=== PATIENT | female | born 1960 | race Caucasian/White ===

== ENCOUNTER 2016-03-01 23:16 | Emergency (ER) | payer OTHER ==
[2014-10-16 14:32] VITALS: BMI 30.8
[~2016-03-01 23:16] MED LIST: CELEXA40 MG PO; COUMADIN10 MG PO; COUMADIN4 MG PO; GLUCOPHAGE1000 MG PO; LASIX80 MG PO; LEVEMIR100 U/M1; LEVEMIR100 U/M1 SC; LOVENOX INJ100 MG/ML SC; LOVENOX30 MG/0.3 SC; METOPROLOL TAR100 M1 PO; NOVOLIN R100 U/ML; NOVOLIN R100 U/ML SQ; PLAVIX75 MG PO; TYLENOL PM1 TAB PO; ZESTRIL20 MG PO
== END 2016-03-02 01:10 | disposition home or self-care (01) ==
LOC: D.ER 23:16
DX: T36.1X5A Adverse effect of cephalosporins and other beta-lactam antibiotics, initial encounter (principal); Y92.019 Unspecified place in single-family (private) house as the place of occurrence of the external cause; Z95.1 Presence of aortocoronary bypass graft; I50.9 Heart failure, unspecified; I82.401 Acute embolism and thrombosis of unspecified deep veins of right lower extremity; I10 Essential (primary) hypertension; E11.9 Type 2 diabetes mellitus without complications; Z79.4 Long term (current) use of insulin

== ENCOUNTER 2016-03-04 17:01 | Inpatient (IN) | payer OTHER ==
[~2016-03-04] VITALS: Ht 170.2 cm; Wt 93.3 kg
[2016-03-04 18:13] LABS: BASOPHILS 0.1 % (0.0-2.0); EOSINOPHILS 5.4 % (0-7); HEMATOCRIT 37.9 % (36.0-48.0); HEMOGLOBIN 12.7 g/dL (12-16); LYMPHOCYTES 22.2 % (15-50); MCH 29.9 pg (26.0-34.0); MCHC 33.5 g/dL (31.0-37.0); MCV 89.2 fL (80.0-100.0); MEAN PLATELET VOLUME 10.9 fL (7.4-10.4); MONOCYTES 8.4 % (2-11); NEUTROPHILS 62.9 % (40-80); PLATELET COUNT 301 10x3/uL (130-400); RBC 4.25 10x6/uL (4.00-5.40); RDW 13.4 % (11.5-14.5); WBC 9.7 10x3/uL (4.8-10.8)
[2016-03-04 18:22] LABS: KETONE - SERUM NEGATIVE (NEGATIVE)
[2016-03-04 18:24] LABS: INR 0.99 (0.85-1.17); PROTIME 12.9 SECONDS (11.6-15.0)
[2016-03-04 18:34] LABS: ALBUMIN 3.5 g/dL (3.4-5.0); ALKALINE PHOSPHATASE 117 U/L (46-116); ALT (SGPT) 15 U/L (10-68); BILIRUBIN - TOTAL 0.23 mg/dL (0.2-1.3); CALCIUM 9.9 mg/dL (8.5-10.1); CARBON DIOXIDE 25.7 mmol/L (21.0-32.0); CHLORIDE - SERUM 89 mmol/L (98-107); CREATININE - SERUM 2.4 mg/dL (0.6-1.3); POTASSIUM - SERUM 4.6 mmol/L (3.5-5.1); PROTEIN - SERUM 7.7 g/dL (6.4-8.2); SODIUM 129 mmol/L (136-145); TROPONIN-I 0.044 ng/mL (0.000-0.060); UREA NITROGEN 100 mg/dL (7-18); URIC ACID 6.5 mg/dL (2.6-7.2); eGFR NON AFRICAN AMERICAN 22 mL/min (90-120)
[2016-03-04 18:37] LABS: CALC OSMOLALITY 316 mosm/kg (275-300); GLUCOSE 576 mg/dL (74-106)
[2016-03-04 21:20] VITALS: BP 172/88
[2016-03-04 22:54] VITALS: BP 176/64; BMI 28.9
[2016-03-04] MEDS ORDERED: ZYLOPRIM300 MG PO (23:11)
[2016-03-04] MEDS ORDERED: LOPID600 MG PO (23:12)
[2016-03-04] MEDS ORDERED: LOSARTAN POTASS25 MG PO (23:13)
--- NOTE | 2016-03-04 23:21 | NUR ---
PT ARRIVED FROM ER VIA W/C AT 2020 HRS. PT DENIED AYN DISCOMFORT. IV TO LAC WITH NS AT 150CC/HR STARTED. FSBS 547. LAB CALLED FOR STAT GLUCOSE WITH 554 RESULTED. HUMALOG 20 UNITS GIVEN SUB-Q TO UPPER L ARM PER S/S. LEVEMIR 40 UNITS GIVEN SUB-Q TO UPPER R ARM. SR WITH PVC'S PER CM HR 62. ADMISSION ASSESSMENT, HISTORY AND HOME MED LIST COMPLETED BY 2330 HRS. WILL CONTINUE TO MONITOR. SR UP X2, CALL LIGHT WITHIN REACH.
[2016-03-05 00:30] VITALS: BP 174/50
--- NOTE | 2016-03-05 01:20 | NUR ---
PT AWAKE; DENIES ANY DISCOMFORT. STATES HAS HX OF PVC'S. WILL CONTINUE TO MONITOR.
--- NOTE | 2016-03-05 02:37 | NUR ---
PT AWAKE; HAS C/ SORE BACK. PILLOWS PROVIDED. WILL CONTINUE TO MONITOR.
[2016-03-05 04:30] VITALS: BP 164/58
--- NOTE | 2016-03-05 04:43 | NUR ---
PT HAS C/O LOWER BACK PAIN. Gifty LOWE RN HS INFORMED TO TALK TO ER MD. WILL CONTINUE TO MONITOR.
[2016-03-05 05:36] LABS: BASOPHILS 0.1 % (0.0-2.0); EOSINOPHILS 7.1 % (0-7); HEMOGLOBIN 11.9 g/dL (12-16); IMMATURE GRANULOCYTES 0.9 % (0-5); LYMPHOCYTES 37.9 % (15-50); MCH 29.2 pg (26.0-34.0); MCHC 33.1 g/dL (31.0-37.0); MCV 88.2 fL (80.0-100.0); MEAN PLATELET VOLUME 10.9 fL (7.4-10.4); MONOCYTES 10.3 % (2-11); NEUTROPHILS 43.7 % (40-80); PLATELET COUNT 283 10x3/uL (130-400); RBC 4.08 10x6/uL (4.00-5.40); RDW 13.5 % (11.5-14.5); WBC 9.1 10x3/uL (4.8-10.8)
[2016-03-05 06:23] LABS: CALCIUM 9.4 mg/dL (8.5-10.1); CARBON DIOXIDE 27.6 mmol/L (21.0-32.0); CHLORIDE - SERUM 99 mmol/L (98-107); CKMB 1.6 U/L (0.0-3.6); SODIUM 138 mmol/L (136-145); UREA NITROGEN 92 mg/dL (7-18); eGFR NON AFRICAN AMERICAN 27 mL/min (90-120)
[2016-03-05 06:24] LABS: CALC OSMOLALITY 310 mosm/kg (275-300); GLUCOSE 220 mg/dL (74-106); TROPONIN-I 0.075 ng/mL (0.000-0.060)
--- NOTE | 2016-03-05 06:43 | NUR ---
AM FSBS 226. 8 UNITS HUMALOG GIVEN PER S/S. PT STATED TYLENOL IS HELPING BACK PAIN. NEED MET; WILL CONTINUE TO MONITOR.
--- NOTE | 2016-03-05 07:47 | NUR ---
AM ROUNDING- PT SITTING UP IN BED WITH EYES OPEN RESTING. ON MONITOR SHOWING SR, HR 64 WITH PVC'S. FSBS ACHS, 226 THIS AM THAT WAS COVERED BY FAMILY CENTERED SPECIALIST NURSE, REGI. IV SEEN TO LEFT AC WITH NS RUNNING AT 150CC. ON ROOM AIR. PT IS ALERT AND ORIENTED, UP AD EMILY. PT IS C/O OF BACK PAIN, FAMILY CENTERED SPECIALIST NURSE REGI, REPORTED SHE GAVE PT TYLENOL. WILL CONTINUE TO MONITOR.
[2016-03-05 09:10] VITALS: BP 208/94
--- NOTE | 2016-03-05 10:15 | NUR ---
PAGEUrvashi GARNICA TO NOTIFY HER OF PTS B/P. AWAITING CALLBACK.
[2016-03-05 12:00] VITALS: BP 178/62
--- NOTE | 2016-03-05 12:30 | NUR ---
Patient Name: DILIP FAYE Admission Status: ER Accout number: [id number] Admission Date: 03-04-2016 : 1960 Admission Diagnosis: hyperglycemia Attending: GILBERTO Current LOS: 1 Anticipated DC Date: 03/07/16 Planned Disposition: Home with friends. Primary Insurance: [employer] PPO Discharge Planning Comments: Cm met with patient to complete initial discharge assessment. Patient gave consent to complete assessment. Patient lives at home with friends. She reports she is independent in her care at home. She has a glucometer and checks her sugar several times a day. She has been to [facility] walk in clinic a week ago and prescribed antibiotics and steroids. She broke out to the antibiotics and come to the ER. She was taken off the antibiotics and prescribed more steroids on Sunday. She presented to the ER 03/04/16 due to not being able to eat and feeling so bad. She is being admitted for hyperglycemia and dehydration. Patient plans to return home at discharge and does not feel she will have any discharge needs at discharge. Cm will continue to follow and assist with dc plans/needs. Log Getter: Bharti Coroan RN, CCM Is the patient Alert and Oriented? Yes * How many steps to enter\exit or inside your home? 4 * PCP Dr. Carvalho * Pharmacy [facility] on [address] * Preadmission Environment Home with Family * ADLs Independent * Equipment Glucometer * List name and contact numbers for known caregivers / representatives who currently or will assist patient after discharge: Nolvia Morales - eder - [phone] * Community resources currently utilized None * Additional services required to return to the preadmission environment? No * Can the patient safely return to the preadmission environment? Yes * Has this patient been hospitalized within the prior 30 days at any hospital? No
--- NOTE | 2016-03-05 15:04 | NUR ---
1450- PT TO RADIOLOGY VIA WHEELCHAIR.
--- NOTE | 2016-03-05 15:16 | NUR ---
SCDS PLACED ON PT ORDERED.
--- NOTE | 2016-03-05 15:26 | NUR ---
PAGED DR. WELCH TO INFORM HIM THAT PTS TROPONIN HAD "BUMPED" PER ORDERS FROM DANIKA MEHTA. AWAITING CALLBACK.
[2016-03-05 15:54] LABS: CKMB 1.3 U/L (0.0-3.6); CREATINE KINASE 50 UL (21-215)
[2016-03-05 15:57] LABS: TROPONIN-I 0.091 ng/mL (0.000-0.060)
--- NOTE | 2016-03-05 16:42 | NUR ---
PT BACK FROM RADIOLOGY VIA WHEELCHAIR.
--- NOTE | 2016-03-05 16:42 | NUR ---
1554- TO RADIOLOGY VIA WHEELCHAIR.
--- NOTE | 2016-03-05 17:06 | NUR ---
PAGED DR. WELCH TO INFORM HIM OF PTS TROPONIN LEVEL. AWAITING CALLBACK.
--- NOTE | 2016-03-05 17:49 | NUR ---
DID EKG ORDERED. PAGED DR. WELCH TO LET HIM KNOW ABOUT TROPONIN, STILL AWAITING CALLBACK.
--- NOTE | 2016-03-05 18:28 | NUR ---
PT SITTING UP IN BED WITH EYES OPEN RESTING. GUEST AT BEDSIDE. NO NEED AT CURRENT TIME. WILL CONTINUE TO MONITOR.
[2016-03-05 20:19] VITALS: BP 129/71
[2016-03-05 20:39] LABS: CKMB 1.4 U/L (0.0-3.6); CREATINE KINASE 46 UL (21-215)
[2016-03-05 20:43] LABS: TROPONIN-I 0.089 ng/mL (0.000-0.060)
--- NOTE | 2016-03-05 23:03 | NUR ---
INITIAL ROUNDS COMPETED AT 1915 HRS. PT STATES WANTS NORCO WHEN DUE HAS C/O VBACK PAIN. ASSESSMENT COMPLETED AT 1999 HRS. VSS. SR WITH FREQ PVC PER CM HR 61. IV TO LAC WITH 1/2NS AT 30CC/HR. IV PATENT. LUNGS DIMIINISHED IN BASES BILAT. PT REFUSES SCD'S. PM FSBS 288. HUMALOG INSULIN GIVEN SUB-Q PER S/S. SCHEDULED LEVEMIR ADMINISTERED. PM MEDS INCLUDING NORCO GIVEN. PM SNACK SERVED. PT CURERNTLY RESTING WITH EYES CLOSED. RESP EVEN AND REGULAR. SR UP X2, CALL LIGHT WITHIN REACH.
--- NOTE | 2016-03-05 23:47 | NUR ---
DR WELCH NOTIFIED OF INCREASED TROPIN TO 0.091 AT 2020 HRS. NO NEW ORDERS.
[2016-03-06 00:06] VITALS: BP 173/71
--- NOTE | 2016-03-06 00:48 | NUR ---
PT RESTING WITH EYES CLOSED. RESP EVEN AND REGULAR. SR UP X2, CALL LIGHT WITHIN REACH.
--- NOTE | 2016-03-06 01:51 | NUR ---
PT RESTING WITH EYES CLOSED. RESP EVEN AND REGULAR. SR UP X2, CALL LIGHT WITHIN REACH.
[2016-03-06 02:33] LABS: BASOPHILS 0.3 % (0.0-2.0); EOSINOPHILS 7.4 % (0-7); HEMATOCRIT 34.2 % (36.0-48.0); HEMOGLOBIN 11.2 g/dL (12-16); IMMATURE GRANULOCYTES 0.9 % (0-5); LYMPHOCYTES 40.3 % (15-50); MCH 29.2 pg (26.0-34.0); MCHC 32.7 g/dL (31.0-37.0); MCV 89.3 fL (80.0-100.0); MEAN PLATELET VOLUME 10.4 fL (7.4-10.4); MONOCYTES 10.6 % (2-11); NEUTROPHILS 40.5 % (40-80); PLATELET COUNT 259 10x3/uL (130-400); RBC 3.83 10x6/uL (4.00-5.40); RDW 13.7 % (11.5-14.5); WBC 6.9 10x3/uL (4.8-10.8)
[2016-03-06 03:03] LABS: CALCIUM 9.3 mg/dL (8.5-10.1); CARBON DIOXIDE 29.7 mmol/L (21.0-32.0); CHLORIDE - SERUM 102 mmol/L (98-107); CKMB 1.3 U/L (0.0-3.6); CREATINE KINASE 41 UL (21-215); CREATININE - SERUM 1.8 mg/dL (0.6-1.3); POTASSIUM - SERUM 3.7 mmol/L (3.5-5.1); SODIUM 139 mmol/L (136-145); eGFR NON AFRICAN AMERICAN 31 mL/min (90-120)
[2016-03-06 03:18] LABS: CALC OSMOLALITY 298 mosm/kg (275-300); GLUCOSE 128 mg/dL (74-106); TROPONIN-I 0.096 ng/mL (0.000-0.060); UREA NITROGEN 67 mg/dL (7-18)
--- NOTE | 2016-03-06 04:21 | NUR ---
PT STATES [facility] HELPING BACK PAIN. WILL CONTINUE TO MONITOR.
[2016-03-06 05:55] VITALS: BP 149/56
--- NOTE | 2016-03-06 06:29 | NUR ---
VSS THROUGHOUT NGIHT. SR/SB WITH PVC'S PER CM PT STATED NORCO HELPED BACK PAIN. AM FSBS 97. NO COVERAGE NEEEDED. NEEDS MET; WILL CONTINUE TO MONITOR.
--- NOTE | 2016-03-06 06:58 | NUR ---
RECEIVED PT REPORT. WILL CONTINUE PLAN OF CARE. PT IS ALERT. NO OTHER NEEDS AT THIS TIME. WILL CONTINUE TO MONITOR.
--- NOTE | 2016-03-06 07:37 | NUR ---
PT IS ALERT NO CO PAIN AT THIS TIME. WILL CONTINUE TO MONITOR. NO OTHER NEEDS
[2016-03-06 08:25] VITALS: BP 146/62
[2016-03-06 12:53] VITALS: BP 181/60
[2016-03-06 13:43] VITALS: Ht 170.2 cm; Wt 93.3 kg
--- NOTE | 2016-03-06 14:16 | CN ---
PATIENT NAME:DILIP FAYE MEDICAL RECORD: [id number] : 58 LOCATION:D. D.2139 ADMIT DATE: 03/04/16 ACCOUNT: [id number] CONSULTING PHYSICIAN: MIGUELANGEL WELCH MD REFERRING PHYSICIAN: CORINA VILLEDA MD DATE OF CONSULTATION: 03/05/2016 Cardiology Consultation ADMITTING DIAGNOSES: 1. Hyperglycemia. 2. Diabetes. 3. Coronary artery disease. 4. Previous coronary bypass graft surgery. 5. Previous percutaneous transluminal coronary angioplasty, stent. 6. Hypertension. 7. Dysrhythmia -- premature ventricular contractions. 8. Hyperlipidemia. HISTORY OF PRESENT ILLNESS: Mrs. Faye is well known to us with a past history of coronary artery disease, cardiac bypass graft surgery and PTCA stent to the LAD. The last intervention was September of 2014. She presents with lethargy. She was found to have a blood sugar of 600, her EKG was abnormal. She has PVCs and ST-T abnormalities; however, this is really unchanged from previous EKGs that we have in the clinic. The PVCs are unchanged as well. She is on metoprolol for this. She does have hypertension, for which she is on metoprolol and losartan. Hyperlipidemia, for which she is on gemfibrozil. Her troponin is normal. PHYSICAL EXAMINATION: GENERAL APPEARANCE: Well-nourished, well-developed, appears stated age. Level of distress, comfortable. PSYCHIATRIC: Mental status, alert, normal affect. Orientation, oriented to time, place and person. EYES: Lids and conjunctiva, noninjected. No discharge, no pallor. ENT: Lips, teeth, gums, normal dentition. Oropharynx, no cyanosis, no pallor. NECK: Carotid arteries, bilateral normal upstroke, no bruits, no thrills. JUGULAR VEINS: No jugular venous pressure or distention. CERVICAL LYMPH NODES: Nontender, nonenlarged. THYROID: Not enlarged. Nontender. No nodules. LUNGS: Respiratory effort, unlabored. CHEST: Normal curvature. No thoracic deformity. No chest wall tenderness. Percussion, resonant. Auscultation, clear. No wheezes, no rales, no rhonchi. CARDIOVASCULAR: Precordial exam, nondisplaced. No heaves or pericardial thrills. Rate and rhythm, regular. Heart sounds, normal S1, normal S2. No S3, no gallop, no rub. Systolic murmur, not heard. Diastolic murmur, not heard. EXTREMITIES: No cyanosis, no edema. Peripheral pulses, full and equal in all extremities, except as noted. No bruits appreciated. ABDOMEN: Soft, nondistended. Normal aorta. No bruit. Nontender. No masses. Liver, nontender, no hepatomegaly. Spleen, nontender, no splenomegaly. MUSCULOSKELETAL: No joint tenderness. No joint swelling. No erythema. NEUROLOGICAL: Normal gait, normal strength, normal tone. SKIN: Warm and dry. REVIEW OF SYSTEMS: The patient reports easy bruising but reports no swollen CONSULT REPORT [id number] DILIP FAYE glands. The patient reports no fever, no night sweats, no significant weight gain, no significant weight loss. No significant exercise tolerance. The patient reports no dry eyes, no irritation, no vision change. Patient reports no difficulty hearing and no ear pain. Patient reports no frequent nose bleeds or nose and sinus problems. Patient reports on arm pain on exertion. No shortness of breath while lying down. No history of heart murmur. Patient reports no cough, no wheezing or coughing up blood. Patient reports no abdominal pain, no vomiting. Normal appetite. No diarrhea and not vomiting blood. No nausea and no constipation. Patient reports no incontinence. No difficulty urinating. No hematuria. No increased frequency. Patient reports no muscle aches. No weakness, no arthralgias, no back pain. No swelling of the extremities. Patient reports no abnormal mole, no jaundice, no rashes. Reports no loss of consciousness. No weakness and no numbness. No seizures, dizziness, or headaches. The patient reports no depression, no sleep disturbance, feeling safe in a relationship and no alcohol abuse. Patient reports on fatigue. Reports no runny nose or sinus pressure. No itching, no hives, and no frequent sneezing. OVERALL IMPRESSION: Abnormal ECG, but no real changes, premature ventricular contractions, this is not a new problem as well. I would only restart her medications. Center medical management on treatment of the hyperglycemia, no cardiac workup or treatment is necessary at this time. TRANSINT:[id number] Voice Confirmation ID: [id number] DOCUMENT ID: [id number] MIGUELANGEL WELCH MD at 1416 CC: [id number] DICTATION DATE: 03/05/16 1044 WHEEL AND PINION INSPECTOR: 03/05/16 1107 ADM IN [facility] [address] [id number]
--- NOTE | 2016-03-06 15:05 | NUR ---
NO SS OF DISTRESS AT THIS TIME. WILL CONTINUE TO MONITOR.
[2016-03-06 16:49] VITALS: BP 148/82
--- NOTE | 2016-03-06 19:43 | NUR ---
RESUMED CARE OF PT, TALKING ON PHONE, IV-LAC-1/2 NS-30, KEZELETF-20-DJP DEGREE BLOCK WITH PVC, DENIES ANY NEEDS, CALL LIGHT IN REACH, BED IS LOW, SRX2, WILL CONTINUE TO MONITOR
[2016-03-06 21:47] VITALS: BP 186/61
[2016-03-07 01:44] VITALS: BP 154/63
--- NOTE | 2016-03-07 01:48 | NUR ---
PT LAYING IN BED NO DISTRESS OBSERVED CALL LIGHT IN REACH SRX2 WILL MONITOR
[2016-03-07 06:08] LABS: BASOPHILS 0.2 % (0.0-2.0); EOSINOPHILS 6.1 % (0-7); HEMATOCRIT 32.7 % (36.0-48.0); HEMOGLOBIN 10.6 g/dL (12-16); IMMATURE GRANULOCYTES 0.9 % (0-5); LYMPHOCYTES 23.1 % (15-50); MCH 29.1 pg (26.0-34.0); MCHC 32.4 g/dL (31.0-37.0); MCV 89.8 fL (80.0-100.0); MEAN PLATELET VOLUME 11.1 fL (7.4-10.4); NEUTROPHILS 61.7 % (40-80); PLATELET COUNT 252 10x3/uL (130-400); RBC 3.64 10x6/uL (4.00-5.40)
[2016-03-07 06:10] VITALS: BP 190/66
[2016-03-07 06:13] LABS: WBC 8.7 10x3/uL (4.8-10.8)
[2016-03-07 06:23] LABS: ANION GAP 15.5 mmol/L (8-16); CALCIUM 8.6 mg/dL (8.5-10.1); CARBON DIOXIDE 26.1 mmol/L (21.0-32.0)
[2016-03-07 06:27] LABS: POTASSIUM - SERUM 4.6 mmol/L (3.5-5.1)
[2016-03-07 08:08] VITALS: BP 181/69
[2016-03-07 11:39] VITALS: BP 191/57
--- NOTE | 2016-03-07 11:53 | NUR ---
TREATED PT WITH IV APRESOLINE FOR SBP 190 ORDERED TO GIVE IF SBP IN GREATER THAN 170. PT RESTING IN BED EATING LUNCH TRAY. CL IN REACH. NO FURTHER NEEDS AT THIS TIME. WILL CTM.
--- NOTE | 2016-03-07 13:14 | NUR ---
PASSED PT OFF AND GAVE BEDSIDE REPORT TO ONCOMING NURSE MARTIR LEMONS. NO FURTHER NEEDS.
[2016-03-07 15:42] VITALS: BP 186/71
--- NOTE | 2016-03-07 18:14 | NUR ---
Pt. was received this afternoon in bed awake and oriented x 3. Denies any needs and/or concerns at this time. LAC patent with 1/2 NS infusing at 30ml's/hr. Telementry attached. Continued to monitor her through the shift. New order received for a one time order of Apresoline 10mg po at 3:30pm for b/p 186/71. Pt has continued to rest in bed. No signs of any discomfort or distress.
[2016-03-07 20:11] VITALS: BP 162/59
--- NOTE | 2016-03-07 20:21 | NUR ---
HS MEDS GIVEN, BS 281, COVERED PER S/S. NORCO 1 TAB GIVEN FOR C/O PAIN TO BACK. WILL CONT TO MONITOR.
[2016-03-07 22:16] LABS: CREATININE - URINE 47.4 mg/dL (30-125); PROTEIN - URINE 43.2 mg/dL (0.0-11.9)
--- NOTE | 2016-03-07 22:18 | NUR ---
PT ROUNDED ON AND O DISTRESS OBSERVED OR NOTED AT THIS TIME PT LAYING IN BED CALL LIGHT IN REACH SRX2 BED LOW AND LOCKED WILL MONITOR
[2016-03-07 22:20] LABS: APPEARANCE CLEAR (CLEAR); BILIRUBIN NEGATIVE (NEGATIVE); COLOR YELLOW (YELLOW); GLUCOSE 100 mg/dL (NEGATIVE); KETONE NEGATIVE (NEGATIVE); LEUKOCYTE ESTERASE NEGATIVE (NEGATIVE); NITRITE NEGATIVE (NEGATIVE); PROTEIN TRACE mg/dL (NEGATIVE); UROBILINOGEN NORMAL (NORMAL)
[2016-03-08 02:18] VITALS: BP 155/60
--- NOTE | 2016-03-08 02:24 | NUR ---
RESTING WITH EYES CLOSED, RESPERATIONS EVEN, NO S/S DISTRESS NOTED.
--- NOTE | 2016-03-08 04:38 | NUR ---
MANAGER SAFE AT BED SIDE TO OBTAIN VITALS.
[2016-03-08 06:32] LABS: BASOPHILS 0.4 % (0.0-2.0); EOSINOPHILS 5.9 % (0-7); HEMATOCRIT 31.6 % (36.0-48.0); HEMOGLOBIN 10.3 g/dL (12-16); IMMATURE GRANULOCYTES 0.6 % (0-5); LYMPHOCYTES 31.7 % (15-50); MCH 29.4 pg (26.0-34.0); MCHC 32.6 g/dL (31.0-37.0); MCV 90.3 fL (80.0-100.0); MEAN PLATELET VOLUME 11.2 fL (7.4-10.4); MONOCYTES 9.2 % (2-11); NEUTROPHILS 52.2 % (40-80); PLATELET COUNT 250 10x3/uL (130-400); WBC 7.2 10x3/uL (4.8-10.8)
[2016-03-08 06:42] VITALS: BP 162/51
[2016-03-08 06:52] LABS: ANION GAP 14.6 mmol/L (8-16); CALCIUM 8.9 mg/dL (8.5-10.1); CARBON DIOXIDE 24.4 mmol/L (21.0-32.0); CREATININE - SERUM 2.1 mg/dL (0.6-1.3); MAGNESIUM - SERUM 1.9 mg/dL (1.8-2.4)
--- NOTE | 2016-03-08 08:16 | NUR ---
ASSESSMENT DONE. PT SITTING UP IN BED A/O. DENIES NEEDS AT THIS TIME. KIDNEY US DONE. CALL LIGHT WITH IN REACH. WILL CONT. TO MONITOR.
[2016-03-08 08:56] VITALS: BP 168/63
--- NOTE | 2016-03-08 09:37 | NUR ---
IV PATENT. FAMILY AT BS. CALL LIGHT IN REACH. WILL MONITOR NEEDS.
[2016-03-08 11:45] LABS: APPEARANCE CLEAR (CLEAR); BILIRUBIN NEGATIVE (NEGATIVE); COLOR YELLOW (YELLOW); GLUCOSE 1000 mg/dL (NEGATIVE); KETONE NEGATIVE (NEGATIVE); LEUKOCYTE ESTERASE NEGATIVE (NEGATIVE); NITRITE NEGATIVE (NEGATIVE); PROTEIN TRACE mg/dL (NEGATIVE); UROBILINOGEN NORMAL (NORMAL)
[2016-03-08 11:52] LABS: CREATININE - URINE 28.6 mg/dL (30-125); PRO/CRE RATIO URINE 1.1 mg/g
[2016-03-08 12:28] VITALS: BP 167/65
--- NOTE | 2016-03-08 14:35 | NUR ---
PT LAYING IN BED. HOB ELEVATED. WATCHING TV. DENIES NEEDS. CALL LIGHT WITH IN REACH. WILL CONT. TO MONITOR.
[2016-03-08 15:44] VITALS: BP 148/56
--- NOTE | 2016-03-08 16:39 | NUR ---
PT VISITNG WITH FAMILY IN ROOM. DENIES NEEDS OR DISCOMFORT AT THIS TIME. CALL LIGHT WITH IN REACH. WILL CONT. TO MONITOR.
--- NOTE | 2016-03-08 20:56 | NUR ---
HS MEDS GIVEN, NORCO 1 TAB GIVEN FOR C/O PAIN TO BACK. RATES PAIN AT A 7 ON PAIN SCALE. WILL CONT TO MONITOR.
[2016-03-08 22:30] VITALS: BP 124/79
[2016-03-09 01:21] VITALS: BP 145/56
--- NOTE | 2016-03-09 03:26 | NUR ---
BS CHECK, 79. SNACK OF YENNY CRACKERS AND MILK GIVEN AT PT REQUEST.
--- NOTE | 2016-03-09 04:20 | NUR ---
LYING IN BED WITH EYES CLOSED, CALL LIGHT IN REACH. WILL CONTINUE WITH PLAN OF CARE.
[2016-03-09 05:59] VITALS: BP 135/46
[2016-03-09 06:07] LABS: BASOPHILS 0.2 % (0.0-2.0); EOSINOPHILS 3.3 % (0-7); HEMATOCRIT 29.2 % (36.0-48.0); HEMOGLOBIN 9.5 g/dL (12-16); IMMATURE GRANULOCYTES 0.3 % (0-5); LYMPHOCYTES 18.7 % (15-50); MCH 29.5 pg (26.0-34.0); MCHC 32.5 g/dL (31.0-37.0); MCV 90.7 fL (80.0-100.0); MEAN PLATELET VOLUME 10.4 fL (7.4-10.4); MONOCYTES 9.2 % (2-11); NEUTROPHILS 68.3 % (40-80); PLATELET COUNT 248 10x3/uL (130-400); RBC 3.22 10x6/uL (4.00-5.40); RDW 14.3 % (11.5-14.5); WBC 8.7 10x3/uL (4.8-10.8)
[2016-03-09 06:30] LABS: ANION GAP 13.2 mmol/L (8-16); CALCIUM 8.8 mg/dL (8.5-10.1); CARBON DIOXIDE 24.2 mmol/L (21.0-32.0); CREATININE - SERUM 1.7 mg/dL (0.6-1.3); POTASSIUM - SERUM 4.4 mmol/L (3.5-5.1)
[2016-03-09 07:49] VITALS: BP 138/41
--- NOTE | 2016-03-09 08:13 | NUR ---
AM ROUNDING- PT LAYING IN BED ON BACK WITH EYES CLOSED RESTING. ON MONITOR SHOWING SR, HR 61 WITH PVC'S. FSBS ACHS. ALERT AND ORIENTED. IV SEEN TO LEFT AC WITH 1/2 NS RUNNING AT 30CC. ON ROOM AIR. UP AD EMILY. NO NEED AT CURRENT TIME. WILL CONTINUE TO MONITOR.
[2016-03-09 11:47] VITALS: BP 160/64
[2016-03-09 11:48] LABS: % SATURATION 12 % (15-55); IRON 37 ug/dl (35-150); TOTAL IRON BIND CAPACITY 299 ug/dl (260-445); UNSAT IRON BIND CAPACITY 262 ug/dl (150-375)
--- NOTE | 2016-03-09 11:48 | NUR ---
PTS BS IS 407. DANIKA MEHTA NP IS IN PTS ROOM. INFORMED HER OF PTS BS. NO NEW ORDERS RECEIVED.
--- NOTE | 2016-03-09 13:42 | NUR ---
Nutrition Follow Up: Chart reviewed. Pt is eating 86% meal avg on a Diabetic diet. Noted wt gain 13# since admit. +BM 03/08/16. I>O. Labs noted - Glucose continues elevated. Meds noted including Vit B, Levemir, Humalog. Pt with good po intake at this time. Rec continue current diet. RD following.
[2016-03-09 16:25] VITALS: BP 198/69
--- NOTE | 2016-03-09 18:33 | NUR ---
PT SITTING UP IN BED PLAYING ON COMPUTER. DENIES ANY NEED AT CURRENT TIME. WILL CONTINUE TO MONITOR.
--- NOTE | 2016-03-09 21:02 | NUR ---
HS MEDS GIVEN, HS SNACK PROVIDED.
--- NOTE | 2016-03-10 02:10 | NUR ---
LYING IN BED WITH EYES CLOSED, CALL LIGHT IN REACH. WILL CONTINUE WITH PLAN OF CARE.
[2016-03-10 05:04] VITALS: BP 142/95
[2016-03-10 05:58] LABS: BASOPHILS 0.3 % (0.0-2.0); EOSINOPHILS 0.9 % (0-7); HEMATOCRIT 29.6 % (36.0-48.0); HEMOGLOBIN 9.6 g/dL (12-16); IMMATURE GRANULOCYTES 0.4 % (0-5); MCH 29.1 pg (26.0-34.0); MCHC 32.4 g/dL (31.0-37.0); MCV 89.7 fL (80.0-100.0); MEAN PLATELET VOLUME 10.6 fL (7.4-10.4); NEUTROPHILS 76.4 % (40-80); PLATELET COUNT 325 10x3/uL (130-400); RDW 14.4 % (11.5-14.5); WBC 15.2 10x3/uL (4.8-10.8)
[2016-03-10 06:34] LABS: ANION GAP 16.5 mmol/L (8-16); CARBON DIOXIDE 19.5 mmol/L (21.0-32.0); CREATININE - SERUM 1.7 mg/dL (0.6-1.3)
--- NOTE | 2016-03-10 08:15 | NUR ---
RESTING QUIETLY NAD NOTED
[2016-03-10 08:23] VITALS: BP 209/79
--- NOTE | 2016-03-10 08:32 | NUR ---
ASSESSMENT DONE. PT A/O. C/O NAUSEA. PAGED DANIKA SALMERON FOR ZOFRAN ORDER. PT STATES SHE BELIEVES SHE CAN TAKE PO MEDS WITH MILK. PT WAS NOT ABLE TO KEEP MEDS DOWN. B/P /. DANIKA SALMERON NOTIFIED OF THIS. APRESOLINE 10MG IV GIVEN FOR B/P. FSBS 247. WILL CONT. TO MONITOR.
--- NOTE | 2016-03-10 09:15 | NUR ---
SPOKE WITH DANIKA SALMERON. REC'D ORDER FOR ZOFRAN 4MG Q6H PRN. DR. HARRIS PAGED TO NOTIFY OF B/P PER DANIKA. NURSE HAD PAGE DR. KIMBERLY JENNINGS TO ASK ZOFRAN ORDER AND WAS TOLD TO PAGE PT'S PRIMARY DR. TELLEZ CONT. TO MONITOR.
--- NOTE | 2016-03-10 10:23 | NUR ---
B/P 169/68. PT STATES NAUSEA IS BETTER. WILL CONT. TO MONITOR.
[2016-03-10 12:03] VITALS: BP 180/76
[2016-03-10 14:22] LABS: FOLATE (FOLIC ACID) - SERUM 10.2 ng/mL (>3.0)
[2016-03-10 15:58] VITALS: BP 201/82
--- NOTE | 2016-03-10 16:07 | NUR ---
PT'S B/P ELEVATED PER MANAGER ICU. /. NURSE ADM PO APRESOLINE 50MG. WILL MONITOR.
--- NOTE | 2016-03-10 17:21 | NUR ---
PT REQUEST CHICKEN BROTH TO EAT INSTEAD OF REGULAR TRAY. C/O SLIGHT NAUSEA. DECLINED ZOFRAN AT THIS TIME. WILL CONT. TO MONITOR. CALL LIGHT WITH IN REACH.
[2016-03-10 19:48] VITALS: BP 175/75
--- NOTE | 2016-03-10 19:54 | NUR ---
RADIOLOGY AT BED SIDE FOR XRAY OF ABD.
--- NOTE | 2016-03-10 21:24 | NUR ---
HS MEDS GIVEN, BS 234, NO COVERAGE GIVEN PER PT REQUEST, SHE STATED THAT SHE HASNT EATEN ALL DAY DUE TO FEELING SICK AT HER STOMACH. NORCO 1 TAB GIVEN FOR C/O PAIN. NO OTHER NEEDS AT THIS TIME, BED LOW, CL IN REACH.
--- NOTE | 2016-03-11 00:14 | NUR ---
RESTING WITH EYES CLOSED, RESPERATIONS EVEN, NO S/S DISTRESS NOTED.
[2016-03-11 00:47] VITALS: BP 124/48
[2016-03-11 03:41] VITALS: BP 109/51
[2016-03-11 08:16] VITALS: BP 154/60
[2016-03-11] MEDS ORDERED: HEMOCYTE PLUS C1 CAP PO (11:04)
[2016-03-11] MEDS ORDERED: NORVASC5 MG PO (11:05)
[2016-03-11] MEDS ORDERED: HYDRALAZINE HCL50 MG PO (11:05)
[2016-03-11] MEDS ORDERED: COZAAR25 MG PO (11:06)
[2016-03-11] MEDS ORDERED: ASPIRIN81 MG PO (11:06)
[2016-03-11] MEDS ORDERED: COLACE100 MG PO (11:07)
[2016-03-11] MEDS ORDERED: NEPHRO-VITE RX1 TAB PO (11:07)
[2016-03-11] MEDS ORDERED: PROTONIX40 MG PO (11:07)
[2016-03-11 12:21] VITALS: BP 180/72
--- NOTE | 2016-03-11 12:28 | NUR ---
DISCHARGE TEACHING COMPLETED AND PAPERS SIGNED. D/C PTS L.AC PIV WITH CATHETER TIP FULLY INTACT. PT SITTING UP IN BED READY TO BE DISCHARGED AWAITING TRANSPORTATION. CL IN REACH. WILL CTM.
--- NOTE | 2016-03-11 14:10 | NUR ---
PT LEAVING WITH TRANSPORTATION NOW. DENIES ANY QUESTIONS OR FURTHER NEEDS.
--- NOTE | 2016-03-13 10:24 | DS ---
PATIENT:DILIP FAYE :58 MEDICAL RECORD: [id number] DISCHARGE SUMMARY ADMISSION DATE: 03/04/16 DISCHARGE DATE: 03/11/16 DATE OF ADMISSION: 03/04/2016 DATE OF DISCHARGE: 03/11/2016 ADMITTING DIAGNOSES: 1. Acute kidney injury. 2. Steroid-induced hyperglycemia. 3. Epigastric pain. 4. Back pain. 5. Abnormal EKG. 6. Coronary artery disease, status post coronary artery bypass graft. 7. History of deep venous thrombosis. 8. Hypertension. 9. Coronary artery disease. 10. Diabetes mellitus. HOSPITAL COURSE: This is a lady of Dr. Carvalho, admitted with diagnoses as outlined above. Details are well-outlined in the history of the present illness, H&P. All events, lab procedures, diagnostic testing are well documented in the records. She was admitted. Appropriate home medicines continued. Metformin put on hold as well as losartan, ARB. CONSULTANTS: Dr. Martínez, cardiology. Dr. Patrick, renal. In regards to her elevated troponin and abnormal EKG, Dr. Martínez felt she was at baseline and recommended medical management only. Because of the initial back pain she was having, we checked a V/Q scan that showed low probability of PE. Venous Dopplers negative for DVT. We will continue hold metformin. We had to increase her Levemir a little bit. Continue with some gentle hydration. Dr. Patrick managed the IV fluids. She did bump her creatinine, initial creatinine 2.4, it did trend down bumped back up to 2.1 and then it plateaued at 1.7. We did look at [facility] in the office at Dr. Carvalho office and creatinine at that time was 1.79. It is felt that her baseline might be 1.7-1.8. She had 1 episode of nausea yesterday that did resolve. We had some trouble with labile blood pressures. Dr. Patrick put her on Apresoline, added Norvasc and then he did put her on a lower dose ARB. She is stable for dismissal home. In regards to her nausea before she was discharged yesterday, we did check a KUB, it was negative. She is afebrile, vital signs stable today, ambulating. No nausea or vomiting. She feels good. No shortness of breath, no chest pain. She wants to go home. She is dismissed home. We will have her follow up with Dr. Carvalho in 1 week. Follow up with Dr. Patrick or one of his nurse practitioners in the chronic kidney disease clinic. Please refer to med rec. She is dismissed home off of the metformin. She is on low dose losartan, Apresoline and Norvasc. Her Levemir, we bumped at 45 units h.s. and she is on a sliding scale at home. She can refer to medication reconciliation. DIAGNOSES: 1. Lwznh-dg-nphpbha kidney disease. Baseline creatinine likely 1.7-1.8 2. Diabetes mellitus. 3. Hypertension. 4. Coronary artery disease. DISCHARGE SUMMARY REPORT [id number] DILIP FAYE 5. History of deep venous thrombosis. Greater than 30 minutes was spent on this discharge. Please refer to med rec. TRANSINT:[id number] Voice Confirmation ID: [id number] DOCUMENT ID: [id number] Dictated By: DANIKA MEHTA RN I have interviewed/examined the above patient and agree with these documented findings. CONSTANZA PERALES MD at 1024 at 1458 CC: [id number] DICTATION DATE: 03/11/16 120 SHEET METAL SUPERVISOR: 03/11/161943 DIS IN 03/11/16 [facility] [address] [place] [address]
== END 2016-03-11 14:11 | disposition home or self-care (01) | DRG 638 ==
LOC: D.ER 17:01 → D.M2 19:24
PROVIDERS: Emergency Medicine; Family Medicine; Internal Medicine Nephrology; ADMIT Family Medicine
DX: E09.65 Drug or chemical induced diabetes mellitus with hyperglycemia (principal); I13.0 Hypertensive heart and chronic kidney disease with heart failure and stage 1 through stage 4 chronic kidney disease, or unspecified chronic kidney disease; T38.0X5A Adverse effect of glucocorticoids and synthetic analogues, initial encounter; Z79.4 Long term (current) use of insulin; I25.10 Atherosclerotic heart disease of native coronary artery without angina pectoris; N17.9 Acute kidney failure, unspecified; I49.3 Ventricular premature depolarization; E78.5 Hyperlipidemia, unspecified; R10.13 Epigastric pain; R94.31 Abnormal electrocardiogram [ECG] [EKG]; K62.82 Dysplasia of anus; N18.9 Chronic kidney disease, unspecified; Z86.718 Personal history of other venous thrombosis and embolism; Z95.5 Presence of coronary angioplasty implant and graft; Z95.1 Presence of aortocoronary bypass graft

== ENCOUNTER 2016-03-26 08:26 | Emergency (ER) | payer OTHER ==
[2016-03-06 13:43] VITALS: BMI 29.6
[~2016-03-26 08:26] MED LIST changes: +ASPIRIN81 MG PO; +COLACE100 MG PO; +COZAAR25 MG PO; +HEMOCYTE PLUS C1 CAP PO; +HYDRALAZINE HCL50 MG PO; +LOPID600 MG PO; +LOSARTAN POTASS25 MG PO; +NEPHRO-VITE RX1 TAB PO; +NORVASC5 MG PO; +PROTONIX40 MG PO; +ZYLOPRIM300 MG PO
[2016-03-26 09:06] LABS: BASOPHILS 0.2 % (0.0-2.0); EOSINOPHILS 0.9 % (0-7); HEMATOCRIT 28.8 % (36.0-48.0); HEMOGLOBIN 9.4 g/dL (12-16); IMMATURE GRANULOCYTES 0.5 % (0-5); LYMPHOCYTES 18.8 % (15-50); MCH 29.2 pg (26.0-34.0); MCHC 32.6 g/dL (31.0-37.0); MCV 89.4 fL (80.0-100.0); MEAN PLATELET VOLUME 9.4 fL (7.4-10.4); MONOCYTES 9.3 % (2-11); NEUTROPHILS 70.3 % (40-80); RBC 3.22 10x6/uL (4.00-5.40); RDW 15.1 % (11.5-14.5); WBC 10.6 10x3/uL (4.8-10.8)
[2016-03-26 09:10] LABS: PLATELET COUNT 489 10x3/uL (130-400)
[2016-03-26 09:16] LABS: APPEARANCE CLEAR (CLEAR); BILIRUBIN NEGATIVE (NEGATIVE); COLOR YELLOW (YELLOW); GLUCOSE 50 mg/dL (NEGATIVE); KETONE NEGATIVE (NEGATIVE); LEUKOCYTE ESTERASE 1+ (NEGATIVE); NITRITE NEGATIVE (NEGATIVE); PROTEIN 2+ mg/dL (NEGATIVE); SPECIFIC GRAVITY 1.015 (1.005-1.020); UROBILINOGEN NORMAL (NORMAL)
[2016-03-26 09:17] LABS: BACTERIA MODERATE /hpf (NONE SEEN); EPITHELIAL CELLS 0-5 /hpf (0-5); RED CELLS - URINE NONE SEEN /hpf (0-5); WHITE CELLS - URINE 0-5 /hpf (0-5)
[2016-03-26 09:21] LABS: INR 1.09 (0.85-1.17)
[2016-03-26 09:45] LABS: ALBUMIN 2.8 g/dL (3.4-5.0); ANION GAP 18.4 mmol/L (8-16); BILIRUBIN - TOTAL 0.22 mg/dL (0.2-1.3); CALCIUM 9.4 mg/dL (8.5-10.1); CARBON DIOXIDE 23.9 mmol/L (21.0-32.0); CREATININE - SERUM 2.6 mg/dL (0.6-1.3); POTASSIUM - SERUM 3.3 mmol/L (3.5-5.1); PROTEIN - SERUM 6.6 g/dL (6.4-8.2)
[2016-03-26 09:50] LABS: URIC ACID 5.4 mg/dL (2.6-7.2)
== END 2016-03-26 11:07 | disposition home or self-care (01) ==
LOC: D.ER 08:26
PROVIDERS: Emergency Medicine
DX: M10.9 Gout, unspecified (principal); M25.50 Pain in unspecified joint; E11.69 Type 2 diabetes mellitus with other specified complication; Z79.4 Long term (current) use of insulin; D64.9 Anemia, unspecified; N28.9 Disorder of kidney and ureter, unspecified; I10 Essential (primary) hypertension; I44.60 Unspecified fascicular block

== ENCOUNTER 2016-12-21 12:51 | Inpatient (IN) | payer MEDICARE ==
[~2016-12-21] VITALS: Ht 170.2 cm; Wt 88.1 kg
--- NOTE | ~2016-12-21 | HEMODYNAMI ---
PATIENT:DILIP FAYE MEDICAL RECORD: [id number] : 58 [id number] ADMISSION DATE: 12/22/16 Generatedon:12/22/201615:22 Patient name: DILIP FAYE Patient #: [id number] SSN: : 1960 Date of study: 12/22/2016 Page: Of Hemodynamic Procedure Report Patient Data Patient Demographics Procedure consent was obtained First Name: DILIP Gender: Female Last Name: YUNIER : 1960 [facility] Initial: EDD Age: 56 year(s) Patient #: [id number] Race: Unknown Additional ID: [id number] Contact details [address]: [address] [place] [address] circle State: [place] City: [place] Zip code: [address] Past Medical History Allergies Allergen Reaction Date Comments Reported Other allergy 09/09/2014 Iodine Other allergy 12/22/2016 Cephalexin, Prednisone, Carvedilol, Iodinated contrast media (oral and IV) Admission Admission Data Admission Date: 12/22/2016 Admission Time: 11:19 Room #: D.2111 Lab Results Lab Result Date: 12/22/2016 Lab Result Time: 0:00 Biochemistry Name Units Result Min Max BUN mg/dl 38 --(----)-* 7 18 Creatinine mg/dl 2.3 --(----)-* 0.6 1.3 CBC Name Units Result Min Max Hemoglobin g/dl 11.3 *-(----)-- 13.5 17.5 Procedure Procedure Types Cath Procedure Diagnostic Procedure LHC LHC w/Coronaries w/Grafts PCI Procedure AMI/SVG/CONSOLIDATOR PTCA or Stent SVG-BMS/HARLEY Initial Miscellaneous Procedures Moderate Sedation up to 30 minutes Procedure Description Procedure Date Procedure Date: 12/22/2016 Procedure Start Time: 14:33 Procedure End Time: 14:48 Procedure Staff Name Function Lluvia Cole RT Monitor Kulwant Guy RN Nurse Aimee Box RN Nurse Damon Martínez MD Performing Physician Ashley Sol RT Scrub Procedure Data Cath Procedure Fluoroscopy Diagnostic fluoroscopy Total fluoroscopy Time: 4.8 time: 4.8 min min Diagnostic fluoroscopy Total fluoroscopy dose: 546 dose: 546 mGy mGy Contrast Material Contrast Material Type Amount (ml) Isovue 300 47 Entry Location Entry Primary Successful Side Size Upsize Upsize Entry Closure Succes sful Closure Location (Fr) 1 (Fr) 2 (Fr) Remarks Device Remarks Femoral Right 5 Fr 6 Fr Exoseal artery Short Estimated blood loss: 5 ml Diagnostic catheters Device Type Used For End Catheter Placement Cordis 5Fr JL 4.0 Left Coronary Catheter (MP) Angiography Cordis 5Fr 3DRC Catheter Multi-vessel (MP) Angiography Procedure Complications No complications Procedure Medications Medication Administration Route Dosage Plavix P.O. 600 mg Oxygen NC 2 l/min Heparin Flush Bag added to field 2 bags (1000units/500ml NS) 0.9% NaCl I.V. 100 ml/hr Versed I.V. 1 mg Fentanyl I.V. 50 mcg Versed I.V. 1 mg Fentanyl I.V. 50 mcg Heparin Bolus I.V. 4000 units Integrilin (Bolus I.V. 7.3 ml 2mg/ml) Versed I.V. 0.5 mg Fentanyl I.V. 25 mcg Fentanyl I.V. 100 mcg Hemodynamics Rest HGB: 11.3 (g/dl) Heart Rate: 59 (bpm) Snapshots Pre Cath Intra NCS Post Cath Vital Signs Time Heart Resp SPO2 etCO2 NIBP (mmHg) Rhythm Pain Sedation Rate (ipm) (%) (mmHg) Status Level (bpm) 13:56:31 58 25 96 185/83(141) NSR 0 (11) 10(A) , No pain 14:01:04 59 26 97 183/82(152) NSR 0 (11) 10(A) , No pain 14:05:38 58 21 97 25.3 186/81(155) NSR 0 (11) 10(A) , No pain 14:10:13 58 21 97 26.8 190/84(145) NSR 0 (11) 10(A) , No pain 14:14:49 59 20 94 27.6 200/84(150) NSR 0 (11) 10(A) , No pain 14:19:22 57 18 94 32 177/77(136) NSR 0 (11) 10(A) , No pain 14:24:55 56 17 94 29.8 175/73(138) NSR 0 (11) 10(A) , No pain 14:29:17 56 15 94 33.5 159/83(124) NSR 0 (11) 9(A) , No pain 14:33:44 57 16 93 34.2 162/80(132) NSR 0 (11) 9(A) , No pain 14:38:06 58 15 94 31.2 168/80(140) NSR 0 (11) 9(A) , No pain 14:43:34 57 16 95 32 163/81(133) NSR 0 (11) 10(A) , No pain 14:47:56 57 15 97 34.2 167/84(132) NSR 0 (11) 10(A) , No pain Medications Time Medication Route Dose Verified Delivered Reason Notes Effectiveness by by 14:00:14 Plavix P.O. 600 Damon Buffie for mg Mauricio Box RN antiplatelet therapy 14:02:48 Oxygen NC 2 Damon Buffie Per physician l/min Mauricio Box RN 14:02:56 Heparin Flush added 2 Damon Buffie used for Bag to bags Mauricio Box RN procedure (1000units/500ml field NS) 14:03:05 0.9% NaCl I.V. 100 Damon Buffie Per physician ml/hr Mauricio Box RN 14:26:38 Versed I.V. 1 mg Damon Overtonie for sedation Mauricio Box RN 14:26:44 Fentanyl I.V. 50 Damon Buffie for sedation mcg Mauricio Box RN 14:31:06 Versed I.V. 1 mg Damon Buffie for sedation Mauricio Box RN 14:31:10 Fentanyl I.V. 50 Damon Buffie for sedation mcg Mauricio Box RN 14:40:04 Heparin Bolus I.V. 4000 Damon Buffie for verifi ed units Mauricio Box RN anticoagulation with dr martínez 14:41:07 Integrilin I.V. 7.3 Damon Overtonie for wasted 2.7 (Bolus 2mg/ml) ml Mauricio Box RN antiplatelet ml of vial therapy 14:46:21 Versed I.V. 0.5 Damon Buffie for sedation mg Mauricio Box RN 14:46:26 Fentanyl I.V. 25 Damon Yu for sedation mcg Mauricio Box RN 15:21:51 Fentanyl I.V. 100 Damon Yu for back pain for pa in mcg Mauricio Box RN in the leg due to adjustment of femstop for hematoma. Procedure Log Time Note 13:38:51 Diagnostic Cath Status : Elective 13:39:07 Lluvia Douglas RT(R) sent for patient. Start room use. 13:39:08 Time tracking: Regular hours 13:39:12 Plan of Care:Hemodynamics will remain stable., Cardiac rhythm will remain stable., Comfort level will be maintained., Respiratory function will remain adequate., Patient/ family verbilizes understanding of procedure., Procedure tolerated without complication., Recovers from procedure without complications.. 13:51:12 Patient received from Med II to CCL 2 Alert and oriented. Tansferred to table in Supine position. 13:51:13 Warm blankets applied, and angelique hugger turned on for patient comfort. 13:51:14 Correct patient and procedure confirmed by team. 13:51:15 Signed procedure consent form obtained from patient. 13:51:16 ECG and BP/O2 sat monitors applied to patient. 13:55:10 Vital chart was started 13:55:10 Baseline sample Acquired. 13:55:18 Rhythm: sinus rhythm 13:55:19 Full Disclosure recording started 13:55:23 H&P Date Dictated: 12/22/2016 New H&P dictated by physician.. 13:55:25 Pre-op teaching completed and patient verbalized understanding. 13:55:25 Pre-procedure instructions explained to patient. 13:55:26 Family in waiting room. 13:55:28 Patient NPO since Midnight. 13:56:41 Patient allergic to Other allergyCephalexin, Prednisone, Carvedilol, Iodinated contrast media (oral and IV) 13:56:46 Is the patient allergic to Iodine/contrast media? Yes. 13:56:49 Was the patient premedicated? Yes 13:56:54 Is patient on blood thinner?No 13:56:59 Patient diabetic? Yes. 13:57:00 If diabetic: On Metformin? No 13:57:03 Previous problem with sedation/anesthesia? Yes combative upon awakening 13:57:32 Snore? Yes 13:57:33 Deviated septum? No 13:57:33 Sleep apnea? No 13:57:34 Opens mouth fully? Yes 13:57:35 Sticks out tongue? Yes 13:57:38 Airway obstruction? No ? 13:57:40 Dentures? No ? 13:57:46 Pre procedure: right dorsailis pedis pulse 2+ Normal; easily identifiable; not easily obliterated 13:57:49 Pre procedure: left dorsailis pedis pulse 2+ Normal; easily identifiable; not easily obliterated 13:57:51 Patient pain scale 0/10 ?. 13:58:02 IV patent on arrival in left forearm with 0.9% NaCl at [facility]. 13:58:21 Lab Result : Hemoglobin 11.3 g/dl 13:58:21 Lab Result : Creatinine 2.3 mg/dl 13:58:21 Lab Result : BUN 38 mg/dl 13:58:24 Lab results completed and on chart. 13:58:28 Right groin area was prepped with chlora-prep and draped in sterile fashion 13:58:30 Sharps counted by scrub and verified by R.N. 13:58:30 Alarms reviewed by R. N. 14:00:14 Plavix 600 mg P.O. was administered by Aimee Box RN; for antiplatelet therapy; 14:02:48 Oxygen 2 l/min NC was administered by Aimee Box RN; Per physician; 14:02:56 Heparin Flush Bag (1000units/500ml NS) 2 bags added to field was administered by Aimee Box RN; used for procedure; 14:03:05 0.9% NaCl 100 ml/hr I.V. was administered by Aimee Box RN; Per physician; 14:05:48 Zero performed for pressure channel P1 14:24:07 Physician arrived 14:24:08 --------ALL STOP TIME OUT------ 14:24:09 Final Timeout: patient, procedure, and site verified with staff and physician. All members of the team are in agreement. 14:24:12 Right groin site verified by team. 14:24:17 Physical assessment completed. ASA score P 2 - A patient with mild systemic disease as per Damon Martínez MD. 14:24:20 Sedation plan: IV Moderate Sedation Medication:Versed, Fentanyl 14:24:27 Use device set Femoral Dx 14:24:28 Medline Cath Pack opened to sterile field. 14:24:28 Bag Decanter opened to sterile field. 14:24:28 Acist Syringe opened to sterile field. 14:24:29 St Donny 260cm J .035 wire opened to sterile field. 14:24:29 Terumo 5Fr Junction Sheath opened to sterile field. 14:24:30 Acist Hand Control opened to sterile field. 14:24:31 Diagnostic Infinity 5Fr Multipack catheter opened to sterile field. 14:24:31 Acist Manifold opened to sterile field. 14:24:32 Tegaderm 4 x 4 opened to sterile field. 14:26:38 Versed 1 mg I.V. was administered by Aimee Box RN; for sedation; 14:26:44 Fentanyl 50 mcg I.V. was administered by Aimee Box RN; for sedation; 14:31:06 Versed 1 mg I.V. was administered by Aimee Box RN; for sedation; 14:31:10 Fentanyl 50 mcg I.V. was administered by Aimee Box RN; for sedation; 14:32:53 Procedure started. 14:33:01 Local anesthetic to right femoral artery with Lidocaine 2% by Damon Martínez MD.INITIAL ACCESS ONLY 14:33:30 A 5 Fr sheath was inserted into the Right Femoral artery 14:34:35 A Cordis 5Fr JL 4.0 Catheter (MP) was advanced over the wire and used for Left Coronary Angiography. 14:36:05 LCA angiography performed. 14:36:08 Injector settings: Ml/sec: 3, Volume: 6, 14:36:37 Catheter removed. 14:36:42 A Cordis 5Fr 3DRC Catheter (MP) was advanced over the wire and used for Multi-vessel Angiography. 14:37:03 FLOWERS angiography performed. 14:37:19 RCA angiography performed. 14:37:25 Injector settings: Ml/sec: 3, Volume: 6, 14:37:45 SVG to Circ angiography performed. 14:38:04 Catheter removed. 14:38:05 Proceeding to intervention. 14:38:18 Terumo 6Fr Junction Sheath opened to sterile field. 14:38:19 Merit BasixCompak Inflation Kit opened to sterile field. 14:39:09 MilePoint Launcher 6Fr GAUDENCIO 90 guide catheter opened to sterile field. 14:39:29 Manvel Poikos PT Graphix J 182cm 0.014 guide wire opened to sterile field. 14:39:38 Sheath upsized to a 6 Fr Short. 14:40:04 Heparin Bolus 4000 units I.V. was administered by Aimee Box RN; for anticoagulation; verified with dr martínez 14:40:13 6 Fr gaudencio 90cm guide catheter was inserted over the wire 14:40:47 pt graphix wire advanced. 14:41:07 Integrilin (Bolus 2mg/ml) 7.3 ml I.V. was administered by Aimee Box RN; for antiplatelet therapy; wasted 2.7 ml of vial 14:41:15 Wire advanced across lesion. 14:42:58 Inflation Number: 1 A Ravenswood RX 2.25 x 18 stent was prepped and advanced across the FLOWERS -> Mid LAD. The stent was deployed at 19 WHIT for 0:10 (min:sec). 14:43:20 Inflation number: 2 The stent balloon was then re-inflated across the FLOWERS -> Mid LAD to 19 WHIT for 0:10 (min:sec). 14:44:22 Inflation number: 3 The stent balloon was then re-inflated across the FLOWERS -> Mid LAD to 21 WHIT for 0:10 (min:sec). 14:44:28 Inflation number: 4 The stent balloon was then re-inflated across the FLOWERS -> Mid LAD to 21 WHIT for 0:10 (min:sec). 14:44:32 Wire removed. 14:44:32 Stent catheter was removed intact over wire. 14:44:33 Guide catheter removed. 14:44:39 Cordis 6Fr Exoseal opened to sterile field. 14:45:39 Sheath removed intact; hemostasis achieved with Exoseal to the Right Femoral artery. 14:45:41 Procedure ended.(Physican Out) 14:46:20 Fluoroscopy time 04.80 minutes. 14:46:21 Versed 0.5 mg I.V. was administered by Aimee Box RN; for sedation; 14:46:26 Fentanyl 25 mcg I.V. was administered by Aimee Box RN; for sedation; 14:46:27 Fluoroscopy dose: 546 mGy 14:46:27 Flurop Dose total: 546 14:46:37 Contrast amount:Isovue 300 47ml. 14:46:41 Sharps counted by scrub and verified by R.N. 14:46:42 Insertion/operative site no bleeding no hematoma. 14:46:45 Post-op/insertion site Right Femoral artery dressed using a 4 x 4 and Tegaderm. 14:46:47 Post right femoral artery:stable 14:46:48 Post Procedure Pulses reassessed and unchanged 14:46:51 Post procedure rhythm: unchanged. 14:46:53 Estimated blood loss: 5 ml 14:46:55 Patient needs reinforcement of post procedure teaching. 14:46:55 Post procedure instruction explained to patient.Patient verbalizes understanding. 14:47:30 Procedure type changed to Cath procedure, Diagnostic procedure, LHC, LHC w/Coronaries w/Grafts, PCI procedure, AMI/SVG/CONSOLIDATOR PTCA or Stent, SVG-BMS/HARLEY Initial, Miscellaneous Procedures, Moderate Sedation up to 30 minutes 14:47:31 Procedure and supply charges have been captured, reviewed, submitted and are correct. 14:47:35 Procedure Complication : No complications 14:47:37 Vital chart was stopped 14:47:38 See physician's report for complete and final results. 14:47:57 Report given to Med II. 14:48:00 Patient transfered to Med II with Stretcher. 14:48:01 Full Disclosure recording stopped 14:48:01 Procedure ended. 14:48:14 ACC-PCI Only Patient was given prescriptions, or instructed by Damon Martínez MD to start/continue the following medications upon discharge: Plavix 14:48:15 End room use (Document Last) 15:08:15 St Donny Femstop Arch Gold opened to sterile field. 15:08:50 Femstop placed over the right femoral artery at 150 mmHg. Hemostasis achieved. 15:09:22 Patient developing minor skin tears at sight of femstop 15:21:51 Fentanyl 100 mcg I.V. was administered by Aimee Box RN; for back pain; for pain in the leg due to adjustment of femstop for hematoma. Intervention Summary Intervention Notes Time ActionType Lesion and Equipment Action# Pressure Duration Attributes Used 14:42:58 Place stent FLOWERS -> Mid Ravenswood RX 1 19 00:10 LAD 2.25 x 18 stent 14:43:20 Reinflate FLOWERS -> Mid Donnell RX 2 19 00:10 stent LAD 2.25 x 18 balloon stent 14:44:22 Reinflate FLOWERS -> Mid Donnell RX 3 21 00:10 stent LAD 2.25 x 18 balloon stent 14:44:28 Reinflate FLOWERS -> Mid Ravenswood RX 4 21 00:10 stent LAD 2.25 x 18 balloon stent Device Usage Item Name Manufacture Quantity Catalog Number Hospital Part Current Mini mal Lot# / Charge Number Stock Stock Serial# Code Acist Acist 1 09318 [id number] 058642 728281 20 Syringe Medical Systems Inc Bag Microtek 1 2002S 072462 49676 529180 5 [employer] Inc. Medline Cardinal 1 [id number] 593811 32179 647389 5 Cath Pack Health Terumo 5Fr Terumo 1 [id number] 428467 067556 494708 [address] Donny St Donny 1 [id number] 162460 032067 246735 30 260cm J .035 wire Acist Hand Acist 1 90020 747052 145708 729655 5 Up My Game Medical Systems Inc Acist Acist 1 09157 123219 482785 869861 5 LEAF Commercial Capital Medical Systems Inc Diagnostic Cardinal 1 DO7273 197217 39545 220463 30 Trunityity Health 5Fr Multipack catheter Tegaderm 4 3M 1 1626W 389781 885142 460990 5 x 4 Cordis 5Fr Cardinal 1 876521 5 JL 4.0 Health Catheter (MP) Cordis 5Fr Cardinal 1 601494 5 3DRC Health Catheter (MP) Terumo 6Fr Terumo 1 [id number] 247787 861517 625492 40 Junction Sheath Merit Merit 1 RT5484 902618 053557 138628 15 BasixBycler Medical Inflation Kit Medtronic Medtronic 1 [id number] 115274 87776 253059 1 Launcher 6Fr GAUDENCIO 90 guide catheter Manvel Sci Manvel 1 [id number] 619810 496836 5 PT Estimote J 182cm 0.014 guide wire Ravenswood RX Medtronic 1 [id number] 757098 6752100 188565 5 [id number] 2.25 x 18 stent Cordis 6Fr Cardinal 1 EX600 033404 857885 739803 [address] Donny St Donny 1 R18231 331109 663427 310472 5 Femstop Arch Gold Signature Audit Reynolds Stage Time Signature Unsigned Intra-Procedure 12/22/2016 Lluvia Douglasmelanie Teixeira Douglas RT(R) 2:53:35 PM RT(R) 12/22/2016 3:08:04 PM Intra-Procedure 12/22/2016 Lluvia Teixeira Douglas RT(R) 3:09:35 PM RT(R) 12/22/2016 3:21:36 PM Intra-Procedure 12/22/2016 Lluvia Cole 3:22:54 PM RT(R) Signatures Monitor : Lluvia Cole RT Signature : Date : Time : [facility] [address] [place] [address]
[2016-12-21 13:51] LABS: BASOPHILS 0 % (0-2); HEMATOCRIT 34.9 % (36.0-48.0); HEMOGLOBIN 11.8 g/dL (12-16); IMMATURE GRANULOCYTES 0.1 % (0-5); LYMPHOCYTES 28.9 % (15-50); MCHC 33.8 g/dL (31.0-37.0); MCV 88.8 fL (80.0-100.0); MEAN PLATELET VOLUME 9.7 fL (7.4-10.4); MONOCYTES 7.1 % (2-11); NEUTROPHILS 62.9 % (40-80); RBC 3.93 10x6/uL (4.00-5.40); RDW 14.6 % (11.5-14.5); WBC 6.8 10x3/uL (4.8-10.8)
[2016-12-21 14:01] LABS: ALBUMIN 2.9 g/dL (3.4-5.0); ALKALINE PHOSPHATASE 143 U/L (46-116); ALT (SGPT) 12 U/L (10-68); BILIRUBIN - TOTAL 0.27 mg/dL (0.2-1.3); CALC OSMOLALITY 296 mosm/kg (275-300); CALCIUM 9.2 mg/dL (8.5-10.1); CARBON DIOXIDE 23.5 mmol/L (21.0-32.0); CHLORIDE - SERUM 103 mmol/L (98-107); GLUCOSE 290 mg/dL (74-106); POTASSIUM - SERUM 3.6 mmol/L (3.5-5.1); PROTEIN - SERUM 6.8 g/dL (6.4-8.2); SODIUM 140 mmol/L (136-145); UREA NITROGEN 32 mg/dL (7-18); eGFR NON AFRICAN AMERICAN 27 mL/min (90-120)
[2016-12-21 14:07] LABS: PLATELET COUNT 329 10x3/uL (130-400)
[2016-12-21 14:14] LABS: CKMB 1.2 U/L (0.0-3.6); CREATINE KINASE 46 UL (21-215); PRO BNP 13965 pg/mL (0-125); TROPONIN-I 0.038 ng/mL (0.000-0.060)
[2016-12-21 17:26] LABS: CKMB 0.9 U/L (0.0-3.6); CREATINE KINASE 43 UL (21-215); TROPONIN-I 0.043 ng/mL (0.000-0.060)
[2016-12-21] MEDS ORDERED: TYLENOL PM1 TAB PO (17:57)
[2016-12-21 18:13] VITALS: BP 170/73; BMI 28.2
--- NOTE | 2016-12-21 18:32 | NUR ---
PT ARRIVED TO UNIT FROM ER. PT A&O AND SITTING UP IN BED. EXPLAINED FLOOR ORIENTATION AND SHOWED CL AND NEEDS IF NEEDED. PT IS A STRICT I&O AND PROVIDED HER WITH A TOP HAT TO [employer]. PT DENIES ANY CURRENT PAIN OR SOB. VSS. WILL APPLY TELEMETRY WHEN READY FROM [employer] [facility] PT WILL NEED EKG BUT WANTS TO FINISH EATING WILL PASS ON IN REPORT. NO FURTHER NEEDS, FAMILY AT BEDSIDE.
--- NOTE | 2016-12-21 19:30 | NUR ---
PT C/O BEING HUNGRY. STATING SHE HAS NOT EATEN ALL DAY EXCEPT ONCE. WILL CHECK FOR FOOD FOR PT. PT DENIES ANY OTHER NEEDS. PT IS AAO. JOSELUIS AND CALL LIGHT IN REACH. WILL CPOC
--- NOTE | 2016-12-21 20:53 | NUR ---
PT FSBS IS 291 6 UNITS OF HUMALOG GIVEN IN LEFT ARM. PT GIVEN A SANDWINCH. TELEMETRY APPLIED. PT DENIES ANY OTHER NEEDS. PT LAYING IN BED WATCHIN TV.WILL CPOC
[2016-12-21 22:16] VITALS: BP 193/68
[2016-12-21 23:07] LABS: CREATINE KINASE 40 UL (21-215); TROPONIN-I 0.047 ng/mL (0.000-0.060)
[2016-12-22] VITALS (8 sets, daily range): BP systolic 138–157; BP diastolic 38–107; BMI 28.4
--- NOTE | 2016-12-22 02:58 | NUR ---
PT ASLEEP AT THIS TIME. RESPIRATIONS EVEN AND UNLABORED. PT RUNNING SINUS VINCE AT THIS 50 (RANGING 46-51) WITH PVC 11. BIGEMINAL PVC. PT IS NOT SHOWING ANY S/S OF DISTRESS. PT AROUSES TO VERBAL STIMULI. WILL CPOC
[2016-12-22 06:27] LABS: BASOPHILS 0.1 % (0-2); EOSINOPHILS 1.7 % (0-7); HEMATOCRIT 33.8 % (36.0-48.0); HEMOGLOBIN 11.3 g/dL (12-16); IMMATURE GRANULOCYTES 0.3 % (0-5); LYMPHOCYTES 38.6 % (15-50); MCH 29.9 pg (26.0-34.0); MCHC 33.4 g/dL (31.0-37.0); MCV 89.4 fL (80.0-100.0); MEAN PLATELET VOLUME 10.1 fL (7.4-10.4); MONOCYTES 6.6 % (2-11); NEUTROPHILS 52.7 % (40-80); PLATELET COUNT 344 10x3/uL (130-400); RBC 3.78 10x6/uL (4.00-5.40); RDW 14.8 % (11.5-14.5); WBC 7.5 10x3/uL (4.8-10.8)
[2016-12-22 06:58] LABS: CALC OSMOLALITY 295 mosm/kg (275-300); CALCIUM 8.9 mg/dL (8.5-10.1); CARBON DIOXIDE 24.1 mmol/L (21.0-32.0); CHLORIDE - SERUM 104 mmol/L (98-107); CKMB 0.9 U/L (0.0-3.6); CREATINE KINASE 37 UL (21-215); CREATININE - SERUM 2.3 mg/dL (0.6-1.3); GLUCOSE 247 mg/dL (74-106); POTASSIUM - SERUM 3.7 mmol/L (3.5-5.1); PRO BNP 13586 pg/mL (0-125); SODIUM 140 mmol/L (136-145); TROPONIN-I 0.054 ng/mL (0.000-0.060); UREA NITROGEN 38 mg/dL (7-18); eGFR NON AFRICAN AMERICAN 23 mL/min (90-120)
--- NOTE | 2016-12-22 07:30 | NUR ---
AM ROUNDS COMPLETED. INTRODUCED MYSELF TO PT PRIMARY RN FOR TODAYS SHIFT. PT STATES SHE SLEPT "OKAY" DENIES ANY FURTHER CP. RR NONLABORED ON RA. SHIFT ASSESSMENT COMPLETED. PT HAS A L.AC PIV WITH DRSG CDI AND SWAB CAPS IN USE. PT RUNNING SB @49 PER CommitChange SurfEasy SIN. PT REFUSED SCDS AND IS AMBULATORY. PT DENIES ANY CURRENT NEEDS AT THIS TIME, CL IN REACH, BED IN LOWEST, SIDE RAILS X2. WILL CPOC.
--- NOTE | 2016-12-22 09:00 | NUR ---
MORNING MEDICATIONS GIVEN. PTS SUGAR HIGH AT 247 AND SHE RECIEVED HER SS INSULIN. PT DID INQUIRE ABOUT HER HOME MEDICATION LONG ACTING INSULIN, WILL DISCUSS WITH PRIMARY ABOUT GETTING IT ORDERED. PT SITTING UP IN BED EATING BREAKFAST, DENIES ANY CURRENT PAIN OR FURTHER NEEDS AT THIS TIME. CL IN REACH, BED IN LOWEST, SIDE RAILS X2. WILL CPOC.
--- NOTE | 2016-12-22 11:18 | NUR ---
FSBS 425 AFTER RECHECKED. PROVIDED PT WITH 12 UNITS PER SS INSULIN. DID NOT NOTIFY DOCTOR DANIKA MEHTA NP IS HERE AND STATES SHE WILL ADDRESS IT. NO FURTHER NEEDS AT THIS TIME. CL IN REACH, BED IN LOWEST, SIDE RAILS X2. WILL CPOC.
--- NOTE | 2016-12-22 12:02 | NUR ---
CALLED ABOUT PTS IODINE ALLERGY AND ELEVATED CREATNINE. ORDERS OBTAINED AND PRE-MEDS WILL BE GIVEN.
--- NOTE | 2016-12-22 12:27 | NUR ---
PREMEDS GIVEN FOR IODINE ALLERGY. CONSENTS SIGNED FOR BOOKKEEPER RECEPTIONIST. PT NPO AND VERBALIZED UNDERSTANDING. WILL CPOC.
--- NOTE | 2016-12-22 12:49 | NUR ---
PRE-OP MEDS GIVEN OPTICAL BRIGHTENER MAKER HELPER CALLED FOR PRE-OP. PT PREPPING WITH HIBICLENS FOR CATH. NO FURTHER NEEDS AT THIS TIME. WILL CPOC.
--- NOTE | 2016-12-22 13:54 | NUR ---
PT LEAVING FOR PRODUCTION LEAD NOW.
--- NOTE | 2016-12-22 14:14 | CN ---
PATIENT NAME:DILIP FAYE MEDICAL RECORD: [id number] : 58 LOCATION:D. D.2111 ADMIT DATE: 12/22/16 ACCOUNT: [id number] CONSULTING PHYSICIAN: MIGUELANGEL WELCH MD REFERRING PHYSICIAN: NICHOLE BIRCH MD DATE OF CONSULTATION: 12/22/2016 CARDIOLOGY CONSULT DIAGNOSES: 1. Angina. 2. Shortness of breath/dyspnea on exertion. 3. Congestive heart failure, chronic systolic dysfunction. 4. Cardiomyopathy. 5. Coronary artery disease. 6. Previous multivessel PTCA and stent. 7. Hypertension. 8. Diabetes. 9. Hyperlipidemia. 10. PVCs. 11. Nonsustained ventricular tachycardia. HISTORY: Mrs. Faye has had one month of increasing shortness of breath and some chest pressure. She does have a previous cardiac history. Last cardiac stent was multivessel PTCA and stent in 2014. She had similar symptoms prior to the stenting and this resolved. Her EKG is with multiple PVCs. On telemetry, she has had nonsustained ventricular tachycardia and she has nonspecific ST-T abnormalities anteriorly as well as inferiorly. REVIEW OF SYSTEMS: The patient reports easy bruising but reports no swollen glands. The patient reports no fever, no night sweats, no significant weight gain, no significant weight loss. No significant exercise tolerance. The patient reports no dry eyes, no irritation, no vision change. Patient reports no difficulty hearing and no ear pain. Patient reports no frequent nose bleeds or nose and sinus problems. Patient reports on arm pain on exertion. No shortness of breath while lying down. No history of heart murmur. Patient reports no cough, no wheezing or coughing up blood. Patient reports no abdominal pain, no vomiting. Normal appetite. No diarrhea and not vomiting blood. No nausea and no constipation. Patient reports no incontinence. No difficulty urinating. No hematuria. No increased frequency. Patient reports no muscle aches. No weakness, no arthralgias, no back pain. No swelling of the extremities. Patient reports no abnormal mole, no jaundice, no rashes. Reports no loss of consciousness. No weakness and no numbness. No seizures, dizziness, or headaches. The patient reports no depression, no sleep disturbance, feeling safe in a relationship and no alcohol abuse. Patient reports on fatigue. Reports no runny nose or sinus pressure. No itching, no hives, and no frequent sneezing. PHYSICAL EXAMINATION: GENERAL APPEARANCE: Well-nourished, well-developed, appears stated age. Level of distress, comfortable. PSYCHIATRIC: Mental status, alert, normal affect. Orientation, oriented to time, place and person. EYES: Lids and conjunctiva, noninjected. No discharge, no pallor. ENT: Lips, teeth, gums, normal dentition. Oropharynx, no cyanosis, no pallor. CONSULT REPORT [id number] DILIP FAYE NECK: Carotid arteries, bilateral normal upstroke, no bruits, no thrills. JUGULAR VEINS: No jugular venous pressure or distention. CERVICAL LYMPH NODES: Nontender, nonenlarged. THYROID: Not enlarged. Nontender. No nodules. LUNGS: Respiratory effort, unlabored. CHEST: Normal curvature. No thoracic deformity. No chest wall tenderness. Percussion, resonant. Auscultation, clear. No wheezes, no rales, no rhonchi. CARDIOVASCULAR: Precordial exam, nondisplaced. No heaves or pericardial thrills. Rate and rhythm, regular. Heart sounds, normal S1, normal S2. No S3, no gallop, no rub. Systolic murmur, not heard. Diastolic murmur, not heard. EXTREMITIES: No cyanosis, no edema. Peripheral pulses, full and equal in all extremities, except as noted. No bruits appreciated. ABDOMEN: Soft, nondistended. Normal aorta. No bruit. Nontender. No masses. Liver, nontender, no hepatomegaly. Spleen, nontender, no splenomegaly. MUSCULOSKELETAL: No joint tenderness. No joint swelling. No erythema. NEUROLOGICAL: Normal gait, normal strength, normal tone. SKIN: Warm and dry. OVERALL IMPRESSION: Anginal symptomatology with shortness of breath similar to the symptomatology she had prior to the stenting in the past. Most likely, she has recurrent hemodynamically significant coronary artery disease. We will proceed with coronary angiography. Further care depends upon findings of the angiography. TRANSINT:[id number] Voice Confirmation ID: [id number] DOCUMENT ID: [id number] MIGUELANGEL WELCH MD at 1414 CC: [id number] DICTATION DATE: 12/22/16 1123 CYBER THREAT ANALYST: 12/22/16 1159 ADM IN [place] [address] [place] [address]
--- NOTE | 2016-12-22 15:39 | NUR ---
PT BACK FROM [employer] AND HAS A R.GROIN DRSG THAT I CANT COMPLETELY SEE R/T FEM STOP IN PLACE AND SAND BAG OVER FEMSTOP APPARENTLY A HEMATOMA WAS FORMING PER [employer] NURSE. PERIPHERAL PULSES ARE INTACT. VSS AND BEING MONITERED [id number] PER POST OP PROCEDURE. PT IS TO REMAIN FLAT X4 HOURS AND VERBALIZED UNDERSTANDING. PT IS IN TEARS AND C/O PAIN IN THAT R.LEG. WILL CHECK FOR PAIN ORDERS. FAMILY AT BEDSIDE, CL IN REACH, BED IN LOWEST, SIDE RAILS X2, WILL CTM.
--- NOTE | 2016-12-22 16:02 | NUR ---
FSBS 161 PROVIDED PT WITH 2 UNITS OF INSULIN PER SS. PT STILL LYING FLAT AND VSTamia HATHAWAY FROM CLIENT SERVICES REPRESENTATIVE AT BEDSIDE ASSESSING SITE, NO FURTHER SPREAD OF HEMATOMA NOTED. R.LEG HAS DISCOLORATION REDDENED ALL OVER BUT PERIPHERAL PULSES STILL INTACT, WILL ATTEMPT TO REMOVE FEM STOP IN HOUR PER CATH TEAM. PROVIDED PT WITH PRN MORPHINE FOR HER DISCOMFORT IN THAT LEG. NO FURTHER NEEDS AT THIS TIME. CL IN REACH, BED IN LOWEST, SIDE RAILS X2. WILL CPOC.
--- NOTE | 2016-12-22 17:28 | NUR ---
REMOVED FEM STOP FROM R.GROIN AND APPLIED TEGADERM. COLOR TO R.LEG IMMEDIATETLY RETURNED TO NORMAL. PERIPHERAL PULSES INTACT AND VSS. R.GROIN HAS HEMATOMA MARKED FROM UNDERWEAR TRIMMER AND NO GROWTH NOTED. NO BLEEDING AT SITE. PT WILL REMAIN FLAT AND VERBALIZED UNDERSTANDING. VISITOR AT BEDSIDE. WILL CPOC.
--- NOTE | 2016-12-22 19:30 | NUR ---
PT IN ROOM RESTING WITH FAMILY. PT UP TO RESTROOM SLOWLY. NO S/S OF BLEEDING OR INCREASE OF HEMATOMA. PT DENIES ANY COMPLICATIONS OR DISTRESS. PT AMBULATE TO RESTROOM BY SELF. CHANGED LINEN ON BED AND STRAIGHTENED BED UP. PT LAYED BACK DOWN. NS BAG FROM POST OP IS EMPTY. S/L PT AFTER FLUSHING. IV CDI ON LEFT AC. PT DENIES ANY NEEDS. WILL CPOC
--- NOTE | 2016-12-22 22:29 | NUR ---
PT FSBS WAS 483. CHECKED A SECOND TIME 520. FOLLOWED PROTOCOL AND GAVE THE 12 UNITS. CHARGE NURSE AND RN RENAL NOTIFIED. TOLD THEM I WAS CALLING THE DOCTOR MARKETING ASSOCIATE AND THEY SAID ITS THE WEEKEND AND YOU CALL THE ER DOCTOR. THEN SAID LETS GIVE THE 12 UNITS AND SEE WHAT IT IS IN A COUPLE HOURS. PT NOTIFIED OF THIS PLAN. PT DENIES ANY NEEDS. NO S/S OF DISTRESS. WILL CPOC
[2016-12-23] VITALS: BP 144/67
--- NOTE | 2016-12-23 02:23 | NUR ---
PT FSBS IS NOW 432. 12 UNITS OF INSULIN GIVEN. HALI MULTIPLE SPINDLE ROUTER OPERATOR SAID WE STILL DO NOT NEED TO CALL THE DOCTOR BECAUSE IT HAS DECREASED FROM THE PREVIOUS FSBS OF 483, 520. (CHECKED IT TWICE). PT VERBALIZED AGREEMENT IN PLAN. WILL CONTINUE TO MONITOR. PT DENIES ANY NEEDS. NO S/S OF DISTRESS. WILL CPOC
[2016-12-23 04:00] VITALS: BP 122/45
[2016-12-23 05:06] LABS: BASOPHILS 0 % (0-2); EOSINOPHILS 0 % (0-7); HEMATOCRIT 28.6 % (36.0-48.0); HEMOGLOBIN 9.6 g/dL (12-16); IMMATURE GRANULOCYTES 0.2 % (0-5); LYMPHOCYTES 12.2 % (15-50); MCH 30.1 pg (26.0-34.0); MCHC 33.6 g/dL (31.0-37.0); MCV 89.7 fL (80.0-100.0); MEAN PLATELET VOLUME 9.4 fL (7.4-10.4); MONOCYTES 4.5 % (2-11); NEUTROPHILS 83.1 % (40-80); PLATELET COUNT 290 10x3/uL (130-400); RBC 3.19 10x6/uL (4.00-5.40); RDW 14.8 % (11.5-14.5)
[2016-12-23 05:17] LABS: WBC 9.5 10x3/uL (4.8-10.8)
[2016-12-23 05:34] LABS: ALBUMIN 2.2 g/dL (3.4-5.0); BILIRUBIN - TOTAL 0.1 mg/dL (0.2-1.3); CALCIUM 8.5 mg/dL (8.5-10.1); CARBON DIOXIDE 22.8 mmol/L (21.0-32.0); CREATININE - SERUM 2.8 mg/dL (0.6-1.3); PROTEIN - SERUM 5.5 g/dL (6.4-8.2)
[2016-12-23 05:38] LABS: ANION GAP 12.8 mmol/L (8-16); POTASSIUM - SERUM 4.6 mmol/L (3.5-5.1)
[2016-12-23 07:48] VITALS: BP 130/47
--- NOTE | 2016-12-23 08:26 | NUR ---
AM ROUNDS - PT IS IN BED AND AWAKE AT THIS TIME. MONITOR SHOWING SR WITH PVC, HR 80. IV TO LEFT AC, SL. BED AT LOWEST POSITION. CALL ZAYAS IN USE/REACH. SIDE RAILS UP X2. NO NEEDS AT THIS TIME. WILL CONTINUE TO MONITOR
[2016-12-23 12:03] VITALS: BP 196/83
--- NOTE | 2016-12-23 12:07 | NUR ---
PT BS IS 422. SPOKE WITH DR. BIRCH. NEW ORDERS. HOLD SS AND GIVE LEVEMIR, RECHECK IN 1HR. RESTART SS BEFORE DINNER. WILL CONTINUE TO MONITOR
[2016-12-23 14:19] VITALS: Ht 170.2 cm; Wt 88.1 kg
[2016-12-23 16:24] VITALS: BP 123/69
--- NOTE | 2016-12-23 19:30 | NUR ---
PT RESTING IN BED. TALKS ABOUT A SCARE SHE HAD TODAY AROUND 0830 WHEN SHE COULDNT STOP SHAKING. PT EXPRESSES CONCERN, STATES THAT SHE HAS NEVER FELT THAT WAY BEFORE. STATES THAT IT HURT HER FEELINGS THAT THE NURSES ON DAY SHIFT ASSUMED IT WAS A DT FROM ETOH. PT STATES SHE DOES NOT DRINK AND DOESNT WANT TO HAVE A PROBLEM THAT IS MISSED BECAUSE THE DOCTORS ASSUME IT IS DT'S. PT DENIES ANY NEEDS AT THIS TIME. WILL CPOC
[2016-12-23 20:00] VITALS: BP 142/63
--- NOTE | 2016-12-23 20:46 | NUR ---
PT SITTING ON SIDE OF BED GETTING READY TO SHOWER. TURNED OFF IV FLUIDS, FLUSHED IV AND COVERED TO PREVENT GETTING IT WET. PT TELEMETRY TAKEN OFF. PT UP TO SHOWER NO ASSISTANCE REQUIRED. PT WILL CALL WHEN DONE WITH SHOWER. PT DENIES ANY OTHER NEEDS. NO S/S OF DISTRES. WILL CPOC
--- NOTE | 2016-12-23 21:34 | NUR ---
PT OUT OF SHOWER,. TELEMETRY BACK ON. PT BED CHANGED. LINEN CLEAN AND DRY. GOWN CLEAN AND DRY. PT BACK IN BED. C/O PAIN. WILL GIVEN PRN MORPHINE. LEFT ARM IV IS LEAKING A SMALL AMOUNT. 1/2 NS INFUSING ORDERED. WILL MONITOR IV. PT BLOOD SUGAR IS 79. WILL MONITOR BLOOD SUGAR PT OFFERED A SNACK. PT DENIES ANY NEEDS. WILL CPOC
[2016-12-24 01:15] VITALS: BP 132/56
--- NOTE | 2016-12-24 04:24 | NUR ---
PT ASLEEP. RESP. RRR. PT AWAKE WITH VERBAL STIMULI. DENIES ANY NEEDS. NO S/S OF DISTRESS. WILL CPOC
[2016-12-24 05:15] LABS: BASOPHILS 0.1 % (0-2); EOSINOPHILS 2.9 % (0-7); HEMATOCRIT 28.1 % (36.0-48.0); HEMOGLOBIN 9.3 g/dL (12-16); IMMATURE GRANULOCYTES 0.2 % (0-5); LYMPHOCYTES 32.4 % (15-50); MCH 30.3 pg (26.0-34.0); MCHC 33.1 g/dL (31.0-37.0); MCV 91.5 fL (80.0-100.0); MEAN PLATELET VOLUME 9.9 fL (7.4-10.4); MONOCYTES 6.9 % (2-11); NEUTROPHILS 57.5 % (40-80); PLATELET COUNT 301 10x3/uL (130-400); RBC 3.07 10x6/uL (4.00-5.40); RDW 15.5 % (11.5-14.5); WBC 9.5 10x3/uL (4.8-10.8)
[2016-12-24 05:19] VITALS: BP 120/61
[2016-12-24 05:45] LABS: ALBUMIN 2.5 g/dL (3.4-5.0); BILIRUBIN - TOTAL 0.2 mg/dL (0.2-1.3); CALCIUM 8.7 mg/dL (8.5-10.1); CARBON DIOXIDE 25.4 mmol/L (21.0-32.0); CREATININE - SERUM 2.6 mg/dL (0.6-1.3); POTASSIUM - SERUM 4.4 mmol/L (3.5-5.1); PROTEIN - SERUM 5.2 g/dL (6.4-8.2)
[2016-12-24 07:42] VITALS: BP 128/59
--- NOTE | 2016-12-24 09:00 | NUR ---
AM ROUNDS - PT IN BED AND APPEARS TO BE SLEEPING WITH EQUAL AND NON LABORED BREATHING. PT IS UP AD EMILY. BED AT LOWEST POSITION. CALL ZAYAS IN USE/REACH. SIDE RAILS UP X2. WILL CONTINUE TO MONITOR
[2016-12-24 11:37] VITALS: BP 123/51
[2016-12-24] MEDS ORDERED: ASPIRIN EC81 M1 PO (14:28)
--- NOTE | 2016-12-24 18:03 | NUR ---
D/C - VERBAL AND WRITTEN D/C INTRUCTIONS GIVEN TO PT. IV TO LEFT AC D/C, CATH TIP INTACT, 2X2 APPLIED AND SECURED WITH TAPE, PT TOLERATED WELL. HEART MONITOR REMOVED AND RETURNED TO IMMUNOLOGY TEACHER. PT IS WAITING ON TRANSPORTATION. WILL CONTINUE TO MONITOR
--- NOTE | 2016-12-24 18:53 | NUR ---
PT LEFT FLOOR VIA WHEELCHAIR WITH DUST OPERATOR. WILL D/C
--- NOTE | 2017-01-01 09:02 | OP ---
PATIENT NAME: DILIP FAYE MEDICAL RECORD: [id number] :58 LOCATION:D.M2 D.2111 ADMISSION DATE:12/22/16 SURGEON: MIGUELANGEL WELCH MD DATE OF OPERATION: 12/22/2016 DATE OF SERVICE: 12/22/2016 PROCEDURES: 1. PTCA stent LAD through FLOWERS graft. 2. Left heart catheterization. 3. Selective coronary angiography. 4. Left ventriculogram. 5. FLOWERS angiography. 6. Vein graft angiography. INDICATION: Angina and coronary artery disease. PROCEDURE IN DETAIL: After informed consent was obtained and after detailed explanation of risks, benefits as well as alternative therapies, the patient elected to proceed with angiogram and angioplasty. The right femoral artery was prepped and draped in normal sterile fashion. The right femoral artery was cannulated via modified Seldinger technique with placement of 6-Chinese sheath. All catheters exchanged through this sheath. FINDINGS: Left ventriculogram was performed in standard 30-degree CHAUDHARI view, reveals preserved cardiac wall motion, ejection fraction 55%. SELECTIVE CORONARY ANGIOGRAPHY: 1. Left main showed no significant angiographic disease. 2. Left anterior descending is totally occluded. 3. FLOWERS to the LAD is widely patent; however, after this there is a 95% stenosis. 4. The left circumflex is totally occluded. 5. Vein graft to the circumflex is widely patent in a skipped fashion to OM1 and OM2. 6. Right coronary is totally occluded. PTCA stent of the LAD through the FLOWERS graft: The stent used was a 2.25 x 18 mm Central. Result was 0% residual stenosis. OVERALL IMPRESSION: Successful percutaneous transluminal coronary angioplasty stent of the LAD through the FLOWERS going from 95% initial stenosis to 0% residual stenosis. TRANSINT:[id number] Voice Confirmation ID: [id number] DOCUMENT ID: [id number] MIGUELANGEL WELCH MD at 0902 CC: [id number] DICTATION DATE: 12/22/16 1512 INSPECTOR WATCH ASSEMBLY: 12/22/16 1623 DIS IN 12/24/16 [address] [place] [address]
--- NOTE | 2017-01-01 09:02 | EC ---
PATIENT:DILIP FAYE DATE OF SERVICE: 12/22/16 SEX: F MEDICAL RECORD: [id number] DATE OF : 58 LOCATION:D.M2 D.211 AGE OF PATIENT: 56 ADMISSION DATE: 12/22/16 REFERRING PHYSICIAN: INTERPRETING PHYSICIAN: MIGUELANGEL WELCH MD ECHOCARDIOGRAM REPORT ECHO CHARGES 4 ECHO COMPLETE CLINICAL DIAGNOSIS: CHF/SOB/ELEVATED BNP,, HX OF CAD/CABG/HTN ECHOCARDIOGRAPHIC MEASUREMENTS (adult normal given) AC root (d.<3.7cm) 3.2 cm LV Septum d (<1.2 cm> 1.3 cm Valve Excursion 1.7 cm LV Septum (systole) 1.7 cm Left Atria (s.<4.0cm> 3.5 cm LVPW d(<1.2cm) 1.6 cm RV (d.<2.3cm) 6.5 cm LVPW (sytole) 1.7 cm LV diastole(<5.6CM) 5.2 cm MV E-F(>70mm/sec) cm LV systole 3.7 cm LVOT Diameter 1.9 cm MV exc.(>10mm) 1.8 cm Est.ejection fraction (50-75%) % Pericardial Effusion N DOPPLER: LVIT cm/sec A 54.0 cm/sec E 125 cm/sec LA cm/sec RVSP 32 mmHg LVOT 102 cm/sec AOP1/2T m/s Asc. Ao 147 cm/sec RVOT 101 cm/sec RA cm/sec PA 168 cm/sec AV Gradient Peak 8.59 mmHg AV Mean 4.46 mmHg AV Area 2.4 cm MV Gradient Peak 8.22 mmHg MV Mean 1.89 mmHg MV Area cm COMMENTS: Compliance Counsel: Linda LEUNG Drafting Engineer: Sloan Christensen TAPE# PACS DATE OF SERVICE: 12/22/2016 ECHOCARDIOGRAM DATE OF SERVICE: 12/22/2016 FINDINGS: 1. Left ventricular chamber size is within normal limits. Left ventricular systolic function is normal. Overall ejection fraction estimated at 60%. 2. Left atrium is within normal limits at 3.5 cm. Right atrium and right ECHOCARDIOGRAM REPORT [id number] DILIP FAYE ventricle chamber sizes are mildly dilated. 3. Valvular structures have normal structure and motion. 4. Doppler interrogation reveals mild aortic insufficiency, mild mitral regurgitation, mild tricuspid regurgitation, no other valvular insufficiency or stenosis. 5. No evidence of pericardial effusion or left ventricular thrombus. Pulmonary systolic pressure is normal estimated 30 mmHg. TRANSINT:[id number] Voice Confirmation ID: [id number] DOCUMENT ID: [id number] MIGUELANGEL WELCH MD at 0902 CC: [id number] DICTATION DATE: 12/22/16 170 SHIFT STACKER: 12/22/16 1845 DIS IN 12/24/16 [id number] [place] [address]
== END 2016-12-24 18:57 | disposition home or self-care (01) | DRG 246 ==
LOC: D.ER 12:51 → D.M2 16:59 → OBSVTIME 16:59 → D.M2 16:59
PROVIDERS: Family Medicine; Internal Medicine Interventional Cardiology; ADMIT Emergency Medicine
PROC: B2121ZZ Fluoroscopy of Single Coronary Artery Bypass Graft using Low Osmolar Contrast (ICD-10-PCS; 2016-12-22)
PROC: B2111ZZ Fluoroscopy of Multiple Coronary Arteries using Low Osmolar Contrast (ICD-10-PCS; 2016-12-22)
PROC: B2181ZZ Fluoroscopy of Left Internal Mammary Bypass Graft using Low Osmolar Contrast (ICD-10-PCS; 2016-12-22)
PROC: B2151ZZ Fluoroscopy of Left Heart using Low Osmolar Contrast (ICD-10-PCS; 2016-12-22)
PROC: 027034Z Dilation of Coronary Artery, One Artery with Drug-eluting Intraluminal Device, Percutaneous Approach (ICD-10-PCS; principal; 2016-12-22 13:00)
PROC: 4A023N7 Measurement of Cardiac Sampling and Pressure, Left Heart, Percutaneous Approach (ICD-10-PCS; 2016-12-22 13:00)
DX: I25.119 Atherosclerotic heart disease of native coronary artery with unspecified angina pectoris (principal); I50.23 Acute on chronic systolic (congestive) heart failure; N17.9 Acute kidney failure, unspecified; Z95.1 Presence of aortocoronary bypass graft; I11.0 Hypertensive heart disease with heart failure; I42.9 Cardiomyopathy, unspecified; D64.9 Anemia, unspecified; E78.5 Hyperlipidemia, unspecified; E11.65 Type 2 diabetes mellitus with hyperglycemia

== ENCOUNTER 2016-12-29 14:49 | Emergency (ER) | payer MEDICARE ==
[2016-12-23 14:19] VITALS: BMI 29.5
[~2016-12-29 14:49] MED LIST changes: +ASPIRIN EC81 M1 PO
[2016-12-29 15:50] LABS: BASOPHILS 0 % (0-2); EOSINOPHILS 1.5 % (0-7); HEMATOCRIT 30.2 % (36.0-48.0); IMMATURE GRANULOCYTES 0.3 % (0-5); LYMPHOCYTES 33.2 % (15-50); MCH 29.8 pg (26.0-34.0); MCHC 33.1 g/dL (31.0-37.0); MCV 89.9 fL (80.0-100.0); MEAN PLATELET VOLUME 9.2 fL (7.4-10.4); MONOCYTES 8.5 % (2-11); NEUTROPHILS 56.5 % (40-80); PLATELET COUNT 344 10x3/uL (130-400); RBC 3.36 10x6/uL (4.00-5.40); WBC 7.4 10x3/uL (4.8-10.8)
[2016-12-29 15:59] LABS: APTT 29.7 SECONDS (22.8-39.4); INR 1.09 (0.85-1.17)
[2016-12-29 16:12] LABS: APPEARANCE HAZY (CLEAR); BILIRUBIN NEGATIVE (NEGATIVE); COLOR YELLOW (YELLOW); GLUCOSE 250 mg/dL (NEGATIVE); KETONE NEGATIVE (NEGATIVE); NITRITE NEGATIVE (NEGATIVE); PROTEIN 3+ mg/dL (NEGATIVE); SPECIFIC GRAVITY 1.015 (1.005-1.020); UROBILINOGEN NORMAL (NORMAL)
[2016-12-29 16:13] LABS: BACTERIA MODERATE /hpf (NONE SEEN); HYALINE CAST OCC /lpf (NONE SEEN); MUCUS <1+ /lpf (NONE SEEN); RED CELLS - URINE 0-5 /hpf (0-5); YEAST OCC /hpf (NONE SEEN)
== END 2016-12-29 20:05 | disposition home or self-care (01) ==
LOC: D.ER 14:49
PROVIDERS: Family Medicine
DX: N39.0 Urinary tract infection, site not specified (principal); B37.9 Candidiasis, unspecified; S70.11XA Contusion of right thigh, initial encounter; X58.XXXA Exposure to other specified factors, initial encounter; Y93.89 Activity, other specified; Y92.029 Unspecified place in mobile home as the place of occurrence of the external cause

== ENCOUNTER 2017-02-03 10:01 | Emergency (ER) | payer MEDICARE ==
[2016-12-23 14:19] VITALS: BMI 29.5
[2017-02-03 11:34] LABS: BASOPHILS 0 % (0-2); EOSINOPHILS 0.7 % (0-7); HEMATOCRIT 33.9 % (36.0-48.0); HEMOGLOBIN 11.5 g/dL (12-16); IMMATURE GRANULOCYTES 0.3 % (0-5); LYMPHOCYTES 18.9 % (15-50); MCH 29.8 pg (26.0-34.0); MCHC 33.9 g/dL (31.0-37.0); MCV 87.8 fL (80.0-100.0); MEAN PLATELET VOLUME 10.1 fL (7.4-10.4); MONOCYTES 5.1 % (2-11); PLATELET COUNT 276 10x3/uL (130-400); RBC 3.86 10x6/uL (4.00-5.40); RDW 15.1 % (11.5-14.5); WBC 9.7 10x3/uL (4.8-10.8)
[2017-02-03 11:51] LABS: ALBUMIN 2.5 g/dL (3.4-5.0); ANION GAP 10.5 mmol/L (8-16); BILIRUBIN - TOTAL 0.37 mg/dL (0.2-1.3); CALCIUM 9.2 mg/dL (8.5-10.1); CARBON DIOXIDE 28.5 mmol/L (21.0-32.0); CREATININE - SERUM 1.8 mg/dL (0.6-1.3); PROTEIN - SERUM 6.3 g/dL (6.4-8.2)
[2017-02-03 12:05] LABS: MAGNESIUM - SERUM 1.9 mg/dL (1.8-2.4)
[2017-02-03 12:07] LABS: TROPONIN-I 0.088 ng/mL (0.000-0.060)
== END 2017-02-03 13:27 | disposition home or self-care (01) ==
LOC: D.ER 10:01
PROVIDERS: Emergency Medicine
DX: I50.9 Heart failure, unspecified (principal); R06.00 Dyspnea, unspecified; I10 Essential (primary) hypertension; E11.9 Type 2 diabetes mellitus without complications

== ENCOUNTER 2017-02-22 21:13 | Inpatient (IN) | payer MEDICARE ==
[~2017-02-22] VITALS: Ht 170.2 cm; Wt 99.8 kg
[2017-02-22 22:14] LABS: BASOPHILS 0 % (0-2); EOSINOPHILS 1.5 % (0-7); HEMATOCRIT 32.2 % (36.0-48.0); HEMOGLOBIN 10.6 g/dL (12-16); IMMATURE GRANULOCYTES 0.3 % (0-5); LYMPHOCYTES 29.8 % (15-50); MCH 29.6 pg (26.0-34.0); MCHC 32.9 g/dL (31.0-37.0); MCV 89.9 fL (80.0-100.0); MEAN PLATELET VOLUME 10.4 fL (7.4-10.4); MONOCYTES 7.9 % (2-11); NEUTROPHILS 60.5 % (40-80); PLATELET COUNT 327 10x3/uL (130-400); RBC 3.58 10x6/uL (4.00-5.40); RDW 15.7 % (11.5-14.5); WBC 7.3 10x3/uL (4.8-10.8)
[2017-02-22 22:32] LABS: ALBUMIN 2.1 g/dL (3.4-5.0); ALKALINE PHOSPHATASE 115 U/L (46-116); ALT (SGPT) 12 U/L (10-68); CALCIUM 8.2 mg/dL (8.5-10.1); CARBON DIOXIDE 21.9 mmol/L (21.0-32.0); CHLORIDE - SERUM 104 mmol/L (98-107); CREATININE - SERUM 2.3 mg/dL (0.6-1.3); PROTEIN - SERUM 5.9 g/dL (6.4-8.2); SODIUM 140 mmol/L (136-145); UREA NITROGEN 49 mg/dL (7-18); eGFR NON AFRICAN AMERICAN 23 mL/min (90-120)
[2017-02-22 22:47] LABS: CKMB 2.3 U/L (0.0-3.6); CREATINE KINASE 68 UL (21-215); PRO BNP 15879 pg/mL (0-125)
[2017-02-22 22:48] LABS: CALC OSMOLALITY 298 mosm/kg (275-300); GLUCOSE 229 mg/dL (74-106)
[2017-02-22 22:49] LABS: TROPONIN-I 0.063 ng/mL (0.000-0.060)
[2017-02-22 23:56] LABS: TROPONIN-I 0.056 ng/mL (0.000-0.060)
[2017-02-23] MEDS ORDERED: ZYLOPRIM100 MG PO (00:11)
[2017-02-23] MEDS ORDERED: LASIX40 MG PO (00:11)
[2017-02-23] MEDS ORDERED: NORVASC5 MG PO (00:13)
[2017-02-23 01:01] VITALS: BP 192/79; BMI 32.7
[2017-02-23 04:00] VITALS: BP 181/76
[2017-02-23 06:13] LABS: BASOPHILS 0.1 % (0-2); EOSINOPHILS 2.3 % (0-7); HEMOGLOBIN 11.1 g/dL (12-16); IMMATURE GRANULOCYTES 0.3 % (0-5); LYMPHOCYTES 38.7 % (15-50); MCH 28.9 pg (26.0-34.0); MCHC 31.7 g/dL (31.0-37.0); MCV 91.1 fL (80.0-100.0); MEAN PLATELET VOLUME 10.3 fL (7.4-10.4); MONOCYTES 10.5 % (2-11); NEUTROPHILS 48.1 % (40-80); PLATELET COUNT 346 10x3/uL (130-400); RBC 3.84 10x6/uL (4.00-5.40); RDW 15.7 % (11.5-14.5)
[2017-02-23 06:29] LABS: ANION GAP 15.3 mmol/L (8-16); CARBON DIOXIDE 24.5 mmol/L (21.0-32.0); CREATININE - SERUM 2.3 mg/dL (0.6-1.3); MAGNESIUM - SERUM 1.8 mg/dL (1.8-2.4); POTASSIUM - SERUM 3.8 mmol/L (3.5-5.1)
[2017-02-23 06:50] LABS: CKMB 2.4 U/L (0.0-3.6); CREATINE KINASE 64 UL (21-215)
[2017-02-23 06:51] LABS: TROPONIN-I 0.062 ng/mL (0.000-0.060)
[2017-02-23 07:42] VITALS: BP 120/59
[2017-02-23 10:55] VITALS: BMI 32.6
[2017-02-23 12:23] VITALS: Ht 170.2 cm; Wt 99.8 kg
[2017-02-23 12:25] LABS: CKMB 1.9 U/L (0.0-3.6); CREATINE KINASE 53 UL (21-215); TROPONIN-I 0.052 ng/mL (0.000-0.060)
[2017-02-23 12:41] VITALS: BP 150/76
[2017-02-23 15:33] LABS: % SATURATION 12 % (15-55); IRON 47 ug/dl (35-150); TOTAL IRON BIND CAPACITY 367 ug/dl (260-445); UNSAT IRON BIND CAPACITY 320 ug/dl (150-375)
[2017-02-23 16:17] LABS: PROTEIN - URINE 216.1 mg/dL (0.0-11.9)
[2017-02-23 17:09] VITALS: BP 178/78
[2017-02-23 19:00] VITALS: BP 178/63
[2017-02-24 04:00] VITALS: BP 167/65
[2017-02-24 06:26] LABS: BASOPHILS 0.1 % (0-2); EOSINOPHILS 1.8 % (0-7); HEMATOCRIT 31.7 % (36.0-48.0); HEMOGLOBIN 10.2 g/dL (12-16); IMMATURE GRANULOCYTES 0.4 % (0-5); LYMPHOCYTES 22.5 % (15-50); MCH 29.1 pg (26.0-34.0); MCHC 32.2 g/dL (31.0-37.0); MCV 90.3 fL (80.0-100.0); MEAN PLATELET VOLUME 10.6 fL (7.4-10.4); NEUTROPHILS 64.2 % (40-80); PLATELET COUNT 295 10x3/uL (130-400); RBC 3.51 10x6/uL (4.00-5.40); RDW 15.5 % (11.5-14.5); WBC 8.1 10x3/uL (4.8-10.8)
[2017-02-24 06:34] LABS: ANION GAP 13.1 mmol/L (8-16); CALCIUM 8.8 mg/dL (8.5-10.1); CREATININE - SERUM 2.6 mg/dL (0.6-1.3); POTASSIUM - SERUM 4.1 mmol/L (3.5-5.1)
[2017-02-24 08:26] VITALS: BP 190/69
[2017-02-24 11:40] VITALS: BP 181/70
[2017-02-24 16:11] VITALS: BP 106/85
[2017-02-24 20:25] VITALS: BP 128/68
[2017-02-25 01:13] VITALS: BP 119/71
[2017-02-25 04:32] VITALS: BP 139/64
[2017-02-25 05:48] LABS: HEMATOCRIT 30.5 % (36.0-48.0); HEMOGLOBIN 10.2 g/dL (12-16); LYMPHOCYTES 28.7 % (15-50); MCH 29.6 pg (26.0-34.0); MCHC 33.4 g/dL (31.0-37.0); MCV 88.4 fL (80.0-100.0); MEAN PLATELET VOLUME 10.4 fL (7.4-10.4); NEUTROPHILS 56.6 % (40-80); PLATELET COUNT 260 10x3/uL (130-400); RBC 3.45 10x6/uL (4.00-5.40); RDW 15.3 % (11.5-14.5); WBC 7.7 10x3/uL (4.8-10.8)
[2017-02-25 05:59] LABS: ANION GAP 16.5 mmol/L (8-16); CARBON DIOXIDE 22.6 mmol/L (21.0-32.0); POTASSIUM - SERUM 4.1 mmol/L (3.5-5.1)
[2017-02-25 08:32] VITALS: BP 150/75
[2017-02-25 11:24] VITALS: BP 150/75
[2017-02-25 15:46] VITALS: BP 149/65
[2017-02-25 20:00] VITALS: BP 137/59
[2017-02-26] VITALS: BP 146/62
[2017-02-26 04:00] VITALS: BP 151/63
[2017-02-26 06:40] LABS: ANION GAP 16.5 mmol/L (8-16); CALCIUM 8.8 mg/dL (8.5-10.1); CARBON DIOXIDE 21.1 mmol/L (21.0-32.0); CREATININE - SERUM 3.6 mg/dL (0.6-1.3); POTASSIUM - SERUM 4.6 mmol/L (3.5-5.1)
[2017-02-26 06:44] LABS: BASOPHILS 0 % (0-2); EOSINOPHILS 2.2 % (0-7); HEMATOCRIT 28.8 % (36.0-48.0); HEMOGLOBIN 9.3 g/dL (12-16); IMMATURE GRANULOCYTES 0.2 % (0-5); LYMPHOCYTES 35.3 % (15-50); MCHC 32.3 g/dL (31.0-37.0); MCV 89.7 fL (80.0-100.0); MEAN PLATELET VOLUME 10.8 fL (7.4-10.4); MONOCYTES 15.6 % (2-11); NEUTROPHILS 46.7 % (40-80); PLATELET COUNT 247 10x3/uL (130-400); RBC 3.21 10x6/uL (4.00-5.40); RDW 15.6 % (11.5-14.5)
[2017-02-26 07:45] VITALS: BP 133/49
[2017-02-26 11:37] VITALS: BP 131/44
[2017-02-26 16:17] VITALS: BP 136/58
[2017-02-26 19:00] VITALS: BP 155/70
[2017-02-27 04:00] VITALS: BP 141/66
[2017-02-27 05:56] LABS: BASOPHILS 0 % (0-2); EOSINOPHILS 3.3 % (0-7); HEMATOCRIT 27.9 % (36.0-48.0); HEMOGLOBIN 8.8 g/dL (12-16); IMMATURE GRANULOCYTES 0.2 % (0-5); LYMPHOCYTES 37.8 % (15-50); MCH 28.7 pg (26.0-34.0); MCHC 31.5 g/dL (31.0-37.0); MCV 90.9 fL (80.0-100.0); MEAN PLATELET VOLUME 10.8 fL (7.4-10.4); MONOCYTES 12.1 % (2-11); NEUTROPHILS 46.6 % (40-80); PLATELET COUNT 267 10x3/uL (130-400); RBC 3.07 10x6/uL (4.00-5.40); RDW 15.4 % (11.5-14.5); WBC 5.8 10x3/uL (4.8-10.8)
[2017-02-27 06:25] LABS: ANION GAP 18.1 mmol/L (8-16); CALCIUM 8.9 mg/dL (8.5-10.1); CARBON DIOXIDE 20.2 mmol/L (21.0-32.0); CREATININE - SERUM 4.2 mg/dL (0.6-1.3); POTASSIUM - SERUM 4.3 mmol/L (3.5-5.1)
[2017-02-27 08:46] VITALS: BP 108/66
[2017-02-27 11:23] VITALS: BP 101/58
[2017-02-27 15:39] VITALS: BP 110/68
[2017-02-27 20:00] VITALS: BP 149/67
[2017-02-28] VITALS: BP 162/58
[2017-02-28 04:00] VITALS: BP 105/66
[2017-02-28 05:23] LABS: BASOPHILS 0 % (0-2); EOSINOPHILS 3.1 % (0-7); HEMATOCRIT 29.2 % (36.0-48.0); HEMOGLOBIN 9.3 g/dL (12-16); IMMATURE GRANULOCYTES 0.2 % (0-5); LYMPHOCYTES 41.8 % (15-50); MCH 28.8 pg (26.0-34.0); MCHC 31.8 g/dL (31.0-37.0); MCV 90.4 fL (80.0-100.0); MEAN PLATELET VOLUME 10.5 fL (7.4-10.4); MONOCYTES 13.8 % (2-11); NEUTROPHILS 41.1 % (40-80); PLATELET COUNT 285 10x3/uL (130-400); RBC 3.23 10x6/uL (4.00-5.40); RDW 15.4 % (11.5-14.5); WBC 5.8 10x3/uL (4.8-10.8)
[2017-02-28 05:35] LABS: ANION GAP 17.9 mmol/L (8-16); CALCIUM 8.8 mg/dL (8.5-10.1); CARBON DIOXIDE 21.1 mmol/L (21.0-32.0); CREATININE - SERUM 4.3 mg/dL (0.6-1.3)
[2017-02-28 05:43] LABS: HEMOGLOBIN A1C 10.5 % (4.8-6.0)
[2017-02-28 06:15] LABS: COMPLEMENT C4 30.5 mg/dL (17.4-52.2)
[2017-02-28 06:41] LABS: ERYTHROCYTE SEDIMENTATION RATE 135 mm/hr (0-30)
[2017-02-28 08:17] LABS: FOLATE (FOLIC ACID) - SERUM 11.2 ng/mL (>3.0)
[2017-02-28 08:31] VITALS: BP 146/90
[2017-02-28 08:41] LABS: APPEARANCE CLOUDY (CLEAR); BILIRUBIN NEGATIVE (NEGATIVE); COLOR YELLOW (YELLOW); GLUCOSE 100 mg/dL (NEGATIVE); KETONE NEGATIVE (NEGATIVE); NITRITE NEGATIVE (NEGATIVE); PROTEIN 2+ mg/dL (NEGATIVE); RED CELLS - URINE 0-5 /hpf (0-5); SPECIFIC GRAVITY 1.015 (1.005-1.020); UROBILINOGEN NORMAL (NORMAL)
[2017-02-28 08:42] LABS: AMORPHOUS SEDIMENT <1+ /lpf (NONE SEEN); BACTERIA MODERATE /hpf (NONE SEEN); GRANULAR CAST 0-5 /lpf (NONE SEEN); MUCUS <1+ /lpf (NONE SEEN)
[2017-02-28 08:49] LABS: CREATININE - URINE 41.7 mg/dL (30-125); PROTEIN - URINE 197.6 mg/dL (0.0-11.9)
[2017-02-28 11:04] VITALS: BP 132/69
[2017-02-28 15:33] VITALS: BP 145/57
[2017-02-28 19:00] VITALS: BP 111/72
[2017-03-01 04:00] VITALS: BP 175/69
[2017-03-01 04:23] LABS: BASOPHILS 0.1 % (0-2); EOSINOPHILS 1.3 % (0-7); HEMOGLOBIN 10.2 g/dL (12-16); IMMATURE GRANULOCYTES 0.6 % (0-5); LYMPHOCYTES 33.8 % (15-50); MCH 28.8 pg (26.0-34.0); MCHC 31.9 g/dL (31.0-37.0); MCV 90.4 fL (80.0-100.0); MEAN PLATELET VOLUME 10.6 fL (7.4-10.4); MONOCYTES 12.5 % (2-11); NEUTROPHILS 51.7 % (40-80); PLATELET COUNT 330 10x3/uL (130-400); RBC 3.54 10x6/uL (4.00-5.40); RDW 15.4 % (11.5-14.5); WBC 6.9 10x3/uL (4.8-10.8)
[2017-03-01 04:45] LABS: ANION GAP 21.3 mmol/L (8-16); CALCIUM 8.7 mg/dL (8.5-10.1); CARBON DIOXIDE 19.9 mmol/L (21.0-32.0); CREATININE - SERUM 4.7 mg/dL (0.6-1.3)
[2017-03-01 04:50] LABS: POTASSIUM - SERUM 6.2 mmol/L (3.5-5.1)
[2017-03-01 06:03] LABS: ANION GAP 21.8 mmol/L (8-16); CALCIUM 8.4 mg/dL (8.5-10.1); CARBON DIOXIDE 19.9 mmol/L (21.0-32.0); CREATININE - SERUM 4.8 mg/dL (0.6-1.3)
[2017-03-01 06:06] LABS: POTASSIUM - SERUM 6.7 mmol/L (3.5-5.1)
[2017-03-01 08:18] VITALS: BP 118/50
[2017-03-01 15:27] LABS: SPE - A/G RATIO 0.7 (0.7-1.7); SPE - ALBUMIN 2.1 g/dL (2.9-4.4); SPE - ALPHA-1 GLOBULIN 0.4 g/dL (0.0-0.4); SPE - ALPHA-2 GLOBULIN 1.3 g/dL (0.4-1.0); SPE - GAMMA GLOBULIN 0.3 g/dL (0.4-1.8); SPE - M-SPIKE Not Observed g/dL (Not Observed); SPE - TOTAL PROTEIN 5.1 g/dL (6.0-8.5)
[2017-03-01 21:54] VITALS: BP 192/82
[2017-03-02 01:14] VITALS: BP 171/74
[2017-03-02 05:23] LABS: ANION GAP 16.2 mmol/L (8-16); CALCIUM 8.7 mg/dL (8.5-10.1); CARBON DIOXIDE 22.2 mmol/L (21.0-32.0); CREATININE - SERUM 4.7 mg/dL (0.6-1.3)
[2017-03-02 05:25] LABS: POTASSIUM - SERUM 4.4 mmol/L (3.5-5.1)
[2017-03-02 06:08] VITALS: BP 175/70
[2017-03-02 09:18] VITALS: BP 183/68
[2017-03-02 12:00] VITALS: BP 162/67
[2017-03-02 14:23] LABS: UPE RAND - ALBUMIN 62.6 % (()); UPE RAND - ALPHA 1 GLOBULIN 3.2 % (()); UPE RAND - ALPHA 2 GLOBULIN 14.6 % (()); UPE RAND - BETA GLOBULIN 13.9 % (()); UPE RAND - GAMMA GLOBULIN 5.7 % (())
[2017-03-02 18:10] VITALS: BP 153/69
[2017-03-02 19:00] VITALS: BP 173/74
[2017-03-03 03:48] LABS: BASOPHILS 0.2 % (0-2); EOSINOPHILS 2.9 % (0-7); HEMATOCRIT 26.8 % (36.0-48.0); HEMOGLOBIN 8.8 g/dL (12-16); IMMATURE GRANULOCYTES 0.2 % (0-5); LYMPHOCYTES 26.9 % (15-50); MCH 29.1 pg (26.0-34.0); MCHC 32.8 g/dL (31.0-37.0); MCV 88.7 fL (80.0-100.0); MEAN PLATELET VOLUME 9.8 fL (7.4-10.4); MONOCYTES 7.8 % (2-11); PLATELET COUNT 272 10x3/uL (130-400); RBC 3.02 10x6/uL (4.00-5.40); RDW 15.3 % (11.5-14.5)
[2017-03-03 03:53] LABS: WBC 5.1 10x3/uL (4.8-10.8)
[2017-03-03 03:56] LABS: CALCIUM 8.4 mg/dL (8.5-10.1); CARBON DIOXIDE 20.5 mmol/L (21.0-32.0); CREATININE - SERUM 4.1 mg/dL (0.6-1.3); POTASSIUM - SERUM 4.5 mmol/L (3.5-5.1)
[2017-03-03 04:40] VITALS: BP 101/65
[2017-03-03 09:02] VITALS: BP 147/65
[2017-03-03 11:13] VITALS: BP 142/72
[2017-03-03 13:23] LABS: APPEARANCE CLEAR (CLEAR); BILIRUBIN NEGATIVE (NEGATIVE); COLOR YELLOW (YELLOW); GLUCOSE 50 mg/dL (NEGATIVE); KETONE NEGATIVE (NEGATIVE); NITRITE NEGATIVE (NEGATIVE); PROTEIN 3+ mg/dL (NEGATIVE); UROBILINOGEN NORMAL (NORMAL)
[2017-03-03 13:26] LABS: BACTERIA FEW /hpf (NONE SEEN); EPITHELIAL CELLS 0-5 /hpf (0-5); RED CELLS - URINE 0-5 /hpf (0-5); WHITE CELLS - URINE 0-5 /hpf (0-5)
[2017-03-03 17:07] VITALS: BP 148/68
[2017-03-03 19:00] VITALS: BP 155/65
[2017-03-04] VITALS: BP 168/75
[2017-03-04 04:00] VITALS: BP 151/56
[2017-03-04 04:29] LABS: BASOPHILS 0.2 % (0-2); EOSINOPHILS 4.9 % (0-7); HEMATOCRIT 28.3 % (36.0-48.0); HEMOGLOBIN 8.9 g/dL (12-16); IMMATURE GRANULOCYTES 0.2 % (0-5); LYMPHOCYTES 35.4 % (15-50); MCH 28.3 pg (26.0-34.0); MCHC 31.4 g/dL (31.0-37.0); MCV 90.1 fL (80.0-100.0); MEAN PLATELET VOLUME 9.9 fL (7.4-10.4); MONOCYTES 12.5 % (2-11); NEUTROPHILS 46.8 % (40-80); PLATELET COUNT 311 10x3/uL (130-400); RBC 3.14 10x6/uL (4.00-5.40); RDW 15.4 % (11.5-14.5); WBC 5.1 10x3/uL (4.8-10.8)
[2017-03-04 04:53] LABS: ANION GAP 15.5 mmol/L (8-16); CALCIUM 8.6 mg/dL (8.5-10.1); CARBON DIOXIDE 22.1 mmol/L (21.0-32.0); CREATININE - SERUM 3.9 mg/dL (0.6-1.3); POTASSIUM - SERUM 4.6 mmol/L (3.5-5.1)
[2017-03-04 08:21] VITALS: BP 181/92
[2017-03-04 12:06] VITALS: BP 151/54
[2017-03-04 16:12] VITALS: BP 119/62
[2017-03-04 21:26] VITALS: BP 144/64
[2017-03-05 01:03] VITALS: BP 160/60
[2017-03-05 04:54] VITALS: BP 160/76
[2017-03-05 05:59] LABS: BASOPHILS 0 % (0-2); HEMATOCRIT 28.3 % (36.0-48.0); HEMOGLOBIN 9.1 g/dL (12-16); IMMATURE GRANULOCYTES 0.2 % (0-5); LYMPHOCYTES 32.6 % (15-50); MCH 28.8 pg (26.0-34.0); MCHC 32.2 g/dL (31.0-37.0); MCV 89.6 fL (80.0-100.0); MONOCYTES 11.5 % (2-11); NEUTROPHILS 49.7 % (40-80); PLATELET COUNT 339 10x3/uL (130-400); RBC 3.16 10x6/uL (4.00-5.40); RDW 15.5 % (11.5-14.5); WBC 5.5 10x3/uL (4.8-10.8)
[2017-03-05 06:37] LABS: ANION GAP 16.9 mmol/L (8-16); CALCIUM 8.8 mg/dL (8.5-10.1); CARBON DIOXIDE 22.1 mmol/L (21.0-32.0); CREATININE - SERUM 3.5 mg/dL (0.6-1.3)
[2017-03-05 08:01] VITALS: BP 174/70
[2017-03-05 11:26] VITALS: BP 170/76
[2017-03-05 15:41] VITALS: BP 158/59
== END 2017-03-05 17:58 | disposition home or self-care (01) | DRG 291 ==
LOC: D.ER 21:13 → OBSVTIME 23:22 → D.M2 23:22
PROVIDERS: Family Medicine; Internal Medicine; Internal Medicine Nephrology
DX: I13.0 Hypertensive heart and chronic kidney disease with heart failure and stage 1 through stage 4 chronic kidney disease, or unspecified chronic kidney disease (principal); I50.23 Acute on chronic systolic (congestive) heart failure; N17.9 Acute kidney failure, unspecified; N39.0 Urinary tract infection, site not specified; E11.22 Type 2 diabetes mellitus with diabetic chronic kidney disease; E11.40 Type 2 diabetes mellitus with diabetic neuropathy, unspecified; E11.21 Type 2 diabetes mellitus with diabetic nephropathy; I48.91 Unspecified atrial fibrillation; I25.10 Atherosclerotic heart disease of native coronary artery without angina pectoris; D50.9 Iron deficiency anemia, unspecified; M10.9 Gout, unspecified; Z76.5 Malingerer [conscious simulation]; N18.3 Chronic kidney disease, stage 3 (moderate); E87.5 Hyperkalemia; R00.1 Bradycardia, unspecified; Z95.5 Presence of coronary angioplasty implant and graft; Z95.1 Presence of aortocoronary bypass graft

== ENCOUNTER 2017-03-11 10:38 | Emergency (ER) | payer MEDICARE ==
[2017-02-23 12:23] VITALS: BMI 32.6
[~2017-03-11 10:38] MED LIST changes: +LASIX40 MG PO; +ZYLOPRIM100 MG PO
[2017-03-11 11:44] LABS: BASOPHILS 0.1 % (0-2); EOSINOPHILS 4.3 % (0-7); HEMATOCRIT 32.6 % (36.0-48.0); HEMOGLOBIN 10.6 g/dL (12-16); IMMATURE GRANULOCYTES 0.2 % (0-5); LYMPHOCYTES 16.9 % (15-50); MCH 29.1 pg (26.0-34.0); MCHC 32.5 g/dL (31.0-37.0); MCV 89.6 fL (80.0-100.0); MEAN PLATELET VOLUME 10.2 fL (7.4-10.4); MONOCYTES 9.1 % (2-11); NEUTROPHILS 69.4 % (40-80); PLATELET COUNT 443 10x3/uL (130-400); RBC 3.64 10x6/uL (4.00-5.40); RDW 15.5 % (11.5-14.5)
[2017-03-11 11:58] LABS: ALBUMIN 2.5 g/dL (3.4-5.0); ANION GAP 13.1 mmol/L (8-16); BILIRUBIN - TOTAL 0.48 mg/dL (0.2-1.3); CALCIUM 9.5 mg/dL (8.5-10.1); CARBON DIOXIDE 25.7 mmol/L (21.0-32.0); POTASSIUM - SERUM 4.8 mmol/L (3.5-5.1); PROTEIN - SERUM 6.9 g/dL (6.4-8.2)
[2017-03-11 12:02] LABS: TROPONIN-I 0.058 ng/mL (0.000-0.060)
[2017-03-11 12:21] LABS: APPEARANCE HAZY (CLEAR); BILIRUBIN NEGATIVE (NEGATIVE); COLOR YELLOW (YELLOW); GLUCOSE NEGATIVE (NEGATIVE); KETONE NEGATIVE (NEGATIVE); NITRITE NEGATIVE (NEGATIVE); PH 5.5 (5.0-6.0); PROTEIN 3+ mg/dL (NEGATIVE); SPECIFIC GRAVITY 1.015 (1.005-1.020); UROBILINOGEN NORMAL (NORMAL)
[2017-03-11 12:29] LABS: AMORPHOUS SEDIMENT <1+ /lpf (NONE SEEN); BACTERIA FEW /hpf (NONE SEEN); EPITHELIAL CELLS 0-5 /hpf (0-5); HYALINE CAST RARE /lpf (NONE SEEN); RED CELLS - URINE 0-5 /hpf (0-5); WHITE CELLS - URINE 0-5 /hpf (0-5)
== END 2017-03-11 12:47 | disposition home or self-care (01) ==
LOC: D.ER 10:38
PROVIDERS: Emergency Medicine
DX: I50.9 Heart failure, unspecified (principal); I10 Essential (primary) hypertension; R00.1 Bradycardia, unspecified; I44.0 Atrioventricular block, first degree; I44.5 Left posterior fascicular block

== ENCOUNTER 2017-05-11 13:33 | Emergency (ER) | payer MEDICARE ==
[2017-02-23 12:23] VITALS: BMI 32.6
[2017-05-11 14:10] LABS: BASOPHILS 0 % (0-2); EOSINOPHILS 4.8 % (0-7); HEMATOCRIT 33.3 % (36.0-48.0); HEMOGLOBIN 11.1 g/dL (12-16); IMMATURE GRANULOCYTES 0.3 % (0-5); LYMPHOCYTES 26.1 % (15-50); MCH 29.6 pg (26.0-34.0); MCHC 33.3 g/dL (31.0-37.0); MCV 88.8 fL (80.0-100.0); MEAN PLATELET VOLUME 10.4 fL (7.4-10.4); MONOCYTES 7.3 % (2-11); NEUTROPHILS 61.5 % (40-80); PLATELET COUNT 302 10x3/uL (130-400); RBC 3.75 10x6/uL (4.00-5.40); RDW 17.4 % (11.5-14.5); WBC 7.2 10x3/uL (4.8-10.8)
[2017-05-11 14:27] LABS: APTT 28.6 SECONDS (22.8-39.4); INR 1.11 (0.85-1.17); PROTIME 13.9 SECONDS (11.6-15.0)
[2017-05-11 14:28] LABS: D-DIMER-QUANTITATIVE 0.29 ug/mLFEU (0.20-0.54)
[2017-05-11 14:30] LABS: ALBUMIN 2.5 g/dL (3.4-5.0); ALKALINE PHOSPHATASE 114 U/L (46-116); ALT (SGPT) 11 U/L (10-68); CALC OSMOLALITY 293 mosm/kg (275-300); CALCIUM 9.4 mg/dL (8.5-10.1); CARBON DIOXIDE 23.2 mmol/L (21.0-32.0); CHLORIDE - SERUM 109 mmol/L (98-107); CREATININE - SERUM 2.1 mg/dL (0.6-1.3); POTASSIUM - SERUM 3.6 mmol/L (3.5-5.1); PROTEIN - SERUM 6.6 g/dL (6.4-8.2); SODIUM 143 mmol/L (136-145); UREA NITROGEN 31 mg/dL (7-18); eGFR NON AFRICAN AMERICAN 26 mL/min (90-120)
[2017-05-11 14:33] LABS: GLUCOSE 130 mg/dL (74-106)
[2017-05-11 14:42] LABS: CHOL - HDL RATIO 4.6 ratio (2.3-4.1); CHOLESTEROL, TOTAL 275 mg/dL (0-200); CKMB 1.6 U/L (0.0-3.6); CREATINE KINASE 62 UL (21-215); HDL CHOLESTEROL 60 mg/dL (32-96); LDL CHOLESTEROL 186 mg/dL (0-100); LDL-HDL RATIO 3.1 ratio (1.5-3.5); PRO BNP 14272 pg/mL (0-125); TRIGLYCERIDE 147 mg/dL (30-200); TROPONIN-I 0.049 ng/mL (0.000-0.060)
[2017-05-11 16:33] LABS: APPEARANCE CLEAR (CLEAR); BILIRUBIN NEGATIVE (NEGATIVE); COLOR YELLOW (YELLOW); GLUCOSE NEGATIVE (NEGATIVE); KETONE NEGATIVE (NEGATIVE); NITRITE NEGATIVE (NEGATIVE); PROTEIN 1+ mg/dL (NEGATIVE); UROBILINOGEN NORMAL (NORMAL)
== END 2017-05-11 21:30 | disposition home or self-care (01) ==
LOC: D.ER 13:33
PROVIDERS: Family Medicine; Nurse Practitioner Family
DX: I50.9 Heart failure, unspecified (principal); R51 Headache; I10 Essential (primary) hypertension; R00.1 Bradycardia, unspecified; I44.0 Atrioventricular block, first degree; I49.3 Ventricular premature depolarization

== ENCOUNTER 2017-05-19 15:37 | Outpatient (CLI) | payer MEDICARE ==
[~2017-05-19] VITALS: Ht 170.2 cm; Wt 86.2 kg
--- NOTE | ~2017-05-19 | HP ---
PATIENT: DILIP FAYE MEDICAL RECORD: [id number] ACCOUNT: [id number] LOCATION:[facility] : 58 ADMISSION DATE: 05/19/17 HISTORY AND PHYSICAL EXAMINATION DIAGNOSES: 1. Unstable angina. 2. Coronary artery disease. 3. Previous percutaneous transluminal coronary angioplasty stent. 4. Hypertension. 5. Hyperlipidemia. 6. Diabetes. HISTORY OF PRESENT ILLNESS: Mrs. Faye presents with anginal symptomatology, found to have mildly elevated troponin. She continues to have the episodes of chest pain and chest discomfort. This is just like that of her last episode of angina before her last stenting which was in January of last year. PHYSICAL EXAMINATION: GENERAL APPEARANCE: Well-nourished, well-developed, appears stated age. Level of distress, comfortable. PSYCHIATRIC: Mental status, alert, normal affect. Orientation, oriented to time, place and person. EYES: Lids and conjunctiva, noninjected. No discharge, no pallor. ENT: Lips, teeth, gums, normal dentition. Oropharynx, no cyanosis, no pallor. NECK: Carotid arteries, bilateral normal upstroke, no bruits, no thrills. JUGULAR VEINS: No jugular venous pressure or distention. CERVICAL LYMPH NODES: Nontender, nonenlarged. THYROID: Not enlarged. Nontender. No nodules. LUNGS: Respiratory effort, unlabored. CHEST: Normal curvature. No thoracic deformity. No chest wall tenderness. Percussion, resonant. Auscultation, clear. No wheezes, no rales, no rhonchi. CARDIOVASCULAR: Precordial exam, nondisplaced. No heaves or pericardial thrills. Rate and rhythm, regular. Heart sounds, normal S1, normal S2. No S3, no gallop, no rub. Systolic murmur, not heard. Diastolic murmur, not heard. EXTREMITIES: No cyanosis, no edema. Peripheral pulses, full and equal in all extremities, except as noted. No bruits appreciated. ABDOMEN: Soft, nondistended. Normal aorta. No bruit. Nontender. No masses. Liver, nontender, no hepatomegaly. Spleen, nontender, no splenomegaly. MUSCULOSKELETAL: No joint tenderness. No joint swelling. No erythema. NEUROLOGICAL: Normal gait, normal strength, normal tone. SKIN: Warm and dry. OVERALL IMPRESSION: Chest pain compatible with angina unstable rapidly progressive fashion. We will proceed with coronary angiography as most likely she has recurrent hemodynamically significant coronary artery disease. Further care depends upon findings of the angiography. TRANSINT:[id number] Voice Confirmation ID: [id number] DOCUMENT ID: [id number] HISTORY AND PHYSICAL [id number] DILIP FAYE, MIGUELANGEL ALEXANDER at 0956 CC: [id number] DICTATION DATE: 05/20/17 1414 PROGRAMMER OPERATOR NUMERICAL CONTROL: 05/20/17 1630 DEP CLI 05/21/17 [id number] [place] [address]
--- NOTE | ~2017-05-19 | DS ---
PATIENT:DILIP FAYE :58 MEDICAL RECORD: [id number] DISCHARGE SUMMARY ADMISSION DATE: 05/19/17 DISCHARGE DATE: 05/21/17 DISCHARGE DIAGNOSES: 1. Unstable angina. 2. Coronary artery disease. 3. PTCA stent left circumflex this admission. HOSPITAL COURSE: Mrs. Faye presents with unstable anginal symptomatology, found to have single vessel disease of the left circumflex, underwent successful PTCA stent of the left circumflex, discharged home with the addition of aspirin and Plavix to her medical regimen. Follow up with [facility] in 1 month. TRANSINT:[id number] Voice Confirmation ID: [id number] DOCUMENT ID: [id number] MIGUELANGEL WELCH MD at 0956 CC: [id number] DICTATION DATE: 05/21/17 1254 VOLTAGE REGULATOR ASSEMBLER: 05/21/17 1336 DEP CLI 05/21/17 [id number] [place] [address]
--- NOTE | ~2017-05-19 | OP ---
PATIENT NAME: DILIP FAYE MEDICAL RECORD: [id number] :58 LOCATION:D.CAT ADMISSION DATE: SURGEON: MIGUELANGEL WELCH MD DATE OF OPERATION: 05/21/2017 PROCEDURES: 1. PTCA stent, left circumflex. 2. Left heart catheterization. 3. Selective coronary angiography. 4. Left ventriculogram. 5. Vein graft angiography. 6. FLOWERS angiography. INDICATION: Angina and coronary artery disease. PROCEDURE IN DETAIL: After informed consent was obtained and after a detailed description of the risks, benefits as well as alternative therapies, the patient elected to proceed with angiogram and angioplasty. The right femoral area was prepped and draped in normal sterile fashion. Right femoral artery was cannulated via modified Seldinger technique with placement of 6-Uzbek sheath. All catheters exchanged through the sheath. FINDINGS: The left ventriculogram was performed in a standard 30-degree CHAUDHARI view reveals good cardiac wall motion throughout all segments. Overall ejection fraction estimated 60%. SELECTIVE CORONARY ANGIOGRAPHY: 1. Left main shows no significant angiographic disease. 2. Left anterior descending is totally occluded in mid vessel. 3. The left circumflex has 70% stenosis proximally and 95% stenosis in the mid vessel. The first obtuse marginal has 95% stenosis in the proximal portion of this vessel. 4. FLOWERS to the LAD is widely patent. Distal LAD is widely patent. 5. Vein graft to the first obtuse marginal is widely patent, it only fills the first obtuse marginal, it not backfill the rest of the circumflex system. 6. The right coronary artery is widely patent. PTCA STENT OF THE LEFT CIRCUMFLEX: The stent used covering both lesions with a 3.0 x 26 mm Donnell. Result was 0% residual stenosis. OVERALL IMPRESSION: Successful percutaneous transluminal angioplasty stent of the left circumflex going from 95% initial stenosis to 0% residual. TRANSINT:[id number] Voice Confirmation ID: [id number] DOCUMENT ID: [id number] MIGUELANGEL WELCH MD at 0956 CC: [id number] DICTATION DATE: 05/21/17 1256 ASSEMBLER GOLD FRAME: 05/21/17 1310 DEP CLI 05/21/17 [place] [address]
--- NOTE | ~2017-05-19 | HEMODYNAMI ---
PATIENT:DILIP FAYE MEDICAL RECORD: [id number] : 58 LOCATION:[facility] D.[address] [facility]# [id number] ADMISSION DATE: 05/19/17 Generatedon:05/21/201712:58 Patient name: DILIP FAYE Patient #: [id number] SSN: : 1960 Date of study: 05/21/2017 Page: Of Hemodynamic Procedure Report Patient Data Patient Demographics Procedure consent was obtained First Name: DILIP Gender: Female Last Name: YUNIER : 1960 [facility] Initial: EDD Age: 56 year(s) Patient #: [id number] Race: Unknown Additional ID: [id number] Contact details [address]: [address] [place] [address] State: [place] City: [place] Zip code: [address] Past Medical History Allergies Allergen Reaction Date Comments Reported Other allergy 09/09/2014 Iodine Other allergy 12/22/2016 Cephalexin, Prednisone, Carvedilol, Iodinated contrast media (oral and IV) IV contrast dye 05/21/2017 Admission Admission Data Admission Date: 05/19/2017 Admission Time: 18:44 Room #: D.2123 Procedure Procedure Types Cath Procedure Diagnostic Procedure C LHC w/Coronaries w/Grafts PCI Procedure Coronary Stent Coronary Stent Initial Procedure Description Procedure Date Procedure Date: 05/21/2017 Procedure Start Time: 12:40 Procedure End Time: 12:56 Procedure Staff Name Function Damon Martínez MD Performing Physician Chelsie Ellsworth RT Monitor Kulwant Guy RN Nurse Delonte Cartagena RT Scrub Procedure Data Cath Procedure Fluoroscopy Diagnostic fluoroscopy Total fluoroscopy Time: 2.2 time: 2.2 min min Diagnostic fluoroscopy Total fluoroscopy dose: 502 dose: 502 mGy mGy Contrast Material Contrast Material Type Amount (ml) Isovue 300 88 Entry Location Entry Primary Successful Side Size Upsize Upsize Entry Closure Gibson ccessful Closure Location (Fr) 1 (Fr) 2 (Fr) Remarks Device Remarks Femoral Right 5 Fr Manual vein Compression Femoral Right 5 Fr 6 Fr Exoseal artery Short Estimated blood loss: 10 ml Diagnostic catheters Device Type Used For End Catheter Placement MULTIPACK Pigtail 5 Fr LV Angiography catheter MULTIPACK JL 4.0 5Fr Right Coronary catheter Angiography MULTIPACK 3DRC 5Fr Internal mammary catheter arteriography MULTIPACK 3DRC 5Fr Right Coronary catheter Angiography Procedure Complications No complications Procedure Medications Medication Administration Route Dosage Oxygen etCO2 Nasal cannula 2 l/min Heparin Flush Bag added to field 2 bags (1000units/500ml NS) 0.9% NaCl I.V. 100 ml/hr Fentanyl I.V. 50 mcg Versed I.V. 1 mg Fentanyl I.V. 50 mcg Versed I.V. 1 mg Fentanyl I.V. 50 mcg Versed I.V. 1 mg Fentanyl I.V. 50 mcg Versed I.V. 1 mg Heparin Bolus I.V. 4000 units Hemodynamics Rest Heart Rate: 57 (bpm) Snapshots Pre Cath Intra NCS Post Cath Vital Signs Time Heart Resp SPO2 etCO2 NIBP (mmHg) Rhythm Pain Sedation Rate (ipm) (%) (mmHg) Status Level (bpm) 12:17:29 57 17 96 25.6 179/77(148) NSR 0 (11) 10(A) , No pain 12:23:18 66 16 93 30.1 169/77(138) NSR 0 (11) 10(A) , No pain 12:28:58 54 16 97 27.1 157/72(110) NSR 0 (11) 10(A) , No pain 12:33:46 47 17 97 27.9 152/78(103) NSR 0 (11) 10(A) , No pain 12:39:24 50 16 98 27.1 127/76(105) NSR 0 (11) 10(A) , No pain 12:44:11 52 17 91 12 138/74(100) NSR 0 (11) 9(A) , No pain 12:48:56 58 16 96 15 130/74(102) NSR 0 (11) 9(A) , No pain 12:54:17 53 16 98 24.1 165/89(127) NSR 0 (11) 9(A) , No pain Medications Time Medication Route Dose Verified Delivered Reason Notes Effectiveness by by 12:18:32 Oxygen etCO2 2 Damon Blum Per physician Nasal l/min Mauricio Guy RN cannula 12:18:40 Heparin Flush added 2 Damon Kulwant used for Bag to bags Mauricio Guy RN procedure (1000units/500ml field NS) 12:18:48 0.9% NaCl I.V. 100 Damon Kulwant Per physician ml/hr Mauricio Guy RN 12:38:58 Fentanyl I.V. 50 Damon Kulwant for sedation mcg Mauricio Guy RN 12:39:07 Versed I.V. 1 mg Damon Kulwant for sedation Mauricio Guy RN 12:41:01 Fentanyl I.V. 50 Damon Kulwant for sedation mcg Mauricio Guy RN 12:41:06 Versed I.V. 1 mg Damon Kulwant for sedation Mauricio Guy RN 12:44:05 Fentanyl I.V. 50 Damon Kulwant for sedation mcg Mauricio Guy RN 12:44:09 Versed I.V. 1 mg Damon Kulwant for sedation Mauricio Guy RN 12:48:40 Fentanyl I.V. 50 Damon Kulwant for sedation mcg Mauricio Guy RN 12:48:47 Versed I.V. 1 mg Damon Kulwant for sedation Mauricio Guy RN 12:49:01 Heparin Bolus I.V. 4000 Damon Kulwant for units Mauricio Guy RN anticoagulation Procedure Log Time Note 11:50:49 Time tracking: Regular hours (M-F 7:00 - 5:00) 11:50:53 Plan of Care:Hemodynamics will remain stable., Cardiac rhythm will remain stable., Comfort level will be maintained., Respiratory function will remain adequate., Patient/ family verbilizes understanding of procedure., Procedure tolerated without complication., Recovers from procedure without complications.. 11:50:58 Kulwant Guy RN sent for patient. Start room use. 12:05:53 Patient received from PCU to CCL 1 Alert and oriented. Tansferred to table in Supine position. 12:05:54 Warm blankets applied, and angelique hugger turned on for patient comfort. 12:05:55 Correct patient and procedure confirmed by team. 12:05:56 Signed procedure consent form obtained from patient. 12:05:57 ECG and BP/O2 sat monitors applied to patient. 12:05:58 Full Disclosure recording started 12:16:18 Vital chart was started 12:18:32 Oxygen 2 l/min etCO2 Nasal cannula was administered by Kulwant Guy RN; Per physician; 12:18:40 Heparin Flush Bag (1000units/500ml NS) 2 bags added to field was administered by Kulwant Guy RN; used for procedure; 12:18:48 0.9% NaCl 100 ml/hr I.V. was administered by Kulwant Guy RN; Per physician; 12:19:26 IV started by Kulwant Guy RN inleft forearm with a 20 gauge IV catheter with 0.9% NaCl at KVO. 12:19:35 Rhythm: sinus bradycardia 12:20:51 H&P Date Dictated: 05/20/2017 Within 30 days and on chart.. 12:20:52 Pre-procedure instructions explained to patient. 12:20:53 Pre-op teaching completed and patient verbalized understanding. 12:20:54 Family in patients room. 12:20:56 Patient NPO since Midnight. 12:21:06 Patient allergic to IV contrast dye 12:21:08 Is the patient allergic to Iodine/contrast media? Yes. 12:21:09 Was the patient premedicated? Yes 12:21:10 Is patient on blood thinner?Yes 12:21:13 ACC The patient was administered the following blood thiners within the last 24 hours: ACCAspirin, ACCPlavix 12:21:14 Patient diabetic? Yes. 12:21:15 If diabetic: On Metformin? No 12:21:25 Previous problem with sedation/anesthesia? No ? 12:21:27 Snore? Yes 12:21:28 Sleep apnea? No 12:21:32 Deviated septum? No 12:21:32 Opens mouth fully? Yes 12:21:34 Sticks out tongue? Yes 12:21:35 Airway obstruction? No ? 12:21:37 Dentures? No ? 12:21:40 Pre procedure: right dorsailis pedis pulse 2+ Normal; easily identifiable; not easily obliterated 12:21:41 Patient pain scale 0/10 ?. 12:21:54 IV right forearm D/C'd due to infiltration. 12:21:57 Lab results completed and on chart. 12:22:00 Right groin area was prepped with chlora-prep and draped in sterile fashion 12:22:00 Alarms reviewed by R. N. 12:22:01 Sharps counted by scrub and verified by R.N. 12:23:48 Baseline sample Acquired. 12:26:57 Physician paged 12:30:08 Zero performed for pressure channel P1 12:38:12 Final Timeout: patient, procedure, and site verified with staff and physician. All members of the team are in agreement. 12:38:18 Right groin site verified by team. 12:38:20 Physical assessment completed. ASA score P 2 - A patient with mild systemic disease as per Damon Martínez MD. 12:38:24 Sedation plan: IV Moderate Sedation Medication:Versed, Fentanyl 12:38:28 Use device set Femoral Dx 12:38:29 ACIST Syringe (69713) opened to sterile field. 12:38:29 Bag Decanter (2002S) opened to sterile field. 12:38:29 Medline Cath Pack ([id number]) opened to sterile field. 12:38:31 DIAGNOSTIC WIRE .035 260cm J wire (471239) opened to sterile field. 12:38:33 ACIST Hand Control (62478) opened to sterile field. 12:38:34 ACIST Manifold (12975) opened to sterile field. 12:38:35 DIAGNOSTIC Multipack 5Fr catheter set (OG5500) opened to sterile field. 12:38:35 Tegaderm 4 x 4 (1626W) opened to sterile field. 12:38:36 PERCUTANEOUS ENTRY 19GA needle opened to sterile field. 12:38:48 SHEATH Prelude 5Fr 0.035 (TIW-1F-38-035) opened to sterile field. 12:38:58 Fentanyl 50 mcg I.V. was administered by Kulwant Guy RN; for sedation; 12:39:07 Versed 1 mg I.V. was administered by Kulwant Guy RN; for sedation; 12:40:51 Procedure started. 12:40:54 Local anesthetic to right femoral artery with Lidocaine 2% by Damon Martínez MD.INITIAL ACCESS ONLY 12:41:01 Fentanyl 50 mcg I.V. was administered by Kulwant Guy RN; for sedation; 12:41:06 Versed 1 mg I.V. was administered by Kulwant Guy RN; for sedation; 12:41:14 A 5 Fr sheath was inserted into the Right Femoral vein 12:42:58 A 5 Fr sheath was inserted into the Right Femoral artery 12:43:25 A MULTIPACK Pigtail 5 Fr catheter was advanced over the wire and used for LV Angiography. 12:44:05 Fentanyl 50 mcg I.V. was administered by Kulwant Guy RN; for sedation; 12:44:06 LV gram done using CHAUDHARI 12:44:09 Versed 1 mg I.V. was administered by Kulwant Guy RN; for sedation; 12:44:10 Injector settings: Ml/sec: 10, Volume: 20, 12:44:15 EF : 40 % 12:44:16 Catheter removed. 12:44:33 A MULTIPACK JL 4.0 5Fr catheter was advanced over the wire and used for Right Coronary Angiography. 12:45:49 Catheter removed. 12:45:59 A MULTIPACK 3DRC 5Fr catheter was advanced over the wire and used for Internal mammary arteriography.to LAD 12:47:18 A MULTIPACK 3DRC 5Fr catheter was advanced over the wire and used for Right Coronary Angiography. 12:47:22 Catheter removed. 12:47:26 Use device set TAU PCI 12:47:31 INFLATOR Merit BasixCompak (HR5748) opened to sterile field. 12:47:45 SHEATH 6Fr Prelude ([id number]) opened to sterile field. 12:47:54 Sheath upsized to a 6 Fr Short. 12:48:40 Fentanyl 50 mcg I.V. was administered by Kulwant Guy RN; for sedation; 12:48:42 GUIDE 6FR XB 3.5 catheter ([id number]) opened to sterile field. 12:48:47 Versed 1 mg I.V. was administered by Kulwant Guy RN; for sedation; 12:48:54 6 Fr XB 3.5 guide catheter was inserted over the wire 12:49:01 Heparin Bolus 4000 units I.V. was administered by Kulwant Guy RN; for anticoagulation; 12:49:05 CHOICE PT Extra Support 182cm wire ([id number]) opened to sterile field. 12:49:28 CHOICE PT ES wire advanced. 12:50:43 Place stent Inflation Number: 1 A SHAMEKA RX 3.0 x 26 stent ([id number]) was prepped and advanced across the Prox CX. The stent was deployed at 17 WHIT for 0:07 (min:sec). 12:51:06 Stent catheter was removed intact over wire. 12:51:06 Wire removed. 12:51:07 Guide catheter removed. 12:51:16 Sheath removed intact; hemostasis achieved with Exoseal to the Right Femoral artery. 12:51:22 Procedure ended.(Physican Out) 12:51:38 Sheath removed intact; hemostasis achieved with Manual Compression to the Right Femoral vein. 12:52:20 Fluoroscopy time 02.20 minutes. 12:52:24 Flurop Dose total: 502 12:52:24 Fluoroscopy dose: 502 mGy 12:52:28 Contrast amount:Isovue 300 88ml. 12:52:29 Sharps counted by scrub and verified by R.N. 12:52:32 Insertion/operative site no bleeding no hematoma. 12:52:36 Post-op/insertion site Right Femoral artery dressed using a 4 x 4 and Tegaderm. 12:52:39 Post right femoral artery:stable, clean and dry 12:52:41 Post Procedure Pulses reassessed and unchanged 12:52:47 Post-procedure physical assessment completed. ASA score P 2 - A patient with mild systemic disease as per Damon Martínez MD. 12:52:48 Post procedure rhythm: unchanged. 12:52:51 Estimated blood loss: 10 ml 12:52:53 Post procedure instruction explained to patient.Patient verbalizes understanding. 12:52:53 Patient needs reinforcement of post procedure teaching. 12:53:02 Procedure type changed to Cath procedure, Diagnostic procedure, LHC, LHC w/Coronaries w/Grafts, PCI procedure, Coronary Stent, Coronary Stent Initial 12:53:08 Procedure Complication : No complications 12:53:10 See physician's report for complete and final results. 12:53:22 EXOSEAL 6Fr (EX600) opened to sterile field. 12:54:10 SHEATH Prelude 5Fr 0.035 (AHA-4E-66-035) opened to sterile field. 12:54:42 IV CATHETER 20g opened to sterile field. 12:56:15 Procedure and supply charges have been captured, reviewed, submitted and are correct. 12:56:26 Vital chart was stopped 12:56:38 Report given to PCU. 12:56:41 Patient transfered to PCU with Bed. 12:56:48 Procedure ended. 12:56:48 Full Disclosure recording stopped 12::52 End room use (Document Last) Intervention Summary Intervention Notes Time ActionType Lesion and Equipment Used Action# Pressure Duration Attributes 12:50:43 Place stent Prox CX SHAMEKA RX 3.0 x 1 17 00:07 26 stent ([id number]) Device Usage Item Name Manufacture Quantity Catalog Number Hospital Part Current Minimal Lot# / Charge Number Stock Stock Serial# Code ACIST Syringe Acist 1 92076 136926 560782 156023 20 (07706) Medical Systems NetCom Bag Decanter Microtek 1 2001S 492293 68333 542627 5 (2001S) Medical Inc. Medline Cath Cardinal 1 [id number] 254686 91313 740016 5 Pack Health ([id number]) DIAGNOSTIC WIRE St Donny 1 649298 398423 590836 044599 30 .035 260cm J wire (451870) ACIST Hand Acist 1 82085 031462 942908 011377 5 Control (20878) Medical Systems NetCom ACIST Manifold Acist 1 00754 276913 981024 377824 5 (85161) Medical Systems Inc DIAGNOSTIC Cardinal 1 OP0620 646548 10886 352366 30 Multipack 5Fr Health catheter set ([id number]) Tegaderm 4 x 4 3M 1 1626W 537336 642083 632521 5 (1626W) PERCUTANEOUS Cook Medical 1 O09069 979444 472784 5 ENTRY 19GA needle SHEATH Prelude Merit 2 JDP-9O-89-035 990289 676279 690078 5 5Fr 0.035 Medical (VEM-4E-69-035) MULTIPACK Cardinal 1 976039 5 Pigtail 5 Fr Health catheter MULTIPACK JL Cardinal 1 725851 5 4.0 5Fr Health catheter MULTIPACK 3DRC Cardinal 1 394335 5 5Fr catheter Health INFLATOR Merit Merit 1 QK3131 974666 902961 694140 15 BasixCompak Medical (ZN5444) SHEATH 6Fr Merit 1 [id number] 783629 705373 746148 5 Prelude Medical ([id number]) GUIDE 6FR XB Cardinal 1 [id number] 607214 957313 099717 2 3.5 catheter Health (69417938) CHOICE PT Extra [place] 1 [id number] 872098 862477 092430 5 Support 182cm Scientific wire (2455951M0) SHAMEKA RX 3.0 x Medtronic 1 [id number] 724192 8575622 205842 5 [id number] 26 stent ([id number]) EXOSEAL 6Fr Cardinal 1 EX600 374629 844619 574571 10 (EX600) Health IV CATHETER 20g B. Vicente 1 3599117-64 546648 357365 071056 5 Signature Audit [place] Stage Time Signature Unsigned Intra-Procedure 05/21/2017 Chelsie 12:58:29 PM Counts RT(R) Signatures Monitor : Chelsie Signature : Counts RT Date : Time : [id number] [place] [address]
[2017-05-19 16:22] LABS: APPEARANCE CLEAR (CLEAR); BASOPHILS 0 % (0-2); BILIRUBIN NEGATIVE (NEGATIVE); COLOR YELLOW (YELLOW); EOSINOPHILS 2.5 % (0-7); GLUCOSE 1000 mg/dL (NEGATIVE); HEMATOCRIT 31.7 % (36.0-48.0); HEMOGLOBIN 10.6 g/dL (12-16); IMMATURE GRANULOCYTES 0.4 % (0-5); KETONE NEGATIVE (NEGATIVE); LYMPHOCYTES 26.9 % (15-50); MCH 29.6 pg (26.0-34.0); MCHC 33.4 g/dL (31.0-37.0); MCV 88.5 fL (80.0-100.0); MEAN PLATELET VOLUME 9.8 fL (7.4-10.4); MONOCYTES 8.2 % (2-11); NITRITE NEGATIVE (NEGATIVE); PLATELET COUNT 289 10x3/uL (130-400); PROTEIN 2+ mg/dL (NEGATIVE); RBC 3.58 10x6/uL (4.00-5.40); RDW 17.1 % (11.5-14.5); SPECIFIC GRAVITY 1.015 (1.005-1.020); UROBILINOGEN NORMAL (NORMAL); WBC 7.3 10x3/uL (4.8-10.8)
[2017-05-19 16:24] LABS: BACTERIA MODERATE /hpf (NONE SEEN); EPITHELIAL CELLS 0-5 /hpf (0-5); RED CELLS - URINE 0-5 /hpf (0-5); WHITE CELLS - URINE 0-5 /hpf (0-5)
[2017-05-19 16:42] LABS: ALBUMIN 2.4 g/dL (3.4-5.0); ANION GAP 15.3 mmol/L (8-16); BILIRUBIN - TOTAL 0.23 mg/dL (0.2-1.3); CALCIUM 8.6 mg/dL (8.5-10.1); CARBON DIOXIDE 25.5 mmol/L (21.0-32.0); CREATININE - SERUM 2.7 mg/dL (0.6-1.3); POTASSIUM - SERUM 3.8 mmol/L (3.5-5.1); PROTEIN - SERUM 6.6 g/dL (6.4-8.2)
[2017-05-19 18:12] LABS: TROPONIN-I 0.053 ng/mL (0.000-0.060)
[2017-05-19 18:27] LABS: INR 0.98 (0.85-1.17); PROTIME 12.6 SECONDS (11.6-15.0)
[2017-05-19 18:28] LABS: APTT 30.9 SECONDS (22.8-39.4)
[2017-05-20] VITALS (7 sets, daily range): BP systolic 129–223; BP diastolic 68–98; BMI 29.8
[2017-05-21] VITALS: BP 167/82
[2017-05-21 04:00] VITALS: BP 161/64
[2017-05-21 07:03] LABS: ANION GAP 16.5 mmol/L (8-16); CALCIUM 8.9 mg/dL (8.5-10.1); CARBON DIOXIDE 23.7 mmol/L (21.0-32.0); CREATININE - SERUM 2.4 mg/dL (0.6-1.3); POTASSIUM - SERUM 4.2 mmol/L (3.5-5.1)
[2017-05-21 08:25] VITALS: BP 150/71
[2017-05-21 11:02] VITALS: BP 152/78
[2017-05-21 13:47] VITALS: Ht 170.2 cm; Wt 86.2 kg
[2017-05-21 16:23] VITALS: BP 139/61
== END 2017-05-21 17:42 | disposition home or self-care (01) ==
LOC: OBSVTIME → D.ER 15:37 → D.CATH 15:37 → D.EDHOLD 18:44 → D.M2 18:44 → D.ER 18:44 → D.EDHOLD 20:07 → D.M2 20:07 → OBSVTIME 20:57 → EDSTATUS 05-21 12:00 → D.M2 05-21 17:42 → D.CATH 05-21 17:42
PROVIDERS: Family Medicine; Internal Medicine Interventional Cardiology
DX: I25.110 Atherosclerotic heart disease of native coronary artery with unstable angina pectoris (principal); I10 Essential (primary) hypertension; E78.5 Hyperlipidemia, unspecified; E11.9 Type 2 diabetes mellitus without complications; Z01.812 Encounter for preprocedural laboratory examination
CPT/HCPCS: 93459; C9600

== ENCOUNTER 2017-06-22 17:44 | Emergency (ER) | payer MEDICARE ==
[2017-05-21 13:47] VITALS: BMI 29.7
[2017-06-22 18:46] LABS: BASOPHILS 0 % (0-2); EOSINOPHILS 1.5 % (0-7); HEMATOCRIT 33.9 % (36.0-48.0); HEMOGLOBIN 11.3 g/dL (12-16); IMMATURE GRANULOCYTES 0.2 % (0-5); LYMPHOCYTES 21.1 % (15-50); MCHC 33.3 g/dL (31.0-37.0); MCV 89.9 fL (80.0-100.0); MEAN PLATELET VOLUME 10.3 fL (7.4-10.4); MONOCYTES 6.7 % (2-11); NEUTROPHILS 70.5 % (40-80); PLATELET COUNT 311 10x3/uL (130-400); RBC 3.77 10x6/uL (4.00-5.40); WBC 9.6 10x3/uL (4.8-10.8)
[2017-06-22 18:56] LABS: APPEARANCE CLEAR (CLEAR); BILIRUBIN NEGATIVE (NEGATIVE); COLOR YELLOW (YELLOW); GLUCOSE NEGATIVE (NEGATIVE); KETONE NEGATIVE (NEGATIVE); NITRITE NEGATIVE (NEGATIVE); PROTEIN NEGATIVE (NEGATIVE); SPECIFIC GRAVITY 1.015 (1.005-1.020); UROBILINOGEN NORMAL (NORMAL)
[2017-06-22 18:57] LABS: BACTERIA MANY /hpf (NONE SEEN); EPITHELIAL CELLS 0-5 /hpf (0-5); RED CELLS - URINE 0-5 /hpf (0-5); WHITE CELLS - URINE 25-50 /hpf (0-5)
[2017-06-22 19:03] LABS: ALBUMIN 2.8 g/dL (3.4-5.0); ANION GAP 17.9 mmol/L (8-16); BILIRUBIN - TOTAL 0.3 mg/dL (0.2-1.3); CALCIUM 9.7 mg/dL (8.5-10.1); CARBON DIOXIDE 19.6 mmol/L (21.0-32.0); CREATININE - SERUM 2.3 mg/dL (0.6-1.3); POTASSIUM - SERUM 4.5 mmol/L (3.5-5.1); PROTEIN - SERUM 6.3 g/dL (6.4-8.2)
== END 2017-06-22 20:17 | disposition home or self-care (01) ==
LOC: D.ER 17:44
PROVIDERS: Emergency Medicine
DX: N39.0 Urinary tract infection, site not specified (principal); I12.9 Hypertensive chronic kidney disease with stage 1 through stage 4 chronic kidney disease, or unspecified chronic kidney disease; N18.9 Chronic kidney disease, unspecified; I50.9 Heart failure, unspecified; E11.9 Type 2 diabetes mellitus without complications; Z79.4 Long term (current) use of insulin

== ENCOUNTER → 2017-07-31 15:12 | Outpatient (CLI) | payer MEDICARE ==
[2017-05-21 13:47] VITALS: BMI 29.7
[~2017-07-31 15:12] MED LIST changes: +ALDACTONE25 MG PO; +BUMEX2 MG PO; +COZAAR50 MG PO; +LEVAQUIN750 MG PO; +LIPITOR10 MG PO; +SODIUM BICARBO650 MG PO; +TYLENOL W/CODEI1 TAB PO; +VITAMIN D31000 UNI2 PO
== END | disposition home or self-care (01) ==
LOC: D.US 15:12
DX: I12.9 Hypertensive chronic kidney disease with stage 1 through stage 4 chronic kidney disease, or unspecified chronic kidney disease (principal); N18.4 Chronic kidney disease, stage 4 (severe); E11.22 Type 2 diabetes mellitus with diabetic chronic kidney disease; Z68.31 Body mass index [BMI] 31.0-31.9, adult; R80.9 Proteinuria, unspecified; R60.9 Edema, unspecified

== ENCOUNTER 2017-08-24 11:14 | Emergency (ER) | payer MEDICARE ==
[~2017-08-24] VITALS: Ht 170.2 cm; Wt 104.5 kg
[~2017-08-24 11:14] MED LIST changes: -ALDACTONE25 MG PO; -BUMEX2 MG PO; -COZAAR50 MG PO; -LEVAQUIN750 MG PO; -LIPITOR10 MG PO; -SODIUM BICARBO650 MG PO; -TYLENOL W/CODEI1 TAB PO; -VITAMIN D31000 UNI2 PO
[2017-08-24 11:24] VITALS: Ht 170.2 cm; Wt 104.5 kg
[2017-08-24] MEDS ORDERED: BUMEX2 MG PO (11:30)
[2017-08-24] MEDS ORDERED: SODIUM BICARBO650 MG PO (11:31)
[2017-08-24] MEDS ORDERED: LIPITOR10 MG PO (11:32)
[2017-08-24] MEDS ORDERED: VITAMIN D31000 UNI2 PO (11:32)
[2017-08-24] MEDS ORDERED: COZAAR50 MG PO (11:32)
[2017-08-24 12:51] LABS: APPEARANCE CLEAR (CLEAR); BILIRUBIN NEGATIVE (NEGATIVE); COLOR YELLOW (YELLOW); EPITHELIAL CELLS 0-5 /hpf (0-5); GLUCOSE 100 mg/dL (NEGATIVE); KETONE NEGATIVE (NEGATIVE); NITRITE NEGATIVE (NEGATIVE); PROTEIN 3+ mg/dL (NEGATIVE); RED CELLS - URINE RARE /hpf (0-5); UROBILINOGEN NORMAL (NORMAL); WHITE CELLS - URINE 0-5 /hpf (0-5)
[2017-08-24 12:52] LABS: AMORPHOUS SEDIMENT <1+ /lpf (NONE SEEN); BACTERIA MODERATE /hpf (NONE SEEN); MUCUS <1+ /lpf (NONE SEEN)
[2017-08-24 12:58] LABS: ALBUMIN 2.8 g/dL (3.4-5.0); ANION GAP 13.5 mmol/L (8-16); BASOPHILS 0.1 % (0-2); BILIRUBIN - TOTAL 0.45 mg/dL (0.2-1.3); CALCIUM 8.9 mg/dL (8.5-10.1); CARBON DIOXIDE 24.1 mmol/L (21.0-32.0); CREATININE - SERUM 2.5 mg/dL (0.6-1.3); EOSINOPHILS 1.8 % (0-7); HEMATOCRIT 35.2 % (36.0-48.0); HEMOGLOBIN 11.3 g/dL (12-16); IMMATURE GRANULOCYTES 0.3 % (0-5); LYMPHOCYTES 18.9 % (15-50); MCH 29.6 pg (26.0-34.0); MCHC 32.1 g/dL (31.0-37.0); MCV 92.1 fL (80.0-100.0); MEAN PLATELET VOLUME 9.9 fL (7.4-10.4); MONOCYTES 8.5 % (2-11); NEUTROPHILS 70.4 % (40-80); POTASSIUM - SERUM 4.6 mmol/L (3.5-5.1); PROTEIN - SERUM 6.5 g/dL (6.4-8.2); RBC 3.82 10x6/uL (4.00-5.40); RDW 16.1 % (11.5-14.5); WBC 7.8 10x3/uL (4.8-10.8)
[2017-08-24 13:08] LABS: PLATELET COUNT 229 10x3/uL (130-400)
[2017-08-24] MEDS ORDERED: LEVAQUIN750 MG PO (14:27)
[2017-08-24] MEDS ORDERED: TYLENOL W/CODEI1 TAB PO (14:27)
[2017-08-24 14:29] VITALS: BP 198/69
[2017-09-11] MEDS ORDERED: ALDACTONE25 MG PO (12:22)
== END 2017-08-24 14:54 | disposition home or self-care (01) ==
LOC: D.ER 11:14
PROVIDERS: Emergency Medicine
DX: R91.8 Other nonspecific abnormal finding of lung field (principal); I12.9 Hypertensive chronic kidney disease with stage 1 through stage 4 chronic kidney disease, or unspecified chronic kidney disease; N18.3 Chronic kidney disease, stage 3 (moderate); K21.9 Gastro-esophageal reflux disease without esophagitis; E11.9 Type 2 diabetes mellitus without complications; R06.02 Shortness of breath; R06.09 Other forms of dyspnea

== ENCOUNTER 2017-12-11 07:35 | Outpatient (CLI) | payer MEDICARE ==
[2017-12-11] VITALS (7 sets, daily range): BP systolic 115–137; BP diastolic 40–73; Ht 170.2 cm; Wt 81.8 kg
[~2017-12-11] VITALS: Ht 170.2 cm; Wt 81.8 kg
[~2017-12-11 07:35] MED LIST changes: +ALDACTONE25 MG PO; +BUMEX2 MG PO; +COZAAR50 MG PO; +LEVAQUIN750 MG PO; +LIPITOR10 MG PO; +SODIUM BICARBO650 MG PO; +TYLENOL W/CODEI1 TAB PO; +VITAMIN D31000 UNI2 PO
[2017-12-11 07:54] LABS: BASOPHILS 0.1 % (0-2); EOSINOPHILS 3.8 % (0-7); HEMOGLOBIN 11.8 g/dL (12-16); IMMATURE GRANULOCYTES 0.2 % (0-5); LYMPHOCYTES 24.3 % (15-50); MCH 29.8 pg (26.0-34.0); MCHC 33.7 g/dL (31.0-37.0); MCV 88.4 fL (80.0-100.0); MEAN PLATELET VOLUME 9.4 fL (7.4-10.4); MONOCYTES 9.1 % (2-11); NEUTROPHILS 62.5 % (40-80); PLATELET COUNT 240 10x3/uL (130-400); RBC 3.96 10x6/uL (4.00-5.40); RDW 15.7 % (11.5-14.5); WBC 9.9 10x3/uL (4.8-10.8)
[2017-12-11 08:10] LABS: ANION GAP 18.2 mmol/L (8-16); CALCIUM 9.1 mg/dL (8.5-10.1); CARBON DIOXIDE 23.2 mmol/L (21.0-32.0); CREATININE - SERUM 3.8 mg/dL (0.6-1.3); POTASSIUM - SERUM 4.4 mmol/L (3.5-5.1)
[2017-12-11 08:23] LABS: APTT 25.3 SECONDS (22.8-39.4); INR 1.04 (0.85-1.17); PROTIME 13.2 SECONDS (11.6-15.0)
[2017-12-11 14:29] LABS: BASOPHILS 0.1 % (0-2); EOSINOPHILS 3.3 % (0-7); IMMATURE GRANULOCYTES 0.1 % (0-5); LYMPHOCYTES 27.9 % (15-50); MCH 29.6 pg (26.0-34.0); MCHC 33.3 g/dL (31.0-37.0); MCV 88.9 fL (80.0-100.0); MEAN PLATELET VOLUME 9.9 fL (7.4-10.4); MONOCYTES 6.9 % (2-11); NEUTROPHILS 61.7 % (40-80); PLATELET COUNT 217 10x3/uL (130-400); RBC 3.71 10x6/uL (4.00-5.40); RDW 15.9 % (11.5-14.5); WBC 8.9 10x3/uL (4.8-10.8)
[2017-12-11 19:07] LABS: BASOPHILS 0.1 % (0-2); EOSINOPHILS 3.3 % (0-7); HEMATOCRIT 31.6 % (36.0-48.0); HEMOGLOBIN 10.6 g/dL (12-16); IMMATURE GRANULOCYTES 0.2 % (0-5); LYMPHOCYTES 26.8 % (15-50); MCH 29.8 pg (26.0-34.0); MCHC 33.5 g/dL (31.0-37.0); MCV 88.8 fL (80.0-100.0); MONOCYTES 9.6 % (2-11); PLATELET COUNT 232 10x3/uL (130-400); RBC 3.56 10x6/uL (4.00-5.40); RDW 15.9 % (11.5-14.5); WBC 9.9 10x3/uL (4.8-10.8)
[2017-12-12 00:30] VITALS: BP 111/48
[2017-12-12 05:28] LABS: BASOPHILS 0 % (0-2); EOSINOPHILS 2.6 % (0-7); HEMATOCRIT 30.2 % (36.0-48.0); HEMOGLOBIN 9.9 g/dL (12-16); IMMATURE GRANULOCYTES 0.2 % (0-5); LYMPHOCYTES 27.1 % (15-50); MCH 29.4 pg (26.0-34.0); MCHC 32.8 g/dL (31.0-37.0); MCV 89.6 fL (80.0-100.0); MEAN PLATELET VOLUME 9.8 fL (7.4-10.4); MONOCYTES 9.7 % (2-11); NEUTROPHILS 60.4 % (40-80); PLATELET COUNT 199 10x3/uL (130-400); RBC 3.37 10x6/uL (4.00-5.40); WBC 9.2 10x3/uL (4.8-10.8)
[2017-12-12 05:33] VITALS: BP 121/52
[2017-12-12 05:52] LABS: ANION GAP 16.4 mmol/L (8-16); CALCIUM 9.4 mg/dL (8.5-10.1); CREATININE - SERUM 4.3 mg/dL (0.6-1.3)
[2017-12-12 05:53] LABS: POTASSIUM - SERUM 5.4 mmol/L (3.5-5.1)
[2017-12-12 08:12] VITALS: BP 138/58
[2017-12-12 11:22] VITALS: BP 119/49
[2017-12-12 13:21] LABS: BASOPHILS 0.1 % (0-2); EOSINOPHILS 2.1 % (0-7); HEMATOCRIT 29.8 % (36.0-48.0); HEMOGLOBIN 9.9 g/dL (12-16); IMMATURE GRANULOCYTES 0.2 % (0-5); LYMPHOCYTES 24.1 % (15-50); MCH 29.7 pg (26.0-34.0); MCHC 33.2 g/dL (31.0-37.0); MCV 89.5 fL (80.0-100.0); MEAN PLATELET VOLUME 9.9 fL (7.4-10.4); MONOCYTES 7.8 % (2-11); NEUTROPHILS 65.7 % (40-80); PLATELET COUNT 194 10x3/uL (130-400); RBC 3.33 10x6/uL (4.00-5.40); RDW 16.2 % (11.5-14.5); WBC 10.2 10x3/uL (4.8-10.8)
[2017-12-12 15:41] VITALS: BP 113/59
[2017-12-12 18:56] LABS: BASOPHILS 0 % (0-2); EOSINOPHILS 2.7 % (0-7); HEMATOCRIT 29.2 % (36.0-48.0); HEMOGLOBIN 9.6 g/dL (12-16); IMMATURE GRANULOCYTES 0.2 % (0-5); LYMPHOCYTES 22.1 % (15-50); MCH 29.5 pg (26.0-34.0); MCHC 32.9 g/dL (31.0-37.0); MCV 89.8 fL (80.0-100.0); MEAN PLATELET VOLUME 9.5 fL (7.4-10.4); MONOCYTES 10.6 % (2-11); NEUTROPHILS 64.4 % (40-80); PLATELET COUNT 183 10x3/uL (130-400); RBC 3.25 10x6/uL (4.00-5.40); RDW 16.1 % (11.5-14.5); WBC 10.5 10x3/uL (4.8-10.8)
[2017-12-12 21:37] VITALS: BP 116/45
[2017-12-13 00:49] VITALS: BP 128/53
[2017-12-13 05:58] VITALS: BP 127/43
[2017-12-13 06:35] LABS: BASOPHILS 0.1 % (0-2); EOSINOPHILS 3.6 % (0-7); HEMATOCRIT 29.5 % (36.0-48.0); HEMOGLOBIN 9.7 g/dL (12-16); IMMATURE GRANULOCYTES 0.1 % (0-5); LYMPHOCYTES 22.3 % (15-50); MCH 29.2 pg (26.0-34.0); MCHC 32.9 g/dL (31.0-37.0); MCV 88.9 fL (80.0-100.0); MEAN PLATELET VOLUME 10.1 fL (7.4-10.4); MONOCYTES 11.3 % (2-11); NEUTROPHILS 62.6 % (40-80); PLATELET COUNT 199 10x3/uL (130-400); RBC 3.32 10x6/uL (4.00-5.40); RDW 16.2 % (11.5-14.5); WBC 9.7 10x3/uL (4.8-10.8)
[2017-12-13 06:49] LABS: ANION GAP 15.5 mmol/L (8-16); CALCIUM 9.1 mg/dL (8.5-10.1); CARBON DIOXIDE 24.1 mmol/L (21.0-32.0); CREATININE - SERUM 4.7 mg/dL (0.6-1.3); POTASSIUM - SERUM 4.6 mmol/L (3.5-5.1)
[2017-12-13 08:54] VITALS: BP 129/57
== END 2017-12-13 11:47 | disposition home or self-care (01) ==
LOC: D.SP 07:35 → D.M2 07:35 → D.SP 10:00 → D.RAD 10:00 → D.M2 11:44 → D.SP 12-13 11:47
PROVIDERS: General Practice; Internal Medicine Nephrology
DX: E11.22 Type 2 diabetes mellitus with diabetic chronic kidney disease (principal); I12.9 Hypertensive chronic kidney disease with stage 1 through stage 4 chronic kidney disease, or unspecified chronic kidney disease; N18.4 Chronic kidney disease, stage 4 (severe); I25.10 Atherosclerotic heart disease of native coronary artery without angina pectoris; Z95.5 Presence of coronary angioplasty implant and graft; Z95.1 Presence of aortocoronary bypass graft; M19.90 Unspecified osteoarthritis, unspecified site; R60.9 Edema, unspecified; N26.9 Renal sclerosis, unspecified; Z79.82 Long term (current) use of aspirin; Z79.02 Long term (current) use of antithrombotics/antiplatelets; Z79.4 Long term (current) use of insulin; Z79.891 Long term (current) use of opiate analgesic; Z79.899 Other long term (current) drug therapy; Z88.8 Allergy status to other drugs, medicaments and biological substances; Z88.1 Allergy status to other antibiotic agents; Z91.041 Radiographic dye allergy status; Z01.812 Encounter for preprocedural laboratory examination

== ENCOUNTER → 2018-03-13 07:42 | Outpatient (CLI) | payer MEDICARE ==
[2017-12-11 13:01] VITALS: BMI 29.8
[~2018-03-13 07:42] MED LIST changes: +EFFIENT10 MG PO
== END | disposition home or self-care (01) ==
LOC: D.HCCARDIO 07:42
DX: I25.10 Atherosclerotic heart disease of native coronary artery without angina pectoris (principal)

== ENCOUNTER 2018-03-28 06:22 | Outpatient (CLI) | payer MEDICARE ==
[~2018-03-28] VITALS: Ht 170.2 cm; Wt 86.4 kg
--- NOTE | ~2018-03-28 | HEMODYNAMI ---
PATIENT:DILIP FAYE MEDICAL RECORD: [id number] : 58 LOCATION:D.CAT ADMISSION DATE: 03/28/18 Generatedon:03/28/20189:02 Patient name: DILIP FAYE Patient #: [id number] SSN: : 1960 Date of study: 03/28/2018 Page: Of Hemodynamic Procedure Report Patient Data Patient Demographics Procedure consent was obtained First Name: DILIP Gender: Female Last Name: YUNIER : 1960 [facility] Initial: EDD Age: 57 year(s) Patient #: [id number] Race: Unknown Additional ID: [id number] Contact details [address]: [address] [place] [address] State: [place] City: [place] Zip code: [address] Past Medical History Allergies Allergen Reaction Date Comments Reported Other allergy 09/09/2014 Iodine Other allergy 12/22/2016 Cephalexin, Prednisone, Carvedilol, Iodinated contrast media (oral and IV) IV contrast dye 05/21/2017 Other allergy 03/28/2018 COREG IODINE Admission Admission Data Admission Date: 03/28/2018 Admission Time: 6:22 Height (in.): 67 BSA: 1.98 (m2) Height (cm.): 170.18 BMI: 29.76 (kg/m2) Weight (lbs.): 190 Weight (kg.): 86.18 Procedure Procedure Types Cath Procedure Diagnostic Procedure [facility] Coronaries w/Grafts PCI Procedure PTCA PTCA Initial Procedure Description Procedure Date Procedure Date: 03/28/2018 Procedure Start Time: 8:32 Procedure End Time: 8:57 Procedure Staff Name Function Don Burciaga MD Performing Physician Toi Montero RT Monitor Essence Soria RT Scrub Aimee Box RN Nurse Procedure Data Cath Procedure Fluoroscopy Diagnostic fluoroscopy Total fluoroscopy Time: 5.4 time: 5.4 min min Diagnostic fluoroscopy Total fluoroscopy dose: 457 dose: 457 mGy mGy Contrast Material Contrast Material Type Amount (ml) Isovue 300 41 Entry Location Entry Primary Successful Side Size Upsize Upsize Entry Closure Gibson ccessful Closure Location (Fr) 1 (Fr) 2 (Fr) Remarks Device Remarks Femoral Right 5 Fr Manual vein Compression Femoral Right 5 Fr 6 Fr Exoseal artery Short Diagnostic catheters Device Type Used For End Catheter Placement MULTIPACK JL 4.0 5Fr Left Coronary catheter Angiography DIAGNOSTIC AR2 MOD 5 Fr Right Coronary catheter ([id number]) Angiography DIAGNOSTIC IM 5Fr SVG Angiography catheter ([id number]) Procedure Complications No complications Procedure Medications Medication Administration Route Dosage Oxygen etCO2 Nasal cannula 2 l/min Lidocaine 2% added to field 20 Heparin Flush Bag added to field 2 bags (1000units/500ml NS) 0.9% NaCl I.V. 100 ml/hr Versed I.V. 1 mg Fentanyl I.V. 50 mcg Versed I.V. 1 mg Fentanyl I.V. 50 mcg Heparin Bolus I.V. 8500 units Versed I.V. 1 mg Fentanyl I.V. 50 mcg Versed I.V. 0.5 mg Fentanyl I.V. 25 mcg Effient P.O. 60 mg Hemodynamics Rest BSA: 1.98 (m2) O2 Consumption: Estimated: 180.07 (ml/min) O2 Consumption indexed : Estimated:90.94 (ml/min/m) Heart Rate: 58 (bpm) Snapshots Pre Cath Intra NCS Post Cath Vital Signs Time Heart Resp SPO2 etCO2 NIBP (mmHg) Rhythm Pain Sedation Rate (ipm) (%) (mmHg) Status Level (bpm) 8:20:38 53 13 96 22.5 172/89(138) SB 0 (11) 10(A) , No pain 8:26:18 56 20 97 26.2 134/84(120) SB 0 (11) 10(A) , No pain 8:30:51 55 15 95 26.3 136/73(118) SB 0 (11) 10(A) , No pain 8:35:23 53 13 97 27.8 140/77(100) SB 0 (11) 9(A) , No pain 8:39:51 46 12 96 28.5 114/78(104) SB 0 (11) 9(A) , No pain 8:44:12 53 12 96 29.3 129/82(117) SB 0 (11) 9(A) , No pain 8:48:40 54 13 96 28.6 132/77(99) SB 0 (11) 9(A) , No pain 8:53:12 51 15 97 30.1 126/72(111) SB 0 (11) 9(A) , No pain 8:57:32 54 13 97 28.6 132/77(113) SB 0 (11) 10(A) , No pain Medications Time Medication Route Dose Verified Delivered Reason Notes Effectiveness by by 8:24:38 Oxygen etCO2 2 Don Buffie used for Nasal l/min Gualberto Box RN procedure cannula 8:24:46 Lidocaine 2% added 20ml Don Don for local to vial Gualberto Burciaga MD anesthetic field 8:24:52 Heparin Flush added 2 Don Don used for Bag to bags Gualberto Burciaga MD procedure (1000units/500ml field NS) 8:25:01 0.9% NaCl I.V. 100 Don Buffie Per physician ml/hr Gualberto Box RN 8:31:30 Fentanyl I.V. 50 Don Buffie for sedation mcg Gualberto Box RN 8:31:30 Versed I.V. 1 mg Don Buffie for sedation Gualberto Box RN 8:35:27 Versed I.V. 1 mg Don Buffie for sedation Gualberto Box RN 8:35:31 Fentanyl I.V. 50 Don Buffie for sedation mcg Gualberto Box RN 8:42:20 Versed I.V. 1 mg Don Buffie for sedation Gualberto Box RN 8:42:24 Fentanyl I.V. 50 Don Buffie for sedation mcg Gualberto Box RN 8:50:14 Heparin Bolus I.V. 8500 Don Buffie for units Gualberto Box RN anticoagulation 8:55:10 Versed I.V. 0.5 Don Buffie for sedation mg Gualberto Box RN 8:55:14 Fentanyl I.V. 25 Don Buffie for sedation mcg Gualberto Box RN 9:00:42 Effient P.O. 60 mg Don Buffie for Gualbreto Box RN antiplatelet therapy Procedure Log Time Note 8:02:37 Toi Montero RT(R) sent for patient. Start room use. 8:02:38 Diagnostic Cath status Elective 8:02:39 Signed procedure consent form obtained from patient. 8:02:40 Time tracking: Regular hours (M-F 7:00 - 5:00) 8:02:44 Plan of Care:Hemodynamics will remain stable., Cardiac rhythm will remain stable., Comfort level will be maintained., Respiratory function will remain adequate., Patient/ family verbilizes understanding of procedure., Procedure tolerated without complication., Recovers from procedure without complications.. 8:02:53 H&P Date Dictated: 02/28/2018 Within 30 days and on chart., H&P Addendum completed by physician on day of procedure. (MUST COMPLETE FOR ALL OUTPATIENTS). 8:03:04 Patient allergic to Other allergyCOREG IODINE 8:03:11 Patient Height : 67 inches 8:03:14 Patient Weight : 190 lbs 8:09:35 Patient received from Pre/Post Procedure Room to CCL 3 Alert and oriented. Tansferred to table in Supine position. 8:09:36 Warm blankets applied, and angelique hugger turned on for patient comfort. 8:09:37 Correct patient and procedure confirmed by team. 8:09:37 ECG and BP/O2 sat monitors applied to patient. 8:19:01 Baseline sample Acquired. 8:19:01 Vital chart was started 8:19:06 Rhythm: sinus rhythm 8:19:11 Full Disclosure recording started 8:19:12 Pre-procedure instructions explained to patient. 8:19:13 Pre-op teaching completed and patient verbalized understanding. 8:19:14 Family in waiting room. 8:19:16 Patient NPO since Midnight. 8:19:20 Is the patient allergic to Iodine/contrast media? Yes. 8:19:22 Was the patient premedicated? Yes 8:20:00 Is patient on blood thinner?No 8:20:03 Patient diabetic? Yes. 8:20:05 If diabetic: On Metformin? No 8:20:06 ----Pre-sedation anethsthesia assessment.---- 8:20:09 Previous problem with sedation/anesthesia? No ? 8:20:11 Snore? No 8:20:13 Sleep apnea? No 8:20:17 Deviated septum? No 8:20:19 Opens mouth fully? Yes 8:20:21 Sticks out tongue? Yes 8:20:25 Dentures? No ? 8:20:36 Airway obstruction? No ? 8:20:39 Pre procedure: right dorsailis pedis pulse 2+ Normal; easily identifiable; not easily obliterated 8:20:45 Patient pain scale 0/10 ?. 8:20:57 IV patent on arrival in left antecubital with 0.9% NaCl at 10ml/hr. 8:21:03 Lab results completed and on chart. 8:21:06 Right groin area was prepped with chlora-prep and draped in sterile fashion 8:21:07 Alarms reviewed by R. N. 8::08 Sharps counted by scrub and verified by R.N. 8:21:09 Physician arrived 8:24:38 Oxygen 2 l/min etCO2 Nasal cannula was administered by Aimee Box RN; used for procedure; 8:24:46 Lidocaine 2% 20ml vial added to field was administered by Don Burciaga MD; for local anesthetic; 8:24:52 Heparin Flush Bag (1000units/500ml NS) 2 bags added to field was administered by Don Burciaga MD; used for procedure; 8:25:01 0.9% NaCl 100 ml/hr I.V. was administered by Aimee Box RN; Per physician; 8:31:10 --------ALL STOP TIME OUT------ 8:31:11 Final Timeout: patient, procedure, and site verified with staff and physician. All members of the team are in agreement. 8:31:13 Right groin site verified by team. 8:31:17 Fire Safety Assessment: A--An alcohol-based skin anteseptic being used preoperatively., C--Open oxygen or nitrous oxide is being used., D--An ESU, laser, or fiber-optic light is being used. 8:31:20 Physical assessment completed. ASA score P 2 - A patient with mild systemic disease as per Don Burciaga MD. 8:31:25 Sedation plan: IV Moderate Sedation Medication:Versed, Fentanyl 8:31:30 Fentanyl 50 mcg I.V. was administered by Aimee Box RN; for sedation; 8:31:30 Versed 1 mg I.V. was administered by Aimee Box RN; for sedation; 8:32:00 Procedure started. 8:32:07 Use device set Femoral Dx 8:32:08 ACIST Syringe (88556) opened to sterile field. 8:32:08 Bag Decanter () opened to sterile field. 8:32:08 Medline Cath Pack ([id number]) opened to sterile field. 8:32:09 DIAGNOSTIC WIRE .035 260cm J wire (883297) opened to sterile field. 8:32:10 ACIST Hand Control (54564) opened to sterile field. 8:32:11 ACIST Manifold (60284) opened to sterile field. 8:32:11 DIAGNOSTIC Multipack 5Fr catheter set (TV2692) opened to sterile field. 8:32:13 Tegaderm 4 x 4 (1626W) opened to sterile field. 8:32:14 SHEATH 5FR [place] (BMZ863) opened to sterile field. 8:32:33 Local anesthetic to right femoral artery with Lidocaine 2% by Don Burciaga MD.INITIAL ACCESS ONLY 8:32:41 A 5 Fr sheath was inserted into the Right Femoral vein 8:32:53 Zero performed for pressure channel P1 8:34:28 A 5 Fr sheath was inserted into the Right Femoral artery 8:34:50 A MULTIPACK JL 4.0 5Fr catheter was advanced over the wire and used for Left Coronary Angiography. 8:35:27 Versed 1 mg I.V. was administered by Aimee Box RN; for sedation; 8:35:31 Fentanyl 50 mcg I.V. was administered by Aimee Box RN; for sedation; 8:35:53 LCA angiography performed. 8:38:20 Catheter exchanged over wire. 8:38:41 A DIAGNOSTIC AR2 MOD 5 Fr catheter ([id number]) was advanced over the wire and used for Right Coronary Angiography. 8:38:46 RCA angiography performed. 8:38:58 SVG to Circ angiography performed. 8:42:20 Versed 1 mg I.V. was administered by Aimee Bxo RN; for sedation; 8:42:24 Fentanyl 50 mcg I.V. was administered by Aimee Box RN; for sedation; 8:43:13 Catheter exchanged over wire. 8:43:29 A DIAGNOSTIC IM 5Fr catheter ([id number]) was advanced over the wire and used for SVG Angiography. 8:44:24 SVG to LAD angiography performed. 8:46:11 Catheter exchanged over wire. 8:47:21 TUBING High Pressure Extension Tubing (Gualberto) ([id number]) opened to sterile field. 8:47:22 SHEATH 6FR [place] (BST068) opened to sterile field. 8:47:22 INFLATOR Merit BasixCompak (CH4374) opened to sterile field. 8:47:22 BMW 300cm [place] 2 J wire ([id number]) opened to sterile field. 8:47:23 GUIDE 6FR XBLAD 3.5 catheter ([id number]) opened to sterile field. 8:47:33 Sheath upsized to a 6 Fr Short. 8:47:43 6 Fr XBLAD 3.5 guide catheter was inserted over the wire 8:47:48 BMW2 wire advanced. 8:50:14 Heparin Bolus 8500 units I.V. was administered by Aimee Box RN; for anticoagulation; 8:53:33 Inflate balloon Inflation number: 1 A EMERGE OTW 3.0 x 15 balloon ([id number]) was prepped and advanced across the Prox CX, then inflated to 14 WHIT for 0:42 (min:sec). 8:54:38 Balloon removed over the wire. 8:54:39 Wire removed. 8:54:42 Guide catheter removed. 8:54:49 Contrast amount:Isovue 300 41ml. 8:54:56 Sheath removed intact; hemostasis achieved with Exoseal to the Right Femoral artery. 8:55:03 EXOSEAL 6Fr (EX600) opened to sterile field. 8:55:10 Versed 0.5 mg I.V. was administered by Aimee Box RN; for sedation; 8:55:14 Fentanyl 25 mcg I.V. was administered by Aimee Box RN; for sedation; 8:55:15 Sheath removed intact; hemostasis achieved with Manual Compression to the Right Femoral vein. 8:55:17 Procedure ended.(Physican Out) 8:56:08 Procedure type changed to Cath procedure, Diagnostic procedure, LHC, Coronaries w/Grafts, PCI procedure, PTCA, PTCA Initial 8:56:15 Fluoroscopy time 05.40 minutes. 8:56:20 Flurop Dose total: 457 8:56:20 Fluoroscopy dose: 457 mGy 8:56:22 Sharps counted by scrub and verified by R.N. 8:56:23 Insertion/operative site no bleeding no hematoma. 8:56:26 Post-op/insertion site Right Femoral artery dressed using a 4 x 4 and Tegaderm. 8:56:29 Post right femoral artery:stable 8:56:31 Post Procedure Pulses reassessed and unchanged 8:56:33 Post procedure: right dorsailis pedis pulse 1+ Palpable, but thready & weak; easily obliterated. 8:56:36 Post procedure rhythm: sinus rhythm 8:56:38 Post procedure instruction explained to patient.Patient verbalizes understanding. 8:56:39 Procedure and supply charges have been captured, reviewed, submitted and are correct. 8:56:44 Procedure Complication : No complications 8:56:49 Vital chart was stopped 8:56:49 See physician's report for complete and final results. 8:56:55 Report given to Pre/Post Procedure Room. 8:57:05 Patient transfered to Pre/Post Procedure Room with Stretcher. 8:57:07 Procedure ended. 8:57:07 Full Disclosure recording stopped 8:57:17 ACC-PCI Only Patient was given prescriptions, or instructed by Don Burciaga MD to start/continue the following medications upon discharge: Effient 8:57:19 End room use (Document Last) 9:00:42 Effient 60 mg P.O. was administered by Aimee Box RN; for antiplatelet therapy; Intervention Summary Intervention Notes Time ActionType Lesion and Equipment Action# Pressure Duration Attributes Used 8:53:33 Inflate Prox CX EMERGE OTW 1 14 00:42 balloon 3.0 x 15 balloon ([id number]) Device Usage Item Name Manufacture Quantity Catalog Number Hospital Part Current Min imal Lot# / Charge Number Stock Stock Serial# Code ACIST Acist 1 25467 202000 398940 739297 20 Syringe Medical (87113) Systems Inc Bag Decanter Microtek 1 181868 40085 953740 5 () Medical Inc. Medline Cath Medline 1 [id number] 697051 45927 862845 5 Pack ([id number]) DIAGNOSTIC St Donny 1 549423 423772 854150 071185 30 WIRE .035 260cm J wire (939740) ACIST Hand Acist 1 66422 294564 504675 930149 5 Control Medical (85052) Systems Inc ACIST Acist 1 22910 053871 000959 133133 5 Manifold Medical (54360) Systems Inc DIAGNOSTIC Cardinal 1 BJ1865 310176 89587 814703 30 Multipack Health 5Fr catheter set (CP0043) Tegaderm 4 x 3M 1 1626W 563559 178150 147357 5 4 (1626W) SHEATH 5FR Terumo 1 LYF369 156216 607473 619190 5 Saint Peters (ZWH627) MULTIPACK JL Cardinal 1 228534 5 4.0 5Fr Health catheter DIAGNOSTIC Cardinal 1 026155Y 983631 310829 938245 20 AR2 MOD 5 Fr Health catheter (724847R) DIAGNOSTIC Cardinal 1 613737A 761443 624699 231112 5 IM 5Fr Health catheter (133622C) TUBING High Merit 1 IU0731B 121498 18288 015962 10 Pressure Medical Extension Tubing (Burciaga) (VG2834G) SHEATH 6FR Terumo 1 JOA436 803909 965922 213056 40 Saint Peters (PZR788) INFLATOR Merit 1 ZL4801 173411 842470 757432 15 [facility] Medical BasixCompak (EB9465) BMW 300cm Barton 1 [id number] 324372 324353 286678 5 Freeland 2 Vascular J wire (9793054Y) GUIDE 6FR Cardinal 1 97540594 283430 067392 742084 10 XBLAD 3.5 Health catheter (03101547) EMERGE OTW [place] 1 [id number] 792563 177051 540087 5 [id number] 3.0 x 15 Scientific balloon ([id number]) EXOSEAL 6Fr Cardinal 1 EX600 111237 172535 426581 10 (EX600) Health Signature Audit Drew Stage Time Signature Unsigned Intra-Procedure 03/28/2018 Toi Montero RT(R) 9:02:08 AM Signatures Monitor : Toi Montero RT Signature : Date : Time : [facility] [address] [place] [address]
[~2018-03-28 06:22] MED LIST changes: -EFFIENT10 MG PO
[2018-03-28 07:10] VITALS: BP 191/76; Ht 170.2 cm; Wt 86.4 kg
[2018-03-28 07:26] LABS: BASOPHILS 0 % (0-2); EOSINOPHILS 0 % (0-7); HEMATOCRIT 33.5 % (36.0-48.0); HEMOGLOBIN 11.3 g/dL (12-16); IMMATURE GRANULOCYTES 0.3 % (0-5); LYMPHOCYTES 10.8 % (15-50); MCH 31.7 pg (26.0-34.0); MCHC 33.7 g/dL (31.0-37.0); MCV 93.8 fL (80.0-100.0); MEAN PLATELET VOLUME 10.1 fL (7.4-10.4); NEUTROPHILS 87.9 % (40-80); RBC 3.57 10x6/uL (4.00-5.40); RDW 13.6 % (11.5-14.5); WBC 10.7 10x3/uL (4.8-10.8)
[2018-03-28 07:33] LABS: ANION GAP 23.2 mmol/L (8-16); CALCIUM 9.1 mg/dL (8.5-10.1); CARBON DIOXIDE 17.8 mmol/L (21.0-32.0); CREATININE - SERUM 3.7 mg/dL (0.6-1.3)
[2018-03-28 07:42] LABS: PLATELET COUNT 300 10x3/uL (130-400)
--- NOTE | 2018-03-28 09:20 | NUR ---
PT RECEIVED VIA STRETCHER FROM [employer]UMENTS TUBE BENDER FOR RECOVERY. PT AWAKE BUT DROWSY. HR NSR RATE 55, BP 139/67, O2 SAT 99 ON 2L/NC. PT DENIES CHEST PAIN OR DISCOMFORT. 6 FR EXOCELE TO R GROIN, DRESSING CDI NO BLEEDING OR SWELLING NOTED. PEDAL PULSES PALPABLE, EXTREMITY WARM AND PINK. PT INSTRUCTED TO KEEP LEG STRAIGHT AND HEAD FLAT ON PILLOW, VERBALIZED UNDERSTANDING. CALL LIGHT IN REACH AND FAMILY AT BEDSIDE.
[2018-03-28] MEDS ORDERED: EFFIENT10 MG PO (09:39)
--- NOTE | 2018-03-28 09:45 | NUR ---
PT RESTING QUIETLY, R GROIN DRESSING CDI, NO BLEEDING OR SWELLING NOTED. HR 50 W PVC'S. PT DENIES CHEST PAIN OR NAUSEA. CALL LIGHT IN REACH.
--- NOTE | 2018-03-28 10:15 | NUR ---
PT RESTING W EYES CLOSED, GROIN SOFT NO BLEEDING OR SWELLING NOTED, DRESSING REMAINS CDI. VSS, DENIES PAIN OR NEEDS. CALL LIGHT IN REACH
--- NOTE | 2018-03-28 10:29 | NUR ---
GROIN DRESSING CDI NO BLEEDING OR SWELLING NOTED. PEDAL PULSES PALPABLE. DENIES PAIN OR NEEDS. CALL LIGHT IN REACH
--- NOTE | 2018-03-28 11:01 | NUR ---
PT RESTING QUIETLY, PT DENIES PAIN OR NEEDS AT THIS TIME. R GROIN CDI NO BLEEDING OR SWELLING NOTED. CALL LIGHT IN REACH.
--- NOTE | 2018-03-28 11:35 | NUR ---
R GROIN DRESSING REMAINS CDI, NO BLEEDING OR HEMATOMA NOTED. PT DENIES PAIN OR DISCOMFORT. APPLE SAUCE GIVEN PER REQUEST. CALL LIGHT IN REACH.
--- NOTE | 2018-03-28 12:00 | NUR ---
PT AWAKE, C/O SLIGHT HEARTBURN FEELING. 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 WILL CONTINUE TO WATCH. R GROIN REMAINS SOFT NO BLEEDING OR SWELLING NOTED. CALL LIGHT IN REACH
--- NOTE | 2018-03-28 12:35 | NUR ---
HOB ELEVATED SLIGHTLY, GROIN DRESSING REMAINS CDI, NO BLEEDING OR SWELLING NOTED. SANDWICH SERVED. VSS, DENIES PAIN OR NEEDS. CALL LIGHT IN REACH
--- NOTE | 2018-03-28 13:00 | NUR ---
NO CHANGE IN CONDITION, PT AWAKE WATCHING TV. GROIN DRESSING CDI NO BLEEDING OR SWELLING NOTED.
--- NOTE | 2018-03-28 13:19 | NUR ---
IV REMOVED W CATH INTACT, MONITORS REMOVED. PT UP TO DRESS FOR DISCHARGE
--- NOTE | 2018-03-28 13:25 | NUR ---
DISCHARGE INSTRUCTIONS AND HOME MEDICATIONS REVIEWED W PT AND FAMILY MEMBER, BOTH VERBALIZED UNDERSTANDING.
--- NOTE | 2018-03-28 13:35 | NUR ---
PT DISCHARGED TO PRIVATE VEHICLE PER WC
== END 2018-03-28 13:35 | disposition home or self-care (01) ==
LOC: D.CATH 06:22
PROVIDERS: Internal Medicine Cardiovascular Disease
DX: T82.855A Stenosis of coronary artery stent, initial encounter (principal); I25.119 Atherosclerotic heart disease of native coronary artery with unspecified angina pectoris; Z95.1 Presence of aortocoronary bypass graft; Z01.812 Encounter for preprocedural laboratory examination

== ENCOUNTER 2018-05-10 08:46 | Inpatient (IN) | payer MEDICARE ==
[~2018-05-10] VITALS: Ht 170.2 cm; Wt 86.4 kg
[~2018-05-10 08:46] MED LIST changes: +EFFIENT10 MG PO
[2018-05-10 09:23] LABS: ALBUMIN 3.3 g/dL (3.4-5.0); ALKALINE PHOSPHATASE 131 U/L (46-116); ALT (SGPT) 23 U/L (10-68); CALC OSMOLALITY 288 mosm/kg (275-300); CARBON DIOXIDE 20.4 mmol/L (21.0-32.0); CHLORIDE - SERUM 103 mmol/L (98-107); CREATININE - SERUM 3.8 mg/dL (0.6-1.3); POTASSIUM - SERUM 5.1 mmol/L (3.5-5.1); PROTEIN - SERUM 7.3 g/dL (6.4-8.2); SODIUM 136 mmol/L (136-145); UREA NITROGEN 48 mg/dL (7-18); eGFR NON AFRICAN AMERICAN 13 mL/min (90-120)
[2018-05-10 09:28] LABS: GLUCOSE 162 mg/dL (74-106)
[2018-05-10 09:30] LABS: BASOPHILS 0 % (0-2); EOSINOPHILS 1.4 % (0-7); HEMATOCRIT 36.2 % (36.0-48.0); IMMATURE GRANULOCYTES 0.3 % (0-5); LYMPHOCYTES 18.3 % (15-50); MCH 30.6 pg (26.0-34.0); MCHC 33.1 g/dL (31.0-37.0); MCV 92.3 fL (80.0-100.0); MEAN PLATELET VOLUME 10.3 fL (7.4-10.4); MONOCYTES 12.4 % (2-11); NEUTROPHILS 67.6 % (40-80); RBC 3.92 10x6/uL (4.00-5.40); RDW 14.4 % (11.5-14.5); WBC 5.9 10x3/uL (4.8-10.8)
[2018-05-10 09:34] LABS: PLATELET COUNT 219 10x3/uL (130-400)
[2018-05-10 09:38] LABS: CKMB 1.5 U/L (0.0-3.6); CREATINE KINASE 59 UL (21-215)
[2018-05-10 09:44] LABS: PRO BNP 42055 pg/mL (0-125); TROPONIN-I 0.097 ng/mL (0.000-0.060)
--- NOTE | 2018-05-10 09:44 | NUR ---
CRITICAL LABS CALLED BY [employer] TECH, ELEVATED TROPONIN OF 0.097 AND ELEVATED PRO BNP OF 42,055. NOTIFIED DR. HARTLEY.
[2018-05-10 10:16] LABS: APPEARANCE CLEAR (CLEAR); BACTERIA MODERATE /hpf (NONE SEEN); BILIRUBIN NEGATIVE (NEGATIVE); COLOR YELLOW (YELLOW); GLUCOSE 100 mg/dL (NEGATIVE); KETONE NEGATIVE (NEGATIVE); NITRITE NEGATIVE (NEGATIVE); PROTEIN 3+ mg/dL (NEGATIVE); SPECIFIC GRAVITY 1.015 (1.005-1.020); UROBILINOGEN NORMAL (NORMAL); WHITE CELLS - URINE 0-5 /hpf (0-5)
[2018-05-10 10:17] LABS: EPITHELIAL CELLS 0-5 /hpf (0-5); MUCUS <1+ /lpf (NONE SEEN)
[2018-05-10 12:30] VITALS: BP 170/79
--- NOTE | 2018-05-10 12:30 | NUR ---
NOTIFIED DR. HARTLEY OF PATIENT'S TEMP OF 101.5. AWAITING ORDER FOR TYLENOL AT THIS TIME
--- NOTE | 2018-05-10 12:36 | NUR ---
REPORT CALLED TO EDD MCMAHAN AT THIS TIME, WAS INFORMED ROOM WAS STILL DIRTY. NURSE WILL CALL WHEN ROOM IS AVAILABLE.
[2018-05-10] MEDS ORDERED: LEVEMIR FL100 UNIT/1 SQ (14:51)
[2018-05-10] MEDS ORDERED: NORVASC5 MG PO (14:53)
[2018-05-10] MEDS ORDERED: ZYLOPRIM100 MG PO (14:57)
[2018-05-10 15:04] VITALS: BP 164/64; Ht 170.2 cm; Wt 86.4 kg
--- NOTE | 2018-05-10 19:15 | NUR ---
RECEIVED CARE FROM DAY NURSE. LYING IN BED ON SIDE. EYES CLOSED. RESP EVEN AND UNLABORED. CALL LIGHT AT SIDE.
[2018-05-10 20:00] VITALS: BP 151/47
[2018-05-11] VITALS: BP 149/51
[2018-05-11 03:00] VITALS: BP 127/61
--- NOTE | 2018-05-11 06:05 | NUR ---
I have reviewed this patient and I concur with the Shift Assessment completed by the Licensed Practical Nurse today this shift.
[2018-05-11 06:36] LABS: BASOPHILS 0 % (0-2); EOSINOPHILS 1.7 % (0-7); HEMATOCRIT 32.9 % (36.0-48.0); HEMOGLOBIN 10.6 g/dL (12-16); IMMATURE GRANULOCYTES 0.2 % (0-5); LYMPHOCYTES 35.1 % (15-50); MCH 30.2 pg (26.0-34.0); MCHC 32.2 g/dL (31.0-37.0); MCV 93.7 fL (80.0-100.0); MEAN PLATELET VOLUME 10.1 fL (7.4-10.4); MONOCYTES 18.4 % (2-11); NEUTROPHILS 44.6 % (40-80); PLATELET COUNT 177 10x3/uL (130-400); RBC 3.51 10x6/uL (4.00-5.40); RDW 14.6 % (11.5-14.5)
[2018-05-11 07:08] LABS: WBC 4.1 10x3/uL (4.8-10.8)
[2018-05-11 07:15] LABS: ANION GAP 18.5 mmol/L (8-16); CALCIUM 8.5 mg/dL (8.5-10.1); CARBON DIOXIDE 21.4 mmol/L (21.0-32.0); POTASSIUM - SERUM 4.9 mmol/L (3.5-5.1)
--- NOTE | 2018-05-11 07:40 | NUR ---
PATIENT RECIEVED RESTING IN BED, NO DISTRESS, NO NEEDS VOICED, CL IN REACH
[2018-05-11 09:07] VITALS: BP 138/55
[2018-05-11 14:16] VITALS: BP 167/67
[2018-05-11 17:15] VITALS: BP 173/82
--- NOTE | 2018-05-11 19:15 | NUR ---
RECEIVED CARE FROM DAY NURSE. LYING IN BED WATCHING TV. REPORTS NO NEEDS AT THIS TIME. CALL LIGHT AT SIDE. IV SL TO LEFT HAND.
--- NOTE | 2018-05-11 19:15 | NUR ---
RECEIVED CARE FROM DAY NURSE. LYING IN BED. REPORTS NO NEEDS AT THIS TIME. CALL LIGHT AT SIDE. IV INFUSING TO PATENT LEFT HAND.
[2018-05-11 20:00] VITALS: BP 119/53
[2018-05-12] VITALS: BP 121/64
[2018-05-12 03:00] VITALS: BP 142/66
--- NOTE | 2018-05-12 03:49 | NUR ---
I have reviewed this patient and I concur with the Shift Assessment completed by the Licensed Practical Nurse today this shift.
[2018-05-12 06:21] LABS: BASOPHILS 0.2 % (0-2); EOSINOPHILS 5.7 % (0-7); HEMATOCRIT 31.1 % (36.0-48.0); HEMOGLOBIN 10.1 g/dL (12-16); LYMPHOCYTES 39.2 % (15-50); MCH 29.9 pg (26.0-34.0); MCHC 32.5 g/dL (31.0-37.0); MEAN PLATELET VOLUME 10.1 fL (7.4-10.4); MONOCYTES 13.3 % (2-11); NEUTROPHILS 41.6 % (40-80); PLATELET COUNT 188 10x3/uL (130-400); RBC 3.38 10x6/uL (4.00-5.40); RDW 14.4 % (11.5-14.5)
[2018-05-12 06:32] LABS: WBC 5.4 10x3/uL (4.8-10.8)
[2018-05-12 06:45] LABS: ALBUMIN 2.6 g/dL (3.4-5.0); ANION GAP 14.1 mmol/L (8-16); BILIRUBIN - TOTAL 0.27 mg/dL (0.2-1.3); CALCIUM 8.2 mg/dL (8.5-10.1); CARBON DIOXIDE 22.6 mmol/L (21.0-32.0); CREATININE - SERUM 4.4 mg/dL (0.6-1.3); POTASSIUM - SERUM 4.7 mmol/L (3.5-5.1); PROTEIN - SERUM 5.9 g/dL (6.4-8.2)
--- NOTE | 2018-05-12 07:40 | NUR ---
PATIENT RECIEVED RESTING IN BED, ADMITTED WITH FLU AND PNEUMONIA. REPORTS FEELING BETTER THIS AM. RESPIRATIONS REGULAR AND NONLABORED. DENIES NEEDS AT THIS TIME, CL IN REACH
[2018-05-12 09:54] VITALS: BP 154/63
[2018-05-12 13:43] VITALS: BP 108/59
[2018-05-12 17:49] VITALS: BP 102/55
[2018-05-12 20:00] VITALS: BP 164/56
[2018-05-13] VITALS: BP 119/50
[2018-05-13 03:00] VITALS: BP 121/63
[2018-05-13 07:49] LABS: BASOPHILS 0.1 % (0-2); EOSINOPHILS 4.6 % (0-7); HEMATOCRIT 31.7 % (36.0-48.0); HEMOGLOBIN 10.3 g/dL (12-16); IMMATURE GRANULOCYTES 0.1 % (0-5); LYMPHOCYTES 28.2 % (15-50); MCH 29.9 pg (26.0-34.0); MCHC 32.5 g/dL (31.0-37.0); MCV 91.9 fL (80.0-100.0); MEAN PLATELET VOLUME 10.3 fL (7.4-10.4); MONOCYTES 9.9 % (2-11); NEUTROPHILS 57.1 % (40-80); PLATELET COUNT 196 10x3/uL (130-400); RBC 3.45 10x6/uL (4.00-5.40); RDW 14.2 % (11.5-14.5); WBC 6.7 10x3/uL (4.8-10.8)
[2018-05-13 08:21] LABS: ALBUMIN 2.9 g/dL (3.4-5.0); ANION GAP 17.5 mmol/L (8-16); BILIRUBIN - TOTAL 0.27 mg/dL (0.2-1.3); CALCIUM 8.2 mg/dL (8.5-10.1); CARBON DIOXIDE 23.2 mmol/L (21.0-32.0); CREATININE - SERUM 4.3 mg/dL (0.6-1.3); POTASSIUM - SERUM 4.7 mmol/L (3.5-5.1); PROTEIN - SERUM 5.8 g/dL (6.4-8.2)
[2018-05-13 10:07] VITALS: BP 128/82
--- NOTE | 2018-05-13 13:55 | NUR ---
I have reviewed this patient and I concur with the Shift Assessment completed by the Licensed Practical Nurse today this shift.
--- NOTE | 2018-05-13 14:30 | NUR ---
PATIENT C/O SOB AFTER GETTING UP TO BR. STATES, "I USUALLY GET SHORT OF BREATH GETTING UP TO BATHROOM BUT IT USUALLY TAKES JUST A COUPLE SECONDS TO GET IT BACK. THIS TIME IT'S NOT." SPO2= 97%. STATES FEELING BETTER NOW.
[2018-05-13 14:37] VITALS: BP 115/70
[2018-05-13 18:12] VITALS: BP 128/64
--- NOTE | 2018-05-13 21:00 | NUR ---
PT SITTING UP IN BED, NO SIGNS OF DISTRESS. ALERT AND ORIENTED. BREATHING EVEN, UNLABORED ON ROOM AIR. STATES SHE GETS SLIGHTLY SOB W/ EXERTION BUT QUICKLY RECOVERS. IV LEFT HAND SL. DRESSING CDI, FLUSHES EASILY. PT STATES HEADACHE W/ PAIN 5/10. GAVE SCHEDULED TYLENOL PM. BS 199, GAVE LEVEMIR 44 UNITS ORDERED. DENIES NEEDS AT THIS TIME. CL IN REACH, WILL CONT TO MONITOR
[2018-05-13 21:57] VITALS: BP 138/60
[2018-05-14 01:45] VITALS: BP 128/64
[2018-05-14 05:19] VITALS: BP 121/45
--- NOTE | 2018-05-14 06:22 | NUR ---
BS 69. OFFERED PT JUICE AND SNACK. PT DRANK ALL OF CRANBERRY JUICE. WILL CONT TO MONITOR
--- NOTE | 2018-05-14 07:44 | NUR ---
AWAKE AND ALERT. ORIENTED X3. NO C/O AT THIS TIME. LUNGS ARE CLEAR BILATERALLY, OCCASSIONAL PRODUCTIVE COUGH NOTED. SKIN IS INTACT WITHOUT REDNESS. SL TO LEFT HAND IS PATENT WITHOUT REDNESS AT INSERTION SITE. DENIES NEEDS.
[2018-05-14 07:51] LABS: ANION GAP 18.5 mmol/L (8-16); BILIRUBIN - TOTAL 0.3 mg/dL (0.2-1.3); CALCIUM 7.9 mg/dL (8.5-10.1); CARBON DIOXIDE 20.1 mmol/L (21.0-32.0); CREATININE - SERUM 4.4 mg/dL (0.6-1.3); POTASSIUM - SERUM 4.6 mmol/L (3.5-5.1); PROTEIN - SERUM 6.2 g/dL (6.4-8.2)
[2018-05-14 08:55] VITALS: BP 145/64
--- NOTE | 2018-05-14 09:04 | MORECARE ---
CASE MANAGEMENT DISCHARGE SUMMARY PATIENT: DILIP FAYE UNIT: [id number] ADM DATE: 05/10/18 AGE: 57 : 58 SEX: F ROOM/BED: D.2233 AUTHOR: EVELYN DELVALLE PHYSICIAN: REFERRING PHYSICIAN: TRAMAINE AVILES DO DATE OF SERVICE: 05/14/18 Discharge Plan Patient Name: DILIP FAYE [facility] [facility] 1960 Planned Disposition: Home Anticipated Discharge Date: Discharge Date: Expected LOS: Initial Reviewer: [email or web address] Initial Review Date: 05/14/2018 Generated: 05/14/18 10:04 am Patient Name: DILIP FAYE Page 75218 at 0904 All edits/amendments must be made on the electronic document DICTATION DATE: 05/14/18903 STRATEGY SPECIALIST: DUY 05/14/18903 RPT#: [id number] DC DATE: STATUS: ADM IN [facility] [address] [place] [address] END OF REPORT
--- NOTE | 2018-05-14 09:11 | MORECARE ---
CASE MANAGEMENT DISCHARGE SUMMARY PATIENT: DILIP FAYE UNIT: [id number] ADM DATE: 05/10/18 AGE: 57 : 58 SEX: F ROOM/BED: D.2233 AUTHOR: EVELYN DELVALLE PHYSICIAN: REFERRING PHYSICIAN: TRAMAINE AVILES DO DATE OF SERVICE: 05/14/18 Discharge Plan Patient Name: DILIP FAYE [facility] [facility] 1960 Planned Disposition: Home Anticipated Discharge Date: Discharge Date: Expected LOS: Initial Reviewer: [email or web address] Initial Review Date: 05/14/2018 Generated: 05/14/18 10:11 am DCPIA - Discharge Planning Initial Assessment Updated by [email or web address]: Jennifer Gonzalez on 05/14/18 9:09 am * Is the patient Alert and Oriented? Yes * How many steps to enter\exit or inside your home? 2/3 * PCP [facility] - [facility] * Pharmacy [facility] - N * Preadmission Environment Home with Family * ADLs Independent * Equipment Glucometer Rolling Walker * List name and contact numbers for known caregivers / representatives who currently or will assist patient after discharge: Kyle Mason - [phone] Nora Harding - [phone] * Verbal permission to speak to the caregivers and representatives has been obtained from the patient. Yes * Community resources currently utilized None * Please name any agencies selected above. [facility] is DME preference * Additional services required to return to the preadmission environment? No * Can the patient safely return to the preadmission environment? Yes * Has this patient been hospitalized within the prior 30 days at any hospital? No Last DP export: 05/14/18 8:04 am Patient Name: DILIP FAYE Page 63879 at 0911 All edits/amendments must be made on the electronic document DICTATION DATE: 05/14/18910 FOUNTAIN SUPERVISOR: DUY 05/14/18910 RPT#: [id number] DC DATE: STATUS: ADM IN [facility] [address] [place] [address] END OF REPORT
--- NOTE | 2018-05-14 09:19 | MORECARE ---
CASE MANAGEMENT DISCHARGE SUMMARY PATIENT: DILIP FAYE UNIT: [id number] ADM DATE: 05/10/18 AGE: 57 : 58 SEX: F ROOM/BED: D.2233 AUTHOR: ADELIA,DOC PHYSICIAN: REFERRING PHYSICIAN: TRAMAINE AVILES DO DATE OF SERVICE: 05/14/18 Discharge Plan Patient Name: DILIP FAYE Facility: [facility]:[place] : 1960 Planned Disposition: Home Anticipated Discharge Date: Discharge Date: Expected LOS: Initial Reviewer: [email or web address] Initial Review Date: 05/14/2018 Generated: 05/14/18 10:18 am Comments DCP- Discharge Planning Updated by [email or web address]: Jennifer Gonzalez on 05/14/18 8:[address] Patient Name: DILIP FAYE Admission Status: ER Accout number: [id number] Admission Date: 05-10-2018 : 1960 Admission Diagnosis: Attending: TRAMAINE AVILES Current LOS: 4 Anticipated DC Date: Planned Disposition: Home Primary Insurance: [employer] CHO[employer] PPO MCR ADVANT Discharge Planning Comments: CM met with patient to complete initial dc planning assessment. CM educated patient on the CM role and verbal consent given by patient to complete assessment. Patient lives at home with her 5 young God children and their parents. States her live in friend (Nora) will pick her up at discharge. At discharge patient plans to return home and feels this is a safe discharge. CM discussed availability of home health, rehab services, and medical equipment. Patient denied known discharge needs at this time. States she has a rolling walker that she rarely uses and does not need any DME or home health at this time. No needs identified. CM will continue to follow and will assist as needed with dc plans/needs. Casting Associate: Jennifer Gonzalez DCPIA - Discharge Planning Initial Assessment Updated by [email or web address]: Jennifer Gonzalez on 05/14/18 9:09 am * Is the patient Alert and Oriented? Yes * How many steps to enter\exit or inside your home? 2/3 * PCP [facility] - [facility] * Pharmacy [facility] - [facility] * Preadmission Environment Home with Family * ADLs Independent * Equipment Glucometer Rolling Walker * List name and contact numbers for known caregivers / representatives who currently or will assist patient after discharge: Kyle Mason - [phone] Nora Harding - [phone] * Verbal permission to speak to the caregivers and representatives has been obtained from the patient. Yes * Community resources currently utilized None * Please name any agencies selected above. [facility] is DME preference * Additional services required to return to the preadmission environment? No * Can the patient safely return to the preadmission environment? Yes * Has this patient been hospitalized within the prior 30 days at any hospital? No Last DP export: 05/14/18 8:11 am Patient Name: DILIP FAYE Page 82751 at 0919 All edits/amendments must be made on the electronic document DICTATION DATE: 05/14/18917 EMERGENCY SERVICE RESTORER: DUY 05/14/18917 RPT#: [id number] DC DATE: STATUS: ADM IN [facility] [address] [place] [address] END OF REPORT
[2018-05-14 10:21] LABS: BASOPHILS 0.5 % (0-2); EOSINOPHILS 2.5 % (0-7); HEMOGLOBIN 11.1 g/dL (12-16); IMMATURE GRANULOCYTES 0.3 % (0-5); LYMPHOCYTES 33.8 % (15-50); MCH 30.5 pg (26.0-34.0); MCHC 32.6 g/dL (31.0-37.0); MCV 93.4 fL (80.0-100.0); MEAN PLATELET VOLUME 10.4 fL (7.4-10.4); MONOCYTES 7.2 % (2-11); NEUTROPHILS 55.7 % (40-80); PLATELET COUNT 176 10x3/uL (130-400); RBC 3.64 10x6/uL (4.00-5.40); RDW 14.2 % (11.5-14.5); WBC 7.9 10x3/uL (4.8-10.8)
--- NOTE | 2018-05-14 11:30 | NUR ---
FSBS 154. WILL COVER.
[2018-05-14] MEDS ORDERED: TAMIFLU75 MG PO (11:54)
--- NOTE | 2018-05-14 12:15 | NUR ---
GIVEN 2 UNITS REGULAR SUBQ PER SS. URINE COLLECTED AND TAKEN TO LAB. DENIES NEEDS.
--- NOTE | 2018-05-14 12:26 | MORECARE ---
CASE MANAGEMENT DISCHARGE SUMMARY PATIENT: DILIP FAYE UNIT: [id number] ADM DATE: 05/10/18 AGE: 57 : 58 SEX: F ROOM/BED: D.2233 AUTHOR: ADELIADOC PHYSICIAN: REFERRING PHYSICIAN: TRAMAINE AVILES DO DATE OF SERVICE: 05/14/18 Discharge Plan Patient Name: DILIP FAYE Facility: [facility]:[place] : 1960 Planned Disposition: Home Anticipated Discharge Date: Discharge Date: Expected LOS: Initial Reviewer: [email or web address] Initial Review Date: 05/14/2018 Generated: 05/14/18 1:26 pm Comments DCP- Discharge Planning Updated by [email or web address]: Jennifer Gonzalez on 05/14/18 11:[address] Patient Name: DILIP FAYE Encounter No: [id number] : 1960 Primary Insurance: HU[employer]NA CHOICE PPO MCR ADVANT Anticipated DC Date: Planned Disposition: Home External Planned Provider: : DCP follow-up note: Patient and family in agreement with discharge plan. No changes to plan. Case management will follow and assist as needed. Jennifer Gonzalez DCP- Discharge Planning Updated by [email or web address]: Jennifer Gonzalez on 05/14/18 8:[address] Patient Name: DILIP FAYE Admission Status: ER Accout number: [id number] Admission Date: 05-10-2018 : 1960 Admission Diagnosis: Attending: TRAMAINE AVILES Current LOS: 4 Anticipated DC Date: Planned Disposition: Home Primary Insurance: HUMANA CHOICE PPO MCR ADVANT Discharge Planning Comments: CM met with patient to complete initial dc planning assessment. CM educated patient on the CM role and verbal consent given by patient to complete assessment. Patient lives at home with her 5 young God children and their parents. States her live in friend (Nora) will pick her up at discharge. At discharge patient plans to return home and feels this is a safe discharge. CM discussed availability of home health, rehab services, and medical equipment. Patient denied known discharge needs at this time. States she has a rolling walker that she rarely uses and does not need any DME or home health at this time. No needs identified. CM will continue to follow and will assist as needed with dc plans/needs. Woodworking Craftsman: Jennifer Carlos DCPIA - Discharge Planning Initial Assessment Updated by [id number]: Jennifer Gonzalez on 05/14/18 9:09 am * Is the patient Alert and Oriented? Yes * How many steps to enter\exit or inside your home? 2/3 * PCP [facility] - [facility] * Pharmacy [facility] - [facility] * Preadmission Environment Home with Family * ADLs Independent * Equipment Glucometer Rolling Walker * List name and contact numbers for known caregivers / representatives who currently or will assist patient after discharge: Kyle Mason - [phone] Nora Harding - [phone] * Verbal permission to speak to the caregivers and representatives has been obtained from the patient. Yes * Community resources currently utilized None * Please name any agencies selected above. [facility] is DME preference * Additional services required to return to the preadmission environment? No * Can the patient safely return to the preadmission environment? Yes * Has this patient been hospitalized within the prior 30 days at any hospital? No Coverage Notice Reviewer: [id number] - Jennifer Gonzalez Notice Issued Date-Time: 05/14/2018 12:23 Notice Type: IM Discharge Notice Notice Delivered To: Patient Relationship to Patient: Pet Training Instructor Name: Delivery Method: HAND - Hand Delivered Darlene Days: Prior Verbal Notification: Recipient Understood Notice: Yes Recipient Signature: Yes Med Rec Note Co-signed by Attending: Coverage Notice Comment: IMM explained, signed, given, copy placed in MR Last DP export: 05/14/18 8:19 am Patient Name: DILIP FAYE Page [id number] at 1226 All edits/amendments must be made on the electronic document DICTATION DATE: 05/14/18 1226 HEAD SCORER: DUY 05/14/18 1226 RPT#: [id number] DC DATE: STATUS: ADM IN [facility] [address] [place] [address] END OF REPORT
--- NOTE | 2018-05-14 16:17 | NUR ---
DISCHARGED TO HOME AMBULATORY WITH FAMILY. DISCHARGE INSTRUCTIONS GIVEN BOTH VERBALLY AND WRITTEN. ALL QUESTIONS ANSWERED. PATIENT VERBALZED UNDERSTANDING OF SAME. NEEDED PRESCRIPTIONS ESCRIBED TO PHARMACY OF CHOICE. SL TO LEFT HAND D/C WITH CATHETER INTACT. ALL BELONGINGS WITH PATIENT.
== END 2018-05-14 16:19 | disposition home or self-care (01) | DRG 682 ==
LOC: D.ER 08:46 → D.EDHOLD 12:12 → D.MS 12:12
PROVIDERS: Family Medicine; ADMIT Family Medicine; ATTEND Family Medicine
DX: N18.9 Chronic kidney disease, unspecified (principal); J11.00 Influenza due to unidentified influenza virus with unspecified type of pneumonia; I50.33 Acute on chronic diastolic (congestive) heart failure; N39.0 Urinary tract infection, site not specified; I13.0 Hypertensive heart and chronic kidney disease with heart failure and stage 1 through stage 4 chronic kidney disease, or unspecified chronic kidney disease; N17.9 Acute kidney failure, unspecified; I25.10 Atherosclerotic heart disease of native coronary artery without angina pectoris

== ENCOUNTER 2018-07-23 10:28 | Inpatient (IN) | payer MEDICARE ==
--- NOTE | ~2018-07-23 | HEMODYNAMI ---
PATIENT:DILIP FAYE MEDICAL RECORD: [id number] : 58 [facility] [id number] ADMISSION DATE: 07/23/18 Generatedon:07/24/201811:21 Patient name: DILIP FAYE Patient #: [id number] SSN: : 1960 Date of study: 07/24/2018 Page: Of Hemodynamic Procedure Report Patient Data Patient Demographics Procedure consent was obtained First Name: DILIP Gender: Female Last Name: YUNIER : 1960 [facility] Initial: EDD Age: 57 year(s) Patient #: [id number] Race: Unknown Additional ID: [id number] Contact details [address]: [address] [place] [address] State: [place] City: [place] Zip code: [address] Past Medical History Allergies Allergen Reaction Date Comments Reported Other allergy 09/09/2014 Iodine Other allergy 12/22/2016 Cephalexin, Prednisone, Carvedilol, Iodinated contrast media (oral and IV) IV contrast dye 05/21/2017 Other allergy 03/28/2018 COREG IODINE Other allergy 07/24/2018 IDODINATED CONTRAST, KEFLEX, COUMADIN, COREG Admission Admission Data Admission Date: 07/23/2018 Admission Time: 13:23 Room #: 2121 Lab Results Lab Result Date: 07/24/2018 Lab Result Time: 0:00 Biochemistry Name Units Result Min Max BUN mg/dl 62 --(----)-* 7 18 Creatinine mg/dl 3.5 --(----)-* 0.6 1.3 CBC Name Units Result Min Max Hematocrit % 35.1 *-(----)-- 42 54 Hemoglobin g/dl 11.8 *-(----)-- 13.5 17.5 Procedure Procedure Types Cath Procedure Diagnostic Procedure LHC LHC w/Coronaries w/Grafts Sedation Charges Moderate Sedation up to 15 minutes PCI Procedure Coronary Stent Coronary Stent Initial Coronary Atherectomy Atherectomy w/Stent Coronary Initial Procedure Description Procedure Date Procedure Date: 07/24/2018 Procedure Start Time: 10:47 Procedure End Time: 11:19 Procedure Staff Name Function Damon Martínez MD Performing Physician Essence Soria RT Monitor Jeremy Dobson RT Scrub Kulwant Guy RN Senior Engineer Aimee Box RN Nurse Procedure Data Cath Procedure Fluoroscopy Diagnostic fluoroscopy Total fluoroscopy Time: 7.6 time: 7.6 min min Diagnostic fluoroscopy Total fluoroscopy dose: dose: 1002 mGy 1002 mGy Contrast Material Contrast Material Type Amount (ml) Isovue 300 141 Entry Location Entry Primary Successful Side Size Upsize Upsize Entry Closure Succes sful Closure Location (Fr) 1 (Fr) 2 (Fr) Remarks Device Remarks Femoral Right 5 Fr 6 Fr Exoseal artery Short Estimated blood loss: 10 ml Diagnostic catheters Device Type Used For End Catheter Placement MULTIPACK Pigtail 5 Fr Procedure catheter MULTIPACK JL 4.0 5Fr Procedure catheter MULTIPACK 3DRC 5Fr Procedure catheter Procedure Complications No complications Procedure Medications Medication Administration Route Dosage Oxygen etCO2 Nasal cannula 2 l/min Lidocaine 2% added to field 20 Heparin Flush Bag added to field 2 bags (1000units/500ml NS) 0.9% NaCl I.V. 100 ml/hr Zofran I.V. 4 mg Versed I.V. 1 mg Fentanyl I.V. 50 mcg Versed I.V. 1 mg Fentanyl I.V. 50 mcg Heparin Bolus I.V. 4000 units Integrilin (Bolus I.V. 7.9 ml 2mg/ml) Versed I.V. 1 mg Fentanyl I.V. 50 mcg Dobutamine I.V. drip 5 mcg/kg/min (500mg/250ml D5W) 0.9% NaCl 200 ml/hr Plavix P.O. 600 mg Hemodynamics Rest HGB: 11.8 (g/dl) Heart Rate: 56 (bpm) Snapshots Pre Cath Intra NCS Post Cath Vital Signs Time Heart Resp SPO2 etCO2 NIBP (mmHg) Rhythm Pain Sedation Rate (ipm) (%) (mmHg) Status Level (bpm) 10:27:20 56 23 98 24.5 186/94(156) SB 0 (11) 10(A) , No pain 10:31:52 57 17 95 32 166/87(132) SB 0 (11) 10(A) , No pain 10:36:20 54 13 98 2.9 154/82(112) SB 0 (11) 10(A) , No pain 10:40:50 55 12 99 16.3 143/90(110) SB 0 (11) 10(A) , No pain 10:45:17 54 13 99 0 149/87(131) SB 0 (11) 10(A) , No pain 10:49:51 51 10 99 9.6 161/75(117) SB 0 (11) 9(A) , No pain 10:54:26 47 11 99 8.1 142/86(114) SB 0 (11) 9(A) , No pain 10:58:50 50 12 99 14.8 147/82(128) SB 0 (11) 9(A) , No pain 11:03:22 53 12 99 10.4 151/82(102) SB 0 (11) 9(A) , No pain 11:07:51 48 12 99 9.6 153/86(131) SB 0 (11) 9(A) , No pain 11:13:31 54 20 100 17 144/81(111) SB 0 (11) 10(A) , No pain 11:17:59 61 26 100 22.3 165/86(141) SB 0 (11) 10(A) , No pain Medications Time Medication Route Dose Verified Delivered Reason Notes Effectiveness by by 10:28:53 Oxygen etCO2 2 l/min Damon Yu used for Nasal Mauricio Box RN procedure cannula 10:29:01 Lidocaine 2% added 20ml vial Damon Jose for local to Mauricio Martínez MD anesthetic field 10:29:08 Heparin Flush added 2 bags Damon Jose used for Bag to Mauricio Martínez MD procedure (1000units/500ml field NS) 10:29:17 0.9% NaCl I.V. 100 ml/hr Damon Yu Per physician Mauricio Box RN 10:31:09 Zofran I.V. 4 mg Damon Yu Per physician pt Mauricio Box RN states nausea 10:46:25 Versed I.V. 1 mg Damon Yu for sedation Mauricio Box RN 10:46:31 Fentanyl I.V. 50 mcg Damon Yu for sedation Mauricio Box RN 10:48:51 Versed I.V. 1 mg Damon Buffie for sedation Mauricio Box RN 10:48:55 Fentanyl I.V. 50 mcg Damon Yu for sedation Mauricio Box RN 10:57:18 Heparin Bolus I.V. 4000 units Damon Yu for verified Mauricio Box RN anticoagulation with dr martínez 10:58:23 Integrilin I.V. 7.9 ml Damon Yu for Wasted (Bolus 2mg/ml) Mauricio Box RN antiplatelet 2.1 ml therapy of vial 11:03:49 Versed I.V. 1 mg Damon Yu for sedation Mauricio Box RN 11:03:52 Fentanyl I.V. 50 mcg Damon Yu for sedation Mauricio Box RN 11:07:33 Dobutamine I.V. 5 Damon Yu Per physician (500mg/250ml drip mcg/kg/min Mauricio Box RN D5W) 11:12:45 0.9% NaCl I.V. x 200 ml/hr Damon Yu Per physician 4 hrs Mauricio Box RN 11:16:43 Plavix P.O. 600 mg Damon Yu for Mauricio Box RN antiplatelet therapy Procedure Log Time Note 10:03:58 Signed procedure consent form obtained from patient. 10:03:59 Diagnostic Cath status Urgent 10:04:00 Time tracking: Regular hours (M-F 7:00 - 5:00) 10:04:03 Plan of Care:Hemodynamics will remain stable., Cardiac rhythm will remain stable., Comfort level will be maintained., Respiratory function will remain adequate., Patient/ family verbilizes understanding of procedure., Procedure tolerated without complication., Recovers from procedure without complications.. 10:05:46 Lab Result : BUN 62 mg/dl 10:05:46 Lab Result : Creatinine 3.5 mg/dl 10:05:46 Lab Result : Hematocrit 35.1 % 10:05:46 Lab Result : Hemoglobin 11.8 g/dl 10:05:55 Kulwant Guy RN sent for patient. Start room use. 10:07:28 H&P Date Dictated: 07/23/2018 Within 30 days and on chart.. 10:15:13 Patient received from Med II to CCL 1 Alert and oriented. Tansferred to table in Supine position. 10:15:14 Warm blankets applied, and angelique hugger turned on for patient comfort. 10:15:14 Correct patient and procedure confirmed by team. 10:15:15 ECG and BP/O2 sat monitors applied to patient. 10:25:42 Baseline sample Acquired. 10:25:45 Rhythm: sinus bradycardia 10:25:48 Vital chart was started 10:25:51 Full Disclosure recording started 10:25:51 Pre-procedure instructions explained to patient. 10:25:52 Pre-op teaching completed and patient verbalized understanding. 10:25:54 Family in patients room. 10:26:46 Patient allergic to Other allergyIDODINATED CONTRAST, KEFLEX, COUMADIN, COREG 10:26:49 Is the patient allergic to Iodine/contrast media? Yes. 10:26:51 Is patient on blood thinner?No 10:26:53 Patient diabetic? Yes. 10:26:54 If diabetic: On Metformin? No 10:27:01 INSULIN DEPENDENT 10:27:04 Patient not . Patient is over age 55. 10:27:08 Previous problem with sedation/anesthesia? Yes NAUSEA 10:27:09 Snore? Yes 10:27:11 Sleep apnea? No 10:27:12 Deviated septum? No 10:27:12 Opens mouth fully? Yes 10:27:14 Sticks out tongue? Yes 10:27:16 Airway obstruction? No ? 10:27:18 Dentures? No ? 10:27:21 Pre procedure: right dorsailis pedis pulse 1+ Palpable, but thready & weak; easily obliterated 10:27:24 Patient pain scale 0/10 ?. 10:27:28 IV patent on arrival in left hand with 0.9% NaCl at O. 10:27:30 Lab results completed and on chart. 10:27:35 Right groin area was prepped with chlora-prep and draped in sterile fashion 10:27:36 Alarms reviewed by R. N. 10:27:37 Alarms reviewed by R. N. 10:27:46 Use device set Femoral Dx 10:27:47 ACIST Syringe (48749) opened to sterile field. 10:27:47 Bag Decanter (2001S) opened to sterile field. 10:27:48 ACIST Hand Control (74279) opened to sterile field. 10:27:49 ACIST Manifold (26609) opened to sterile field. 10:27:50 Tegaderm 4 x 4 (1626W) opened to sterile field. 10:27:51 Medline Cath Pack ([id number]) opened to sterile field. 10:27:51 DIAGNOSTIC WIRE .035 260cm J wire (686098) opened to sterile field. 10:27:53 SHEATH 5FR Shoshoni (LLQ847) opened to sterile field. 10:27:59 DIAGNOSTIC Multipack 5Fr catheter set (XH6856) opened to sterile field. 10:28:53 Oxygen 2 l/min etCO2 Nasal cannula was administered by Aimee oBx RN; used for procedure; 10:29:01 Lidocaine 2% 20ml vial added to field was administered by Damon Martínez MD; for local anesthetic; 10:29:08 Heparin Flush Bag (1000units/500ml NS) 2 bags added to field was administered by Damon Martínez MD; used for procedure; 10:29:17 0.9% NaCl 100 ml/hr I.V. was administered by Aimee Box RN; Per physician; 10:31:09 Zofran 4 mg I.V. was administered by Aimee Box RN; Per physician; pt states nausea 10:32:18 Zero performed for pressure channel P1 10:45:02 --------ALL STOP TIME OUT------ 10:45:03 Final Timeout: patient, procedure, and site verified with staff and physician. All members of the team are in agreement. 10:45:24 Right groin site verified by team. 10:45:27 Maximum allowable Isovue 300 dose 123ml. Physician notified. (300ml for normal creatinines. For patients with creatinine of 1.7 or higher multiply weight(kg) x 5 divided by creatinine.) 10:45:31 Fire Safety Assessment: A--An alcohol-based skin anteseptic being used preoperatively., C--Open oxygen or nitrous oxide is being used., D--An ESU, laser, or fiber-optic light is being used. 10:45:34 Physical assessment completed. ASA score P 3 - A patient with severe systemic disease as per Damon Martínez MD. 10:45:36 Sedation plan: IV Moderate Sedation Medication:Versed, Fentanyl 10:46:25 Versed 1 mg I.V. was administered by Aimee Box RN; for sedation; 10:46:31 Fentanyl 50 mcg I.V. was administered by Aimee Box RN; for sedation; 10:47:03 Procedure started. 10:47:29 Local anesthetic to right femoral artery with Lidocaine 2% by Damon Martínez MD.INITIAL ACCESS ONLY 10:48:30 A 5 Fr sheath was inserted into the Right Femoral artery 10:48:46 A MULTIPACK Pigtail 5 Fr catheter was advanced over the wire and used for Procedure. 10:48:51 Versed 1 mg I.V. was administered by Aimee Box RN; for sedation; 10:48:51 LV gram done using CHAUDHARI 10:48:53 Injector settings: Ml/sec: 10, Volume: 20, 10:48:55 Fentanyl 50 mcg I.V. was administered by Aimee Box RN; for sedation; 10:49:09 EF : 20 % 10:49:10 Catheter removed. 10:49:24 A MULTIPACK JL 4.0 5Fr catheter was advanced over the wire and used for Procedure. 10:50:49 LCA angiography performed. 10:50:54 Catheter removed. 10:51:16 A MULTIPACK 3DRC 5Fr catheter was advanced over the wire and used for Procedure. 10:51:45 RCA angiography performed. 10:52:19 SVG to OM angiography performed. 10:52:37 FLOWERS to LAD angiography performed. 10:52:44 Catheter removed. 10:55:52 GUIDE 6FR AR 2.0 catheter ([id number]) opened to sterile field. 10:55:56 SHEATH 6FR Shoshoni (PER306) opened to sterile field. 10:56:01 Sheath upsized to a 6 Fr Short. 10:56:09 CHOICE PT Extra Support 182cm wire ([id number]) opened to sterile field. 10:56:10 INFLATOR Merit BasixCompak (FP6145) opened to sterile field. 10:56:19 6 Fr AR2 guide catheter was inserted over the wire 10:56:43 LASER ELCA 0.9 Rx atherectomy catheter (683187) opened to sterile field. 10:57:18 Heparin Bolus 4000 units I.V. was administered by Aimee Box RN; for anticoagulation; verified with dr martínez 10:58:23 Integrilin (Bolus 2mg/ml) 7.9 ml I.V. was administered by Aimee Box RN; for antiplatelet therapy; Wasted 2.1 ml of vial 10:58:53 CHOICE ES 182 wire advanced. 10:58:56 Wire advanced across lesion. 11:00:57 Place stent Inflation Number: 1 A SHAMEKA RX 2.5 x 08 stent ([id number]) was prepped and advanced across the Aorta Left -> 1st Ob Urmila 90. The stent was deployed at 11 WHIT for 0:00 (min:sec) 0. 11:01:21 Stent catheter was removed intact over wire. 11:01:36 Wire removed. 11:01:37 Guide catheter removed. 11:02:44 CHOICE PT Extra Support 182cm wire ([id number]) opened to sterile field. 11:03:02 GUIDE 6FR XB 4.0 catheter ([id number]) opened to sterile field. 11:03:49 Versed 1 mg I.V. was administered by Aimee Box RN; for sedation; 11:03:50 6 Fr XB 4 guide catheter was inserted over the wire 11:03:52 Fentanyl 50 mcg I.V. was administered by Aimee Box RN; for sedation; 11:04:56 CHOICE ES 182 wire advanced. 11:04:58 Wire advanced across lesion. 11:05:41 Inflation number: 1 The stent balloon was then re-inflated across the Prox CX to 19 WHIT for 0:00 (min:sec) . 11:05:58 Balloon removed over the wire. 11:06:55 Laser pass to pCirc with Fluence of 80 and Rate of 40. 11:07:03 Laser total pulses delivered: 2450 11:07:07 Laser total treatment time: 0 minutes 50 seconds 11:07:33 Dobutamine (500mg/250ml D5W) 5 mcg/kg/min I.V. drip was administered by Aimee Box RN; Per physician; 11:08:35 Laser catheter removed. 11:10:26 Place stent Inflation Number: 2 A SHAMEKA RX 4.0 x 08 stent ([id number]) was prepped and advanced across the Prox CX 90. The stent was deployed at 19 WHIT for 0:10 (min:sec) 0. 11:10:59 Inflation number: 3 The stent balloon was then re-inflated across the Prox CX 0 to 13 WHIT for 0:10 (min:sec) . 11:11:07 Stent catheter was removed intact over wire. 11:11:08 Wire removed. 11:11:08 Guide catheter removed. 11:11:54 EXOSEAL 6Fr (EX600) opened to sterile field. 11:12:05 Sheath removed intact; hemostasis achieved with Exoseal to the Right Femoral artery. 11:12:11 Procedure ended.(Physican Out) 11:12:20 Fluoroscopy time 07.60 minutes. 11:12:30 Flurop Dose total: 1002 11:12:30 Fluoroscopy dose: 1002 mGy 11:12:33 Contrast amount:Isovue 300 141ml. 11:12:45 0.9% NaCl 200 ml/hr I.V. x 4 hrs was administered by Aimee Box RN; Per physician; 11:13:17 Post-op/insertion site Right Femoral artery dressed using a 4 x 4 and Tegaderm. 11:13:19 Post-procedure physical assessment completed. ASA score P 3 - A patient with severe systemic disease as per Damon Martínez MD. 11:13:22 Post procedure rhythm: sinus bradycardia 11:13:24 Estimated blood loss: 10 ml 11:13:26 Post procedure instruction explained to patient.Patient verbalizes understanding. 11:13:26 Patient needs reinforcement of post procedure teaching. 11:14:08 Procedure type changed to Cath procedure, Diagnostic procedure, LHC, LHC w/Coronaries w/Grafts, Sedation Charges, Moderate Sedation up to 15 minutes, PCI procedure, Coronary Stent, Coronary Stent Initial, Coronary Atherectomy, Atherectomy w/Stent Coronary Initial 11:15:05 Procedure and supply charges have been captured, reviewed, submitted and are correct. 11:15:09 Procedure Complication : No complications 11:16:43 Plavix 600 mg P.O. was administered by Aimee Box RN; for antiplatelet therapy; 11:18:59 Vital chart was stopped 11:19:00 See physician's report for complete and final results. 11:19:01 Report given to Med II. 11:19:04 Patient transfered to Med II with Bed. 11:19:06 Procedure ended. 11:19:06 Full Disclosure recording stopped 11:19:10 End room use (Document Last) Intervention Summary Intervention Notes Time ActionType Lesion and Equipment Used Action# Pressure Duration Attributes 11:00:57 Place stent Aorta Left SHAMEKA RX 2.5 x 1 11 00:00 -> 1st Ob 08 stent Urmila ([id number]) 11:05:41 Reinflate Prox CX SHAMEKA RX 2.5 x 1 19 00:00 stent 08 stent balloon ([id number]) 11:10:26 Place stent Prox CX SHAMEKA RX 4.0 x 2 19 00:10 08 stent ([id number]) 11:10:59 Reinflate Prox CX HSAMEKA RX 4.0 x 3 13 00:10 stent 08 stent balloon ([id number]) Device Usage Item Name Manufacture Quantity Catalog Number Hospital Part Current M inimal Lot# / Charge Number Stock Stock Serial# Code ACIST Syringe Acist 1 41081 965722 900479 145887 2 0 (03290) Medical Systems ClickN KIDS Bag Decanter Microtek 1 2001S 113998 01283 371124 5 (2001S) Medical Inc. ACIST Hand Acist 1 53961 036424 390455 376815 5 Control Medical (68298) Systems Inc ACIST Manifold Acist 1 70928 148741 567438 706556 5 (65588) Medical Systems Inc Tegaderm 4 x 4 3M 1 1626W 405546 376855 836181 5 (1626W) Medline Cath Medline 1 [id number] 054835 69646 411364 5 Pack ([id number]) DIAGNOSTIC St Donny 1 405299 615689 313081 133122 3 0 WIRE .035 260cm J wire (716011) SHEATH 5FR Terumo 1 FPV155 180069 984284 713344 5 Shoshoni (OIH629) DIAGNOSTIC Cardinal 1 LR0942 921175 64773 667559 3 0 Multipack 5Fr Health catheter set (CU9570) MULTIPACK Cardinal 1 843870 5 Pigtail 5 Fr Health catheter MULTIPACK JL Cardinal 1 364891 5 4.0 5Fr Health catheter MULTIPACK 3DRC Cardinal 1 499665 5 5Fr catheter Health GUIDE 6FR AR Medtronic 1 [id number] 762997 33621 471309 1 2.0 catheter ([id number]) SHEATH 6FR Terumo 1 QAM644 521873 522892 943646 4 0 Shoshoni (LQU589) CHOICE PT Sharon 2 [id number] 286949 293817 794234 5 Extra Support Scientific 182cm wire ([id number]) INFLATOR Merit Merit 1 OR4979 395942 077356 246206 1 5 [facility] (EW8162) LASER ELCA 0.9 Jennifer 1 110-004 615301 260537 936590 5 Rx atherectomy Healthcare catheter (219087) (588660) SHAMEKA RX 2.5 x Medtronic 1 [id number] 132909 5610167 584871 5 [id number] 08 stent ([id number]) GUIDE 6FR XB Cardinal 1 [id number] 077281 361341 232115 2 4.0 catheter [facility] ([id number]) SHAMEKA RX 4.0 x Medtronic 1 [id number] 141108 4065013 478662 5 [id number] 08 stent ([id number]) EXOSEAL 6Fr Cardinal 1 EX600 364011 354319 015962 1 0 (EX600) Health Signature Audit [place] Time Signature Unsigned Intra-Procedure 07/24/2018 Essence Soria 11:21:35 AM RT(R) Signatures Monitor : Essence Soria Signature : RT Date : Time : [address] [place] [address]
[~2018-07-23 10:28] MED LIST changes: +LEVEMIR FL100 UNIT/1 SQ; +TAMIFLU75 MG PO
[2018-07-23 10:55] LABS: BASOPHILS 0.1 % (0-2); EOSINOPHILS 0.9 % (0-7); HEMATOCRIT 35.1 % (36.0-48.0); HEMOGLOBIN 11.8 g/dL (12-16); IMMATURE GRANULOCYTES 0.4 % (0-5); LYMPHOCYTES 18.6 % (15-50); MCH 30.9 pg (26.0-34.0); MCHC 33.6 g/dL (31.0-37.0); MCV 91.9 fL (80.0-100.0); MONOCYTES 5.9 % (2-11); NEUTROPHILS 74.1 % (40-80); PLATELET COUNT 243 10x3/uL (130-400); RBC 3.82 10x6/uL (4.00-5.40); RDW 15.6 % (11.5-14.5); WBC 10.7 10x3/uL (4.8-10.8)
[2018-07-23 11:16] LABS: ALBUMIN 3.4 g/dL (3.4-5.0); ALKALINE PHOSPHATASE 145 U/L (46-116); ALT (SGPT) 25 U/L (10-68); BILIRUBIN - TOTAL 0.59 mg/dL (0.2-1.3); CALC OSMOLALITY 303 mosm/kg (275-300); CALCIUM 9.3 mg/dL (8.5-10.1); CARBON DIOXIDE 19.5 mmol/L (21.0-32.0); CHLORIDE - SERUM 100 mmol/L (98-107); CREATININE - SERUM 3.5 mg/dL (0.6-1.3); POTASSIUM - SERUM 4.4 mmol/L (3.5-5.1); PROTEIN - SERUM 7.3 g/dL (6.4-8.2); SODIUM 135 mmol/L (136-145); UREA NITROGEN 62 mg/dL (7-18); eGFR NON AFRICAN AMERICAN 14 mL/min (90-120)
[2018-07-23 11:17] LABS: GLUCOSE 380 mg/dL (74-106)
[2018-07-23 11:32] LABS: CKMB 3.1 U/L (0.0-3.6); CREATINE KINASE 79 UL (21-215)
[2018-07-23 11:36] LABS: TROPONIN-I 0.106 ng/mL (0.000-0.060)
[2018-07-23 11:55] LABS: PRO BNP 47710 pg/mL (0-125)
[2018-07-23 13:00] VITALS: BP 168/90
[2018-07-23 14:49] VITALS: BP 159/92
[2018-07-23 16:11] VITALS: BP 160/88
--- NOTE | 2018-07-23 16:42 | NUR ---
TRANSFER FROM ER BY W/C. JAMESINTED TO ROOM. CALL LIGHT IN REACH. WILL CONT. PLAN OF CARE.
[2018-07-23 17:01] VITALS: BP 160/88; BMI 29.8
--- NOTE | 2018-07-23 17:19 | NUR ---
WITHOUT CHANGES OR DISTRESS NOTED AT THIS TIME. DENIES NEEDS
--- NOTE | 2018-07-23 19:25 | NUR ---
ASSESSMENT COMPLETE, PT A&O. SITTING UP IN BED WATCHING TV AND EATING A SANDWHICH. RESPERATIONS EVEN ON RA. IV TO LEFT HAND WITH NS INFUSING AT 100 CC/HR. IV SITE CLEAN AND DRY. PT CURRENTLY DENIES PAIN OR NEEDS AT THIS TIME. 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
[2018-07-23 20:00] VITALS: BP 154/71
--- NOTE | 2018-07-24 02:24 | NUR ---
RESTING WITH EYES CLOSED, RESPERATIONS EVEN, NO S/S DISTRESS NOTED.
--- NOTE | 2018-07-24 02:28 | NUR ---
I have reviewed this patient and I concur with the Shift Assessment completed by the Licensed Practical Nurse today this shift.
[2018-07-24 04:00] VITALS: BP 168/84
[2018-07-24 04:43] LABS: BASOPHILS 0 % (0-2); EOSINOPHILS 0 % (0-7); HEMATOCRIT 31.2 % (36.0-48.0); HEMOGLOBIN 10.6 g/dL (12-16); IMMATURE GRANULOCYTES 0.3 % (0-5); MCH 30.6 pg (26.0-34.0); MCV 90.2 fL (80.0-100.0); MEAN PLATELET VOLUME 10.4 fL (7.4-10.4); MONOCYTES 4.5 % (2-11); NEUTROPHILS 79.2 % (40-80); PLATELET COUNT 237 10x3/uL (130-400); RBC 3.46 10x6/uL (4.00-5.40); RDW 15.2 % (11.5-14.5)
[2018-07-24 04:54] LABS: WBC 7.6 10x3/uL (4.8-10.8)
[2018-07-24 05:24] LABS: ALBUMIN 2.9 g/dL (3.4-5.0); ANION GAP 19.6 mmol/L (8-16); BILIRUBIN - TOTAL 0.39 mg/dL (0.2-1.3); CALCIUM 8.7 mg/dL (8.5-10.1); CREATININE - SERUM 3.4 mg/dL (0.6-1.3); POTASSIUM - SERUM 4.6 mmol/L (3.5-5.1); PROTEIN - SERUM 6.6 g/dL (6.4-8.2)
--- NOTE | 2018-07-24 07:42 | NUR ---
AM ROUNDS PT RESTING COMFORTABLY IN BED, A/OX4, RESP EVEN AND NONLABORED. PT C/O ABD PAIN, FEELS LIKE SHE NEEDS TO HAVE BM BUT LAS BM WAS LAST NIGHT. PT NPO FOR HEART CATH TODAY. RT HAND IV INFUSING NS AT 100. HEART MONITOR SHOWIGN SB WITH RATE OF 55 AND PVC. PT DENIES ANY NEEDS AT THIS TIME, CALL LIGHT IN REACH, NAD NOTED, WILL CONTINUE PLAN OF CARE.
[2018-07-24 08:39] VITALS: BP 134/67
--- NOTE | 2018-07-24 09:34 | NUR ---
AM MEDS GIVEN WITH A SIP OF WATER, PT IN BED, WATCHING TV, DENIES ANY NEEDS AT THIS TIME. CALL LIGHT IN REACH, NAD NOTED, WILL CONTINUE TO MONITOR.
--- NOTE | 2018-07-24 10:11 | NUR ---
PRE-OP MEDS GIVEN AT THIS TIME. 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
--- NOTE | 2018-07-24 11:19 | HP ---
PATIENT: DILIP FAYE MEDICAL RECORD: [id number] ACCOUNT: [id number] LOCATION:[address] : 58 ADMISSION DATE: 07/23/18 PCP: JUAN MISTRY DO HISTORY AND PHYSICAL EXAMINATION DATE OF SERVICE: 07/23/2018 DIAGNOSES: 1. Non-Q-wave myocardial infarction. 2. Coronary artery disease. 3. Previous multivessel percutaneous transluminal coronary angioplasty stent. 4. Hypertension. 5. Hyperlipidemia. 6. Anemia. 7. IODINE ALLERGY. 8. Renal insufficiency. HISTORY OF PRESENT ILLNESS: Mrs. Faye presents with +3 to 4 anginal symptomatology and has a positive troponin compatible with a non-Q-wave myocardial infarction. She has a history of coronary artery disease, multivessel PTCA stent, last being February of this year. Her symptomatology has been present for the past 2 days. Her creatinine is in the 3.5 range; however, this is close to her baseline. Troponin is elevated. Her EKG is with nonspecific ST-T abnormalities, but no acute ST elevation. She is on maximal medical therapy with ARB, beta-collin, calcium channel collin, diuretics. PHYSICAL EXAMINATION: GENERAL APPEARANCE: Well-nourished, well-developed, appears stated age. Level of distress, comfortable. PSYCHIATRIC: Mental status, alert, normal affect. Orientation, oriented to time, place and person. EYES: Lids and conjunctiva, noninjected. No discharge, no pallor. ENT: Lips, teeth, gums, normal dentition. Oropharynx, no cyanosis, no pallor. NECK: Carotid arteries, bilateral normal upstroke, no bruits, no thrills. JUGULAR VEINS: No jugular venous pressure or distention. CERVICAL LYMPH NODES: Nontender, nonenlarged. THYROID: Not enlarged. Nontender. No nodules. LUNGS: Respiratory effort, unlabored. CHEST: Normal curvature. No thoracic deformity. No chest wall tenderness. Percussion, resonant. Auscultation, clear. No wheezes, no rales, no rhonchi. CARDIOVASCULAR: Precordial exam, nondisplaced. No heaves or pericardial thrills. Rate and rhythm, regular. Heart sounds, normal S1, normal S2. No S3, no gallop, no rub. Systolic murmur, not heard. Diastolic murmur, not heard. EXTREMITIES: No cyanosis, no edema. Peripheral pulses, full and equal in all extremities, except as noted. No bruits appreciated. ABDOMEN: Soft, nondistended. Normal aorta. No bruit. Nontender. No masses. Liver, nontender, no hepatomegaly. Spleen, nontender, no splenomegaly. MUSCULOSKELETAL: No joint tenderness. No joint swelling. No erythema. NEUROLOGICAL: Normal gait, normal strength, normal tone. SKIN: Warm and dry. OVERALL IMPRESSION: Elevated troponin, non-Q-wave myocardial infarction with class IV anginal symptomatology. At this time, we will hydrate her today, premedicate her for her IODINE ALLERGY and plan for cardiac catheterization in the a.m. HISTORY AND PHYSICAL [id number] DILIP FAYE TRANSINT:[id number] Voice Confirmation ID: [id number] DOCUMENT ID: [id number] MIGUELANGEL WELCH MD at 1119 CC: [id number] DICTATION DATE: 07/23/18 1300 CARDIOLOGY COORDINATOR: 07/23/18 1314 ADM IN [place] [id number] [place] [id number]
--- NOTE | 2018-07-24 11:20 | EC ---
PATIENT:DILIP FAYE DATE OF SERVICE: 07/23/18 SEX: F MEDICAL RECORD: [id number] DATE OF : 58 LOCATION:D.M2 D.212 AGE OF PATIENT: 57 ADMISSION DATE: 07/23/18 REFERRING PHYSICIAN: INTERPRETING PHYSICIAN: MIGUELANGEL MARTÍNEZ MD ECHOCARDIOGRAM REPORT ECHO CHARGES 4 ECHO COMPLETE Date: 07/23/18 CLINICAL DIAGNOSIS: SOB ECHOCARDIOGRAPHIC MEASUREMENTS (adult normal given) AC root (d.<3.7cm) 2.6 cm LV Septum d (<1.2 cm> 1.4 cm Valve Excursion 1.6 cm LV Septum (systole) 1.8 cm Left Atria (s.<4.0cm> 4.9 cm LVPW d(<1.2cm) 1.5 cm RV (d.<2.3cm) 3.4 cm LVPW (sytole) 2.0 cm LV diastole(<5.6CM) 5.2 cm MV E-F(>70mm/sec) cm LV systole 3.3 cm LVOT Diameter 1.7 cm MV exc.(>10mm) cm Est.ejection fraction (50-75%) % DOPPLER: LVIT cm/sec A cm/sec E 151 cm/sec LA cm/sec RVSP 52.2 mmHg LVOT 66.0 cm/sec AOP1/2T m/s Asc. Ao 200 cm/sec RVOT 56.0 cm/sec RA cm/sec PA 127 cm/sec AV Gradient Peak 16.0 mmHg AV Mean 7.2 mmHg AV Area 0.8 cm MV Gradient Peak 11.0 mmHg MV Mean 2.8 mmHg MV Area cm COMMENTS: Lime Slaker: Philomena CALIXOE Operations Support Coordinator: 1 Dr. Martínez TAPE# PACS Pericardial Effusion N DATE OF SERVICE: 07/23/2018 FINDINGS: 1. Left ventricular chamber size is within normal limits. Left ventricular systolic function is mildly reduced at 35% to 40%. 2. Left atrium is enlarged at 4.9 cm. Right atrium and right ventricular chamber sizes are as well mildly dilated. 3. Valvular structures have normal structure and motion. 4. Doppler interrogation reveals mild aortic insufficiency, mild mitral regurgitation, and mild tricuspid regurgitation. No other valvular ECHOCARDIOGRAM REPORT [id number] DILIP FAYE insufficiency or stenosis. Pulmonary systolic pressure is estimated at 52 mmHg. 5. No evidence of pericardial effusion or left ventricular thrombus. TRANSINT:[id number] Voice Confirmation ID: [id number] DOCUMENT ID: [id number] MIGUELANGEL MARTÍNEZ MD at 1120 CC: [id number] DICTATION DATE: 07/23/18 1639 ATHLETIC FIELD CUSTODIAN: 07/23/18 1853 ADM IN [facility] [address] [place] [address]
--- NOTE | 2018-07-24 11:50 | NUR ---
RECEIVED PT BACK TO ROOM 2120 VIA BED, PT A/O. VITAL SIGNS STABLE, PLACED PT ON FREQUENT VITAL SIGNS. DRESSING TO RT GROIN CDI, NO SIGNS OF HEMATOMA OR BLEEDING NOTED, PULSE PALPABLE. PT CAME BACK ON DOBUTAMINE DRIP AT 12.9ML/HR WHICH EQUALS TO 5MCG/KG/HR. PROVIDED PT WITH CUP OF WATER, INSTRUCTED PT TO REMAIN FLAT FOR 4HOURS. PT DENIES ANY OTHER NEEDS AT THIS TIME. CALL LIGHT IN REACH, NAD NOTED,W ILL CONTINUE TO MONITOR.
--- NOTE | 2018-07-24 14:52 | NUR ---
NO CHANGES FROM PREVIOUS ASSESSMENT TO RT GROIN. VITAL SIGNS STABLE, PT DENIES ANY NEEDS AT THIS TIME, FEMALE FRIEND AT BEDSIDE, NAD NOTED, WILL CONTINUE TO MONITOR.
--- NOTE | 2018-07-24 18:30 | NUR ---
ASSISTED PT TO RESTROOM AND BACK TO BED. DENIES OTHER NEEDS AT THIS TIME. WILL CONTINUE TO MONITOR.
[2018-07-24 18:36] VITALS: BP 141/57
--- NOTE | 2018-07-24 19:45 | NUR ---
PT RIGHT GROIN CDI, NO S/S OF HEMATOMA. PT SITTING UP IN BED. FAMILY AT BEDSIDE. PT HAS NO S/S OF DISTRESS. NAME AND DATE PLACED ON BOARD. PT WILL CALL FOR ASSIST WHEN NEEDED. WILL CPOC
[2018-07-24 20:00] VITALS: BP 169/59
--- NOTE | 2018-07-24 22:52 | NUR ---
NIGHT MEDICATIONS GIVEN. FSBS IS 410 LEVEMIR GIVEN ORDERED 44 UNITS HUMALOG GIVEN ORDERED 12 UNITS. PT DECLINES SNACK. STATES SHE HAD GRAMCRACKERS EARLIER AND CAN FEEL WHEN IT IS DROPPING. PT HAS DOBUTAMINE INFUSING ORDERED. LASIX GIVEN. PT WILL CALL FOR ASSIST WHEN NEEDED. RIGHT GROIN CDI, SOFT. PT WILL CALL FOR ASSIST WHEN NEEDED. WILL CPOC
[2018-07-25 04:00] VITALS: BP 108/52
--- NOTE | 2018-07-25 05:40 | NUR ---
WEIGHT UPDATED IN THE DOBUTAMINE SETUP. PT DENIES ANY NEEDS. NO S/S OF DISTRESS. WILL CPOC
[2018-07-25] MEDS ORDERED: TYLENOL PM1 TAB PO (07:24)
--- NOTE | 2018-07-25 07:36 | NUR ---
FSBS IS 154 2 UNITS GIVEN ORDERED. TYLENOL GIVEN FOR HEADACHE. DR ZUNIGA CAME IN AND ASSESSED PT. PT IS GOING TO BE DISCHARGED TODAY. STATED HE IS DISCONTINUING THE FLUIDS. DID NOT REPLACE DOBUTAMINE BAG. S/L PATIENT. WILL CPOC
--- NOTE | 2018-07-25 07:58 | NUR ---
ALERT AND ORIENTED. TELEMERTY SHOWS SR WITH RARE PVCS. LEFT HAND SL. RIGHT GROIN WITH DRSG DRY AND INTACT. SOFT WITH NO HEMATOMA. UP AB EMILY. C/O HEADACHE TREATED WITH TYLENOL. WILL MONITOR
[2018-07-25 08:10] VITALS: BP 117/49
[2018-07-25 11:37] VITALS: BP 122/51
[2018-07-25] MEDS ORDERED: PLAVIX75 MG PO (13:13)
[2018-07-25] MEDS ORDERED: ASPIRIN81 MG PO (14:07)
--- NOTE | 2018-07-25 14:37 | NUR ---
DISCONTINUED LEFT HAND IV. DISCONNECTED FORENSIC PSYCHOLOGIST. PT READY FOR DISCHARGE. DENIES OTHER NEEDS AT THIS TIME.
--- NOTE | 2018-07-25 15:42 | NUR ---
pPT DISCHARGED. TO PRIVATE CAR PER WHEEL CHAIR
--- NOTE | 2018-07-25 16:56 | MORECARE ---
CASE MANAGEMENT DISCHARGE SUMMARY PATIENT: DILIP FAYE UNIT: [id number] ADM DATE: 07/24/18 AGE: 57 : 58 SEX: F ROOM/BED: D.1931 AUTHOR: EVELYN DELVALLE PHYSICIAN: REFERRING PHYSICIAN: MIGUELANGEL WELCH MD DATE OF SERVICE: 07/25/18 Discharge Plan Patient Name: DILIP FAYE [facility] [facility] 1960 Planned Disposition: Home Anticipated Discharge Date: 07/25/18 Discharge Date: 07/25/2018 Expected LOS: 1 Initial Reviewer: [email or web address] Initial Review Date: 07/18/2018 Generated: 07/25/18 5:56 pm Patient Name: DILIP FAYE Page 38522 at 1656 All edits/amendments must be made on the electronic document DICTATION DATE: 07/25/181654 SECONDARY SOCIAL STUDIES TEACHER: DUY 07/25/181654 RPT#: [id number] DC DATE:07/25/18 STATUS: DIS IN [facility] [address] [place] [address] END OF REPORT
--- NOTE | 2018-07-25 17:06 | MORECARE ---
CASE MANAGEMENT DISCHARGE SUMMARY PATIENT: DILIP FAYE UNIT: [id number] ADM DATE: 07/24/18 AGE: 57 : 58 SEX: F ROOM/BED: D.6697 AUTHOR: ADELIA,DOC PHYSICIAN: REFERRING PHYSICIAN: MIGUELANGEL WELCH MD DATE OF SERVICE: 07/25/18 Discharge Plan Patient Name: DILIP FAYE Facility: [facility]:[place] : 1960 Planned Disposition: Home Anticipated Discharge Date: 07/25/18 Discharge Date: 07/25/2018 Expected LOS: 1 Initial Reviewer: [email or web address] Initial Review Date: 07/18/2018 Generated: 07/25/18 6:06 pm Comments DCP- Discharge Planning Updated by [email or web address]: Bill Townsend on 07/25/18 3:[address] Patient Name: DILIP FAYE Admission Status: ER Accout number: [id number] Admission Date: 07-24-2018 : 1960 Admission Diagnosis: Attending: NEISHA WELCH Current LOS: 1 Anticipated DC Date: 07-25-2018 Planned Disposition: Home Primary Insurance: [employer] CHOICE PPO MCR ADVANT Discharge Planning Comments: CM MET WITH PT IN ROOM TO DISCUSS DISCHARGE PLANNING AND NEEDS. PT REPORTS LIVING AT HOME INDEPENDENTLY WITH HER GOD CHILDREN AND THEIR PARENTS. PT HAS ROLLING WALKER AND GLUCOMETER WITH NO MEDICAL EQUIPMENT PROVIDER PREFERENCE AND NO OUTSIDE SERVICES ASSISTING IN THE HOME. CM DISCUSSED AVAILABILITY OF HOME HEALTH, REHAB SERVICES AND MEDICAL EQUIPMENT. PT DENIES DISCHARGE NEEDS, REPORTS HER FRIEND WILL PICK HER UP FOR DISCHARGE HOME. Wraparound Facilitator: Bill Townsend DCPIA - Discharge Planning Initial Assessment Updated by [email or web address]: Bill Townsend on 07/25/18 4:56 pm * How many steps to enter\exit or inside your home? * PCP DR. MISTRY [facility] * Pharmacy [facility] * Preadmission Environment Home with Family * ADLs Independent * Equipment Glucometer Rolling Walker * Other Equipment NO MEDICAL EQUIPMENT PROVIDER PREFERENCE * List name and contact numbers for known caregivers / representatives who currently or will assist patient after discharge: ARNIE MARTINEZER, BROTHER, FANI BRIGGS, FRIEND, * Verbal permission to speak to the caregivers and representatives has been obtained from the patient. N/A * Community resources currently utilized None * Please name any agencies selected above. NONE * Additional services required to return to the preadmission environment? No * Can the patient safely return to the preadmission environment? Yes * Has this patient been hospitalized within the prior 30 days at any hospital? No Last DP export: 07/25/18 3:56 p Patient Name: DILIP FAYE Page [phone] at 1706 All edits/amendments must be made on the electronic document DICTATION DATE: 07/25/181704 YARN WASHER: DUY 07/25/181704 RPT#: [id number] DC DATE:07/25/18 STATUS: DIS IN [facility] [address] [place] [address] END OF REPORT
--- NOTE | 2018-07-26 13:25 | OP ---
PATIENT NAME: DILIP FAYE MEDICAL RECORD: [id number] :58 LOCATION:D.M2 D.2121 ADMISSION DATE:07/24/18 SURGEON: MIGUELANGEL WELCH MD DATE OF OPERATION: 07/24/2018 DATE OF SERVICE: 07/24/2018 PROCEDURES: 1. Laser atherectomy of left circumflex. 2. PTCA stent of left circumflex. 3. PTCA stent vein graft to first obtuse marginal. 4. Left heart catheterization. 5. Selective coronary angiography. 6. Vein graft angiography. 7. FLOWERS angiography. INDICATION: Non-Q-wave myocardial infarction, coronary artery disease, congestive heart failure and cardiomyopathy. PROCEDURE IN DETAIL: After informed consent was obtained and after a detailed description of the risks, benefits as well as alternative therapies, the patient elected to proceed with angiogram and angioplasty. The right femoral area was prepped and draped in normal sterile fashion. Right femoral artery was cannulated via modified Seldinger technique with placement of 6-Tajik sheath. All catheters exchanged through this sheath. FINDINGS: Left ventriculogram was performed in standard 30-degree CHAUDHARI view, reveals global hypokinesis, ejection fraction is 20%. SELECTIVE CORONARY ANGIOGRAPHY: 1. Left main has no significant angiographic disease. 2. Left anterior descending is totally occluded mid vessel. 3. FLOWERS to the distal LAD is widely patent. Distal LAD is severely diffusely diseased, but patent. 4. The left circumflex has a previously placed stent at the ostium. This is with 95% in-stent restenosis. The first obtuse marginal was totally occluded. 5. Vein graft to the obtuse marginal is patent; however, distally, there is 90% stenosis in the obtuse marginal. 6. The right coronary artery is close. PTCA STENT OF THE VEIN GRAFT TO CIRCUMFLEX OBTUSE MARGINAL: The stent used was a 2.5 x 8 mm Donnell. Result was 0% residual stenosis. LASER ATHERECTOMY, PTCA STENT OF THE OSTIUM OF THE CIRCUMFLEX: The stent used was a 4.0 x 8 mm Donnell. Laser atherectomy was formed at 80/40. Multiple passes were made. Result was 0% residual stenosis. OVERALL IMPRESSION: Successful laser atherectomy, percutaneous transluminal coronary angioplasty stent of the circumflex ostium and successful percutaneous transluminal coronary angioplasty stent of the vein graft to the circumflex first obtuse marginal, both going from 90% to 95% initial stenosis to 0% residual. TRANSINT:[id number] Voice Confirmation ID: [id number] DOCUMENT ID: [id number] OPERATIVE REPORT [id number] DILIP FAYE JEFFREY MD at 1325 CC: [id number] DICTATION DATE: 07/24/18 1118 ALGOLOGIST: 07/24/18 1210 DIS IN 07/25/18 [place] [id number] [facility]
--- NOTE | 2018-10-01 11:09 | DS ---
PATIENT:DILIP FAYE :58 MEDICAL RECORD: [id number] DISCHARGE SUMMARY ADMISSION DATE: 07/24/18 DISCHARGE DATE: 07/25/18 DIAGNOSES: 1. Angina. 2. Coronary artery disease. 3. Percutaneous transluminal coronary angioplasty and stent of the left circumflex and vein graft to circumflex this admission. 4. Non-Q-wave myocardial infarction. 5. Congestive heart failure with cardiomyopathy. BRIEF HISTORY AND HOSPITAL COURSE: Ms. Faye presents with congestive heart failure, chest pain, non-Q-wave myocardial infarction, found to have significant disease of the left circumflex as well as the vein graft to the first obtuse marginal. She underwent laser atherectomy, PTCA and stent of the circumflex as well as PTCA and stent of the obtuse marginal. Heart failure cleared. No further angina, was discharged home with the addition of aspirin and Plavix to her medical regimen. TRANSINT:[id number] Voice Confirmation ID: [id number] DOCUMENT ID: [id number] MIGUELANGEL WELCH MD at 1109 CC: [id number] DICTATION DATE: 09/25/18 0352 TAKE AWAY MAN: 09/25/18 0423 DIS IN 07/25/18 [place] [id number] [place] [id number]
[2018-10-09] MEDS ORDERED: MEDROL DOSE PACK4 MG PO (14:34)
== END 2018-07-25 15:42 | disposition home or self-care (01) | DRG 247 ==
LOC: D.ER 10:28 → D.EDHOLD 13:23 → D.M2 13:23 → OBSVTIME 13:24 → D.M2 14:41
PROVIDERS: Family Medicine; ADMIT Internal Medicine Interventional Cardiology; ATTEND Internal Medicine Interventional Cardiology
PROC: 4A023N7 Measurement of Cardiac Sampling and Pressure, Left Heart, Percutaneous Approach (ICD-10-PCS; 2018-07-24)
PROC: B2121ZZ Fluoroscopy of Single Coronary Artery Bypass Graft using Low Osmolar Contrast (ICD-10-PCS; 2018-07-24)
PROC: B2111ZZ Fluoroscopy of Multiple Coronary Arteries using Low Osmolar Contrast (ICD-10-PCS; 2018-07-24)
PROC: B2181ZZ Fluoroscopy of Left Internal Mammary Bypass Graft using Low Osmolar Contrast (ICD-10-PCS; 2018-07-24)
PROC: B2151ZZ Fluoroscopy of Left Heart using Low Osmolar Contrast (ICD-10-PCS; 2018-07-24)
PROC: 027135Z Dilation of Coronary Artery, Two Arteries with Two Drug-eluting Intraluminal Devices, Percutaneous Approach (ICD-10-PCS; principal; 2018-07-24 11:00)
PROC: 02C03ZZ Extirpation of Matter from Coronary Artery, One Artery, Percutaneous Approach (ICD-10-PCS; 2018-07-24 11:00)
DX: I21.4 Non-ST elevation (NSTEMI) myocardial infarction (principal); T82.855A Stenosis of coronary artery stent, initial encounter; I50.22 Chronic systolic (congestive) heart failure; E78.5 Hyperlipidemia, unspecified; D64.9 Anemia, unspecified; Z88.8 Allergy status to other drugs, medicaments and biological substances; I11.0 Hypertensive heart disease with heart failure; Y83.9 Surgical procedure, unspecified as the cause of abnormal reaction of the patient, or of later complication, without mention of misadventure at the time of the procedure; I25.119 Atherosclerotic heart disease of native coronary artery with unspecified angina pectoris

== ENCOUNTER 2018-11-29 05:34 | Inpatient (IN) | payer MEDICARE ==
[~2018-11-29] VITALS: Ht 170.2 cm; Wt 94.5 kg
[~2018-11-29 05:34] MED LIST changes: +MEDROL DOSE PACK4 MG PO
[2018-11-29] MEDS ORDERED: COZAAR100 MG PO (05:44)
[2018-11-29] MEDS ORDERED: VIBRAMYCIN 100100 MG PO (05:46)
[2018-11-29 05:55] LABS: BASOPHILS 0.1 % (0-2); EOSINOPHILS 2.3 % (0-7); HEMATOCRIT 35.3 % (36.0-48.0); HEMOGLOBIN 11.3 g/dL (12-16); IMMATURE GRANULOCYTES 0.1 % (0-5); LYMPHOCYTES 21.1 % (15-50); MCH 29.8 pg (26.0-34.0); MCV 93.1 fL (80.0-100.0); MEAN PLATELET VOLUME 9.6 fL (7.4-10.4); MONOCYTES 7.9 % (2-11); NEUTROPHILS 68.5 % (40-80); RBC 3.79 10x6/uL (4.00-5.40); WBC 8.2 10x3/uL (4.8-10.8)
[2018-11-29 06:02] VITALS: BP 151/102
[2018-11-29 06:05] VITALS: BP 159/75
[2018-11-29 06:14] LABS: CALC OSMOLALITY 297 mosm/kg (275-300); CARBON DIOXIDE 20.3 mmol/L (21.0-32.0); CHLORIDE - SERUM 105 mmol/L (98-107); CREATININE - SERUM 3.3 mg/dL (0.6-1.3); GLUCOSE 262 mg/dL (74-106); POTASSIUM - SERUM 4.2 mmol/L (3.5-5.1); SODIUM 138 mmol/L (136-145); UREA NITROGEN 49 mg/dL (7-18); eGFR NON AFRICAN AMERICAN 15 mL/min (90-120)
[2018-11-29 06:29] LABS: APTT 30.7 SECONDS (22.8-39.4); INR 1.31 (0.85-1.17); PROTIME 15.7 SECONDS (11.6-15.0)
[2018-11-29 06:34] LABS: ALBUMIN 2.7 g/dL (3.4-5.0); ALKALINE PHOSPHATASE 146 U/L (46-116); ALT (SGPT) 23 U/L (10-68); BILIRUBIN - TOTAL 0.42 mg/dL (0.2-1.3); CKMB 2.2 U/L (0.0-3.6); CREATINE KINASE 76 UL (21-215); MAGNESIUM - SERUM 1.9 mg/dL (1.8-2.4); PROTEIN - SERUM 6.5 g/dL (6.4-8.2)
[2018-11-29 06:45] LABS: PLATELET COUNT 312 10x3/uL (130-400)
[2018-11-29 06:46] LABS: TROPONIN-I 0.065 ng/mL (0.000-0.060)
--- NOTE | 2018-11-29 07:20 | NUR ---
RECIEVED FROM ER. ALERT AND ORIENTED. TELEMERTY SHOWS SR. 02 AT 2L/M PER NC. LEFT FA SL. DENIES ANY C/P AT PRESENT TIME. WILL MONITOR
[2018-11-29 07:56] VITALS: BMI 32.9
--- NOTE | 2018-11-29 08:07 | NUR ---
ADMISSION COMPLETE RESP UNLABORED SKIN W/D COLOR WNL PT DENIES CHEST PAIN AT THIS TIME TELEMETRY SR RATE 68
[2018-11-29 09:05] VITALS: BP 196/98
[2018-11-29 12:27] VITALS: Ht 170.2 cm; Wt 94.5 kg
[2018-11-29 12:59] VITALS: BP 163/97
[2018-11-29 18:01] VITALS: BP 140/68
--- NOTE | 2018-11-29 19:22 | NUR ---
RECEIVED BEDSIDE REPORT. PATIENT IS ALERT AND ORIENTED, RESTING COMFORTABLY IN BED, EATING ENGLISH FOOD. PATIENT REMAINS ON 2L NC, RESPIRATIONS ARE EVEN AND UNLABORED. NO S/S OF DISTRESS. NO C/O PAIN. NEEDS MET. CALL LIGHT WITHIN REACH. WILL CPOC.
[2018-11-29 20:00] VITALS: BP 154/72
[2018-11-30] VITALS: BP 169/91
[2018-11-30 04:00] VITALS: BP 146/76
[2018-11-30 05:01] LABS: BASOPHILS 0.1 % (0-2); EOSINOPHILS 3.6 % (0-7); HEMATOCRIT 36.8 % (36.0-48.0); HEMOGLOBIN 11.5 g/dL (12-16); IMMATURE GRANULOCYTES 0.2 % (0-5); LYMPHOCYTES 25.1 % (15-50); MCH 29.6 pg (26.0-34.0); MCHC 31.3 g/dL (31.0-37.0); MCV 94.6 fL (80.0-100.0); MEAN PLATELET VOLUME 10.1 fL (7.4-10.4); MONOCYTES 10.8 % (2-11); NEUTROPHILS 60.2 % (40-80); PLATELET COUNT 296 10x3/uL (130-400); RBC 3.89 10x6/uL (4.00-5.40); RDW 16.3 % (11.5-14.5); WBC 8.1 10x3/uL (4.8-10.8)
[2018-11-30 05:10] LABS: CALCIUM 8.8 mg/dL (8.5-10.1); CARBON DIOXIDE 22.6 mmol/L (21.0-32.0); CREATININE - SERUM 3.5 mg/dL (0.6-1.3); POTASSIUM - SERUM 4.6 mmol/L (3.5-5.1)
[2018-11-30 09:20] VITALS: BP 167/71
[2018-11-30 12:00] VITALS: BP 146/68
[2018-11-30 16:30] VITALS: BP 163/81
--- NOTE | 2018-11-30 19:00 | NUR ---
PT CARE ASSUMED. BEDSIDE SHIFT REPORT COMPLETE. PT UP IN BED. A&O X4 RR EVEN AND UNLABORED ON RA. NO S/S OF DISTRESS AT THIS TIME. NO VOICED C/O OR CONCERNS. SR X2. CALL LIGHT IN REACH. WILL CTM.
[2018-11-30 20:00] VITALS: BP 130/72
[2018-12-01] VITALS: BP 128/70
[2018-12-01 04:00] VITALS: BP 152/72
[2018-12-01 04:37] LABS: BASOPHILS 0 % (0-2); EOSINOPHILS 2.4 % (0-7); HEMATOCRIT 35.4 % (36.0-48.0); HEMOGLOBIN 11.1 g/dL (12-16); IMMATURE GRANULOCYTES 0.2 % (0-5); LYMPHOCYTES 28.3 % (15-50); MCH 29.7 pg (26.0-34.0); MCHC 31.4 g/dL (31.0-37.0); MCV 94.7 fL (80.0-100.0); MONOCYTES 9.8 % (2-11); NEUTROPHILS 59.3 % (40-80); PLATELET COUNT 310 10x3/uL (130-400); RBC 3.74 10x6/uL (4.00-5.40); RDW 16.2 % (11.5-14.5); WBC 8.2 10x3/uL (4.8-10.8)
[2018-12-01 05:00] LABS: ANION GAP 15.9 mmol/L (8-16); CALCIUM 8.8 mg/dL (8.5-10.1); CARBON DIOXIDE 21.8 mmol/L (21.0-32.0); CREATININE - SERUM 3.4 mg/dL (0.6-1.3); POTASSIUM - SERUM 4.7 mmol/L (3.5-5.1)
--- NOTE | 2018-12-01 07:00 | NUR ---
ALERT AND ORIENTED X4. RESTING IN BED. SINUS VINCE 52 WITH FIRST DEGREE BLOCK. DENIES ANY NEEDS. DENIES SOB OR PAIN. CONTINUE PLAN OF CARE AND SAFETY PRECAUTIONS.
[2018-12-01 07:58] VITALS: BP 150/63
[2018-12-01] MEDS ORDERED: ALBUTEROL2.5 MG/3 M INH (09:07)
[2018-12-01] MEDS ORDERED: ISOSORBIDE MONO30 M1 PO (09:09)
--- NOTE | 2018-12-01 17:02 | NUR ---
assessment of iv noted to be difficult to flush and sore. removed with iv intact. new iv started to right ac with 22 gauge x1 stick.
[2018-12-01 20:00] VITALS: BP 155/73
[2018-12-02] VITALS: BP 170/82
[2018-12-02 04:00] VITALS: BP 162/72
[2018-12-02 05:51] LABS: BASOPHILS 0 % (0-2); EOSINOPHILS 1.6 % (0-7); HEMOGLOBIN 10.8 g/dL (12-16); IMMATURE GRANULOCYTES 0.2 % (0-5); LYMPHOCYTES 26.4 % (15-50); MCH 29.3 pg (26.0-34.0); MCHC 30.9 g/dL (31.0-37.0); MCV 94.9 fL (80.0-100.0); MEAN PLATELET VOLUME 10.4 fL (7.4-10.4); MONOCYTES 8.5 % (2-11); NEUTROPHILS 63.3 % (40-80); PLATELET COUNT 325 10x3/uL (130-400); RBC 3.69 10x6/uL (4.00-5.40); RDW 16.1 % (11.5-14.5)
[2018-12-02 06:07] LABS: ANION GAP 15.8 mmol/L (8-16); CALCIUM 8.8 mg/dL (8.5-10.1); CREATININE - SERUM 3.8 mg/dL (0.6-1.3); POTASSIUM - SERUM 4.8 mmol/L (3.5-5.1)
--- NOTE | 2018-12-02 07:00 | NUR ---
RECIEVED REPORT. RESTING IN BED WITH EYES CLOSED. RESPIRATIONS EVEN AND REGULAR. SINUS VINCE 54 ON TELEMETRY. CONTINUE PLAN OF CARE AND SAFETY PRECAUTIONS.
[2018-12-02] MEDS ORDERED: ALBUTEROL SULF8.5 GM INH (08:43)
[2018-12-02 09:25] VITALS: BP 125/80
[2018-12-02 09:46] LABS: % SATURATION 11 % (15-55); IRON 37 ug/dl (35-150); TOTAL IRON BIND CAPACITY 312 ug/dl (260-445); UNSAT IRON BIND CAPACITY 275 ug/dl (150-375)
--- NOTE | 2018-12-02 11:48 | NUR ---
UPON ADMIT PATIENT HAS NOT HAD A FLU SHOT, WHEN QUESTIONED ON DISCHARGE SHE WANTS ONE. ORDERED.
[2018-12-02 12:00] VITALS: BP 167/92
--- NOTE | 2018-12-02 12:40 | NUR ---
ALBUTEROL SULFATE INH CALLED TO [facility], SPOKE TO JOSE M BEDOYA.
--- NOTE | 2018-12-02 13:23 | MORECARE ---
CASE MANAGEMENT DISCHARGE SUMMARY PATIENT: DILIP FAYE UNIT: [id number] ADM DATE: 11/29/18 AGE: 58 : 58 SEX: F ROOM/BED: D.9842 AUTHOR: EVELYN DELVALLE PHYSICIAN: REFERRING PHYSICIAN: GEORGINA LACEY MD DATE OF SERVICE: 12/02/18 Discharge Plan Patient Name: DILIP FAYE Facility: [facility]:[place] : 1960 Planned Disposition: Home Anticipated Discharge Date: 12/02/18 Discharge Date: Expected LOS: 3 Initial Reviewer: [email or web address] Initial Review Date: 11/29/2018 Generated: 12/02/18 2:22 pm DCPIA - Discharge Planning Initial Assessment Updated by VICKI: Bill Townsend on 12/02/18 1:21 pm * Is the patient Alert and Oriented? Yes * How many steps to enter\exit or inside your home? 2-O / 3-I * PCP DR. MISTRY, [place] * Pharmacy [facility] * Preadmission Environment Home with Family * ADLs Independent * Equipment Glucometer Rolling Walker * Other Equipment NO MEDICAL EQUIPMENT PROVIDER PREFERENCE * List name and contact numbers for known caregivers / representatives who currently or will assist patient after discharge: FANI BRIGGS, FRIEND, * Verbal permission to speak to the caregivers and representatives has been obtained from the patient. N/A * Community resources currently utilized None * Please name any agencies selected above. NONE * Additional services required to return to the preadmission environment? No * Can the patient safely return to the preadmission environment? Yes * Has this patient been hospitalized within the prior 30 days at any hospital? No Coverage Notice Reviewer: [id number] Gunnar Townsend Notice Issued Date-Time: 12/02/2018 9:55 Notice Type: IM Discharge Notice Notice Delivered To: Patient Relationship to Patient: Medical Assistant Float Name: Delivery Method: HAND - Hand Delivered Darlene Days: Prior Verbal Notification: Recipient Understood Notice: Yes Recipient Signature: Yes Med Rec Note Co-signed by Attending: Coverage Notice Comment: Reviewer: [email or web address] Gunnar Townsend Notice Issued Date-Time: 12/02/2018 9:55 Notice Type: Patient Choice Letter Notice Delivered To: Patient Relationship to Patient: Medical Assistant Float Name: Delivery Method: HAND - Hand Delivered Darlene Days: Prior Verbal Notification: Recipient Understood Notice: Yes Recipient Signature: Yes Med Rec Note Co-signed by Attending: Coverage Notice Comment: NO MEDICAL EQUIPMENT PROVIDER PREFERENCE Patient Name: DILIP FAYE Page [id number] at 1323 All edits/amendments must be made on the electronic document DICTATION DATE: 12/02/18 132 TRIMMER TAILER: DUY 12/02/18 1322 RPT#: [id number] DC DATE: STATUS: ADM IN [facility] [address] [place] [address] END OF REPORT
--- NOTE | 2018-12-02 13:34 | MORECARE ---
CASE MANAGEMENT DISCHARGE SUMMARY PATIENT: DILIP FAYE UNIT: [id number] ADM DATE: 11/29/18 AGE: 58 : 58 SEX: F ROOM/BED: D.6062 AUTHOR: EVELYN DELVALLE PHYSICIAN: REFERRING PHYSICIAN: GEORGINA LACEY MD DATE OF SERVICE: 12/02/18 Discharge Plan Patient Name: DILIP FAYE Facility: [facility]:[place] : 1960 Planned Disposition: Home Anticipated Discharge Date: 12/02/18 Discharge Date: Expected LOS: 3 Initial Reviewer: [email or web address] Initial Review Date: 11/29/2018 Generated: 12/02/18 2:34 pm Comments DCP- Discharge Planning Updated by [email or web address]: Bill Townsend on 12/02/18 12:[address] Patient Name: DILIP FAYE Admission Status: ER Accout number: [id number] Admission Date: 11-29-2018 : 1960 Admission Diagnosis: Attending: GEORGINA LACEY Current LOS: 3 Anticipated DC Date: 12-02-2018 Planned Disposition: Home Primary Insurance: [employer] CHOICE PPO MCR ADVANT Discharge Planning Comments: CM SPOKE TO LETTERER NURSE WHO ADVISED CM THAT PT HAS NEBULIZED MEDICATIONS ON DISCHARGE MEDICATION LIST. CM MET WITH PT IN ROOM TO DISCUSS DISCHARGE PLANNING AND NEEDS. PT REPORTS LIVING AT HOME INDEPENDENTLY WITH HER GOD CHILDREN AND GOD CHILDREN'S PARENTS. PT HAS GLUCOMETER AND ROLLING WALKER WITH NO MEDICAL EQUIPMENT PROVIDER PREFERENCE. PT HAS NO OUTSIDE SERVICES ASSISTING IN THE HOME. CM DISCUSSED AVAILABILITY OF HOME HEALTH, REHAB SERVICES AND MEDICAL EQUIPMENT. PT DENIES DISCHARGE NEEDS, REPORTS HER FAMILY WILL PICK HER UP FOR DISCHARGE HOME. PT DOES NOT HAVE A NEBULIZER. CM PROVIDED PT LISTING OF LOCAL PROVIDERS FOR MEDICAL EQUIPMENT. PT HAS NO PREFERENCE ON PROVIDER FOR A NEBULIZER, CHOICE SIGNED FOR NO PREFERENCE OF PROVIDER. IMPORTANT MESSAGE FROM MEDICARE PROVIDED AND EXPLAINED. CM REVIEWED CHART, PT HAS NO DIAGNOSIS FOR INSURANCE TO PAY FOR NEBULIZER. CM SPOKE TO PT IN ROOM WHO INFORMED CM THAT ANIRUDH MORENO TOLD HER SHE WAS NOT GOING TO USE A NEBULIZER BUT WAS GOING TO BE SENT HOME WITH INHALER. CM CALLED AND SPOKE TO ANIRUDH MORENO WHO VERIFIED THAT PT WILL NOT NEED A NEBULIZER AND WILL BE SENT HOME WITH INHALER. CM NOTIFIED PT WHO IS IN AGREEMENT WITH PLAN AND DENIED FURTHER DISCHARGE NEEDS. CM NOTIFIED LETTERER NURSE. Inner Tube Cutter: Bill Townsend DCPIA - Discharge Planning Initial Assessment Updated by [email or web address]: Bill Townsend on 12/02/18 1:21 pm * Is the patient Alert and Oriented? Yes * How many steps to enter\exit or inside your home? 2-O / 3-I * PCP DR. MISTRY [place] * Pharmacy [facility] * Preadmission Environment Home with Family * ADLs Independent * Equipment Glucometer Rolling Walker * Other Equipment NO MEDICAL EQUIPMENT PROVIDER PREFERENCE * List name and contact numbers for known caregivers / representatives who currently or will assist patient after discharge: FANI BRIGGS, FRIEND, * Verbal permission to speak to the caregivers and representatives has been obtained from the patient. N/A * Community resources currently utilized None * Please name any agencies selected above. NONE * Additional services required to return to the preadmission environment? No * Can the patient safely return to the preadmission environment? Yes * Has this patient been hospitalized within the prior 30 days at any hospital? No Coverage Notice Reviewer: [email or web address] Gunnar Townsend Notice Issued Date-Time: 12/02/2018 9:55 Notice Type: IM Discharge Notice Notice Delivered To: Patient Relationship to Patient: Leasing Associate Name: Delivery Method: HAND - Hand Delivered Darlene Days: Prior Verbal Notification: Recipient Understood Notice: Yes Recipient Signature: Yes Med Rec Note Co-signed by Attending: Coverage Notice Comment: Reviewer: [email or web address] Gunnar Townsend Notice Issued Date-Time: 12/02/2018 9:55 Notice Type: Patient Choice Letter Notice Delivered To: Patient Relationship to Patient: Leasing Associate Name: Delivery Method: HAND - Hand Delivered Darlene Days: Prior Verbal Notification: Recipient Understood Notice: Yes Recipient Signature: Yes Med Rec Note Co-signed by Attending: Coverage Notice Comment: NO MEDICAL EQUIPMENT PROVIDER PREFERENCE Last DP export: 12/02/18 12:23 Patient Name: DILIP FAYE Page [phone] at 1334 All edits/amendments must be made on the electronic document DICTATION DATE: 12/02/18 1333 WOMEN'S ACTIVITIES ADVISER: DUY 12/02/18 1333 RPT#: [id number] DC DATE: STATUS: ADM IN [facility] [address] [place] [address] END OF REPORT
--- NOTE | 2018-12-02 13:49 | NUR ---
discussed discharge paperwork and med list with pt. flu shot given. iv removed tip intact and dressing applied. telemetry removed. pt family on way for transportation.
--- NOTE | 2018-12-03 11:41 | CN ---
PATIENT NAME:DILIP WADSWORTH MEDICAL RECORD: [id number] : 58 LOCATION:D. D.2120 ADMIT DATE: 11/29/18 ACCOUNT: [id number] CONSULTING PHYSICIAN: MIGUELANGEL WELCH MD REFERRING PHYSICIAN: GEORGINA LACEY MD DATE OF CONSULTATION: 11/29/2018 CARDIOLOGY CONSULTATION DIAGNOSES: 1. Angina. 2. Coronary artery disease. 3. Status post coronary artery bypass graft surgery. 4. Status post percutaneous transluminal coronary angioplasty stent. 5. Hypertension. 6. Hyperlipidemia. 7. Insulin-dependent diabetes. HISTORY OF PRESENT ILLNESS: Mrs. Wadsworth presents with chest pain, somewhat like her previous angina, somewhat different. There was definitely a sharp component that is atypical and it was as well a pressure-like component. It lasted from midnight to 4:30 on and off. She was given 2 sublingual nitro. She has not had any further pain since. Her EKG is normal. Troponin is normal. PHYSICAL EXAMINATION: CONSTITUTIONAL/GENERAL APPEARANCE: Well nourished, well developed, appears stated age. EYES: Lids and conjunctivae noninjected. No discharge. No pallor. ENT: Lips within normal limit. No cyanosis. No pallor. NECK: Carotid arteries, bilateral normal upstroke. No bruits. No thrills. No jugular venous pressure or distention. CERVICAL LYMPH NODES: Nontender. Nonenlarged. THYROID: Not enlarged. No nodules. CARDIOVASCULAR: Precordial exam, nondisplaced. No heaves or pericardial thrills. Rate and rhythm, regular. Heart sounds, normal S1, normal S2. No S3, no gallop, no rub. Systolic murmur, not heard. Diastolic murmur, not heard. RESPIRATORY: Respiratory effort, unlabored. Normal curvature. No thoracic deformity. No chest wall tenderness. Percussion, resonant. Auscultation, clear. No wheezes, no rales, no rhonchi. ABDOMEN: Soft, nondistended, nontender. No abdominal pain, no vomiting and normal appetite. MUSCULOSKELETAL: No joint tenderness, normal gait, normal tone. SKIN: Warm and dry. OVERALL IMPRESSION: Angina, some typical components, some atypical components. At this time, we will add Imdur 30 mg b.i.d. to her medical regimen, continuing her amlodipine, losartan and hyperlipidemic medications. Will follow up as scheduled. She will call if she continues to have episodes of chest pain despite the addition of the Imdur. TRANSINT:[id number] Voice Confirmation ID: [id number] DOCUMENT ID: [id number] CONSULT REPORT [id number] DILIP WADSWORTH, MIGUELANGEL ALEXANDER at 1141 CC: [id number] DICTATION DATE: 11/29/18 1029 MANAGER STUDENT SERVICES: 11/29/18 1039 DIS IN 12/02/18 [place] [id number] [place] [address]
--- NOTE | 2018-12-03 11:41 | EC ---
PATIENT:DILIP FAYE DATE OF SERVICE: 11/29/18 SEX: F MEDICAL RECORD: [id number] DATE OF : 58 LOCATION:D. D.212 AGE OF PATIENT: 58 ADMISSION DATE: 11/29/18 REFERRING PHYSICIAN: INTERPRETING PHYSICIAN: MIGUELANGEL MARTÍNEZ MD ECHOCARDIOGRAM REPORT ECHO CHARGES 5 ECHO LIMITED Date: 11/29/18 1 DOPPLER ECHO COLOR FLOW 2 DOPPLER ECHO PULSE CLINICAL DIAGNOSIS: CHF ECHOCARDIOGRAPHIC MEASUREMENTS (adult normal given) AC root (d.<3.7cm) 0 cm LV Septum d (<1.2 cm> 0 cm Valve Excursion 0 cm LV Septum (systole) 0 cm Left Atria (s.<4.0cm> 0 cm LVPW d(<1.2cm) 0 cm RV (d.<2.3cm) 0 cm LVPW (sytole) 0 cm LV diastole(<5.6CM) 0 cm MV E-F(>70mm/sec) 0 cm LV systole 0 cm LVOT Diameter 0 cm MV exc.(>10mm) 0 cm Est.ejection fraction (50-75%) 0 % DOPPLER: LVIT 0 cm/sec A 0 cm/sec E 0 cm/sec LA 0 cm/sec RVSP 75.0 mmHg LVOT 0 cm/sec AOP1/2T 0 m/s Asc. Ao 0 cm/sec RVOT 0 cm/sec RA 0 cm/sec PA 0 cm/sec AV Gradient Peak 0 mmHg AV Mean 0 mmHg AV Area 0 cm MV Gradient Peak 0 mmHg MV Mean 0 mmHg MV Area 0 cm COMMENTS: LIMITED STUDY (2-D,COLOR,DOPPLER) COMPLETE ECHO DONE ON 10/07/18 [employer]iesel Plant Superintendent: 1 BRANDIN CALIXOE Gas Station Attendant: 1 Dr. Martínez TAPE# PACS Pericardial Effusion N DATE OF SERVICE: ECHOCARDIOGRAM FINDINGS: 1. Left ventricular chamber size is mildly dilated. Left ventricular systolic function is moderate to severely reduced at 25-30%. 2. Left atrium, right atrium, and right ventricular chamber sizes are mildly dilated. 3. Valvular structures have normal structure and motion. ECHOCARDIOGRAM REPORT [id number] DILIP FAYE 4. Doppler interrogation reveals mild mitral regurgitation, mild tricuspid regurgitation, no other valvular insufficiency or stenosis. Pulmonary systolic pressure is markedly elevated estimated at 75 mmHg. 5. No evidence of pericardial effusion or left ventricular thrombus. TRANSINT:[id number] Voice Confirmation ID: [id number] DOCUMENT ID: [id number] MIGUELANGEL MARTÍNEZ MD at 1141 CC: [id number] DICTATION DATE: 11/29/18 1121 INTEGRATED CIRCUIT DESIGN ENGINEER: 11/29/18 1132 DIS IN 12/02/18 [place] [id number] [place] [id number]
== END 2018-12-02 16:19 | disposition home or self-care (01) | DRG 291 ==
LOC: D.ER 05:34 → D.M2 06:26
PROVIDERS: Emergency Medicine; ADMIT Legal Medicine; ATTEND Legal Medicine
DX: I13.0 Hypertensive heart and chronic kidney disease with heart failure and stage 1 through stage 4 chronic kidney disease, or unspecified chronic kidney disease (principal); I50.23 Acute on chronic systolic (congestive) heart failure; N18.4 Chronic kidney disease, stage 4 (severe); E11.9 Type 2 diabetes mellitus without complications; E11.22 Type 2 diabetes mellitus with diabetic chronic kidney disease; I25.119 Atherosclerotic heart disease of native coronary artery with unspecified angina pectoris; D63.1 Anemia in chronic kidney disease; E78.5 Hyperlipidemia, unspecified

== ENCOUNTER 2018-12-25 00:43 | Inpatient (IN) | payer MEDICARE ==
[~2018-12-25] VITALS: Ht 170.2 cm; Wt 99.0 kg
--- NOTE | ~2018-12-25 | OP ---
PATIENT NAME: DILIP FAYE MEDICAL RECORD: [id number] :58 LOCATION:D.M2 D.2102 ADMISSION DATE:12/25/18 SURGEON: BRYANT CRAWFORD MD DATE OF OPERATION: 01/08/2019 PREOPERATIVE DIAGNOSIS: End-stage renal disease without chronic access for hemodialysis. POSTOPERATIVE DIAGNOSIS: End-stage renal disease without chronic access for hemodialysis. PROCEDURES: 1. Placement of right internal jugular HemoSplit (tunneled cuffed dual-lumen dialysis catheter) under fluoroscopic guidance. 2. Immediate surgeon interpretation of the fluoroscopic images. SURGEON: Bryant Crawford MD UTILIZATION REVIEW NURSE: None. BLOOD LOSS: Minimal. ANESTHESIA: Local with IV sedation. COMPLICATIONS: None. The risks, possible complications, and alternatives to the procedure were explained to the patient. She elects to proceed. The discussion specifically included, but was not limited to, bleeding requiring emergency reoperation, infection, great vessel injury, pneumothorax. No radiologist was present for this procedure. Static fluoroscopic images were obtained and are kept in the PACS system. The surgeon interpretation of the radiographic images is dictated within the body of this operative note. OPERATIVE COURSE: The patient was conveyed to the operating room electively on 01/08/2019. IV sedation was induced by anesthesia staff. Right neck, the right side at the Trialysis catheter and right chest were sterilely prepped and draped. The IJ Trialysis catheter had been placed pretty high and it is going to be necessary to stick the internal jugular vein closer to the clavicle. The sterile ultrasound was brought onto the field. Under ultrasonographic guidance after local infiltration, I percutaneously accessed the right internal jugular vein in an antegrade fashion. A guidewire passed easily. This was visualized under fluoroscopy. A skin incision was accomplished around the guidewire. A counter incision was accomplished in the right anterior and superior infraclavicular chest. I tunneled a 19 cm HemoSplit catheter from the chest incision to the neck incision. Over the wire, I dilated with vascular dilators under fluoroscopy. A dilator sheath was then advanced. The dilator and wire were removed. Through the sheath, the tips of the HemoSplit catheter were advanced. This was visualized under fluoroscopy. I then pulled back on HemoSplit catheter in order to seat the cuff in the subcutaneous tissues. Both lumens flushed easily and aspirated dark, nonpulsatile blood. I then topped off both lumens of the HemoSplit catheter with the appropriate OPERATIVE REPORT [id number] DILIP FAYE amount of concentrated heparin. The flange of the HemoSplit catheter was sutured to the underlying skin with 2-0 nylons. The subcutaneous tissues of the neck were closed with interrupted intracuticular 3-0 Vicryls. The last radiograph was obtained and revealed no radiographic evidence of complication. The Trialysis catheter was removed. The puncture site was then closed with a pursestring 3-0 Vicryl suture. Sterile dressings were applied. The patient was then extubated and conveyed to post-anesthesia care unit where she was in stable condition. TRANSINT:[id number] Voice Confirmation ID: [id number] DOCUMENT ID: [id number] BRYANT CRAWFORD MD CC: CONNOR AGUIRRE MD and RAFA AL MD [id number] DICTATION DATE: 01/08/191937 CARD LACER: 01/09/19 0458 ADM IN [facility] [address] [place] [address]
[~2018-12-25 00:43] MED LIST changes: +ALBUTEROL SULF8.5 GM INH; +ALBUTEROL2.5 MG/3 M INH; +COZAAR100 MG PO; +ISOSORBIDE MONO30 M1 PO; +VIBRAMYCIN 100100 MG PO
[2018-12-25 01:26] LABS: BASOPHILS 0 % (0-2); EOSINOPHILS 1.8 % (0-7); HEMATOCRIT 34.8 % (36.0-48.0); HEMOGLOBIN 11.1 g/dL (12-16); IMMATURE GRANULOCYTES 0.4 % (0-5); LYMPHOCYTES 26.6 % (15-50); MCH 29.7 pg (26.0-34.0); MCHC 31.9 g/dL (31.0-37.0); MONOCYTES 9.8 % (2-11); NEUTROPHILS 61.4 % (40-80); PLATELET COUNT 270 10x3/uL (130-400); RBC 3.74 10x6/uL (4.00-5.40); RDW 16.5 % (11.5-14.5)
[2018-12-25 01:39] LABS: APTT 28.3 SECONDS (22.8-39.4); INR 1.22 (0.85-1.17); PROTIME 14.8 SECONDS (11.6-15.0)
[2018-12-25 01:40] LABS: CALC OSMOLALITY 301 mosm/kg (275-300); CALCIUM 8.4 mg/dL (8.5-10.1); CARBON DIOXIDE 22.3 mmol/L (21.0-32.0); CHLORIDE - SERUM 105 mmol/L (98-107); CREATININE - SERUM 3.6 mg/dL (0.6-1.3); GLUCOSE 178 mg/dL (74-106); SODIUM 141 mmol/L (136-145); UREA NITROGEN 59 mg/dL (7-18); eGFR NON AFRICAN AMERICAN 14 mL/min (90-120)
[2018-12-25 01:59] LABS: ALBUMIN 2.6 g/dL (3.4-5.0); ALKALINE PHOSPHATASE 145 U/L (46-116); ALT (SGPT) 24 U/L (10-68); BILIRUBIN - TOTAL 0.29 mg/dL (0.2-1.3); CKMB 1.9 U/L (0.0-3.6); CREATINE KINASE 79 UL (21-215); PRO BNP 27425 pg/mL (0-125); PROTEIN - SERUM 6.1 g/dL (6.4-8.2)
[2018-12-25 02:00] LABS: TROPONIN-I 0.066 ng/mL (0.000-0.060)
--- NOTE | 2018-12-25 03:05 | NUR ---
BRADY VIA WC AND AMBLITORY TELEMETRY APPLIED AND HISTORY AND MED REC DONE BED LOW AND LOCKED CALL LIGHT PROVIDED TO PT
[2018-12-25 08:00] VITALS: BP 150/73
[2018-12-25 12:00] VITALS: BP 158/55
[2018-12-25 13:28] VITALS: BMI 43.5
--- NOTE | 2018-12-25 13:59 | MORECARE ---
CASE MANAGEMENT DISCHARGE SUMMARY PATIENT: DILIP FAYE UNIT: [id number] ADM DATE: 12/25/18 AGE: 58 : 58 SEX: F ROOM/BED: D.7323 AUTHOR: ADELIA,DOC PHYSICIAN: REFERRING PHYSICIAN: RAFA AL MD DATE OF SERVICE: 12/25/18 Discharge Plan Patient Name: DILIP FAYE Facility: [facility]:[place] : 1960 Planned Disposition: Home Anticipated Discharge Date: 12/27/18 Discharge Date: Expected LOS: 2 Initial Reviewer: [email or web address] Initial Review Date: 12/25/2018 Generated: 12/25/18 2:58 pm Comments DCP- Discharge Planning Updated by [email or web address]: Bharti León on 12/25/18 12:[address] DC PLAN: Return home with family ANTICIPATED DC NEEDS: CM met with patient to complete initial dc planning assessment. CM educated patient on the CM role and verbal consent given by patient to complete assessment. CM verified patient's address, phone number, and emergency contact phone numbers. Patient lives at home independently with family. At discharge patient plans to return and feels this is a safe discharge. CM discussed availability of home health, rehab services, and medical equipment. She reported she has a humana rn field case manager that visits her 2-3 times a month at her home. Patient denied known discharge needs at this time. Patient reports a family member will transport her home at time of discharge. CM will continue to follow and will assist as needed with dc plans/needs. Bharti León RN, [facility] DCPIA - Discharge Planning Initial Assessment Updated by [email or web address]: Bharti León on 12/25/18 1:06 pm * Is the patient Alert and Oriented? Yes * How many steps to enter\exit or inside your home? * PCP Dr. Pacheco - [facility] * Pharmacy [place] [address] or [facility] * Preadmission Environment Home with Family * ADLs Independent * Equipment Glucometer Rolling Walker * List name and contact numbers for known caregivers / representatives who currently or will assist patient after discharge: Kyle Tomas - jayleener - [phone] * Verbal permission to speak to the caregivers and representatives has been obtained from the patient. Yes * Community resources currently utilized Other * Please name any agencies selected above. Laurie Electric Cutter Operator visits her 3 times a month at her home. * Additional services required to return to the preadmission environment? No * Can the patient safely return to the preadmission environment? Yes * Has this patient been hospitalized within the prior 30 days at any hospital? No Patient Name: DILIP FAYE Page 13701 at 1359 All edits/amendments must be made on the electronic document DICTATION DATE: 12/25/181357 FINANCIAL ENGINEER: DUY 12/25/181357 RPT#: [id number] DC DATE: STATUS: ADM IN [facility] [address] [place] [address] END OF REPORT
--- NOTE | 2018-12-25 14:39 | NUR ---
TELEMETRY SR. DOBUTREX GTT INFUSING. CALL LIGHT IN REACH. WILL CONT. PLAN OF CARE.
--- NOTE | 2018-12-25 14:59 | NUR ---
STATES SHE THOUGHT THERE MIGHT BE BLOOD IN STOOL, HAT PLACED IN TOILET TO CATHCH A SPECIMEN. WILL MONITOR.
[2018-12-25 15:34] LABS: APPEARANCE CLEAR (CLEAR); BILIRUBIN NEGATIVE (NEGATIVE); COLOR YELLOW (YELLOW); GLUCOSE 500 mg/dL (NEGATIVE); KETONE NEGATIVE (NEGATIVE); NITRITE NEGATIVE (NEGATIVE); PROTEIN 1+ mg/dL (NEGATIVE); UROBILINOGEN NORMAL (NORMAL)
[2018-12-25 16:00] VITALS: BP 141/48
--- NOTE | 2018-12-25 19:00 | NUR ---
RECEIVED BEDSIDE REPORT. PATIENT IS ALERT AND ORIENTED, RESTING COMFORTABLY IN BED. RESPIRATIONS ARE EVEN AND UNLABORED. NO S/S OF DISTRESS. NO C/O PAIN. CALL LIGHT WITHIN REACH. WILL CPOC.
[2018-12-25 20:21] VITALS: BP 100/64
[2018-12-26 00:13] VITALS: BP 140/77
--- NOTE | 2018-12-26 02:43 | NUR ---
PATIENT APPEARS TO BE SLEEPING. RESPIRATIONS ARE EVEN AND UNLABORED. NO S/S OF DISTRESS. CALL LIGHT WITHIN REACH. WILL CPOC.
[2018-12-26 04:45] VITALS: BP 122/57
[2018-12-26 05:50] LABS: BASOPHILS 0 % (0-2); EOSINOPHILS 3.3 % (0-7); HEMATOCRIT 30.7 % (36.0-48.0); HEMOGLOBIN 9.5 g/dL (12-16); IMMATURE GRANULOCYTES 0.1 % (0-5); MCHC 30.9 g/dL (31.0-37.0); MCV 93.6 fL (80.0-100.0); MEAN PLATELET VOLUME 10.4 fL (7.4-10.4); MONOCYTES 12.6 % (2-11); PLATELET COUNT 227 10x3/uL (130-400); RBC 3.28 10x6/uL (4.00-5.40); RDW 16.6 % (11.5-14.5); WBC 6.7 10x3/uL (4.8-10.8)
[2018-12-26 06:27] LABS: ALBUMIN 2.4 g/dL (3.4-5.0); ANION GAP 15.4 mmol/L (8-16); BILIRUBIN - TOTAL 0.39 mg/dL (0.2-1.3); CALCIUM 8.3 mg/dL (8.5-10.1); CARBON DIOXIDE 21.6 mmol/L (21.0-32.0); CREATININE - SERUM 4.1 mg/dL (0.6-1.3); MAGNESIUM - SERUM 1.8 mg/dL (1.8-2.4); PROTEIN - SERUM 5.6 g/dL (6.4-8.2)
[2018-12-26 09:04] LABS: CREATININE - URINE 32.2 mg/dL (30-125); PRO/CRE RATIO URINE 7.1 mg/g; PROTEIN - URINE 229.2 mg/dL (0.0-11.9)
--- NOTE | 2018-12-26 09:34 | NUR ---
ECHO COMPLETED AT BS.
[2018-12-26 09:36] VITALS: BP 139/59
[2018-12-26 13:17] VITALS: BP 135/60
[2018-12-26 17:27] VITALS: BP 125/78
--- NOTE | 2018-12-26 19:08 | NUR ---
RECEIVED BEDSIDE REPORT. PATIENT ALERRT AND ORIENTED, RESTING COMFORTABLY IN BED. RESPIRATIONS ARE EVEN AND UNLABORED. O S/S OF DISTRESS. NO C/O PAIN. CALL LIGHT WITHIN REACH. WILL CPOC.
[2018-12-26 20:00] VITALS: BP 129/55
[2018-12-27] VITALS: BP 134/53
[2018-12-27 04:00] VITALS: BP 116/48
[2018-12-27 05:34] LABS: BASOPHILS 0 % (0-2); EOSINOPHILS 3.2 % (0-7); HEMATOCRIT 30.5 % (36.0-48.0); HEMOGLOBIN 9.5 g/dL (12-16); IMMATURE GRANULOCYTES 0.3 % (0-5); LYMPHOCYTES 23.4 % (15-50); MCH 29.1 pg (26.0-34.0); MCHC 31.1 g/dL (31.0-37.0); MCV 93.3 fL (80.0-100.0); MEAN PLATELET VOLUME 9.9 fL (7.4-10.4); MONOCYTES 10.5 % (2-11); NEUTROPHILS 62.6 % (40-80); PLATELET COUNT 209 10x3/uL (130-400); RBC 3.27 10x6/uL (4.00-5.40); RDW 16.8 % (11.5-14.5); WBC 6.9 10x3/uL (4.8-10.8)
[2018-12-27 06:07] LABS: ALBUMIN 2.4 g/dL (3.4-5.0); BILIRUBIN - TOTAL 0.35 mg/dL (0.2-1.3); CALCIUM 8.3 mg/dL (8.5-10.1); CARBON DIOXIDE 22.2 mmol/L (21.0-32.0); CREATININE - SERUM 4.9 mg/dL (0.6-1.3); MAGNESIUM - SERUM 1.8 mg/dL (1.8-2.4); PHOSPHOROUS 6.8 mg/dL (2.5-4.9); POTASSIUM - SERUM 4.2 mmol/L (3.5-5.1); PROTEIN - SERUM 5.6 g/dL (6.4-8.2)
--- NOTE | 2018-12-27 07:15 | NUR ---
RECEIVED PT IN BED EYES CLOSED RESP UNLABORED SKIN W/D COLOR WNL NAD NOTED
[2018-12-27 09:51] VITALS: BP 139/57
[2018-12-27 13:19] VITALS: BP 117/53
[2018-12-27 18:06] VITALS: BP 117/53
[2018-12-27 20:00] VITALS: BP 141/55
[2018-12-28] VITALS (7 sets, daily range): BP systolic 108–153; BP diastolic 49–76
[2018-12-28 05:26] LABS: BASOPHILS 0 % (0-2); EOSINOPHILS 2.8 % (0-7); HEMATOCRIT 31.9 % (36.0-48.0); IMMATURE GRANULOCYTES 0.3 % (0-5); LYMPHOCYTES 23.4 % (15-50); MCH 29.3 pg (26.0-34.0); MCHC 31.3 g/dL (31.0-37.0); MCV 93.5 fL (80.0-100.0); MEAN PLATELET VOLUME 10.1 fL (7.4-10.4); MONOCYTES 11.2 % (2-11); NEUTROPHILS 62.3 % (40-80); PLATELET COUNT 180 10x3/uL (130-400); RBC 3.41 10x6/uL (4.00-5.40); RDW 16.9 % (11.5-14.5); WBC 6.7 10x3/uL (4.8-10.8)
[2018-12-28 05:48] LABS: ALBUMIN 2.5 g/dL (3.4-5.0); ANION GAP 17.4 mmol/L (8-16); BILIRUBIN - TOTAL 0.26 mg/dL (0.2-1.3); CALCIUM 8.4 mg/dL (8.5-10.1); CARBON DIOXIDE 21.1 mmol/L (21.0-32.0); CREATININE - SERUM 5.1 mg/dL (0.6-1.3); MAGNESIUM - SERUM 1.9 mg/dL (1.8-2.4); PHOSPHOROUS 7.2 mg/dL (2.5-4.9); POTASSIUM - SERUM 4.5 mmol/L (3.5-5.1)
--- NOTE | 2018-12-28 07:15 | NUR ---
received pt in bed aaox4 resp unlabored skin w/d color pale c/o nausea will continue to monitor
--- NOTE | 2018-12-28 16:30 | NUR ---
INSERTED 16 FR BURNHAM CATHETER USING STERILE TECHNIQUE FOR STRICT AND ACCURATE I&Os PT TOLERATED WELL
--- NOTE | 2018-12-28 20:17 | NUR ---
INITIAL ROUNDS COMPLETED AT 1915 HRS. PT REQUESTS PAIN MEDS FOR WEISS 08/14. BP 119/63. NORCO PO GIVEN. ASSESSMENT COMPLETED AT 1950 HRS. VSS. SB PER CM HR 53. ALERT AND ORIENTED TO PERSON, PLACE AND TIME. PACE. LUNGS DIMINISHED IN BASES BILAT. ABD SOFT WITH ACTIVE BS NOTED. BURNHAM DRAINING YELLOW URINE. IV TO RFA WITH DOBUTREX AT 2.5MCQ/KG/MIN (7.7CC/HR). IV PATENT. SR UP X2, CALL LIGHT WITHIN REACH.
--- NOTE | 2018-12-28 21:27 | NUR ---
PM FSBS 18. 4 UNITS HUMALOG GIVEN SUB-Q TO UPPER R ARM. PM MEDS GIVEN. PM SNACK SERVED. NO DISTRESS NOTED. SR UP X2, CALL LIGHT WITHIN REACH.
--- NOTE | 2018-12-28 22:11 | NUR ---
PT RESTING WITH EYES CLOSED. RESP EVEN AND REGULAR. SR UP X2, CALL LIGHT WITHIN REACH.
--- NOTE | 2018-12-28 23:53 | NUR ---
PT RESTING WITH EYES CLOSED. RESP EVEN AND REGULAR. SR UP X2, CALL LIGHT WITHIN REACH.
[2018-12-29] VITALS (47 sets, daily range): BP systolic 41–146; BP diastolic 28–103; Ht 170.2 cm; Wt 99.0 kg
--- NOTE | 2018-12-29 02:24 | NUR ---
PT RESTING WITH EYES CLOSED. RESP EVEN AND REGULAR. SB PER CM HR 49. SR UP X2, CALL LIGHT WITHIN REACH.
--- NOTE | 2018-12-29 04:44 | NUR ---
PT RESTING WITH EYES CLOSED. RESP EVEN AND REGULAR. SR UP X2, CALL LIGHT WITHIN REACH.
[2018-12-29 04:50] LABS: BASOPHILS 0 % (0-2); EOSINOPHILS 2.4 % (0-7); HEMATOCRIT 31.7 % (36.0-48.0); HEMOGLOBIN 9.9 g/dL (12-16); IMMATURE GRANULOCYTES 0.3 % (0-5); LYMPHOCYTES 23.5 % (15-50); MCH 29.3 pg (26.0-34.0); MCHC 31.2 g/dL (31.0-37.0); MCV 93.8 fL (80.0-100.0); MEAN PLATELET VOLUME 10.2 fL (7.4-10.4); MONOCYTES 11.4 % (2-11); NEUTROPHILS 62.4 % (40-80); PLATELET COUNT 197 10x3/uL (130-400); RBC 3.38 10x6/uL (4.00-5.40); RDW 16.7 % (11.5-14.5); WBC 6.8 10x3/uL (4.8-10.8)
[2018-12-29 05:27] LABS: ALBUMIN 2.6 g/dL (3.4-5.0); ANION GAP 16.7 mmol/L (8-16); BILIRUBIN - TOTAL 0.28 mg/dL (0.2-1.3); CALCIUM 8.4 mg/dL (8.5-10.1); CARBON DIOXIDE 23.1 mmol/L (21.0-32.0); CREATININE - SERUM 5.5 mg/dL (0.6-1.3); PHOSPHOROUS 8.3 mg/dL (2.5-4.9); POTASSIUM - SERUM 4.8 mmol/L (3.5-5.1); PROTEIN - SERUM 6.3 g/dL (6.4-8.2)
--- NOTE | 2018-12-29 06:01 | NUR ---
AM FSBS 65. 240CC OF APPLE JUICE WITH 3 PACKETS OF SUGAR GIVEN. PT RESTED WELL DURING NIGHT. NEEDS MET; WILL CONTINUE TO MONITOR.
--- NOTE | 2018-12-29 08:30 | NUR ---
NOTIFIED DR. BRENNAN OF HR 40S. NEW ORDERS GIVEN. WILL CONT. PLAN OF CARE.
--- NOTE | 2018-12-29 11:50 | NUR ---
DR. BRENNAN NOTIFIED OF SB WITH PVCS, HR 41. NO NEW ORDERS GIVEN.
--- NOTE | 2018-12-29 12:30 | NUR ---
CALLED TO ROOM FOR ASSISTANCE TO BR. ASSISTED UP TO SOB, BUT WAS UNABLE TO STAND HER UP. ASKED IF SHE FELT DIZZY AND SHE STATES YES SO I HELPED HER TO LAY BACK DOWN. TOLD HER I WOULD GET A BED BUSTILLO. STATES SHE COULDNT BREACTH LYING DOWN. WENT AROUND TO TH NEXT ROOM TO GET THE WIND TECHNICIAN TO HELP ME PULL HER UP.
--- NOTE | 2018-12-29 12:34 | NUR ---
NO PULSE FOUN OR RESP NOTED. COMPRESSIONS STARTED AND CODE BLUE CALLED.
--- NOTE | 2018-12-29 12:45 | NUR ---
BRAULIO FOUND, HR 43. CODE BLUE STOPED. HAS BEEN INTUBATED BY DR. RUSSELL AND BAGGED BY RT.
--- NOTE | 2018-12-29 12:55 | NUR ---
received patient from floor post code blue, ett secure 25 at lip. color purple and patient cold. connected to vent. pulse with doppler. winter cath dark wei. monitor rate in 40'siv right forearm without redness or swelling. feet and hands purple and cold
--- NOTE | 2018-12-29 13:00 | NUR ---
dr. quan here ordered levophed for blood pressure. unable to olive picker pulse ox on patient.
--- NOTE | 2018-12-29 13:30 | NUR ---
DR. AMEZCUA HERE ORDERS RECEIVED FOR CENTRAL LINE PER DR. FIELD. DR. AMEZCUA INSERT LEFT SUBCLAVIAN TRIPLE LUMEN WITHOUT DIFFICULTY PATIENT TOLERATED WELL. GOOD BLOOD RETURN. OG PLACED WITHOUT DIFFICUTLY. CXR DONE TO CONFIRM PLACEMENT OK'S FOR USE BY DR. ANGEL.
--- NOTE | 2018-12-29 13:30 | NUR ---
dr. smith here orders received for 1 mg epi and start dopamine for blood pressure
--- NOTE | 2018-12-29 13:35 | NUR ---
B/P 178/84. HR 82. O2 SAT 99. CXR DONE AND TRANSFERED TO ICU.
--- NOTE | 2018-12-29 14:07 | NUR ---
waking up chewing on ett. family here update given. history obtained. blood pressure improved head of bed elevated for patient comfort.
--- NOTE | 2018-12-29 15:00 | NUR ---
FAMILY AT BEDSIDE UPDATE GIVEN. TALKED WITH DR. ANGEL. DIPRIVAN STARTED PATIENT WAKING UP GAGGING ON ETT, BLOOD PRESSURE IMPROVED.
--- NOTE | 2018-12-29 16:00 | NUR ---
WEANING DOPAMINE TO MAINTAIN BLOOD PRESSURE SYSTOLIC OF 90
--- NOTE | 2018-12-29 16:45 | NUR ---
HEART RATE DROPPED TO 50'S. BLOOD PRESSURE STABLE. DR. FIELD AND JEANNE NOTIFIED. DOPAMINE GTT LEFT AT 7 MCG/KG/MIN. HEAD OF BED ELEVATED 30 DEGREES. BURNHAM CATH FLUSHED DUE TO BLOOD CLOTS IN LINE. URINE BLOODY.
--- NOTE | 2018-12-29 17:00 | NUR ---
DR. FIELD HERE UPDATE GIVEN. NO CHANGES PATIENT RESTING COMFORTABLY ON DIPRIVAN AT 25 MCG/KG/MIN. DOPAMINE AT 7 MCG/KG/MIN.
--- NOTE | 2018-12-29 17:00 | NUR ---
SHIFT ASSESSMENT COMPLETED, PT CARE ASSUMED, MONITORS ON AND WORKING, ETT/OGT NOTED, VENT SETTINGS NOTED, SEE FLOW SHEET FOR FURTHER DETAILS. WILL CONTINUE TO OBSERVE.
[2018-12-29 17:27] LABS: BASOPHILS 0.1 % (0-2); EOSINOPHILS 0.2 % (0-7); HEMATOCRIT 34.9 % (36.0-48.0); HEMOGLOBIN 11.1 g/dL (12-16); IMMATURE GRANULOCYTES 0.9 % (0-5); LYMPHOCYTES 5.9 % (15-50); MCH 29.5 pg (26.0-34.0); MCHC 31.8 g/dL (31.0-37.0); MCV 92.8 fL (80.0-100.0); MEAN PLATELET VOLUME 11.1 fL (7.4-10.4); MONOCYTES 5.9 % (2-11); PLATELET COUNT 234 10x3/uL (130-400); RBC 3.76 10x6/uL (4.00-5.40); RDW 16.5 % (11.5-14.5)
[2018-12-29 17:28] LABS: WBC 17.1 10x3/uL (4.8-10.8)
[2018-12-29 17:49] LABS: ALBUMIN 2.8 g/dL (3.4-5.0); ANION GAP 20.2 mmol/L (8-16); BILIRUBIN - TOTAL 0.82 mg/dL (0.2-1.3); CALCIUM 7.9 mg/dL (8.5-10.1); CARBON DIOXIDE 21.8 mmol/L (21.0-32.0); CREATININE - SERUM 5.7 mg/dL (0.6-1.3); PROTEIN - SERUM 6.1 g/dL (6.4-8.2)
--- NOTE | 2018-12-29 21:00 | NUR ---
FAMILY AT BEDSIDE, UPDATE PROVIDED, PT SEDATED ON VENT, MONITORS ON AND WORKING, VITALS STABLE. WILL CONTINUE TO OBSERVE.
--- NOTE | 2018-12-29 23:00 | NUR ---
PT TURNED AND REPOSITIONED FOR COMFORT, MONITORS ON AND WORKING, VITALS STABLE. SEE FLOW SHEET FOR FURTHER DETAILS. WILL CONTINUE TO OBSERVE.
[2018-12-30] VITALS (60 sets, daily range): BP systolic 106–164; BP diastolic 56–90
--- NOTE | 2018-12-30 00:30 | NUR ---
YELLOW VOMIT NOTED AROUND ETT AND OGT, OGT TO SUCTION, ORAL CARE PROVIDED.
--- NOTE | 2018-12-30 01:00 | NUR ---
PT TURNED AND REPOSITIONED FOR COMFORT, FULL LINEN CHANGE AND CHG BATH GIVEN AT THIS TIME, PT SEDATED ON VENT, MONITORS ON AND WORKING, WILL CONTINUE TO OBSERVE.
[2018-12-30 02:59] LABS: BASOPHILS 0.1 % (0-2); EOSINOPHILS 0.3 % (0-7); HEMATOCRIT 34.9 % (36.0-48.0); HEMOGLOBIN 11.3 g/dL (12-16); IMMATURE GRANULOCYTES 0.3 % (0-5); LYMPHOCYTES 10.9 % (15-50); MCH 29.5 pg (26.0-34.0); MCHC 32.4 g/dL (31.0-37.0); MCV 91.1 fL (80.0-100.0); MEAN PLATELET VOLUME 11.1 fL (7.4-10.4); MONOCYTES 9.9 % (2-11); NEUTROPHILS 78.5 % (40-80); PLATELET COUNT 237 10x3/uL (130-400); RBC 3.83 10x6/uL (4.00-5.40); RDW 16.4 % (11.5-14.5)
--- NOTE | 2018-12-30 03:00 | NUR ---
PT TURNED AND REPOSITIONED FOR COMFORT, MONITORS ON AND WORKING, VITALS STABLE, SEE FLOW SHEET FOR FURTHER DETAILS. WILL CONTINUE TO OBSERVE.
[2018-12-30 03:09] LABS: WBC 12.5 10x3/uL (4.8-10.8)
[2018-12-30 03:53] LABS: ALBUMIN 2.5 g/dL (3.4-5.0); ANION GAP 19.6 mmol/L (8-16); BILIRUBIN - TOTAL 0.73 mg/dL (0.2-1.3); CALCIUM 8.6 mg/dL (8.5-10.1); CARBON DIOXIDE 20.6 mmol/L (21.0-32.0); CREATININE - SERUM 5.8 mg/dL (0.6-1.3); PHOSPHOROUS 7.7 mg/dL (2.5-4.9); POTASSIUM - SERUM 5.2 mmol/L (3.5-5.1); PROTEIN - SERUM 6.1 g/dL (6.4-8.2)
[2018-12-30 03:58] LABS: TROPONIN-I 4.908 ng/mL (0.000-0.060)
--- NOTE | 2018-12-30 05:00 | NUR ---
PT TURNED AND REPOSITIONED FOR COMFORT, MONITORS ON AND WORKING, VITALS STABLE. NO OTHER CHANGES NOTED AT THIS TIME, WILL CONTINUE TO OBSERVE.
--- NOTE | 2018-12-30 09:16 | NUR ---
DR BATISTA HERE ASSESSING PATIENT. NEW ORDERS OBTAINED TO TURN OFF PROPROFOL. PT VOMITED AROUND TUBE WITH CHUNKS OF MEAT NOTED. MOUTH CARE COMPLETE. BATH GIVEN.
--- NOTE | 2018-12-30 09:19 | NUR ---
Nutrition follow-up: Pt now in ICU s/p code blue Intubated, sedated OGT->LIWS CVL placed Vomiting Wt: 245# Will need nutrition support started within 48-72 hours RDN following.
--- NOTE | 2018-12-30 10:00 | NUR ---
JASON OFF PER DR BATISTA.
--- NOTE | 2018-12-30 15:44 | NUR ---
DIPRAVAN ON AT 3.3 CC TO HELP WITH ANXIETY.
[2018-12-30 18:18] LABS: ALBUMIN 2.7 g/dL (3.4-5.0); BILIRUBIN - TOTAL 0.79 mg/dL (0.2-1.3); CALCIUM 8.6 mg/dL (8.5-10.1); CARBON DIOXIDE 22.6 mmol/L (21.0-32.0); CREATININE - SERUM 5.9 mg/dL (0.6-1.3); PROTEIN - SERUM 6.2 g/dL (6.4-8.2)
[2018-12-30 18:19] LABS: ANION GAP 18.8 mmol/L (8-16); POTASSIUM - SERUM 4.4 mmol/L (3.5-5.1)
--- NOTE | 2018-12-30 19:00 | NUR ---
SHIFT ASSESSMENT COMPLETED. PT CARE ASSUMED, MONITORS ON AND WORKING, VITALS STABLE, WILL CONTINUE TO OBSERVE.
--- NOTE | 2018-12-30 21:00 | NUR ---
PT TURNED AND REPOSITIONED, ORAL CARE PROVIDED AT THIS TIME, FAMILY AT BEDSIDE, UPDATE PROVIDED, NO SIGNS/SYMPTOMS OF PAIN OR DISCOMFORT NOTED AT THIS TIME, WILL CONTINUE TO OBSERVE.
--- NOTE | 2018-12-30 21:10 | NUR ---
FAMILY AT BEDSIDE, UPDATE GIVEN
--- NOTE | 2018-12-30 23:00 | NUR ---
REASSESSMENT COMPLETE, NO CHANGES NOTED, REPOSITIONED FOR COMFORT, ORAL CARE PROVIDED, VSS, CALL LIGHT IN REACH
--- NOTE | 2018-12-30 23:00 | NUR ---
NO CHANGES, SEE FLOW SHEET FOR FURTHER DETAILS. WILL CONTINUE TO OBSERVE.
[2018-12-31] VITALS (24 sets, daily range): BP systolic 108–186; BP diastolic 55–92
--- NOTE | 2018-12-31 01:00 | NUR ---
PT TURNED AND REPOSITIONED FOR COMFORT, MONITORS ON AND WORKING, VITALS STABLE, ORAL CARE DONE AT THIS TIME, WILL CONTINUE TO OBSERVE.
--- NOTE | 2018-12-31 03:00 | NUR ---
NO CHANGES, SEE FLOW SHEET FOR FURTHER DETAILS. WILL CONTINUE TO OBSERVE.
--- NOTE | 2018-12-31 05:00 | NUR ---
PT TURNED AND REPOSITIONED FOR COMFORT, ORAL CARE DONE, PT TOLERATES SEDATION VACATION WELL, MONITORS ON AND WORKING, VITALS STABLE, WILL CONTINUE TO OBSERVE.
[2018-12-31 05:09] LABS: BASOPHILS 0 % (0-2); EOSINOPHILS 0.4 % (0-7); HEMATOCRIT 28.4 % (36.0-48.0); HEMOGLOBIN 9.3 g/dL (12-16); IMMATURE GRANULOCYTES 0.2 % (0-5); MCH 29.2 pg (26.0-34.0); MCHC 32.7 g/dL (31.0-37.0); MEAN PLATELET VOLUME 10.4 fL (7.4-10.4); MONOCYTES 7.8 % (2-11); NEUTROPHILS 80.6 % (40-80); RBC 3.19 10x6/uL (4.00-5.40); RDW 16.4 % (11.5-14.5); WBC 9.8 10x3/uL (4.8-10.8)
[2018-12-31 05:12] LABS: PLATELET COUNT 181 10x3/uL (130-400)
--- NOTE | 2018-12-31 05:21 | NUR ---
UPDATE GIVEN TO DR. MCINTYRE OVER PHONE, NO NEW ORDERS RECIEVED
--- NOTE | 2018-12-31 19:00 | NUR ---
ASSESSMENT COMPLETED. ETT AT PEEP 5, 30%, 20 RESP, 500 VOLUME. OGT TO SUCTION. LEFT IJ PATENT AND RIGHT TRIALYSIS PATENT. DIALYSIS AT BEDSIDE AT START OF SHIFT. CVP 14. RESTRAINTS ON.
--- NOTE | 2018-12-31 21:00 | NUR ---
TURNED AND REPOSITIONED. NO CHANGES TO PATIENT DIALYSIS COMPLETE AND PULLED 3 L OFF.
--- NOTE | 2018-12-31 23:00 | NUR ---
RE-ASSESSMENT COMPLETED. NO CHANGES SINCE LAST ASSESSMENT. NS ORDER FOR KVO, CHANGED RATE ON PUMP TO 5ML/HR D/T ORDER AND IS GETTING DIALYSIS TO REMOVE FLUID. THIS WILL KVO.
[2019-01-01] VITALS (27 sets, daily range): BP systolic 103–165; BP diastolic 52–105
--- NOTE | 2019-01-01 01:00 | NUR ---
CHG BATH WITH COMPLETE LINEN CHANGE. NO OTHER CHANGES.
--- NOTE | 2019-01-01 03:00 | NUR ---
RE-ASSESSMENT COMPLETED. NO CHANGES SINCE LAST ASSESSMENT
--- NOTE | 2019-01-01 05:00 | NUR ---
PROPOFOL IS OFF. SEDATION VACATION WAS COMPLETED. PATIENT IS AWAKE. EXPLAINED TO WHAT HAPPENING AND PATIENT SHOOK HER HEAD YES. DENIES ANY PAIN OR NEEDS AT THIS TIME WHEN ASKED
--- NOTE | 2019-01-01 06:42 | NUR ---
RT AT BEDSIDE. CHANGED SETTINGS TO CPAP, PRESSURE SUPPORT 10, PEEP 5, OXYGEN 30%, RESP RATE 27
[2019-01-01 07:06] LABS: ANION GAP 17.5 mmol/L (8-16); BILIRUBIN - TOTAL 1.26 mg/dL (0.2-1.3); CALCIUM 8.1 mg/dL (8.5-10.1); CARBON DIOXIDE 25.4 mmol/L (21.0-32.0); POTASSIUM - SERUM 3.9 mmol/L (3.5-5.1); PROTEIN - SERUM 5.2 g/dL (6.4-8.2)
[2019-01-01 07:09] LABS: CREATININE - SERUM 4.2 mg/dL (0.6-1.3)
--- NOTE | 2019-01-01 09:10 | NUR ---
HERE AND WANTS PT EXTUBATED. RESP THERAPY MADE AWARE. PT EXTUBATED AND PLACED ON 3L NC. PT TOLERATING WELL SO FAR. PROVIDED PT WITH LORAINE. CALL LIGHT WITHIN REACH. WILL CONT TO FOLLOW POC
--- NOTE | 2019-01-01 09:37 | NUR ---
NUTRITION F/U PT EXTUBATED. NO CURRENT DIET ORDER. WILL MONITOR DIET ADVANCEMENT, PO INTAKE. RD FOLLOWING
--- NOTE | 2019-01-01 10:14 | NUR ---
PROVIDED PT A FEW ICE CHIPS AND PT BEGAN COUGHING. WILL KEEP PT NPO UNTIL SPEECH CAN EVALUATE
--- NOTE | 2019-01-01 12:00 | NUR ---
PT RESTING IN BED, STILL WAITING ON SWALLOW EVAL AT THIS TIME, VSS AND WNL. PT TOLERATING NC WELL. DENIES ANY NEEDS AT THIS TIME, WILL CONT TO FOLLOW POC
--- NOTE | 2019-01-01 14:00 | NUR ---
PT RESTING IN BED, CALL LIGHT WITHIN REACH. DENIES ANY NEEDS AT THIS TIME. BED ALARM ON AND TESTED. WILL CONT TO FOLLOW POC
--- NOTE | 2019-01-01 14:07 | OP ---
PATIENT NAME: DILIP FAYE MEDICAL RECORD: [id number] :58 LOCATION:[facility] D.2305 ADMISSION DATE:12/25/18 SURGEON: JONATHAN CRAWFORD MD DATE OF OPERATION: 12/31/2018 PREOPERATIVE DIAGNOSIS: Acute renal failure in need of hemodialysis. POSTOPERATIVE DIAGNOSIS: Acute renal failure in need of hemodialysis. PROCEDURE: Insertion of right neck Trialysis catheter (non-tunneled, non-cuffed hemodialysis catheter). SURGEON: Jonathan Crawford MD VIDEOTAPE RECORDING ENGINEER: None. BLOOD LOSS: Minimal ANESTHESIA: Local. COMPLICATIONS: None. The entire procedure was performed in the presence of a female nurse. OPERATIVE COURSE: The patient was positioned in the Trendelenburg position. The right neck was sterilely prepped and draped. A local anesthetic was used to infiltrate the skin and subcutaneous tissues at the base of right neck. Right internal jugular vein was percutaneously accessed in an antegrade fashion. Guidewire was passed easily. A small skin osmani was accomplished. A vessel dilator was used to dilate a subcutaneous tract. A short Trialysis catheter was inserted to the hub. It was sutured in place times 3. All lumens flushed easily and aspirated dark, nonpulsatile blood. A stat portable chest x-ray revealed adequate placement of the Trialysis catheter. TRANSINT:[id number] Voice Confirmation ID: [id number] DOCUMENT ID: [id number] JONATHAN CRAWFORD MD at 1407 CC: [id number] DICTATION DATE: 12/31/18 1606 [employer] ARCHITECT: 12/31/182014 ADM IN [place] [id number] [place] [address]
--- NOTE | 2019-01-01 15:39 | NUR ---
OT NOTE: PT REQUIRED MOD A FOR BED MOB TASKS . PT REQUIRED MAX A FOR SIT TO STAND. THANK YOU, AMI DUMONT
--- NOTE | 2019-01-01 16:00 | NUR ---
PT SITTING UP IN BED WATCHING TV RECEIVING BEDSIDE DIALYSIS. VSS AND WNL. FAMILY AT BEDSIDE, BURNHAM CATHETER EMPTIED. CALL LIGHT WITHIN REACH. DENIES ANY NEEDS AT THIS TIME, WILL CONT TO FOLLOW POC
--- NOTE | 2019-01-01 18:17 | NUR ---
PT RESTING IN BED, VSS AND WNL. DENIES ANY NEEDS AT THIS TIME, WILL CONT TO FOLLOW POC
--- NOTE | 2019-01-01 18:27 | NUR ---
CVL TO LEFT SUBCLAVIAN CHANGED VIA STERILE TECHNIQUE. PT TOLERATED WELL. PT REQUEST TO BE PLACED ON BEDPAN. WILL CONT TO FOLLOW POC
--- NOTE | 2019-01-01 19:00 | NUR ---
ASSESSMENT COMPLETED. OXYGEN AT 3L VIA MA. DENIES ANY NEEDS OR COMPLAINTS. DIALYSIS TOOK OFF 2.5 L. DRINKING CRANBERRY JUICE AT HONEY THICK WITH SPOON. PATIENT REFUSED THICKENED WATER. CALL LIGHT IN REACH. NS AT [facility].
--- NOTE | 2019-01-01 21:00 | NUR ---
SON AT BEDSIDE. PT DENIES ANY NEEDS. CALL LIGHT IN REACH. MEDS GIVEN WITHOUT DIFFICULTY.
--- NOTE | 2019-01-01 23:00 | NUR ---
RE-ASSESSMENT COMPLETED. CPAP ON PER RT. NO CHANGES SINCE LAST ASSESSMENT. CALL LIGHT IN REACH.
[2019-01-02] VITALS (14 sets, daily range): BP systolic 144–172; BP diastolic 57–75
--- NOTE | 2019-01-02 00:11 | NUR ---
PATIENT REFUSED TO WEAR CPAP ANYMORE. O2 AT 3L VIA NC PLACED BACK ON
--- NOTE | 2019-01-02 01:00 | NUR ---
LAYING BACK IN BED. PVC NOTED BUT NOT NEW FOR PATIENT. CALL LIGHT IN REACH. DENIES ANY NEEDS. C/O SORENESS TO RIBCAGE
--- NOTE | 2019-01-02 03:00 | NUR ---
RE-ASSESSMENT COMPLETED. NO CHANGES SINCE LAST ASSESSMENT. CALL LIGHT IN REACH.
[2019-01-02 04:21] LABS: BASOPHILS 0 % (0-2); EOSINOPHILS 1.3 % (0-7); HEMATOCRIT 28.4 % (36.0-48.0); HEMOGLOBIN 8.6 g/dL (12-16); IMMATURE GRANULOCYTES 0.2 % (0-5); LYMPHOCYTES 13.9 % (15-50); MCH 28.8 pg (26.0-34.0); MCHC 30.3 g/dL (31.0-37.0); MONOCYTES 10.6 % (2-11); PLATELET COUNT 190 10x3/uL (130-400); RBC 2.99 10x6/uL (4.00-5.40); RDW 16.6 % (11.5-14.5); WBC 8.9 10x3/uL (4.8-10.8)
[2019-01-02 04:38] LABS: ALBUMIN 2.2 g/dL (3.4-5.0); ANION GAP 11.3 mmol/L (8-16); BILIRUBIN - TOTAL 1.19 mg/dL (0.2-1.3); CALCIUM 8.7 mg/dL (8.5-10.1); CREATININE - SERUM 3.4 mg/dL (0.6-1.3); MAGNESIUM - SERUM 1.9 mg/dL (1.8-2.4); PROTEIN - SERUM 5.8 g/dL (6.4-8.2)
[2019-01-02 04:42] LABS: PHOSPHOROUS 4.4 mg/dL (2.5-4.9); POTASSIUM - SERUM 3.3 mmol/L (3.5-5.1)
--- NOTE | 2019-01-02 06:41 | NUR ---
CHANGE CVL DSG TO R TRIALYSIS.
--- NOTE | 2019-01-02 07:00 | NUR ---
PT RESTING IN BED, SHIFT ASSESSMENT PEFORMED. VSS AND WNL. CALL LIGHT WITHIN REACH. CONT O2 AT 3L NC. PT TOLERATING WELL. DENIES ANY NEEDS AT THIS TIME. WILL CONT TO FOLLOW POC
--- NOTE | 2019-01-02 08:30 | NUR ---
PT SITTING UP IN BED EATING BREAKFAST. CALL LIGHT WITHIN REACH. VSS AND WNL. DENIES ANY NEEDS AT THIS TIME, WILL CONT TO FOLLOW POC
--- NOTE | 2019-01-02 10:18 | NUR ---
PHYSICAL THERAPY AND OT HERE WITH PT. PT USED WALKER AND WALKED TO EDGE OF ROOM AND IS NOW SITTING UP IN CHAIR AT BEDSIDE. DENIES ANY NEEDS AT THIS TIME. WILL CONT TO FOLLOW POC
--- NOTE | 2019-01-02 11:50 | NUR ---
REPORT CALLED TO MED 2, PT TRANSFERRED VIA BED
--- NOTE | 2019-01-02 12:06 | NUR ---
PT RECEIVED TO ROOM FROM ICU ON BED. ASSIST TO TRANSFER TO OUR BED. IJ TRIALYSIS NOTED TO RIGHT NECK, BURNHAM TO BEDSIDE. FAMILY IN ROOM ON TRANSFER. LUNCH TRAY BROUGHT WITH AND SHE IS EATING NOW. OXYGEN AT 2 LITERS.
--- NOTE | 2019-01-02 12:31 | NUR ---
OT NOTE: PT DOING VERY WELL TODAY; BED MOB WITH VERY MINIMAL ASSIST FOR SUPINE TO SIT; MIN ASSIST TO GET TO EOB. ABLE TO WASH HANDS AND FACE WITH CLOTH AND SET UP; ABLE TO HOLD CUP AND UTENSILS; MOD ASSIST TO RUPA SOCKS; AMB WITH WALKER AND MIN ASSIST X 2 APPROX 10 FT; TRANSFERRED TO CHAIR WITH MIN ASSIST; PT TO TRANSFER TO FLOOR TODAY. COLEEN LARIOS, OTR/L
--- NOTE | 2019-01-02 20:14 | NUR ---
INITIAL ROUNDS COMPLETED AT 1910 HRS. PT DENIED ANY DISCOMFORT. ASSESSMENT COMPLETED AT 1940 HRS. ALERT AND ORIENTED TO PERSON,LACE AND TIME. PACE. RIJ TRIALYSIS NOTED. LTLSC SL. O2 2LNC. LUNGS DIMINISHED IN BASES BILAT. BURNHAM DRAINING DARK URINE. SR UP X2, CALL LIGHT WITHINREACH.
--- NOTE | 2019-01-02 21:34 | NUR ---
PM FSBS 223. 8 UNITS HUMALOG GIVEN. PM MEDS GIVEN CRUSCHED IN APPLESAUCE. SCHEDULED LANTUS GIVEN. ASSISTED PT TO BR. SMALL, HARD BM NOTED. ASSISTED BACK TO BED WITH STAFF X2. PT SOB WITH ACTIVITY. SR UP X2, CALL LIGHT WITHIN REACH.
--- NOTE | 2019-01-02 23:31 | NUR ---
PT RESTING WITH EYES CLOSED. RESP EVEN AND REGULAR. BIPAP IN USE. SR UP X2, CALL LIGHT WITHIN REACH.
[2019-01-03] VITALS: BP 136/59
--- NOTE | 2019-01-03 01:32 | NUR ---
PT RESTING WITH EYES CLOSED. RESP EVEN AND REGULAR. SR UP X2, CALL LIGHT WITHIN REACH AND BIPAP IN USE.
--- NOTE | 2019-01-03 03:16 | NUR ---
PT RESTING WITH EYES CLOSED. RESP EVEN AND REGULAR. SR UP X2, CALL LIGHT WITHIN REACH AND BIPAP ON.
[2019-01-03 04:00] VITALS: BP 149/70
--- NOTE | 2019-01-03 04:18 | NUR ---
PT RESTING WITH EYES CLOSED. RESP EVEN AND REGULAR. SR UP X2 CALL LIGHT WITHIN REACH AND BIPAP IN USE.
[2019-01-03 05:48] LABS: BASOPHILS 0 % (0-2); EOSINOPHILS 4.1 % (0-7); HEMATOCRIT 28.4 % (36.0-48.0); HEMOGLOBIN 8.6 g/dL (12-16); IMMATURE GRANULOCYTES 0.2 % (0-5); LYMPHOCYTES 17.9 % (15-50); MCH 29.5 pg (26.0-34.0); MCHC 30.3 g/dL (31.0-37.0); MEAN PLATELET VOLUME 9.9 fL (7.4-10.4); MONOCYTES 12.6 % (2-11); NEUTROPHILS 65.2 % (40-80); PLATELET COUNT 199 10x3/uL (130-400); RBC 2.92 10x6/uL (4.00-5.40); RDW 16.7 % (11.5-14.5)
[2019-01-03 05:53] LABS: CARBON DIOXIDE 32.7 mmol/L (21.0-32.0); PHOSPHOROUS 5.4 mg/dL (2.5-4.9); POTASSIUM - SERUM 3.7 mmol/L (3.5-5.1)
[2019-01-03 05:56] LABS: CREATININE - SERUM 4.5 mg/dL (0.6-1.3)
[2019-01-03 05:58] LABS: MCV 97.3 fL (80.0-100.0)
--- NOTE | 2019-01-03 06:07 | NUR ---
VSS. SR PER CM. PT STATED TYLENOL ALLEVIATED WEISS. AM FSBS 68. JELLO GIVEN. NEEDS MET; WILL CONTINUE TO MONITOR.
[2019-01-03 08:55] VITALS: BP 164/60
--- NOTE | 2019-01-03 11:24 | NUR ---
BURNHAM REMOVED, INSTRUCTED PT ON BEDSIDE COMMODE USE AND TO CALL FOR ASSIST.
--- NOTE | 2019-01-03 13:17 | NUR ---
PT IN DIALYSIS NO TX GIVEN
[2019-01-03 13:48] VITALS: BP 179/75
--- NOTE | 2019-01-03 19:36 | NUR ---
REPORT RECIEVED AND ROUNDING COMPLETE. PATIENT LAYING IN BED IN LOW FOWLERS. PATIENT RECIEVING A BREATHING TREATMENT AT THIS TIME. PATIENT ALSO ON HER PHONE, PATIENT STATES SHE DID NO NEED ANYTHING AND SHE WOULD CALL IF SHE DID. CALL LIGHT WITHIN REACH AND BED IN LOWEST LOCKED POSITION.
[2019-01-03 20:00] VITALS: BP 127/58
[2019-01-04] VITALS (7 sets, daily range): BP systolic 138–158; BP diastolic 50–73
--- NOTE | 2019-01-04 03:04 | NUR ---
I have reviewed this patient and I concur with the Shift Assessment completed by the Licensed Practical Nurse today this shift.
[2019-01-04 05:25] LABS: BASOPHILS 0.1 % (0-2); EOSINOPHILS 3.1 % (0-7); HEMATOCRIT 28.9 % (36.0-48.0); HEMOGLOBIN 8.7 g/dL (12-16); IMMATURE GRANULOCYTES 0.3 % (0-5); LYMPHOCYTES 13.4 % (15-50); MCHC 30.1 g/dL (31.0-37.0); MCV 96.3 fL (80.0-100.0); MEAN PLATELET VOLUME 9.7 fL (7.4-10.4); MONOCYTES 14.7 % (2-11); NEUTROPHILS 68.4 % (40-80); PLATELET COUNT 225 10x3/uL (130-400); RDW 16.4 % (11.5-14.5); WBC 9.9 10x3/uL (4.8-10.8)
[2019-01-04 05:37] LABS: ANION GAP 8.5 mmol/L (8-16); CALCIUM 9.1 mg/dL (8.5-10.1); CARBON DIOXIDE 33.1 mmol/L (21.0-32.0); CREATININE - SERUM 3.1 mg/dL (0.6-1.3); PHOSPHOROUS 3.5 mg/dL (2.5-4.9); POTASSIUM - SERUM 3.6 mmol/L (3.5-5.1)
--- NOTE | 2019-01-04 07:20 | NUR ---
RECEIVED REPORT. ASSUMED CARE OF PATIENT. PATIENT AWAKE/ALERT, SITTING UP IN BED. BIPAP OFF AT THIS TIME, HF NASAL CANULA APPLIED. PATIENT COMPLAINS OF HER THROAT BEING SORE FROM BEING INTUBATED. CALL LIGHT WITHIN REACH. NO ACUTE DISTRESS. SR 82 ON TELEMETRY.
--- NOTE | 2019-01-04 09:26 | NUR ---
STILL AWAITING CALL BACK FROM ANIRUDH MEHTA TO REQUEST MEDICATION/TREATMENT FOR SORE THROAT. WILL PAGE AGAIN.
[2019-01-04 09:50] LABS: % SATURATION 5 % (15-55); IRON 17 ug/dl (35-150); TOTAL IRON BIND CAPACITY 332 ug/dl (260-445); UNSAT IRON BIND CAPACITY 315 ug/dl (150-375)
--- NOTE | 2019-01-04 10:05 | NUR ---
NEW ORDER OBTAINED FOR CEPHACOL LOZENGES. PATIENT MADE AWARE. PATIENT OOB TO CHAIR AT THIS TIME PER PT.
--- NOTE | 2019-01-04 11:48 | NUR ---
FSBS 164. 4 UNITS HUMALOG ADMINISTERED PER SLIDING SCALE.
--- NOTE | 2019-01-04 14:30 | NUR ---
ASSISTED PATIENT OOB TO CHAIR AT BEDSIDE. PATIENT STATES THE CHAIR PROVIDES HER WITH MORE COMFORT THAN TRYING TO LYE DOWN IN THE BED. PATIENT CONTINUES WITH A HOARSE VOICE, THROAT LOZENGE PROVIDED. CALL LIGHT WITHIN REACH. NO DISTRESS.
--- NOTE | 2019-01-04 16:42 | NUR ---
FSBS 148. NO INSULIN COVERAGE PER SLIDING SCALE.
--- NOTE | 2019-01-04 17:45 | NUR ---
FLUTTER VALVE PROVIDED TO PATIENT AND INSTRUCTED ON HOW TO USE IT AT THIS TIME.
--- NOTE | 2019-01-04 19:27 | NUR ---
EVENING ROUNDS COMPLETED, WILL CONTINUE POC. ASSISTED PATIENT TO BATHROOM AND BACK TO CHAIR. RR EVEN BUT LABORED ON EXERTION ON 2L O2 VIA NC. RT NECK TRIALYSIS SL, LT SUBCLAVIAN CVL SL. PATIENT DENIES NEEDS AT THIS TIME. CL IN REACH, CHAIR LOCKED. WILL CTM.
--- NOTE | 2019-01-04 19:41 | NUR ---
PATIENT REQUESTED RESPIRATORY TO SEE HER. RESP CALLED.
--- NOTE | 2019-01-04 21:45 | NUR ---
FSBS 198. 4 UNITS HUMILOG ADMINISTERED PER ORDERS. LANTUS, 15 UNITS ADMINISTERED PER ORDERS.
[2019-01-05 04:51] LABS: BASOPHILS 0.1 % (0-2); EOSINOPHILS 1.9 % (0-7); HEMATOCRIT 31.4 % (36.0-48.0); HEMOGLOBIN 9.5 g/dL (12-16); IMMATURE GRANULOCYTES 0.4 % (0-5); MCH 28.8 pg (26.0-34.0); MCHC 30.3 g/dL (31.0-37.0); MCV 95.2 fL (80.0-100.0); MEAN PLATELET VOLUME 9.6 fL (7.4-10.4); MONOCYTES 12.5 % (2-11); NEUTROPHILS 72.1 % (40-80); PLATELET COUNT 223 10x3/uL (130-400); RDW 16.2 % (11.5-14.5); WBC 9.5 10x3/uL (4.8-10.8)
[2019-01-05 05:13] LABS: ANION GAP 10.2 mmol/L (8-16); CALCIUM 9.4 mg/dL (8.5-10.1); CARBON DIOXIDE 31.3 mmol/L (21.0-32.0); PHOSPHOROUS 3.7 mg/dL (2.5-4.9); POTASSIUM - SERUM 3.5 mmol/L (3.5-5.1)
--- NOTE | 2019-01-05 06:54 | NUR ---
I have reviewed this patient and I concur with the Shift Assessment completed by the Licensed Practical Nurse today this shift.
--- NOTE | 2019-01-05 07:00 | NUR ---
RECEIVED REPORT. ASSUMED CARE OF PATIENT. CALL LIGHT WITHIN REACH. PATIENT RESTING WITH EYES CLOSED, SITTING UP IN BED WITH 02 VIA NC. RESP EVEN AND UNLABORED. NO DISTRESS. REPORTED THAT PATIENT SAT UP IN CHAIR ALL NOC IN CHAIR WITH BIPAP ON.
[2019-01-05 08:35] VITALS: BP 111/58
--- NOTE | 2019-01-05 09:30 | NUR ---
ASSISTED PATIENT OOB, TO RESTROOM AND THEN TO CHAIR AT BEDSIDE. NO DISTRESS. TOLERATED CRUSHED MEDS WELL. CALL LIGHT WITHIN REACH.
--- NOTE | 2019-01-05 11:22 | NUR ---
FSBS 147. NO INSULIN COVERAGE REQUIRED PER SLIDING SCALE.
--- NOTE | 2019-01-05 12:00 | NUR ---
PATIENT IS REQUESTING TO INCREASE HER DIET, SHE DOES NOT LIKE PUREE. WILL CONSULT SPEECH THERAPY SHE WAS PREVIOUSLY EXTUBATED AND SPEECH EVAL WAS COMPLETED BUT SPEECH THERAPY WILL NEED TO RE-EVALUATE TO INCREASE DIET. ANIRUDH MEHTA MADE AWARE OF PATIENT WANTING HER DIET INCREASED.
[2019-01-05 12:07] VITALS: BP 134/73
[2019-01-05 16:21] VITALS: BP 127/69
--- NOTE | 2019-01-05 16:42 | NUR ---
FSBS 244. 8 UNITS HUMALOG INSULIN ADMINISTERED PER SLIDING SCALE.
--- NOTE | 2019-01-05 16:43 | NUR ---
TOLERATED NEW MECHANICAL SOFT DIET WELL!
--- NOTE | 2019-01-05 19:16 | NUR ---
AWAKE AND ALERT UP IN CHAIR at this time bed low and locked call light is in reach
[2019-01-05 20:00] VITALS: BP 129/90
[2019-01-06] VITALS: BP 150/62
--- NOTE | 2019-01-06 03:34 | NUR ---
I have reviewed this patient and I concur with the Shift Assessment completed by the Licensed Practical Nurse today this shift.
[2019-01-06 04:00] VITALS: BP 145/74
[2019-01-06 04:22] LABS: BASOPHILS 0.1 % (0-2); EOSINOPHILS 0.7 % (0-7); HEMATOCRIT 28.4 % (36.0-48.0); HEMOGLOBIN 8.7 g/dL (12-16); IMMATURE GRANULOCYTES 0.6 % (0-5); LYMPHOCYTES 8.6 % (15-50); MCH 29.3 pg (26.0-34.0); MCHC 30.6 g/dL (31.0-37.0); MCV 95.6 fL (80.0-100.0); MEAN PLATELET VOLUME 10.2 fL (7.4-10.4); MONOCYTES 10.2 % (2-11); NEUTROPHILS 79.8 % (40-80); RBC 2.97 10x6/uL (4.00-5.40); RDW 16.2 % (11.5-14.5)
[2019-01-06 04:43] LABS: PLATELET COUNT 278 10x3/uL (130-400); WBC 16.7 10x3/uL (4.8-10.8)
[2019-01-06 04:59] LABS: ANION GAP 10.9 mmol/L (8-16); CALCIUM 9.6 mg/dL (8.5-10.1); CARBON DIOXIDE 28.3 mmol/L (21.0-32.0); CREATININE - SERUM 4.6 mg/dL (0.6-1.3); PHOSPHOROUS 3.5 mg/dL (2.5-4.9); POTASSIUM - SERUM 3.2 mmol/L (3.5-5.1)
--- NOTE | 2019-01-06 06:04 | NUR ---
PT RESTING WITH EYES CLOSED. RESP EVEN AND REGULAR. SR UP X2,CALL LIGHT WITHIN REACH.
--- NOTE | 2019-01-06 08:11 | NUR ---
PATIENT IS AWAKE AND ALERT. SHE IS SITITNG UP IN BED TO EAT BREAKFAST. DENIES ANY NEEDS AT THIS TIME.
[2019-01-06 08:17] VITALS: BP 121/57
[2019-01-06 11:43] VITALS: BP 135/69
--- NOTE | 2019-01-06 13:01 | NUR ---
Nutrition Follow-up: Pt reports improved PO intake since diet upgraded per ST. Ate ~75% of breakfast this AM. Diet: Renal, Elim Thick Liquids, Mech Soft/Chopped Meats Wt: 212# Last BM: 01/02 (small per pt) Labs noted: WBC 16.7, Hgb 8.7, Hct 28.4, K+ 3.2, GFR 10, PO4 3.5, Glu 147 Meds noted: Senokot, Bumex, Lantus, Humalog -Change to renal diabetic diet with consistencies per ST. -RD following.
--- NOTE | 2019-01-06 14:21 | NUR ---
PATIENT IS IN DIALYSIS AT THIS TIME.
--- NOTE | 2019-01-06 16:22 | NUR ---
OT NOTE: PT PERFORMING BED MOB WITH SPV; TRANSFERS WITH CGA; SIMPLE GROOMING AND ADLS WITH MIN/SET UP. PT SOB WITH IN ROOM AMBULATION AND USE OF WALKER. RECOMMEND IP REHAB PRIOR TO DC HOME COLEEN LARIOS OTR/L
--- NOTE | 2019-01-06 19:50 | NUR ---
PATIENT HAD DIALYSIS TODAY. SHE IS SITTING UP IN BED AND DENIES ANY NEEDS AT THIS TIME. ACKNOWLEDGED DR DINERO NOTE TO FIND OUT WHEN HEMOSPLIT WILL BE PLACED. WILL BE PLACED POSSIBLY ON SUNDAY. PASSING TO HEALTH INFORMATION MANAGERS.
[2019-01-06 20:00] VITALS: BP 163/64
--- NOTE | 2019-01-06 20:43 | NUR ---
OT NOTE: PT COMPLETED SIT TO STAND WITH SBA. PT COMPLETED ADL MOB WITH SBA/CGA. PT COMPLETED GROOMING TASK WITH SET UP. PT COMPLETED BUE AROM EXS. THANK YOU, AMI DUMONT
[2019-01-07] VITALS: BP 102/57
[2019-01-07 04:00] VITALS: BP 143/58
[2019-01-07 06:28] LABS: ANION GAP 12.8 mmol/L (8-16); CARBON DIOXIDE 30.5 mmol/L (21.0-32.0); CREATININE - SERUM 3.9 mg/dL (0.6-1.3); PHOSPHOROUS 3.2 mg/dL (2.5-4.9); POTASSIUM - SERUM 3.3 mmol/L (3.5-5.1); VANCOMYCIN - RANDOM 7.1 ug/mL (10.0-20.0)
[2019-01-07 06:36] LABS: BASOPHILS 0.1 % (0-2); EOSINOPHILS 3.6 % (0-7); HEMATOCRIT 27.4 % (36.0-48.0); HEMOGLOBIN 8.2 g/dL (12-16); IMMATURE GRANULOCYTES 0.7 % (0-5); LYMPHOCYTES 11.9 % (15-50); MCH 28.7 pg (26.0-34.0); MCHC 29.9 g/dL (31.0-37.0); MCV 95.8 fL (80.0-100.0); MONOCYTES 11.4 % (2-11); NEUTROPHILS 72.3 % (40-80); PLATELET COUNT 301 10x3/uL (130-400); RBC 2.86 10x6/uL (4.00-5.40); RDW 16.2 % (11.5-14.5)
[2019-01-07 06:39] LABS: WBC 10.2 10x3/uL (4.8-10.8)
--- NOTE | 2019-01-07 07:33 | NUR ---
PATIENT IS RESTING ON HER BACK AT THIS TIME IN BED. SHE REPORTS NOT HAVING SLEPT. DENIES ANY NEEDS AT THIS TIME. RECIEVED SHIFT REPORT.
[2019-01-07 08:13] VITALS: BP 113/62
[2019-01-07 11:09] LABS: HEPATITIS C ANTIBODY 0.2 S/CO RAT (0.0-0.9)
[2019-01-07 11:13] VITALS: BP 129/79
--- NOTE | 2019-01-07 11:18 | NUR ---
PATIENT IS TAKING ALL HER MEDICATIONS CRUSHED IN APPLESAUCE. SHE IS REPORTING THAT SHE IS FEELING BETTER TODAY. SHE IS SITTING UP IN THE CHAIR AT BEDSIDE.
--- NOTE | 2019-01-07 13:50 | MORECARE ---
CASE MANAGEMENT DISCHARGE SUMMARY PATIENT: DILIP FAYE UNIT: [id number] ADM DATE: 12/25/18 AGE: 58 : 58 SEX: F ROOM/BED: D.2108 AUTHOR: ADELIA,DOC PHYSICIAN: REFERRING PHYSICIAN: RAFA AL MD DATE OF SERVICE: 01/07/19 Discharge Plan Patient Name: DILIP FAYE Facility: [facility]:[place] : 1960 Planned Disposition: Home Anticipated Discharge Date: 01/09/19 Discharge Date: Expected LOS: 15 Initial Reviewer: [id number] Initial Review Date: 12/25/2018 Generated: 01/07/19 2:50 pm DCP- Discharge Planning Updated by [email or web address]: Bharti León on 12/25/18 12:[address] DC PLAN: Return home with family ANTICIPATED DC NEEDS: CM met with patient to complete initial dc planning assessment. CM educated patient on the CM role and verbal consent given by patient to complete assessment. CM verified patient's address, phone number, and emergency contact phone numbers. Patient lives at home independently with family. At discharge patient plans to return and feels this is a safe discharge. CM discussed availability of home health, rehab services, and medical equipment. She reported she has a humana case fitter that visits her 2-3 times a month at her home. Patient denied known discharge needs at this time. Patient reports a family member will transport her home at time of discharge. CM will continue to follow and will assist as needed with dc plans/needs. Bharti León RN, [facility] DCPIA - Discharge Planning Initial Assessment Updated by [id number]: Bharti León on 12/25/18 1:06 pm * Is the patient Alert and Oriented? Yes * How many steps to enter\exit or inside your home? * PCP [facility] * Pharmacy [place] [id number] or [facility] * Preadmission Environment Home with Family * ADLs Independent * Equipment Glucometer Rolling Walker * List name and contact numbers for known caregivers / representatives who currently or will assist patient after discharge: Kyle Tomas - jayleener - [phone] * Verbal permission to speak to the caregivers and representatives has been obtained from the patient. Yes * Community resources currently utilized Other * Please name any agencies selected above. [facility] Director Of Medical Services visits her 3 times a month at her home. * Additional services required to return to the preadmission environment? No * Can the patient safely return to the preadmission environment? Yes * Has this patient been hospitalized within the prior 30 days at any hospital? No Coverage Notice Reviewer: [id number] Gunnar Townsend Notice Issued Date-Time: 01/07/2019 13:45 Notice Type: IM Discharge Notice Notice Delivered To: Patient Relationship to Patient: Linux Programmer Name: Delivery Method: HAND - Hand Delivered Darlene Days: Prior Verbal Notification: Recipient Understood Notice: Yes Recipient Signature: Yes Med Rec Note Co-signed by Attending: Coverage Notice Comment: Last DP export: 12/25/18 12:59 Patient Name: DILIP FAYE Page 60085 at 1350 All edits/amendments must be made on the electronic document DICTATION DATE: 01/07/19 1349 RADIO FREQUENCY DESIGN ENGINEER: DUY 01/07/19 1349 RPT#: [id number] DC DATE: STATUS: ADM IN [facility] [address] [place] [address] END OF REPORT
--- NOTE | 2019-01-07 14:00 | MORECARE ---
CASE MANAGEMENT DISCHARGE SUMMARY PATIENT: DILIP FAYE UNIT: [id number] ADM DATE: 12/25/18 AGE: 58 : 58 SEX: F ROOM/BED: D.4428 AUTHOR: ADELIA,DOC PHYSICIAN: REFERRING PHYSICIAN: RAFA AL MD DATE OF SERVICE: 01/07/19 Discharge Plan Patient Name: DILIP FAYE [facility] [facility] 1960 Planned Disposition: Home Anticipated Discharge Date: 01/09/19 Discharge Date: Expected LOS: 15 Initial Reviewer: [email or web address] Initial Review Date: 12/25/2018 Generated: 01/07/19 3:00 pm Comments DCP- Discharge Planning Updated by [email or web address]: Bill Townsend on 01/07/19 12:[address] Patient Name: DILIP FAYE Encounter No: [id number] : 1960 Primary Insurance: [employer] CHOICE PPO MCR ADVANT Anticipated DC Date: 01-09-2019 Planned Disposition: Home DCP follow-up note: CM RECEIVED ORDER FOR OUTPATIENT UNIT DIALYSIS PLACEMENT AND INPATIENT REHAB PRESCREENING. CM MET WITH PT IN ROOM TO DISCUSS DISCHARGE PLANNING NEEDS. PT REPORTS SHE NEEDS REHAB AND HAS BEEN TALKING TO HER SENIOR DATA WAREHOUSE ARCHITECT ABOUT IT. PT WOULD LIKE REHAB AT [facility] WITH PLAN TO RETURN HOME. PT IS CONCERNED ABOUT DIALYSIS TRANSPORTATION AND IS TRYING NOW TO WORK OUT A PLAN TO GET TO AND FROM [place] FOR DIALYSIS. CM DISCUSSED MEDICAID TRANSPORTATION SERVICES AND ADVISED THAT PT WOULD HAVE TO APPLY AND BE GRANTED MEDICAID AND THAT THE APPLICATION PROCESS COULD TAKE UP TO 45 DAYS. PT REPORTS UNDERSTANDING AND PLANS TO FILE FOR MEDICAID SHE WOULD ALSO LIKE A LAUNDRY WORKER THOUGH MEDICAID AND HAS A FRIEND THAT WILL BE HER AIDE WHEN APPROVED BY MEDICAID. PT UNDERSTANDS THAT SHE WILL NEED DIALYSIS THREE DAYS WEEKLY AND WILL NEED TRANSPORTATION TO AND FROM THE UNIT FOR OUTPATIENT DIALYSIS SERVICES. CM SPOKE TO OMER AT MULTIDISCIPLINARY TEAM MEETING, SHE HAS SUBMITTED FOR INSURANCE AUTHORIZATION 01-06-19. MARTIR HUITRON HAS SUBMITTED FOR LAB WORK AND DISCUSSED NEED FOR PLACEMENT WITH ANTHONY OF PATIENT [facility]. IMPORTANT MESSAGE FROM MEDICARE PROVIDED AND EXPLAINED. CM WAITING INSURANCE AUTHORIZATION FOR REHAB AT [facility] INPATIENT REHAB. ELLE ALEXANDER DCP- Discharge Planning Updated by [id number]: Bharti León on 12/25/18 12:[address] DC PLAN: Return home with family ANTICIPATED DC NEEDS: CM met with patient to complete initial dc planning assessment. CM educated patient on the CM role and verbal consent given by patient to complete assessment. CM verified patient's address, phone number, and emergency contact phone numbers. Patient lives at home independently with family. At discharge patient plans to return and feels this is a safe discharge. CM discussed availability of home health, rehab services, and medical equipment. She reported she has a humana transplant case manager that visits her 2-3 times a month at her home. Patient denied known discharge needs at this time. Patient reports a family member will transport her home at time of discharge. CM will continue to follow and will assist as needed with dc plans/needs. Bharti León RN, [facility] DCPIA - Discharge Planning Initial Assessment Updated by [email or web address]: Bharti León on 12/25/18 1:06 pm * Is the patient Alert and Oriented? Yes * How many steps to enter\exit or inside your home? * PCP Dr. Junior Clifton * Pharmacy [facility] or [facility] * Preadmission Environment Home with Family * ADLs Independent * Equipment Glucometer Rolling Walker * List name and contact numbers for known caregivers / representatives who currently or will assist patient after discharge: Kyle Tomas - jayleener - [phone] * Verbal permission to speak to the caregivers and representatives has been obtained from the patient. Yes * Community resources currently utilized Other * Please name any agencies selected above. [facility] Office Associate visits her 3 times a month at her home. * Additional services required to return to the preadmission environment? No * Can the patient safely return to the preadmission environment? Yes * Has this patient been hospitalized within the prior 30 days at any hospital? No Coverage Notice Reviewer: [id number] - Bill Townsend Notice Issued Date-Time: 01/07/2019 13:45 Notice Type: IM Discharge Notice Notice Delivered To: Patient Relationship to Patient: Nurse Midwife/Clinical Instructor Name: Delivery Method: HAND - Hand Delivered Darlene Days: Prior Verbal Notification: Recipient Understood Notice: Yes Recipient Signature: Yes Med Rec Note Co-signed by Attending: Coverage Notice Comment: Last DP export: 01/07/19 12:50 p Patient Name: DILIP FAYE Page [id number] at 1400 All edits/amendments must be made on the electronic document DICTATION DATE: 01/07/191399 AIRCRAFT ARMAMENT MECHANIC: DUY 01/07/19 1400 RPT#: [id number] DC DATE: STATUS: ADM IN [facility] [address] [place] [address] END OF REPORT
--- NOTE | 2019-01-07 14:11 | MORECARE ---
CASE MANAGEMENT DISCHARGE SUMMARY PATIENT: DILIP FAYE UNIT: [id number] ADM DATE: 12/25/18 AGE: 58 : 58 SEX: F ROOM/BED: D.3522 AUTHOR: ADELIA,DOC PHYSICIAN: REFERRING PHYSICIAN: RAFA AL MD DATE OF SERVICE: 01/07/19 Discharge Plan Patient Name: DILIP FAYE [facility] [facility] 1960 Planned Disposition: Home Anticipated Discharge Date: 01/09/19 Discharge Date: Expected LOS: 15 Initial Reviewer: [email or web address] Initial Review Date: 12/25/2018 Generated: 01/07/19 3:10 pm Comments DCP- Discharge Planning Updated by [email or web address]: Bill Townsend on 01/07/19 12:[address] Patient Name: DILIP FAYE Encounter No: [id number] : 1960 Primary Insurance: [employer] CHOICE PPO MCR ADVANT Anticipated DC Date: 01-09-2019 Planned Disposition: Home DCP follow-up note: CM RECEIVED ORDER FOR OUTPATIENT UNIT DIALYSIS PLACEMENT AND INPATIENT REHAB PRESCREENING. CM MET WITH PT IN ROOM TO DISCUSS DISCHARGE PLANNING NEEDS. PT REPORTS SHE NEEDS REHAB AND HAS BEEN TALKING TO HER WIRE TESTER ABOUT IT. PT WOULD LIKE REHAB AT [facility] WITH PLAN TO RETURN HOME. PT IS CONCERNED ABOUT DIALYSIS TRANSPORTATION AND IS TRYING NOW TO WORK OUT A PLAN TO GET TO AND FROM [place] FOR DIALYSIS. CM DISCUSSED MEDICAID TRANSPORTATION SERVICES AND ADVISED THAT PT WOULD HAVE TO APPLY AND BE GRANTED MEDICAID AND THAT THE APPLICATION PROCESS COULD TAKE UP TO 45 DAYS. 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 PT UNDERSTANDS THAT SHE WILL NEED DIALYSIS THREE DAYS WEEKLY AND WILL NEED TRANSPORTATION TO AND FROM THE UNIT FOR OUTPATIENT DIALYSIS SERVICES. CM SPOKE TO OMER AT MULTIDISCIPLINARY TEAM MEETING, SHE HAS SUBMITTED FOR INSURANCE AUTHORIZATION 01-06-19. MARTIR HUITRON HAS SUBMITTED FOR LAB WORK AND DISCUSSED NEED FOR PLACEMENT WITH ANTHONY OF PATIENT [facility]. IMPORTANT MESSAGE FROM MEDICARE PROVIDED AND EXPLAINED. CM WAITING INSURANCE AUTHORIZATION FOR REHAB AT [facility] INPATIENT REHAB. ELLE ALEXANDER DCP- Discharge Planning Updated by [id number]: Bharti León on 12/25/18 12:[address] DC PLAN: Return home with family ANTICIPATED DC NEEDS: CM met with patient to complete initial dc planning assessment. CM educated patient on the CM role and verbal consent given by patient to complete assessment. CM verified patient's address, phone number, and emergency contact phone numbers. Patient lives at home independently with family. At discharge patient plans to return and feels this is a safe discharge. CM discussed availability of home health, rehab services, and medical equipment. She reported she has a humana insurance case manager that visits her 2-3 times a month at her home. Patient denied known discharge needs at this time. Patient reports a family member will transport her home at time of discharge. CM will continue to follow and will assist as needed with dc plans/needs. Bharti León RN, [facility] DCPIA - Discharge Planning Initial Assessment Updated by [email or web address]: Bharti eLón on 12/25/18 1:06 pm * Is the patient Alert and Oriented? Yes * How many steps to enter\exit or inside your home? * PCP Dr. Junior Clifton * Pharmacy [facility] or [facility] * Preadmission Environment Home with Family * ADLs Independent * Equipment Glucometer Rolling Walker * List name and contact numbers for known caregivers / representatives who currently or will assist patient after discharge: Kyle Tomas - jayleener - [phone] * Verbal permission to speak to the caregivers and representatives has been obtained from the patient. Yes * Community resources currently utilized Other * Please name any agencies selected above. [facility] Weatherization Operations Manager visits her 3 times a month at her home. * Additional services required to return to the preadmission environment? No * Can the patient safely return to the preadmission environment? Yes * Has this patient been hospitalized within the prior 30 days at any hospital? No Coverage Notice Reviewer: [id number] - Bill Townsend Notice Issued Date-Time: 01/07/2019 13:45 Notice Type: IM Discharge Notice Notice Delivered To: Patient Relationship to Patient: Tip Puncher Name: Delivery Method: HAND - Hand Delivered Darlene Days: Prior Verbal Notification: Recipient Understood Notice: Yes Recipient Signature: Yes Med Rec Note Co-signed by Attending: Coverage Notice Comment: Last DP export: 01/07/19 12:50 p Patient Name: DILIP FAYE Page [id number] at 1411 All edits/amendments must be made on the electronic document DICTATION DATE: 01/07/191409 HARMONICA MAKER: DUY 01/07/191409 RPT#: [id number] DC DATE: STATUS: ADM IN [facility] [address] [place] [address] END OF REPORT
[2019-01-07 15:06] VITALS: BP 136/91
--- NOTE | 2019-01-07 15:35 | NUR ---
OT NOTE: PT COMPLETED ADL MOB WITH RW WITH CGA. PT COMPLETED SIT TO STAND WITH SBA. PT COMPLETED BUE AROM AXS. THANK YOU, AMI DUMONT
--- NOTE | 2019-01-07 16:10 | NUR ---
OT NOTE: PT DOING WELL TODAY. SITTING UP IN CHAIR WHEN THERAPY CAME IN. SIMPLE GROOMING AND ABLE TO RUPA GOWN WITH SET UP; INCREASED ASSIST REQUIRED FOR LE DRESSING; SIT TO STAND WITH CGA; ABLE TO AMB OUTSIDE OF ROOM WITH 02 AND IV. REMAINS WEAK BUT MUCH IMPROVED FROM LAST WEEK. RECOMMEND IP REHAB. COLEEN LARIOS, OTR/L
--- NOTE | 2019-01-07 17:32 | NUR ---
PATIENT REPORTS HAVING HAD SURGERY ON THE December. DR ANGEL REMOVED 39 SHELIA FROM THE LEFT GROIN TODAY. CLEANED AREA WITH HIPPA CLEANSE AND LET AIR DRY. KEEPING AREA CLEAN AND DRY.
--- NOTE | 2019-01-07 17:34 | NUR ---
PATIENT SIGNED THE CONSENT FOR HEMOSPLIT PLACEMENT TOMORROW WITH DR CRAWFORD. SHE IS NPO AFTER MIDNIGHT.
[2019-01-07 18:08] LABS: AEROBE ID Final report (())
--- NOTE | 2019-01-07 19:03 | NUR ---
RESTING WITH EYES CLOSED BED LOW AND LKOCKED RESP EVEN WITH O2 IN PLACE SRX2 AND CALL LIGHT IS IN REACH
[2019-01-07 20:00] VITALS: BP 150/56
[2019-01-08] VITALS: BP 143/63
[2019-01-08 04:00] VITALS: BP 141/67
--- NOTE | 2019-01-08 07:20 | NUR ---
PT RESTING, EYES CLOSED. RR EVEN AND UNLABORED. NO DISTRESS NOTED. BED IN LOWEST POISITON. CALL LIGHT WITHIN REACH. WILL CONTINUE TO MONITOR.
[2019-01-08 08:28] VITALS: BP 131/65
--- NOTE | 2019-01-08 09:48 | NUR ---
Recieved a call from Ledy Sarabia with [facility]. This patient has been denied for the inpatient rehab by the medical records administrator. He feels her needs can be met at a lower level of care such as a SNF. If the physician disagrees a peer to peer can be done by calling before 11:00 AM Sunday01/10/19. Discussed with the CM Bharti León RN. Kath Manzano RN Clinical Liaison, Rehab
--- NOTE | 2019-01-08 10:01 | NUR ---
I have reviewed this patient and I concur with the Shift Assessment completed by the Licensed Practical Nurse today this shift.
[2019-01-08 12:57] VITALS: BP 141/50
[2019-01-08 16:35] VITALS: BP 117/54
--- NOTE | 2019-01-08 16:45 | NUR ---
PT RETURNED FROM SURGERY VIA BED. PT IS PALE. VSS AT THIS TIME. DENIES NEEDS OR PAIN AT THIS TIME. AUDIBLE WHEEZING NOTED. WILL CONTINUE TO MONITOR.
--- NOTE | 2019-01-08 16:45 | NUR ---
HEMOSPLIT SITE BLEEDING. DRESSING REINFORCED. WAS INFORMED BY RECOVERY NURSE THAT DR. CRAWFORD IS AWARE OF BLEEDING AND NO FURTHER ACTION IS NEEDED.
--- NOTE | 2019-01-08 18:38 | NUR ---
OT NOTE: PT ACTIVITY TOLERANCE HAS IMPROVED THIS WEEK. PT COMPLETED SIT TO STAND WITH SBA. PT COMPLETED ADL MOB WITH SBA/CGA. PT COMPLETED BUE AROM EXS. PT ANIMATED AND ANXIOUS TO RETURN HOME TO DECORATE TREE. PT IS MOTIVATED. THANK YOU, AMI DUMONT
[2019-01-08 19:00] VITALS: BP 111/65
--- NOTE | 2019-01-08 21:30 | NUR ---
WENT TO PICK PT UP FROM DIALYSIS. THE INCISION FROM THE HEMASPLIT IS BLEEDING. APPLIED PRESSURE AND REINFORCED DRESSING WITH STERILE 4X4'S, COVERED WITH THE PRESSURE BANDAGE. NO FURTHER BLEEDING NOTED. WILL CONTINUE TO MONITOR.
[2019-01-09] VITALS: BP 129/52
[2019-01-09 04:00] VITALS: BP 141/62
[2019-01-09 05:55] LABS: ANION GAP 9.8 mmol/L (8-16); CALCIUM 9.1 mg/dL (8.5-10.1); CARBON DIOXIDE 30.5 mmol/L (21.0-32.0); CREATININE - SERUM 3.3 mg/dL (0.6-1.3); POTASSIUM - SERUM 3.3 mmol/L (3.5-5.1)
[2019-01-09 06:10] LABS: HEMATOCRIT 26.1 % (36.0-48.0); HEMOGLOBIN 8.3 g/dL (12-16); MCH 29.9 pg (26.0-34.0); MCHC 31.8 g/dL (31.0-37.0); MCV 93.9 fL (80.0-100.0); MEAN PLATELET VOLUME 9.8 fL (7.4-10.4); NEUTROPHILS 76.3 % (40-80); PLATELET COUNT 300 10x3/uL (130-400); RBC 2.78 10x6/uL (4.00-5.40); WBC 10.5 10x3/uL (4.8-10.8)
--- NOTE | 2019-01-09 07:15 | NUR ---
ASSESSMENT DONE. DENIES NEEDS
[2019-01-09 09:49] VITALS: BP 137/57
--- NOTE | 2019-01-09 11:31 | NUR ---
I have reviewed this patient and I concur with the Shift Assessment completed by the Licensed Practical Nurse today this shift.
--- NOTE | 2019-01-09 13:30 | NUR ---
Nutrition Follow-up: Eating well. Ate 100% of breakfast this AM. Hemosplit placed yesterday. Diet: Renal ADA PO intake: 75-100% No new wt Last BM: 01/09 Labs noted: K+ 3.3, Glu 118 Meds noted: Reglan, Pepcid, Senokot, Bumex, Lantus, Humalog -Continue current diet as tolerated with consistencies per ST. -RD following.
[2019-01-09 13:37] VITALS: BP 128/51
--- NOTE | 2019-01-09 14:32 | NUR ---
OT NOTE: PT COMPLETED SUPINE TO SIT WITH SBA. PT COMPLETED EOB SITTING WITH SPV. PT COMPLETED ORAL HYGIENE WITH SET UP. PT COMPLETED HAIR GROOMING WITH SET UP. PT COMPLETED SIT TO STANDS WITH SBA. THANK YOU,AMI DUMONT
--- NOTE | 2019-01-09 14:35 | NUR ---
OT NOTE: PT DOING WELL. SIT TO STAND AND TRANSFERS WITH CGA; TOILETING WITH MIN ASSIST; UE AROM EXS WITH MIN REST BREAKS. COLEEN LARIOS,OTR/L
--- NOTE | 2019-01-09 16:33 | NUR ---
Rehab Note- Recieved a voicemail from Archie Sarabia with [facility] stating that a Peer to Peer had been completed and that the denial had been overturned and the patient had been approved for an inpatient acute rehab stay. Will accept the patient when medically stable and discharged from the acute hospital. Auth #[id number]. THank you for this referral! Lore Montenegro RN Clinical Liaison, [facility] Re[facility]
[2019-01-09 17:16] VITALS: BP 148/58
[2019-01-09 20:00] VITALS: BP 150/63
[2019-01-10] VITALS: BP 152/56
[2019-01-10 06:06] LABS: BASOPHILS 0.1 % (0-2); EOSINOPHILS 3.3 % (0-7); HEMATOCRIT 24.6 % (36.0-48.0); HEMOGLOBIN 7.6 g/dL (12-16); MCH 28.9 pg (26.0-34.0); MCHC 30.9 g/dL (31.0-37.0); MCV 93.5 fL (80.0-100.0); MEAN PLATELET VOLUME 9.6 fL (7.4-10.4); MONOCYTES 8.3 % (2-11); NEUTROPHILS 73.3 % (40-80); PLATELET COUNT 331 10x3/uL (130-400); RBC 2.63 10x6/uL (4.00-5.40); RDW 16.2 % (11.5-14.5); WBC 10.8 10x3/uL (4.8-10.8)
[2019-01-10 06:17] LABS: ANION GAP 10.9 mmol/L (8-16); CARBON DIOXIDE 28.4 mmol/L (21.0-32.0); CREATININE - SERUM 4.7 mg/dL (0.6-1.3); POTASSIUM - SERUM 3.3 mmol/L (3.5-5.1)
[2019-01-10 09:27] VITALS: BP 134/47
[2019-01-10] MEDS ORDERED: COZAAR50 MG PO (09:40)
[2019-01-10] MEDS ORDERED: LOPRESSOR25 MG PO (09:40)
[2019-01-10] MEDS ORDERED: NYSTATIN1 PWD TOPICAL (09:41)
--- NOTE | 2019-01-10 10:18 | NUR ---
PATIENT IS SITTING UP ON THE EDGE OF THE BED . SHE WAS UP TO EAT HER BREAKFAST THIS MORNING AND SHE DENIES ANY NEEDS AT THIS TIME.
[2019-01-10 12:36] VITALS: BP 135/56
--- NOTE | 2019-01-10 13:42 | MORECARE ---
CASE MANAGEMENT DISCHARGE SUMMARY PATIENT: DILIP FAYE UNIT: [id number] ADM DATE: 12/25/18 AGE: 58 : 58 SEX: F ROOM/BED: D.2106 AUTHOR: EVELYN DELVALLE PHYSICIAN: REFERRING PHYSICIAN: RAFA AL MD DATE OF SERVICE: 01/10/19 Discharge Plan Patient Name: DILIP FAYE [facility] : 1960 Planned Disposition: Inpatient Rehab Anticipated Discharge Date: 01/10/19 Discharge Date: Expected LOS: 16 Initial Reviewer: [email or web address] Initial Review Date: 12/25/2018 Generated: 01/10/19 2:42 pm Comments DCP- Discharge Planning Updated by [email or web address]: Bill Smith on 01/10/19 12:[address] Patient Name: DILIP FAYE Encounter No: [id number] : 1960 Primary Insurance: [employer] CHOICE PPO MCR ADVANT Anticipated DC Date: 01-10-2019 Planned Disposition: Inpatient Rehab External Planned Provider: [facility] INPATIENT REHAB DCP follow-up note: CM SPOKE TO DR. ANGEL WHO INFORMED CM THAT PT'S INSURANCE REVERSED DENIAL UPON APPEAL WHEN DR. ANGEL DID PEER TO PEER WITH THE INSURANCE DOCTOR. CM NOTIFIED PT WHO WAS HAPPY WITH BEING ABLE TO GO TO REHAB TODAY. CM NOTIFIED OMER OF INPATIENT REHAB AND ANIRUDH FISCHER. DISCHARGE ORDERS RECEIVED. IMPORTANT MESSAGE FROM MEDICARE PROVIDED AND EXPLAINED TO PT. YELITZA OF REHAB CALLED AND INFORMED CM THAT PT WILL ADMIT TO ROOM 1117B. RACING DRIVER NURSE AND RESTAURANT MANAGING PARTNER NOTIFIED. Bill Smith CASE DARIEL DCP- Discharge Planning Updated by [email or web address]: Bill Smith on 01/07/19 12:[address] Patient Name: DILIP FAYE Encounter No: [id number] : 1960 Primary Insurance: [employer] CHOICE PPO MCR ADVANT Anticipated DC Date: 01-09-2019 Planned Disposition: Home DCP follow-up note: CM RECEIVED ORDER FOR OUTPATIENT UNIT DIALYSIS PLACEMENT AND INPATIENT REHAB PRESCREENING. CM MET WITH PT IN ROOM TO DISCUSS DISCHARGE PLANNING NEEDS. PT REPORTS SHE NEEDS REHAB AND HAS BEEN TALKING TO HER HULL BUILDER ABOUT IT. PT WOULD LIKE REHAB AT [facility] WITH PLAN TO RETURN HOME. PT IS CONCERNED ABOUT DIALYSIS TRANSPORTATION AND IS TRYING NOW TO WORK OUT A PLAN TO GET TO AND FROM [place] FOR DIALYSIS. CM DISCUSSED MEDICAID TRANSPORTATION SERVICES AND ADVISED THAT PT WOULD HAVE TO APPLY AND BE GRANTED MEDICAID AND THAT THE APPLICATION PROCESS COULD TAKE UP TO 45 DAYS. PT REPORTS UNDERSTANDING AND PLANS TO FILE FOR MEDICAID SHE WOULD ALSO LIKE A ENGINEER AUTOMATED EQUIPMENT THOUGH MEDICAID AND HAS A FRIEND THAT WILL BE HER AIDE WHEN APPROVED BY MEDICAID. PT UNDERSTANDS THAT SHE WILL NEED DIALYSIS THREE DAYS WEEKLY AND WILL NEED TRANSPORTATION TO AND FROM THE UNIT FOR OUTPATIENT DIALYSIS SERVICES. CM SPOKE TO OMER AT MULTIDISCIPLINARY TEAM MEETING, SHE HAS SUBMITTED FOR INSURANCE AUTHORIZATION 01-06-19. MARTIR HUITRON HAS SUBMITTED FOR LAB WORK AND DISCUSSED NEED FOR PLACEMENT WITH ANTHONY OF PATIENT PATHWAYS. IMPORTANT MESSAGE FROM MEDICARE PROVIDED AND EXPLAINED. CM WAITING INSURANCE AUTHORIZATION FOR REHAB AT [facility] INPATIENT REHAB. BILL SMITH, CASE MANAGEMENT DCP- Discharge Planning Updated by [id number]: Bharti León on 12/25/18 12:[address] DC PLAN: Return home with family ANTICIPATED DC NEEDS: CM met with patient to complete initial dc planning assessment. CM educated patient on the CM role and verbal consent given by patient to complete assessment. CM verified patient's address, phone number, and emergency contact phone numbers. Patient lives at home independently with family. At discharge patient plans to return and feels this is a safe discharge. CM discussed availability of home health, rehab services, and medical equipment. She reported she has a humana community case manager that visits her 2-3 times a month at her home. Patient denied known discharge needs at this time. Patient reports a family member will transport her home at time of discharge. CM will continue to follow and will assist as needed with dc plans/needs. Bharti León RN, [facility] DCPIA - Discharge Planning Initial Assessment Updated by [id number]: Bharti León on 12/25/18 1:06 pm * Is the patient Alert and Oriented? Yes * How many steps to enter\exit or inside your home? * PCP Dr. Pacheco - [facility] * Pharmacy [facility] or [facility] * Preadmission Environment Home with Family * ADLs Independent * Equipment Glucometer Rolling Walker * List name and contact numbers for known caregivers / representatives who currently or will assist patient after discharge: Kyle ramirez - [phone] * Verbal permission to speak to the caregivers and representatives has been obtained from the patient. Yes * Community resources currently utilized Other * Please name any agencies selected above. [facility] [employer] Supervisor visits her 3 times a month at her home. * Additional services required to return to the preadmission environment? No * Can the patient safely return to the preadmission environment? Yes * Has this patient been hospitalized within the prior 30 days at any hospital? No Coverage Notice Reviewer: [id number] Smith Notice Issued Date-Time: 01/07/2019 13:45 Notice Type: IM Discharge Notice Notice Delivered To: Patient Relationship to Patient: Human Development Professor Name: Delivery Method: HAND - Hand Delivered Darlene Days: Prior Verbal Notification: Recipient Understood Notice: Yes Recipient Signature: Yes Med Rec Note Co-signed by Attending: Coverage Notice Comment: Reviewer: [id number] Smith Notice Issued Date-Time: 01/10/2019 10:10 Notice Type: IM Discharge Notice Notice Delivered To: Patient Relationship to Patient: Human Development Professor Name: Delivery Method: HAND - Hand Delivered Darlene Days: Prior Verbal Notification: Recipient Understood Notice: Yes Recipient Signature: Yes Med Rec Note Co-signed by Attending: Coverage Notice Comment: Last DP export: 01/07/19 1:11 p Patient Name: DILIP FAYE Page [phone] at 1342 All edits/amendments must be made on the electronic document DICTATION DATE: 01/10/19 1342 ENVIRONMENTAL GEOLOGIST: DUY 01/10/19 1342 RPT#: [id number] [place] DATE: STATUS: ADM IN [facility] [address] [place] [address] END OF REPORT
--- NOTE | 2019-01-10 14:15 | NUR ---
PATIENT IS BEING DISCHARGED TO REHAB. SHE IS GOING TO DIALYSIS NOW, AND THEN TO REHAB AFTER. CALLED AND GAVE REPORT TO NURSE IN [facility]. ALL DISCHARGE TEAHCING HAS BEEN DONE AND PSPERS SIGNED. ALL PATIENT BELONGINGS ARE BEING TAKEN DOWNSTAIRS TO HER ROOM IN REHAB.
== END 2019-01-10 14:47 | DRG 291 ==
LOC: D.ER 00:43 → D.M2 02:25 → D.ICU 02:25 → D.M2 01-02 12:05
PROVIDERS: Family Medicine; Internal Medicine; Internal Medicine Nephrology; Internal Medicine Pulmonary Disease; ADMIT Family Medicine Adult Medicine; ATTEND Family Medicine Adult Medicine
PROC: 0BH17EZ Insertion of Endotracheal Airway into Trachea, Via Natural or Artificial Opening (ICD-10-PCS; 2018-12-29)
PROC: 5A1945Z Respiratory Ventilation, 24-96 Consecutive Hours (ICD-10-PCS; 2018-12-29)
PROC: 05HM33Z Insertion of Infusion Device into Right Internal Jugular Vein, Percutaneous Approach (ICD-10-PCS; principal; 2018-12-31)
DX: I13.2 Hypertensive heart and chronic kidney disease with heart failure and with stage 5 chronic kidney disease, or end stage renal disease (principal); N18.6 End stage renal disease; I50.23 Acute on chronic systolic (congestive) heart failure; I46.9 Cardiac arrest, cause unspecified; J96.00 Acute respiratory failure, unspecified whether with hypoxia or hypercapnia; N17.0 Acute kidney failure with tubular necrosis; E87.1 Hypo-osmolality and hyponatremia; Z99.2 Dependence on renal dialysis; E11.22 Type 2 diabetes mellitus with diabetic chronic kidney disease; E11.65 Type 2 diabetes mellitus with hyperglycemia; I25.5 Ischemic cardiomyopathy; E11.21 Type 2 diabetes mellitus with diabetic nephropathy; F32.9 Major depressive disorder, single episode, unspecified; E78.5 Hyperlipidemia, unspecified; D63.1 Anemia in chronic kidney disease; G72.9 Myopathy, unspecified

== ENCOUNTER 2019-01-10 11:25 | Inpatient (IN) | payer MEDICARE ==
[~2019-01-10] VITALS: Ht 170.2 cm; Wt 89.7 kg
[~2019-01-10 11:25] MED LIST changes: +LOPRESSOR25 MG PO; +NYSTATIN1 PWD TOPICAL
--- NOTE | 2019-01-10 19:10 | NUR ---
PT BROUGHT FROM DIALYSIS UNIT TO REHAB BY REHAB STAFF IN HER BED. ADMITTED TO ROOM 1117B TO DR COOPER SERVICES. ORIENTED TO ROOM AND UNIT RULES WITH VERBAL UNDERSTANDING VOICED. PT HAS A LEFT CHEST SUBCLAVIAN TRIPLE LUMEN IV, AND A RIGHT CHEST HEMISPLIT CATHETER. DIALYSIS NURSE REPORTED SHE HAD CLEANED AND DRESSED THE SITES. PT IS ALERT AND ORIENTED X 3. DENIES ACUTE PAIN OR DISCOMFORT AT THIS TIME. PULSE OX UPON RETURN FROM ORDC WAS 99 PERCENT ON ROOM AIR. O2 LEFT OFF AT THIS TIME. SR'S ARE UP X 2 IN BED. CALL LIGHT AND BEDSIDE TABLE ARE WITHIN EASY REACH.
--- NOTE | 2019-01-10 19:45 | NUR ---
PT TOOK SELF TO THE BATHROOM AND THEN CALLED NURSE. NOTED SITTING ON THE SIDE OF HER BED WITH SOB. PULSE OX WAS 96 PERCENT. O2 REPLACED ON PT AT 2 LPM PER NC PER PTS REQUEST. SHE CALMED DOWN QUICKLY.
[2019-01-10 22:02] VITALS: BP 136/52; BMI 34.0
--- NOTE | 2019-01-10 22:32 | NUR ---
PT IS RESTING IN BED WATCHING TV. NO NEEDS VOICED.
--- NOTE | 2019-01-11 03:55 | NUR ---
FSBS IS 78. PT GIVEN YENNY CRACKERS, PEANUT BUTTER AND 8 OZ CRANBERRY JUICE AT THIS TIME.
--- NOTE | 2019-01-11 05:23 | NUR ---
PT RESTING IN BED WITH EYES CLOSED.
[2019-01-11 06:06] LABS: BASOPHILS 0.1 % (0-2); EOSINOPHILS 2.9 % (0-7); HEMATOCRIT 24.1 % (36.0-48.0); IMMATURE GRANULOCYTES 1.6 % (0-5); LYMPHOCYTES 13.3 % (15-50); MCH 28.9 pg (26.0-34.0); MCHC 30.7 g/dL (31.0-37.0); MCV 94.1 fL (80.0-100.0); MEAN PLATELET VOLUME 9.3 fL (7.4-10.4); MONOCYTES 10.1 % (2-11); PLATELET COUNT 346 10x3/uL (130-400); RBC 2.56 10x6/uL (4.00-5.40); RDW 16.4 % (11.5-14.5); WBC 11.3 10x3/uL (4.8-10.8)
[2019-01-11 06:16] LABS: HEMOGLOBIN 7.4 g/dL (12-16)
[2019-01-11 06:36] LABS: ANION GAP 14.6 mmol/L (8-16); CALCIUM 8.6 mg/dL (8.5-10.1); CARBON DIOXIDE 27.3 mmol/L (21.0-32.0); CREATININE - SERUM 3.6 mg/dL (0.6-1.3)
[2019-01-11 06:39] LABS: POTASSIUM - SERUM 3.9 mmol/L (3.5-5.1)
[2019-01-11 08:00] VITALS: BP 125/60
[2019-01-11 10:34] VITALS: Ht 170.2 cm; Wt 89.7 kg
--- NOTE | 2019-01-11 13:19 | NUR ---
SITTINGS IN WC IN ROOM WATCHING TV. DENIES NEEDS OR C/O. STILL WEARING OXYGEN. SATS ARE IN HIGH 90 BUT SHE DESATS QUICKLY WITH ANY EXERTION IF SHE IS NOT WEARING IT. CALL LIGHT IN REACH
--- NOTE | 2019-01-11 19:50 | NUR ---
PATIENT RECEIVED SITTING UP IN WHEELCHAIR. SON VISITING. ASSESSMENT & VITAL SIGNS DONE. RIGHT HEMISPLIT & LEFT CVL DRESSINGS C/D/I. NO C/O PAIN OR DISTRESS. BED LOW. CALL LIGHT WITHIN REACH. WILL CONTINUE TO MONITOR.
[2019-01-11 20:01] VITALS: BP 138/60
--- NOTE | 2019-01-11 23:49 | NUR ---
I have reviewed this patient and I concur with the Shift Assessment completed by the Licensed Practical Nurse today this shift.
--- NOTE | 2019-01-12 04:58 | NUR ---
PATIENT EYES CLOSED. RESPIRATIONS 18 & EVEN. BED LOW. CALL LIGHT WITHIN REACH. WILL CONTINUE TO MONITOR.
--- NOTE | 2019-01-12 06:12 | NUR ---
PATIENT FSBS 71. PATIENT GIVEN SNACK. WILL CONTINUE TO MONITOR.
[2019-01-12 08:00] VITALS: BP 139/46
--- NOTE | 2019-01-12 19:30 | NUR ---
PT RESTING QUIETLY EYES CLOSED. RESP EVEN AND UNLABORED. NO DISTRESS NOTED. CL IN REACH. A/O X4. LUNGS DIMINISHED. BOWEL ACTIVE X4. O2 ON 2L VIA NC. WILL CONTINUE TO MONITOR.
[2019-01-12 20:43] VITALS: BP 143/57
--- NOTE | 2019-01-13 02:38 | NUR ---
I have reviewed this patient and I concur with the Shift Assessment completed by the Licensed Practical Nurse today this shift.
[2019-01-13 06:15] LABS: BASOPHILS 0.1 % (0-2); EOSINOPHILS 2.3 % (0-7); HEMATOCRIT 23.2 % (36.0-48.0); IMMATURE GRANULOCYTES 0.9 % (0-5); LYMPHOCYTES 13.1 % (15-50); MCH 28.9 pg (26.0-34.0); MCHC 30.6 g/dL (31.0-37.0); MCV 94.3 fL (80.0-100.0); MEAN PLATELET VOLUME 9.4 fL (7.4-10.4); MONOCYTES 8.6 % (2-11); PLATELET COUNT 395 10x3/uL (130-400); RBC 2.46 10x6/uL (4.00-5.40); RDW 16.9 % (11.5-14.5)
[2019-01-13 06:47] LABS: ANION GAP 14.1 mmol/L (8-16); CALCIUM 8.6 mg/dL (8.5-10.1); CARBON DIOXIDE 27.8 mmol/L (21.0-32.0); POTASSIUM - SERUM 3.9 mmol/L (3.5-5.1); THYROID STIMULATING HORMONE 0.81 uIU/mL (0.36-3.74)
[2019-01-13 06:49] LABS: CREATININE - SERUM 5.6 mg/dL (0.6-1.3)
[2019-01-13 07:08] LABS: HEMOGLOBIN 7.1 g/dL (12-16)
--- NOTE | 2019-01-13 10:26 | NUR ---
SITTING UP IN WC IN ROOM. DR AGUIRRE CALLED ABOUT LAB VALUES THIS MORNING. WAITING ON RETURN CALL. HER CALL LIGHT IN IN REACH. SHE IS ABLE TO MAKE HER NEEDS KNOWN.
--- NOTE | 2019-01-13 11:00 | NUR ---
PT WAS IN THERAPY AND C/O DIZZINESS WHEN STANDING. V/S TAKEN ....SITTING WAS 133/58, 83.....STANDING UP WAS 121/53, 71. SHE STATED THIS KIND OF EPISODE HAS HAPPENED BEFORE. SHE DID NOT MAKE ANY SUDDEN MOVEMENTS AND DENIES DIZZINESS GETTING WORSE. SHE WAS MONITORED FOR FURTHER PROBLEMS BUT DID NOT HAVE ANY.
--- NOTE | 2019-01-13 13:22 | NUR ---
SITTING IN WC IN ROOM WATCHING TV. DENIES NEEDS OR C/O. IS SCHEDULED TO GET X2 UNITS PRBC TODAY IN DIALYSIS.
--- NOTE | 2019-01-13 15:42 | NUR ---
PATIENT ADMITTED TO REHAB FROM ACUTE FLOOR. DR. BARRON AT [facility] IS PATIENT PCP, DME AT HOME IS A WALKER. DISCHARGE PLANS ARE FOR PATIENT TO RETURN HOME. WILL CONTINUE TO FOLLOW WITH PATIENT.
--- NOTE | 2019-01-13 17:59 | NUR ---
STILL IN DIALYSIS
[2019-01-13 19:30] VITALS: BP 144/54
--- NOTE | 2019-01-13 19:38 | NUR ---
PATIENT RECEIVED SITTING UP IN WHEELCHAIR WATCHING TV & EATING HER MEAL. NO ADVERSE REACTION TO BLOOD TRANSFUSION IN DIALYSIS AT THIS TIME. VITAL SIGNS & ASSESSMENT DONE. CALL LIGHT WITHIN REACH. WILL CONTINUE TO MONITOR.
--- NOTE | 2019-01-14 03:38 | NUR ---
PATIENT EYES CLOSED. RESPIRATIONS 18 & EVEN. BED LOW. CALL LIGHT WITHIN REACH. WILL CONTINUE TO MONITOR.
[2019-01-14 05:56] LABS: BASOPHILS 0.1 % (0-2); EOSINOPHILS 2.5 % (0-7); IMMATURE GRANULOCYTES 0.7 % (0-5); LYMPHOCYTES 22.3 % (15-50); MCH 29.7 pg (26.0-34.0); MCHC 31.6 g/dL (31.0-37.0); MCV 94.1 fL (80.0-100.0); MEAN PLATELET VOLUME 9.6 fL (7.4-10.4); MONOCYTES 10.8 % (2-11); NEUTROPHILS 63.6 % (40-80); PLATELET COUNT 397 10x3/uL (130-400); RDW 16.6 % (11.5-14.5)
[2019-01-14 06:23] LABS: HEMATOCRIT 30.1 % (36.0-48.0); HEMOGLOBIN 9.5 g/dL (12-16)
[2019-01-14 06:34] LABS: ANION GAP 12.9 mmol/L (8-16); CALCIUM 9.1 mg/dL (8.5-10.1); CARBON DIOXIDE 28.7 mmol/L (21.0-32.0); CREATININE - SERUM 4.6 mg/dL (0.6-1.3); POTASSIUM - SERUM 3.6 mmol/L (3.5-5.1)
[2019-01-14 08:00] VITALS: BP 122/66
--- NOTE | 2019-01-14 08:25 | NUR ---
PT AM MEDS ADMINISTERED. PT DENIES NEEDS. WCTM.
--- NOTE | 2019-01-14 09:27 | NUR ---
PT C/O NAUSEA. PRN ZOFRAN GIVEN. WCTM.
--- NOTE | 2019-01-14 12:15 | NUR ---
8 UNITS SS INSULIN GIVEN FOR FSBS 196. PT EATING LUNCH, DENIES NEEDS. WCTM.
--- NOTE | 2019-01-14 14:51 | NUR ---
Nutrition Follow-up: Diet: Renal/Diabetic PO intake: 75%; reports "okay" appetite. States that she is getting tired of the foods that are served to her. No BM recorded since admit x 4d now. WT: 211# (01/14/19); Admit wt: 217# (01/10/19) Significant meds: lantus, bumex, SSI. Renal labs noted, POC Glu 196. Continue current nutrition regimen. RD following.
--- NOTE | 2019-01-14 16:12 | NUR ---
PT FSBS 138. NO SS INSULIN REQUIRED. PT DENEIS NEEDS. WCTM.
--- NOTE | 2019-01-14 16:30 | NUR ---
PT LEFT SUBCLAVIAN CENTRAL LINE DC'D CATH TIP INTACT. PRESSURE HELD FOR 10 MINUTES. PRESSURE DRESSING APPLIED. PT NASAL CANNULA TAKEN OFF DURING THIS TIME. PT O2 SAT IS 97%. WILL LEAVE OFF NC AND CONTINUE CHECKING.
--- NOTE | 2019-01-14 17:15 | NUR ---
PT O2 SAT RECHECKED 95%.
[2019-01-14 18:16] VITALS: BP 144/57
--- NOTE | 2019-01-14 18:19 | NUR ---
PT O2 RECHECKED 95% ON ROOM AIR.
[2019-01-14 19:28] VITALS: BP 155/48
--- NOTE | 2019-01-14 19:28 | NUR ---
GREETED PATIENT AND INTRODUCED MYSELF. PATIENT IS LAYING IN BED WATCHING TV AT THIS TIME. O2 AT 2L IN USE VIA NC. RESPIRATIONS EVEN. NO S/S OF DISTRESS. CALL LIGHT IN REACH.
[2019-01-15 00:05] VITALS: BP 145/54
--- NOTE | 2019-01-15 01:40 | NUR ---
PT. RESTING QUIETLY WITH EYES CLOSED. RESPIRATIONS EVEN. NO S/S OF DISTRESSS. O2 AT 2L VIA NC. CALL LIGHT IN REACH.
--- NOTE | 2019-01-15 04:59 | NUR ---
PT. RESTING QUIETLY WITH EYES CLOSED. O2 AT 2L IN USE VIA NC. RESPIRATIONS EVEN. NO S/S OF DISTRESS. CALL LIGHT IN REACH.
[2019-01-15 06:19] LABS: BASOPHILS 0.3 % (0-2); EOSINOPHILS 2.3 % (0-7); HEMATOCRIT 28.9 % (36.0-48.0); HEMOGLOBIN 9.1 g/dL (12-16); IMMATURE GRANULOCYTES 0.6 % (0-5); LYMPHOCYTES 24.7 % (15-50); MCH 29.5 pg (26.0-34.0); MCHC 31.5 g/dL (31.0-37.0); MCV 93.8 fL (80.0-100.0); MEAN PLATELET VOLUME 9.3 fL (7.4-10.4); MONOCYTES 9.8 % (2-11); NEUTROPHILS 62.3 % (40-80); PLATELET COUNT 335 10x3/uL (130-400); RBC 3.08 10x6/uL (4.00-5.40); RDW 16.5 % (11.5-14.5); WBC 7.9 10x3/uL (4.8-10.8)
[2019-01-15 06:28] VITALS: BP 123/64
[2019-01-15 07:01] LABS: ANION GAP 16.1 mmol/L (8-16); CALCIUM 8.6 mg/dL (8.5-10.1); CREATININE - SERUM 5.5 mg/dL (0.6-1.3); POTASSIUM - SERUM 4.1 mmol/L (3.5-5.1)
[2019-01-15 07:46] VITALS: BP 165/95
--- NOTE | 2019-01-15 08:00 | NUR ---
PATIENT IS ALERT/ORIENT. CALL LIGHT WITHIN REACH. VOICES NO NEEDS AT THIS TIME. WILL CONTINUE WITH PLAN OF CARE.
--- NOTE | 2019-01-15 10:18 | NUR ---
PATIENT IN REHAB ROOM. WORKING WITH OCCUPATIONAL THERAPIST. DENIES ANY PAIN/DISC AT THIS TIME.
--- NOTE | 2019-01-15 10:30 | NUR ---
I have reviewed this patient and I concur with the Shift Assessment completed by the Licensed Practical Nurse today this shift.
[2019-01-15 12:00] VITALS: BP 141/67
--- NOTE | 2019-01-15 14:07 | NUR ---
PATIENT REFUSED SHOWER. STATED THAT IT WAS TOO COLD IN HER ROOM.
--- NOTE | 2019-01-15 16:24 | NUR ---
CARE TEAM MEETING: PATIENT PROGRESSING WELL IN THERAPY. TENATIVE DISCHARGE DATE IS 01/21/19. WILL CONTINUE TO FOLLOW WITH PATIENT.
--- NOTE | 2019-01-15 17:15 | NUR ---
PATIENT TAKEN DOWN TO DIALYSIS CLINICL.
--- NOTE | 2019-01-15 19:18 | NUR ---
PT. IN DIALYSIS AT THIS TIME.
--- NOTE | 2019-01-15 21:08 | NUR ---
SPOKE WITH DIALYSIS AND PATIENT IS READY TO BE RETURNED TO UNIT.
[2019-01-15 21:13] VITALS: BP 148/50
--- NOTE | 2019-01-15 21:20 | NUR ---
PT. PICKED UP FROM DIALYSIS VIA WHEELCHAIR. BACK TO BED AND REPOSITIONED FOR COMFORT. CALL LIGHT IN REACH.
[2019-01-16 00:17] VITALS: BP 140/64
[2019-01-16 06:19] VITALS: BP 144/59
--- NOTE | 2019-01-16 08:41 | NUR ---
PT AM MEDS ADMINISTERED. PT PARTICIPATING IN THERAPY AT THIS TIME. WCJESUS.
--- NOTE | 2019-01-16 11:22 | NUR ---
CLINICAL UPDATE FAXED TO ESTRELLA MCKINNEY AT [facility] WITH A TENATIVE DISCHARGE DATE BEING 01/21/19. WILL CONTINUE TO FOLLOW WITH PATIENT
[2019-01-16 13:35] VITALS: BP 146/61
--- NOTE | 2019-01-16 15:43 | NUR ---
Nutrition Follow-up: Diet: Renal ADA PO intake: 100% x last 3 meals; she has complaints about her diet. States that she is sick of the same foods over and over. States that she does not need oral nutrition supplements because she is making herself eat. Last BM: 01/15/19. WT: 214# (01/16/19); Admit wt: 217# (01/10/19) Gets HD MWF Significant meds: lantus, bumex, SSI. No new labs. Noted reddened area to buttocks per nursing skin assessment. Continue current nutrition regimen. RD following.
[2019-01-16 18:29] VITALS: BP 135/64
[2019-01-16 20:00] VITALS: BP 152/54
--- NOTE | 2019-01-16 20:00 | NUR ---
PATIENT RECEIVED SITTING UP IN BED. ASSESSMENT & CALL LIGHT WITHIN REACH. NO C/O PAIN OR DISTRESS. BED LOW. CALL LIGHT WITHIN REACH. WILL CONTINUE TO MONITOR.
--- NOTE | 2019-01-16 21:20 | NUR ---
PATIENT REFUSED LANTUS. WILL SEE WHAT RESULTS WILL BE IN AM. PATIENT STATED HER FSBS WAS LOW EARLIER. LANTUS NOT GIVEN. WILL CONTINUE TO MONITOR.
[2019-01-17] VITALS: BP 151/57
--- NOTE | 2019-01-17 02:44 | NUR ---
I have reviewed this patient and I concur with the Shift Assessment completed by the Licensed Practical Nurse today this shift.
--- NOTE | 2019-01-17 02:52 | NUR ---
PATIENT EYES CLOSED. RESPIRATIONS 18 & EVEN. BED LOW. CALL LIGHT WITHIN REACH. WILL CONTINUE TO MONITOR.
[2019-01-17 05:56] VITALS: BP 126/50
[2019-01-17 07:38] LABS: BASOPHILS 0.3 % (0-2); EOSINOPHILS 2.6 % (0-7); HEMATOCRIT 30.5 % (36.0-48.0); HEMOGLOBIN 9.5 g/dL (12-16); IMMATURE GRANULOCYTES 0.3 % (0-5); LYMPHOCYTES 26.8 % (15-50); MCH 29.2 pg (26.0-34.0); MCHC 31.1 g/dL (31.0-37.0); MCV 93.8 fL (80.0-100.0); MEAN PLATELET VOLUME 9.4 fL (7.4-10.4); MONOCYTES 11.6 % (2-11); NEUTROPHILS 58.4 % (40-80); PLATELET COUNT 307 10x3/uL (130-400); RBC 3.25 10x6/uL (4.00-5.40); WBC 6.5 10x3/uL (4.8-10.8)
[2019-01-17 07:55] LABS: ANION GAP 13.4 mmol/L (8-16); CALCIUM 9.2 mg/dL (8.5-10.1); CREATININE - SERUM 5.2 mg/dL (0.6-1.3); POTASSIUM - SERUM 4.4 mmol/L (3.5-5.1)
[2019-01-17 12:00] VITALS: BP 161/59
--- NOTE | 2019-01-17 14:58 | NUR ---
PER DILIP MCKINNEY FROM [facility] DAYS HAVE BEEN APPROVED UNTIL 01/21/19. IF FURTHER STAY IS NEEDED INSTRUCTED TO FAXED CLINICALS FOR EXTENSION OF STAY.
[2019-01-17 18:30] VITALS: BP 138/55
--- NOTE | 2019-01-17 19:25 | NUR ---
PT RESTING IN BED WITH EYES CLOSED. AWOKE EASILY TO VERBAL STIMULI. PT IS ALERT AND ORIENTED X 3. DENIES ANY PAIN OR DISCOMFORT AT THIS TIME. NO NEEDS VOICED. VSS. RIGHT SIDE FLOR SPLIT CATHETER NOTED. O2 IS ON @ 2LPM PER NC. NO SOB NOTED. SR'S ARE UP X 2 IN BED. CALL LIGHT AND BEDSIDE TABLE ARE WITHIN EASY REACH.
[2019-01-17 19:32] VITALS: BP 153/62
--- NOTE | 2019-01-17 22:31 | NUR ---
PT IS RESTING QUIETLY IN BED WITH EYES CLOSED. RESPS ARE EVEN AND UNLABORED. NO ACUTE DISTRESS NOTED.
--- NOTE | 2019-01-18 00:30 | NUR ---
RESTING IN BED WITH EYES CLOSED.
--- NOTE | 2019-01-18 02:39 | NUR ---
I have reviewed this patient and I concur with the Shift Assessment completed by the Licensed Practical Nurse today this shift.
[2019-01-18 05:58] VITALS: BP 141/61
[2019-01-18 11:44] VITALS: BP 133/56
[2019-01-18 18:16] VITALS: BP 147/91
--- NOTE | 2019-01-18 19:25 | NUR ---
GREETED PATIENT AND INTRODUCED MYSELF HER NURSE. PATIENT IS LAYING IN BED WATCHING TV AT THIS TIME. STATES THAT PAIN IS 7/10 IN CHEST. RESPIRATIONS EVEN. NO S/S OF DISTRESS. CALL LIGHT IN REACH.
[2019-01-18 19:45] VITALS: BP 123/55
[2019-01-19 00:10] VITALS: BP 146/63
--- NOTE | 2019-01-19 01:25 | NUR ---
PT. RESTING QUIETLY WITH EYES CLOSED. O2 AT 2L IN USE VIA NC. RESPIRATIONS EVEN. NO S/S OF DISTRESS. CALL LIGHT IN REACH.
[2019-01-19 06:00] VITALS: BP 125/49
[2019-01-19 12:15] VITALS: BP 124/47
[2019-01-19 18:02] VITALS: BP 170/73
--- NOTE | 2019-01-19 21:17 | NUR ---
PT IS RESTING IN BED WITH EYES OPEN. ALERT AND ORIENTED X 3. DENIES ACUTE PAIN OR DISCOMFORT AT THIS TIME. NO NEEDS VOICED. O2 IS ON @ 2LPM PER NC. NO SOB NOTED. RIGHT CHEST HEMISPLIT CATH NOTED. SR'S ARE UP X 2 IN BED. CALL LIGHT AND BEDSIDE TABLE ARE WITHIN EASY REACH.
[2019-01-19 22:18] VITALS: BP 128/64
--- NOTE | 2019-01-20 00:55 | NUR ---
I have reviewed this patient and I concur with the Shift Assessment completed by the Licensed Practical Nurse today this shift.
--- NOTE | 2019-01-20 04:50 | NUR ---
PT RESTING QUIETLY IN BED WITH EYES CLOSED. RESPS ARE EVEN AND UNLABORED. NO ACUTE DISTRESS NOTED.
[2019-01-20 05:40] VITALS: BP 131/78
[2019-01-20 06:50] LABS: BASOPHILS 0.1 % (0-2); EOSINOPHILS 1.3 % (0-7); HEMATOCRIT 31.2 % (36.0-48.0); HEMOGLOBIN 9.9 g/dL (12-16); IMMATURE GRANULOCYTES 0.1 % (0-5); LYMPHOCYTES 18.7 % (15-50); MCH 30.3 pg (26.0-34.0); MCHC 31.7 g/dL (31.0-37.0); MCV 95.4 fL (80.0-100.0); MEAN PLATELET VOLUME 10.1 fL (7.4-10.4); MONOCYTES 10.8 % (2-11); PLATELET COUNT 315 10x3/uL (130-400); RBC 3.27 10x6/uL (4.00-5.40); RDW 16.1 % (11.5-14.5)
[2019-01-20 07:13] LABS: ANION GAP 16.8 mmol/L (8-16); CARBON DIOXIDE 26.2 mmol/L (21.0-32.0); CREATININE - SERUM 5.3 mg/dL (0.6-1.3)
[2019-01-20 12:29] VITALS: BP 139/59
--- NOTE | 2019-01-20 17:39 | NUR ---
PT OFF FLOOR IN DIALYSIS
--- NOTE | 2019-01-20 19:45 | NUR ---
PT RETURNED TO DIALYSIS VIA WC PROPELLED BY NURSE. ALERT AND ORIENTED X 3. DENIES ACUTE PAIN OR DISCOMFORT AT THIS TIME. PT VOIDED AND RETURNED TO BED INDEPENDENTLY. NO NEEDS VOICED. VSS. SR'S ARE UP X 2 IN BED. CALL LIGHT AND BEDSIDE TABLE ARE WITHIN EASY REACH.
--- NOTE | 2019-01-20 23:00 | NUR ---
PT IS RESTING QUIETLY IN BED WITH EYES CLOSED. RESPS ARE EVEN AND UNLABORED. NO ACUTE DISTRESS NOTED.
[2019-01-21 00:01] VITALS: BP 174/69
--- NOTE | 2019-01-21 03:00 | NUR ---
RESTING IN BED WITH EYES CLOSED.
[2019-01-21 05:52] VITALS: BP 130/50
--- NOTE | 2019-01-21 06:19 | NUR ---
PT RESTING IN BED WITH EYES CLOSED. AWOKE EASILY TO VERBAL STIMULI. NO NEEDS VOICED.
[2019-01-21] MEDS ORDERED: Lantus Insulin SC (08:35)
[2019-01-21] MEDS ORDERED: ZYLOPRIM100 MG PO (08:36)
--- NOTE | 2019-01-21 11:54 | NUR ---
PATIENT DISCHARGING HOME WITH FAMILY. [employer] [facility] WILL PROVIDE THERAPY AT HOME. PATIENT WILL HAVE HD ON M-W-F @ 6:[address] [facility] AND WILL SEE DR. CARTER AT THAT TIME. NO NEW DME NEEDED AT THIS TIME. DR. BARRON 02/06/2019 @ 1:40. PATIENT CHOICE FORM WITH COMPARE DATA REVIEWED WITH PATIENT AND PATIENT VOICED UNDERSTANDING. IMFM FORM SIGNED, COPY GIVEN TO PATIENT AMD FILED IN CHART. DISCHARGE INSTRUCTIONS FAXED TO PCP, HOME HEALTH AND REVIEWED WITH PATIENT.
[2019-01-21 12:29] VITALS: BP 133/58
--- NOTE | 2019-01-21 14:00 | NUR ---
DC HOME WITH FRIEND. DENIED NEEDING [facility] CALLED IN FOR HER. REVIEWED MEDS. F/U APPTS AND DIALYSIS SCHEDULE AND LOCATION. SHE DENIES QUESTIONS.
--- NOTE | 2019-01-21 15:09 | NUR ---
DISCHARGE CLINICALS HAVE BEEN FAXED TO ESTRELLA MCKINNEY AT [facility] , AUTH # [id number] WITH CONFORMATION RECIEVED
--- NOTE | 2019-02-03 10:22 | RHP ---
PATIENT: DILIP FAYE MEDICAL RECORD: [id number] ACCOUNT: [id number] [facility] 58 AD[facility]ION DATE: 01/10/19 REHABILITATION HISTORY AND PHYSICAL EXAMINATION POST ADMISSION PHYSICIAN EXAMINATION ADMITTING DIAGNOSIS: Disuse myopathy. HISTORY OF PRESENT ILLNESS: The patient is a 58-year-old female patient who presented secondary to dyspnea, weight gain and edema to the Emergency Room Department. She has got a history of coronary artery disease with multivessel stenting, coronary artery bypass grafting, ischemic cardiomyopathy with an ejection fraction of 30%, pulmonary hypertension, diabetes, hyperlipidemia, congestive heart failure, chronic kidney disease, who presented with worsening dyspnea, dyspnea on exertion, lower extremity edema, weight gain of 20 pounds since her last discharge on 12/02/2018, orthopnea, paroxysmal nocturnal dyspnea. She was admitted with an acute exacerbation of CHF, proBNP of 27,000. She has had cardiology consult during her stay. She is well known to the CV clinic secondary to her ischemic cardiomyopathy. The patient had an elevated creatinine of 3.4. The patient was noted to have a baseline creatinine somewhere between 3.4 and 4.7 last year. On 12/29/2018, she developed acute shortness of breath, developed respiratory failure after CPR and bradycardia, epinephrine and bicarbonate. She was placed on a vent with hypotension and bradycardia. She is in the ICU on mechanical ventilation with worsening renal function, requiring hemodialysis. She progressed slowly and is participating with PT, OT and speech therapy at this time. She is currently on telemetry. She got an IV iron, acute pain, electrolyte protocol. She is on supplemental O2, deconditioning, proximal muscle weakness. She is a fall risk and self-care deficits. These are all barriers to her discharge home at this time. She currently set up for max assist to mod assist with bed to chair and with any type of mobility. She and her family would like for her discharge home on her prior level of functioning or better. COMORBIDITIES: Include falls, hypoxia, dyspnea, hypotension, visual disturbances, pneumonia, respiratory failure, leukocytosis, hypotension, bradycardia, elevated LFTs, hyponatremia, elevated phosphate, depression, known coronary artery disease, acute blood loss anemia, syncope, DVT. PAST MEDICAL HISTORY: Significant for diabetes, hypertension, CHF. She has had stents and angioplasty in the past, atrial fib, coronary artery disease, acid reflux, arthritis, osteoporosis, menopause, depression and anxiety. PAST SURGICAL HISTORY: Includes gallbladder surgery, tonsillectomy, adenoidectomy, , coronary artery bypass grafting. She has had stent placement. ALLERGIES: IODINATED CONTRAST, KEFLEX, AND COUMADIN. CURRENT MEDICATIONS: Include losartan 100 mg daily, Plavix 75 mg daily, citalopram 40 mg daily, Bumex 2 mg daily, aspirin 81 mg daily. She is on Nystatin powder, spironolactone 25 mg b.i.d., sodium bicarbonate 1300 mg b.i.d., Lopressor 12.5 mg b.i.d., Cozaar 50 mg at bedtime, isosorbide mononitrate 30 mg b.i.d., insulin 44 units at bedtime, Lipitor 10 mg at bedtime, Norvasc 5 mg b.i.d., allopurinol 100 mg b.i.d., Tylenol with Benadryl 2 tabs bedtime, Ventolin 2.5 mg every 4 hours p.r.n., and MiraLax 17 g in 8 ounces of water HISTORY AND PHYSICAL [id number] DILIP FAYE daily. HABITS: No alcohol or tobacco use. FAMILY HISTORY: Noncontributory. SOCIAL HISTORY: The patient hopes to return back home and get back to her prior level of functioning. REVIEW OF SYSTEMS: GENERAL: Does complain of weakness and fatigue. HEENT: Denies cold, cough, or congestion. CARDIOVASCULAR: Denies chest pain. PHYSICAL EXAMINATION: VITAL SIGNS: Stable, afebrile. GENERAL: A morbidly obese female in no acute distress, alert upon exam. HEENT: Normocephalic and atraumatic. Mucosa moist. NECK: Supple. No lymphadenopathy. LUNGS: Clear in upper silva, decreased breath sounds in the bases secondary to body habitus. CARDIOVASCULAR: Regular rate and rhythm. ABDOMEN: Soft, benign, and nondistended. Positive bowel sounds times 4. EXTREMITIES: Does have peripheral edema. NEUROLOGIC: She does have noted decreased strength in her upper extremities, but worse in the proximal muscles of her thighs. LABORATORY DATA: White count 11.3, H&H of 7 and 24 and platelet count is noted to be 346. Her sodium is 138, potassium 3.9, BUN and creatinine of 21 and 3.6 and blood sugar is noted to be 99. ASSESSMENT: This 58-year-old female patient admitted to rehab with a working diagnosis of disuse myopathy secondary to prolonged mechanical ventilation. The patient has potential to make improvement. We instituted the following multidisciplinary therapies including, but not limited to physical, occupational, respiratory, speech, nutritional services, prosthetics and orthotics. Given her complex medical condition and risks for more complications, rehabilitation services cannot be provided at a low level of care such as prison facility. PLAN: 1. Admit to [facility] for intensive inpatient therapy to include the following disciplines: A. Physical therapy to improve gait, all transfer skills and bed mobility to a modified independent level. B. Occupational therapy to a modified independent level. C. Case management to assist with discharge planning and placement options. D. Nutrition to assist with nutritional needs. E. Rehabilitation nursing to assist in monitoring the patient's underlying medical conditions and to assist with any type of bowel or bladder management. 2. The patient's current medication and medical care will be continued. 3. The patient will be placed on standard fall precautions. 4. The patient's estimated length of stay is approximately 7-10 days. 5. We will discuss the patient's care team staff meeting this week. We will continue on home medications were appropriate. I am going to check vitamin D, HISTORY AND PHYSICAL [id number] DILIP FAYE thyroid functions and everything on Sunday and we will see her then. TRANSINT:[id number] Voice Confirmation ID: [id number] DOCUMENT ID: [id number] JOSHUA notes whether there has been none or any medical/functional change since admission: - No change since preadmission screen. JOSHUA attests patient continues to be appropriate for IRF: - Continues to be appropriate. GONZÁLEZ MANCERA MD at 1022 CC: [id number] DICTATION DATE: 01/11/19 1006 SUPERVISOR ESTERS AND EMULSIFIERS: 01/11/19 1143 [facility] [place] 01/21/19 [place] [id number] [place] [id number]
== END 2019-01-21 14:00 | disposition home health service (06) | DRG 91 ==
LOC: D.REHAB 11:25
PROVIDERS: Internal Medicine Nephrology; ADMIT Emergency Medicine; ATTEND Emergency Medicine
DX: G72.89 Other specified myopathies (principal); J18.9 Pneumonia, unspecified organism; J96.91 Respiratory failure, unspecified with hypoxia; I50.23 Acute on chronic systolic (congestive) heart failure; N18.6 End stage renal disease; E87.1 Hypo-osmolality and hyponatremia; D62 Acute posthemorrhagic anemia; I82.409 Acute embolism and thrombosis of unspecified deep veins of unspecified lower extremity; I13.2 Hypertensive heart and chronic kidney disease with heart failure and with stage 5 chronic kidney disease, or end stage renal disease; J81.1 Chronic pulmonary edema; Z91.81 History of falling; H53.9 Unspecified visual disturbance; I95.9 Hypotension, unspecified; D72.829 Elevated white blood cell count, unspecified; R00.1 Bradycardia, unspecified; F32.9 Major depressive disorder, single episode, unspecified; I25.10 Atherosclerotic heart disease of native coronary artery without angina pectoris; R55 Syncope and collapse; K21.9 Gastro-esophageal reflux disease without esophagitis; R13.12 Dysphagia, oropharyngeal phase; R49.9 Unspecified voice and resonance disorder; I25.5 Ischemic cardiomyopathy; E11.65 Type 2 diabetes mellitus with hyperglycemia; E11.22 Type 2 diabetes mellitus with diabetic chronic kidney disease; D21.9 Benign neoplasm of connective and other soft tissue, unspecified; N83.9 Noninflammatory disorder of ovary, fallopian tube and broad ligament, unspecified; J11.1 Influenza due to unidentified influenza virus with other respiratory manifestations

== ENCOUNTER 2019-04-01 06:05 | Day surgery (SDC) | payer MEDICARE ==
[2019-03-31 11:32] LABS: BASOPHILS 0.1 % (0-2); EOSINOPHILS 2.4 % (0-7); HEMATOCRIT 34.6 % (36.0-48.0); HEMOGLOBIN 11.7 g/dL (12-16); IMMATURE GRANULOCYTES 0.5 % (0-5); LYMPHOCYTES 30.6 % (15-50); MCH 32.3 pg (26.0-34.0); MCHC 33.8 g/dL (31.0-37.0); MCV 95.6 fL (80.0-100.0); MEAN PLATELET VOLUME 8.9 fL (7.4-10.4); MONOCYTES 7.6 % (2-11); NEUTROPHILS 58.8 % (40-80); PLATELET COUNT 274 10x3/uL (130-400); RBC 3.62 10x6/uL (4.00-5.40); RDW 15.6 % (11.5-14.5); WBC 7.4 10x3/uL (4.8-10.8)
[2019-03-31 11:38] LABS: INR 0.99 (0.85-1.17); PROTIME 13.1 SECONDS (11.6-15.0)
[2019-03-31 11:39] LABS: ANION GAP 11.7 mmol/L (8-16); CALCIUM 9.2 mg/dL (8.5-10.1); CARBON DIOXIDE 30.1 mmol/L (21.0-32.0); CREATININE - SERUM 2.6 mg/dL (0.6-1.3); POTASSIUM - SERUM 3.8 mmol/L (3.5-5.1)
[~2019-04-01] VITALS: Ht 170.2 cm; Wt 81.2 kg
[~2019-04-01 06:05] MED LIST changes: +LEVEMIR IN100 UNITS/; +Lantus Insulin SC
[2019-04-01 06:22] VITALS: Ht 170.2 cm; Wt 81.2 kg
[2019-04-01] MEDS ORDERED: ULTRAM50 MG PO (09:34)
--- NOTE | 2019-04-01 15:28 | NUR ---
1110 IV DC'D. CATHETER TIP INTACT. NO BLEEDING AT SITE. BANDAID APPLIED. DISCHARGE INSTRUCTIONS GIVEN. PT AWARE THAT SHE MUST WEAR SLING UNTIL SHE HAS COMPLETE SENSATION IN LEFT ARM. PT HAS BEEN GIVEN DISCHARGE PACKET.
--- NOTE | 2019-04-02 16:58 | OP ---
PATIENT NAME: DILIP WADSWORTH MEDICAL RECORD: [id number] :58 LOCATION:D.OPS ADMISSION DATE: SURGEON: RONALD KIMBALL MD DATE OF OPERATION: 04/01/2019 REFERRED BY: Leland Antoine MD PRIMARY CARE PHYSICIAN: Dr. Mayfield of [place]. PREOPERATIVE DIAGNOSIS: End-stage renal disease, on hemodialysis. POSTOPERATIVE DIAGNOSIS: End-stage renal disease, on hemodialysis. ADDITIONAL DIAGNOSES: Dependence on hemodialysis, type 2 diabetes, severe hypertension and coronary artery disease status post coronary artery bypass and multiple stents. SENIOR TREASURY ANALYST: Damon Martínez MD PREOPERATIVE NOTE: Ms. Wadsworth is a 58-year-old white female patient from [place], presently on dialysis with a right IJ TDC. She dialyzes at [facility]. She has been on dialysis with a catheter now, which has a contact time of 3 months. She is brought to the operating room with plans to try to create a primary fistula in her left arm. Her veins were somewhat small or deep and adipose tissue on her vein mapping studies. She is signed up for a graft if we cannot find a suitable vein for fistula. Under regional nerve block and an additional MAC with the patient in supine position, she was prepped and draped in sterile manner. She was examined with ultrasound. First, I applied a venous tourniquet, which was a [place] drain around the upper arm and then treated the intact skin on the anterior surface of the arm and forearm with nitroglycerin ointment. Duplex B-mode ultrasound with color flow technique was then used to examine her veins and I noted that both the basilic and cephalic veins above the antecubital level were of about the same size and were about equal in size to the brachial artery at the antecubital level. I elected to perform a brachiocephalic AV fistula. I made a transverse incision and exposed the brachial artery and controlled it proximally and distally with Silastic loops. The median cubital vein draining to the cephalic vein was dissected also. It was ligated distally just beyond a bifurcation point, it was divided and bevelled and flushed with heparinized saline and hydrostatically dilated and treated with topical papaverine. It was again flushed and then clamped with an atraumatic vascular bulldog clamp. The artery was occluded. It was opened and flushed proximally and distally with heparinized saline and an end-to-side, end of vein to side of artery anastomosis was performed with a running 7-0 Prolene. When the anastomosis was completed and the occluding loops and clamps released, excellent flow developed immediately in the fistula and this was confirmed by a terrific continuous pulsatile flow signal on Doppler. There was preservation of pulsatile flow in the distal brachial artery as well as the radial artery. The patient's wound was closed with interrupted inverted 3-0 Vicryl and then running intracuticular 4-0 Stratafix and Dermabond glue. It was dressed with Maxorb Ag, Tegaderm, and Cavilon skin prep. She was awakened and taken directly back to her room and outpatient by-passing the recovery room. OPERATIVE REPORT [id number] DILIP WADSWORTH I will plan for her to go home today. I have given her a prescription for tramadol 50 mg, she can take 1 or 2 p.o. q.4-6 hours p.r.n. pain. She is given 20 tablets. She will be made an appointment to return to see me in my office next week and I will be scheduling her for a return to the operating room for a superficialization or translocation of the cephalic vein, which is I think too deep for reliable access for her. I think that we should still expect that she will have a usable AV fistula in about 8 weeks. Blood loss was estimated 1 cc obviously trivial, none was replaced. Sponges, instruments, and needles were accounted for. No drain was used and no surgical specimen was submitted for histopathology. TRANSINT:[id number] Voice Confirmation ID: [id number] DOCUMENT ID: [id number] cc: [facility] [place] RONALD KIMBALL MD at 1652 CC: JUAN MAYFIELD DO and LELAND ANTOINE [id number] DICTATION DATE: 04/01/19 0958 PHYSICIAN PRIMARY CARE SPORTS MEDICINE: 04/01/19 1124 [facility] 04/01/19 [place] [id number] [place] [address]
== END 2019-04-01 11:10 | disposition home or self-care (01) ==
LOC: D.OPS 06:05 → D.PAN 08:00 → D.OPS 09:45
PROVIDERS: Surgery; ATTEND Internal Medicine Nephrology
DX: N18.6 End stage renal disease (principal); Z99.2 Dependence on renal dialysis; E11.9 Type 2 diabetes mellitus without complications; I12.0 Hypertensive chronic kidney disease with stage 5 chronic kidney disease or end stage renal disease; E11.22 Type 2 diabetes mellitus with diabetic chronic kidney disease; I25.10 Atherosclerotic heart disease of native coronary artery without angina pectoris; Z95.5 Presence of coronary angioplasty implant and graft

== ENCOUNTER → 2019-06-09 11:21 | Outpatient (CLI) | payer MEDICARE ==
[2019-04-01 06:22] VITALS: BMI 28.1
[~2019-06-09 11:21] MED LIST changes: +ULTRAM50 MG PO
== END | disposition home or self-care (01) ==
LOC: D.RAD 11:21
PROVIDERS: ATTEND Internal Medicine Nephrology
DX: M25.552 Pain in left hip (principal)

== ENCOUNTER 2019-06-24 06:04 | Day surgery (SDC) | payer MEDICARE ==
[~2019-06-24] VITALS: Ht 170.2 cm; Wt 92.1 kg
--- NOTE | ~2019-06-24 | OP ---
PATIENT NAME: DILIP FAYE MEDICAL RECORD: [id number] :58 LOCATION:D.M2 D.2111 ADMISSION DATE: SURGEON: RONALD KIMBALL MD DATE OF OPERATION: 06/24/2019 REFERRING PHYSICIAN: Leland Antoine MD PREOPERATIVE DIAGNOSES: End-stage renal disease and dependence on hemodialysis with a mechanical complication, failure to mature of left brachiocephalic arteriovenous fistula and also chronic incarcerated periumbilical lower midline abdominal incisional hernia. POSTOPERATIVE DIAGNOSES: End-stage renal disease and dependence on hemodialysis with a mechanical complication, failure to mature of left brachiocephalic arteriovenous fistula and also chronic incarcerated periumbilical lower midline abdominal incisional hernia. OPERATION PERFORMED: Open revision without thrombectomy of left arm AV fistula with ligation of collaterals and elevation of the vein into immediately subcutaneous space followed by open repair of chronically incarcerated subumbilical incisional hernia with mesh followed by laparoscopic implantation of peritoneal dialysis catheter with laparoscopic omentopexy. SURGEON: Ronald Kimball MD ANESTHESIA: General endotracheal per COMMUNICATIONS DESIGNER. PREOPERATIVE NOTE: This 58-year-old white female from [place] has end-stage renal disease and is presently on dialysis in [facility] with a right IJ HemoSplit type tunneled dialysis catheter. She has had a left brachiocephalic AV fistula constructed but it has failed to really adequately mature and is poorly palpable in the proximal 3/4 of the arm. She is to have that revised today with open mobilization and translocation and ligation of collaterals. She also wants to do home peritoneal dialysis and so is to have an incisional hernia repair and implantation of a peritoneal dialysis catheter. DESCRIPTION OF PROCEDURE: Under general anesthesia in supine position, the patient's arm was first prepped and draped in a sterile manner. I examined her with ultrasound and outlined the course of the basilic vein from the arteriovenous anastomosis in the antecubital space to the deltopectoral groove. I noted several large collaterals or draining tributaries and outlined the course of the vein on the overlying skin. I made an incision then from just above the antecubital space to just lateral of the deltopectoral groove. I cut down and exposed the vein and dissected it from the surrounding structures and divided several tributaries between ligatures of Vicryl and Hemoclips. The wound was infiltrated with 0.25% Marcaine without epinephrine and irrigated with gentamicin solution and then the subcutaneous tissues were closed deep to the vein with interrupted inverted 3-0 Vicryl and the skin was closed over the vein with a running intracuticular 4-0 absorbable suture. The skin was sealed with Dermabond glue and dressed with Maxorb Ag, Tegaderm, and Cavilon skin prep. The patient was then completely reprepped and redraped for the abdominal portion of the operation. A Carson catheter was inserted. I noted there was a fungal rash in the subabdominal fold consistent with Niru corporis. This was draped away and then the patient prepped and draped in usual sterile manner. I used a OPERATIVE REPORT [id number] DILIP FAYE Merit Classic flex neck adult standard coil peritoneal dialysis catheter and used that to measure and abril on the lower abdomen to the right of the patient's midline, the expected course and exit site for the new catheter. I then made an incision over the hernia in the midline and exposed the underlying hernia sac and dissected with electrocautery down to the fascial margins and then exposed the anterior rectus sheath for sufficient distance circumferentially around the hernia sac. I inserted a 5-mm trocar with a 5 mm 30-degree angled laparoscope into the left upper quadrant of the abdomen and created a pneumoperitoneum. I then examined the patient's abdomen and noted a generous omentum with a large lap of omentum chronically incarcerated within the hernia. I put this on traction and attempted to reduce it laparoscopically but this was not going to happen today and would require transection of this portion of omentum, which I prefer to do from the anterior approach. I then opened the hernia sac from the anterior aspect and totally mobilized the chronically incarcerated omentum. The omentum and bowel was then reduced into the peritoneal cavity. The hernia sac was then transected and sent as a surgical specimen to pathology. The wound was irrigated with gentamicin solution and the fascial defect then closed vertically with a running 0 Prolene suture. I chose a Bard soft polypropylene mesh prosthetic and cut this to fit, so it was about 6 x 3 inches tapered both ends and then sutured this as an anterior onlay patch over the repair, suturing it to the anterior rectus sheath with running 0 Prolene and then another running suture was used to attach the hernia patch to the underlying midline. This was when completed a very pleasing repair. The wound was irrigated again with gentamicin solution and then infiltrated with 0.25% Marcaine without epinephrine. I then made a paramedian incision to the right and well to the right, so as not to enter the hernia repair wound. The incision was carried down to the rectus sheath anteriorly and a pursestring suture of 0 Vicryl was placed there. I infiltrated the rectus muscle and rectus sheath with 0.25% Marcaine with epinephrine and inserted the Merit PD catheter introducer, and while observing laparoscopically created a long intrarectus preperitoneal tunnel, which would direct the catheter down into the pelvis. The catheter was lubricated and placed on a stylet and then inserted as the plastic sheath was withdrawn. It was placed with the blue line facing forward and the coiled end of the catheter resting well in the pelvis below the level of the symphysis pubis. The catheter was then placed in a subcutaneous tunnel using a Marjorie tunneler with an exit site located in the left upper quadrant. The catheter was then connected to transfer set and then 2000 cc of saline was allowed to run rapidly into the abdomen and then run back out. We were able to retrieve essentially the entire 2000 cc. The transfer set and catheter was then heparin locked and a new Betadine mini cap applied. The patient's wounds were then further infiltrated with 0.25% Marcaine without epinephrine and then closed with interrupted 3-0 Vicryl and running intracuticular 4-0 Stratafix suture. The ports of course are removed and pneumoperitoneum allowed to escape. Prior to the last step, I did perform an omentopexy. The large lap of omentum, which had been incarcerated was lifted and two 0 Vicryl sutures were placed with a Kike-Ko suture passer through a small incision in the right upper quadrant and the suture then passed through the omentum and then back up through the abdominal wall and tied to create a strong attachment of the omentum to the anterior abdominal wall in that location. Hopefully, this will prevent omental wrapping or obstruction of the catheter. The patient was awakened and in stable condition returned to the recovery room. I plan for her to remain in overnight observation and hopefully she will have dialysis here tomorrow, and if she is capable of self-care and her pain control OPERATIVE REPORT [id number] DILIP FAYE was adequate, she is tolerating a diet and ambulatory, she may be discharged to home. She will continue her same routine medications, diet, and dialysis schedule and activities. She will need to have her catheter flushed weekly starting next week and will need to be back to see me in my office in about 2 weeks. Blood loss during the operation was about 50 cc. None was replaced. Sponges, instruments, and needles were accounted for. No drain was used. Surgical specimen submitted was the chronic incisional hernia sac. TRANSINT:[id number] Voice Confirmation ID: [id number] DOCUMENT ID: [id number] cc: [facility] [id number] RONALD KIMBALL MD CC: LELAND ANTOINE [id number] DICTATION DATE: 06/24/19 1418 JUNIOR WEB DEVELOPER: 06/24/192217 [facility] [address] [place] [address]
[2019-06-24 06:36] LABS: ANION GAP 15.1 mmol/L (8-16); CALCIUM 9.7 mg/dL (8.5-10.1); CARBON DIOXIDE 29.3 mmol/L (21.0-32.0); CREATININE - SERUM 4.8 mg/dL (0.6-1.3); POTASSIUM - SERUM 4.4 mmol/L (3.5-5.1)
[2019-06-24 06:43] LABS: BASOPHILS 0 % (0-2); EOSINOPHILS 2.3 % (0-7); HEMATOCRIT 36.2 % (36.0-48.0); HEMOGLOBIN 11.9 g/dL (12-16); IMMATURE GRANULOCYTES 0.2 % (0-5); LYMPHOCYTES 23.9 % (15-50); MCH 32.6 pg (26.0-34.0); MCHC 32.9 g/dL (31.0-37.0); MCV 99.2 fL (80.0-100.0); MEAN PLATELET VOLUME 9.5 fL (7.4-10.4); MONOCYTES 7.8 % (2-11); NEUTROPHILS 65.8 % (40-80); PLATELET COUNT 288 10x3/uL (130-400); RBC 3.65 10x6/uL (4.00-5.40); RDW 13.2 % (11.5-14.5); WBC 8.8 10x3/uL (4.8-10.8)
[2019-06-24 06:50] LABS: INR 1.07 (0.85-1.17); PROTIME 13.8 SECONDS (11.6-15.0)
[2019-06-24] MEDS ORDERED: ZYLOPRIM100 MG (07:44)
[2019-06-24 08:03] VITALS: BMI 29.8
--- NOTE | 2019-06-24 13:55 | NUR ---
1355 HR 45-47 BPM. SPOKE WITH HALIE ZAVALA CRNA. APPROVED TO DISCHARGE TO ROOM. EDOUARD CAMARILLO PLACED ON PATIENT WITH HELP FROM Chicho KHALIL RN.
[2019-06-24 14:51] VITALS: BP 127/52
--- NOTE | 2019-06-24 14:55 | NUR ---
PT RECEIVED TO 2111 FROM RR. AWAKE, ALERT REPORTS MILD PAIN IMPROVED WITH PAIN MEDS RECEIVED IN RR. DRESSING CDI TO ABD AND LUE, ABD BINDER HEMASPLIT TO RIGHT CHEST. VSS 126/55 64, 92% ON 2 L NC. DRESSING CHANGED TO RIGHT HAND PIV. SCDS TO BLE AND IN USE. BURNHAM WITH LIGHT YELLOW URINE APPROX 15 CC. PT HAS DILAYSIS MWF LAST DATE WAS YESTERDAY 06/22.
[2019-06-24 15:07] VITALS: BP 126/55
--- NOTE | 2019-06-24 19:20 | NUR ---
REPORT RECEIVED, WILL CONTINUE POC. PATIENT IS AAOX4, LYING IN SEMI-FOWLERS POSITION. NO S/S OF DISTRESS OBSERVED, RR EVEN AND UNLABORED ON 2L O2 VIA NC. F/C PATENT, DRAINING BY GRAVITY TO RT SIDE OF BED. PATIENT DENIES NEED AT THIS TIME. CL IN REACH, BED LOCKED AND LOWERED. WILL CTM.
[2019-06-24 20:00] VITALS: BP 133/48
[2019-06-25] VITALS: BP 122/57
--- NOTE | 2019-06-25 03:45 | NUR ---
I have reviewed this patient and I concur with the Shift Assessment completed by the Licensed Practical Nurse today this shift.
--- NOTE | 2019-06-25 03:45 | NUR ---
I have reviewed this patient and I concur with the Shift Assessment completed by the Licensed Practical Nurse today this shift.
[2019-06-25 04:00] VITALS: BP 114/50
[2019-06-25 07:38] VITALS: BP 138/56
--- NOTE | 2019-06-25 10:25 | NUR ---
winter cath dc'd per protocol. pt toelrated well bulb intact. Buprenex given per PRN order for abd pain 09/14. Pt awaiting dilaysis time.
[2019-06-25 11:18] VITALS: BP 135/52
[2019-06-25 12:43] VITALS: Ht 170.2 cm; Wt 92.1 kg
[2019-06-25 15:39] VITALS: BP 148/54
--- NOTE | 2019-06-25 19:18 | NUR ---
REPORT RECEIVED, WILL CONTINUE POC. PATIENT IS IN DIALYSIS AT THIS TIME. WILL D/C WHEN SHE GETS BACK.
--- NOTE | 2019-06-25 20:41 | NUR ---
BROUGHT PATIENT BACK TO ROOM FROM DIALYSIS. D/C PAPERS SIGNED, PRESCRIPTION AND COPIES GIVEN. IV OUT WITH CATH TIP INTACT. ASSISTED PATIENT WITH PUTTING ON SLIPPERS. PATIENT AWAITING TRANSPORTATION.
== END 2019-06-25 20:57 | disposition home or self-care (01) ==
LOC: D.OPS 06:04 → D.M2 13:48 → D.OPS 06-25 20:57
PROVIDERS: ATTEND Surgery
DX: E11.22 Type 2 diabetes mellitus with diabetic chronic kidney disease (principal); N18.6 End stage renal disease; T82.590A Other mechanical complication of surgically created arteriovenous fistula, initial encounter; Z99.2 Dependence on renal dialysis; D64.9 Anemia, unspecified; K43.0 Incisional hernia with obstruction, without gangrene

== ENCOUNTER 2019-09-02 06:38 | Day surgery (SDC) | payer MEDICARE, OTHER ==
[~2019-09-02] VITALS: Ht 170.2 cm; Wt 86.2 kg
[~2019-09-02 06:38] MED LIST changes: +ZYLOPRIM100 MG
[2019-09-02 07:11] LABS: BASOPHILS 0 % (0-2); EOSINOPHILS 5.1 % (0-7); HEMATOCRIT 37.2 % (36.0-48.0); HEMOGLOBIN 11.9 g/dL (12-16); IMMATURE GRANULOCYTES 0.3 % (0-5); LYMPHOCYTES 25.6 % (15-50); MCH 31.2 pg (26.0-34.0); MCV 97.6 fL (80.0-100.0); MEAN PLATELET VOLUME 9.3 fL (7.4-10.4); MONOCYTES 10.5 % (2-11); NEUTROPHILS 58.5 % (40-80); PLATELET COUNT 247 10x3/uL (130-400); RBC 3.81 10x6/uL (4.00-5.40); RDW 14.4 % (11.5-14.5); WBC 7.5 10x3/uL (4.8-10.8)
[2019-09-02 07:33] LABS: ANION GAP 15.2 mmol/L (8-16); CALCIUM 9.7 mg/dL (8.5-10.1); CARBON DIOXIDE 26.8 mmol/L (21.0-32.0); CREATININE - SERUM 4.4 mg/dL (0.6-1.3)
[2019-09-02 07:37] LABS: INR 1.03 (0.85-1.17); PROTIME 13.5 SECONDS (11.6-15.0)
[2019-09-02 09:02] VITALS: Ht 170.2 cm; Wt 86.2 kg
--- NOTE | 2019-09-02 15:18 | NUR ---
1510 PT'S RIDE HERE, RELEASED IN WC.
--- NOTE | 2019-09-16 09:27 | OP ---
PATIENT NAME: DILIP WADSWORTH MEDICAL RECORD: [id number] :58 LOCATION:D.OPS ADMISSION DATE: SURGEON: RONALD KIMBALL MD DATE OF OPERATION: 09/02/2019 REFERRING PHYSICIAN: Jonathan Blum MD She was an outpatient. DIAGNOSES: Other mechanical complications of peritoneal dialysis catheter with leak, an infected PD catheter. OPERATION PERFORMED: Removal of PD catheter. SURGEON: Ronald Kimball MD ANESTHESIA: General with LMA per PAINT MIXER HAND. PREOPERATIVE NOTE: Ms. Wadsworth has a leaking peritoneal dialysis catheter, which has been painful and presumed to be infected. She is to have it removed today. DESCRIPTION OF PROCEDURE: Under anesthesia in supine position, the patient was prepped and draped in sterile manner. An incision was made over the deep cuff in the paramedian incision that was carried down to the anterior rectus sheath, which was opened with electrocautery and the cuff dissected from the surrounding tissues and then the cuff and the intact coiled portion of the catheter was removed. Further dissection then exposed the superficial cuff, which was dissected from the surrounding tissues and the entire catheter was then removed. Portions of the catheter were sent for culture and sensitivity. Fascia of the rectus sheath was approximated with interrupted [id number] 0 Vicryl. The wounds were irrigated with Ancef/gentamicin solution and closed with a few interrupted inverted 3-0 Vicryl and running intracuticular 4-0 Stratafix. Sterile dressings were applied and the patient was awakened and taken to the recovery room. Blood loss during the operation was 5 mL or less. Sponges, instruments, and needles were accounted for. No drain was used and no surgical specimen submitted for histopathology. PLAN: The patient will go home today and follow up with me in the office next week. We will remove her dressings and check her incisions at that time. I plan to delay another PD catheter implantation until probably late October. NTS:[id number] Voice Confirmation ID: [id number] DOCUMENT ID: [id number] RONALD KIMBALL MD at 0927 CC: TIFFANIE ANTOINE [id number] DICTATION DATE: 09/15/19 1433 CENTRIFUGAL SUPERVISOR: 09/15/19 2356 [facility] 09/02/19 [place] [address]
== END 2019-09-02 15:10 | disposition home or self-care (01) ==
LOC: D.OPS 06:38
PROVIDERS: Surgery; ATTEND Internal Medicine Nephrology
DX: E11.22 Type 2 diabetes mellitus with diabetic chronic kidney disease (principal); N18.6 End stage renal disease; Z99.2 Dependence on renal dialysis; K43.2 Incisional hernia without obstruction or gangrene; T82.43XA Leakage of vascular dialysis catheter, initial encounter

== ENCOUNTER 2019-10-19 11:13 | Inpatient (IN) | payer MEDICARE ==
[~2019-10-19] VITALS: Ht 170.2 cm; Wt 88.5 kg
--- NOTE | ~2019-10-19 | HEMODYNAMI ---
PATIENT:DILIP FAYE MEDICAL RECORD: [id number] : 58 [facility] [facility] [id number] ADMISSION DATE: 10/19/19 Generatedon:10/21/201912:05 Patient name: DILIP FAYE Patient #: [id number] SSN: : 1960 Date of study: 10/21/2019 Page: Of Hemodynamic Procedure Report Patient Data Patient Demographics Procedure consent was obtained First Name: DILIP Gender: Female Last Name: YUNIER : 1960 [facility] Initial: EDD Age: 58 year(s) Patient #: [id number] Race: Unknown Additional ID: [id number] Contact details [address]: [address] [place] [address] State: [place] City: [place] Zip code: [address] Past Medical History Allergies Allergen Reaction Date Comments Reported Other allergy 09/09/2014 Iodine Other allergy 12/22/2016 Cephalexin, Prednisone, Carvedilol, Iodinated contrast media (oral and IV) IV contrast dye 05/21/2017 Other allergy 03/28/2018 COREG IODINE Other allergy 07/24/2018 IDODINATED CONTRAST, KEFLEX, COUMADIN, COREG Iodine 10/21/2019 Cephalosporins 10/21/2019 Other allergy 10/21/2019 warfarin, coreg Admission Admission Data Admission Date: 10/19/2019 Admission Time: 15:50 Room #: [id number].2124 Height (in.): 67 BSA: 2 (m2) Height (cm.): 170.18 BMI: 30.38 (kg/m2) Weight (lbs.): 194 Weight (kg.): 88 Procedure Procedure Types Cath Procedure Peripheral Cath Diagnostic Procedure Music Assistant Peripheral Procedures Abd/Extremity Extremities Bilat Lower Extremity Procedure Description Procedure Date Procedure Date: 10/21/2019 Procedure Start Time: 10:37 Procedure Staff Name Function Nena Whitmore MD Performing Physician Suzan King RT Greenhouse Laborer Alex CASEY RN Nurse Arianna Mcleod RN Nurse Osmar Green RT Scrub Procedure Data Cath Procedure Fluoroscopy Diagnostic fluoroscopy Total fluoroscopy Time: time: 22.5 min 22.5 min Diagnostic fluoroscopy Total fluoroscopy dose: 355 dose: 355 mGy mGy Contrast Material Contrast Material Type Amount (ml) Isovue 300 175 Entry Location Entry Primary Successful Side Size Upsize Upsize Entry Closure Succes sful Closure Location (Fr) 1 (Fr) 2 (Fr) Remarks Device Remarks Femoral Exoseal artery Diagnostic catheters Device Type Used For End Catheter Placement Merit Impress COBRA 2 5Fr 65CM catheter ([id number]) Procedure Medications Medication Administration Route Dosage Lidocaine 1% added to field 20 Heparin Flush Bag 2 bags (1000units/500ml NS) Heparin Flush Bag 1 bags (1000units/500ml NS) Fentanyl I.V. 50 mcg Versed 1 mg Versed 1 mg Fentanyl I.V. 50 mcg Heparin Bolus I.V. 6000 units Heparin Bolus I.V. 1000 units Fentanyl I.V. 50 mcg Hemodynamics Rest BSA: 2 (m2) O2 Consumption: Estimated: 182.23 (ml/min) O2 Consumption indexed: E stimated:91.12 (ml/min/m) Heart Rate: 60 (bpm) Snapshots Pre Cath Intra NCS Post Cath Vital Signs Time Heart Resp SPO2 etCO2 NIBP (mmHg) Rhythm Pain Sedation Rate (ipm) (%) (mmHg) Status Level (bpm) 10:24:05 68 12 98 30.9 Aborted NSR 0 (11) 10(A) , No pain 10:27:45 17 97 33.9 Aborted NSR 0 (11) 10(A) , No pain 10:31:30 62 13 98 33.1 146/74(125) NSR 0 (11) 10(A) , No pain 10:36:02 61 21 98 28.6 156/68(134) NSR 0 (11) 10(A) , No pain 10:40:29 61 27 12 147/80(123) NSR 0 (11) 10(A) , No pain 10:44:57 58 16 15.8 152/70(115) NSR 0 (11) 10(A) , No pain 10:49:19 59 20 100 22.6 138/60(105) NSR 0 (11) 10(A) , No pain 10:53:45 59 17 100 16.5 143/66(113) NSR 0 (11) 10(A) , No pain 10:58:03 58 12 99 24.8 138/80(116) NSR 0 (11) 10(A) , No pain 11:03:02 59 14 100 32.4 Measuring NSR 0 (11) 10(A) , No pain 11:03:21 59 14 98 32.4 139/55(117) NSR 0 (11) 10(A) , No pain 11:07:49 59 13 100 32.4 148/68(114) NSR 0 (11) 10(A) , No pain 11:12:20 59 13 100 21.8 155/76(119) NSR 0 (11) 10(A) , No pain 11:16:40 59 14 100 19.6 139/72(118) NSR 0 (11) 10(A) , No pain 11:21:06 60 15 100 30.9 142/69(116) NSR 0 (11) 10(A) , No pain 11:25:34 60 15 100 18.8 151/69(127) NSR 0 (11) 10(A) , No pain 11:30:09 59 14 99 19.5 146/66(125) NSR 0 (11) 10(A) , No pain 11:34:37 59 15 99 33.1 154/75(115) NSR 0 (11) 10(A) , No pain 11:39:07 59 14 99 34.6 156/77(124) NSR 0 (11) 10(A) , No pain 11:43:40 60 20 96 18.8 155/67(117) NSR 0 (11) 10(A) , No pain 11:48:12 60 15 97 24.8 158/73(115) NSR 0 (11) 10(A) , No pain 11:52:38 63 13 98 20.3 151/74(128) NSR 0 (11) 10(A) , No pain 11:57:07 62 14 99 25.6 154/73(124) NSR 0 (11) 10(A) , No pain 12:01:35 60 31 100 27.8 155/73(125) NSR 0 (11) 10(A) , No pain Medications Time Medication Route Dose Verified Delivered Reason Notes Effe ctiveness by by 10:14:48 Lidocaine 1% added 20ml M J Long Nena Valentino Long for local to vial MD ALEXANDER anesthetic field 10:14:57 Heparin Flush 2 M J Long Nena J Long used for Bag bags MD ALEXANDER procedure (1000units/500ml NS) 10:14:59 Heparin Flush 1 M J Long M J Long used for Bag bags MD ALEXANDER procedure (1000units/500ml NS) 10:40:07 Fentanyl I.V. 50 M J Long Minner for chris ALEXANDER CARMELA sedation RN 10:40:14 Versed 1 mg M J Long Minner for CARMELA sedation RN 10:54:18 Versed 1 mg M J Long Minner for CARMELA sedation RN 10:54:27 Fentanyl I.V. 50 M J Long Minner for chris ALEXANDER CARMELA sedation RN 11:10:29 Heparin Bolus I.V. 6000 M J Long Arianna Per units MD Mcleod RN physician 11:24:46 Heparin Bolus I.V. 1000 M J Long Arianna Per units MD Mcleod RN physician 11:46:15 Fentanyl I.V. 50 M J Long Arianna for [facility] MD Mcleod RN sedation Procedure Log Time Note 9:37:29 Patient Height : 67 inches 9:37:40 Patient Weight : 194 lbs 9:38:13 Use device set IR Diagnostic 9:38:40 SHEATH 5FR Barnwell (LNC929) opened to sterile field. 9:38:41 DOC .035 wire (S82718) opened to sterile field. 9:38:42 Micropuncture VSI 4FR kit opened to sterile field. 9:38:43 Tegaderm 4 x 4 (1626W) opened to sterile field. 9:38:43 Sterile Angiographic Pack opened to sterile field. 9:38:44 Bag Decanter () opened to sterile field. 9:38:45 ACIST Manifold (41992) opened to sterile field. 9:38:46 ACIST Hand Control (33621) opened to sterile field. 9:38:47 ACIST Syringe (29753) opened to sterile field. 9:39:37 - 10:08:58 Time tracking: Regular hours (M-F 7:00 - 5:00) 10:09:14 Plan of Care:Hemodynamics will remain stable., Cardiac rhythm will remain stable., Comfort level will be maintained., Respiratory function will remain adequate., Patient/ family verbilizes understanding of procedure., Procedure tolerated without complication., Recovers from procedure without complications.. 10:09:22 Patient received from [employer] II to IR Alert and oriented. Tansferred to table in Supine position. 10:09:25 Signed procedure consent form obtained from patient. 10:09:33 H&P Date Dictated: 10/21/2019 Within 30 days and on chart.. 10:09:36 Pre-procedure instructions explained to patient. 10:09:37 Pre-op teaching completed and patient verbalized understanding. 10:09:38 Family unavailable. 10:09:41 Patient NPO since Midnight. 10:09:47 Patient allergic to Iodine 10:09:55 Patient allergic to Cephalosporins 10:10:35 Patient allergic to Other allergywarfarin, coreg 10:10:50 Is the patient allergic to Iodine/contrast media? Yes. 10:10:53 Was the patient premedicated? Yes 10:10:56 Is patient on blood thinner?Yes 10:10:59 Patient diabetic? Yes. 10:11:01 If diabetic: On Metformin? No 10:11:04 - 10:11:05 ----Pre-sedation anethsthesia assessment.---- 10:11:37 Previous problem with sedation/anesthesia? No ? 10:11:40 Snore? Yes 10:11:43 Sleep apnea? No 10:11:47 Deviated septum? No 10:11:49 Opens mouth fully? Yes 10:11:52 Sticks out tongue? Yes 10:12:01 Airway obstruction? Yes cad 10:12:05 Dentures? No ? 10:12:07 - 10:14:48 Lidocaine 1% 20ml vial added to field was administered by Nena Whitmore MD; for local anesthetic; Verbal order read back and verified. 10:14:57 Heparin Flush Bag (1000units/500ml NS) 2 bags was administered by Nena Whitmore MD; used for procedure; Verbal order read back and verified. 10:14:59 Heparin Flush Bag (1000units/500ml NS) 1 bags was administered by Nena Whitmore MD; used for procedure; Verbal order read back and verified. 10:23:03 Vital chart was started 10:29:58 - 10:30:14 ECG and BP/O2 sat monitors applied to patient. 10:30:15 Baseline sample Acquired. 10:30:17 Full Disclosure recording started 10:30:18 - 10:31:36 Pre procedure: right dorsailis pedis pulse Doppler 10:31:41 Pre procedure: left dorsailis pedis pulse Doppler 10:31:45 Pre procedure: right posterior tibial pulse Doppler 10:31:50 Pre procedure: left posterior tibial pulse Doppler 10:32:01 Left groin area was prepped with chlora-prep and draped in sterile fashion 10:32:03 - 10:32:10 5) <15 or on dialysis Very severe, or end stage kidney failure. 10:32:15 Fire Safety Assessment: A--An alcohol-based skin anteseptic being used preoperatively., C--Open oxygen or nitrous oxide is being used. 10:34:16 Angiodynamics Omniflush 5Fr 65cm ([id number]) opened to sterile field. 10:34:17 TUBING Contrast Injection High Pressure ([id number]) opened to sterile field. 10:34:26 [place] 260 wire (N71251) opened to sterile field. 10:36:34 Physician arrived 10:36:36 --------ALL STOP TIME OUT------ 10:36:36 Final Timeout: patient, procedure, and site verified with staff and physician. All members of the team are in agreement. 10:37:06 Procedure started. 10:37:11 Local anesthetic to left femerol artery with Lidocaine 1% by Nena Whitmore MD.INITIAL ACCESS ONLY 10:37:14 Arterial access obtained using ultrasound guidance. 10:40:07 Fentanyl 50 mcg I.V. was administered by Alex CASEY RN; for sedation; Verbal order read back and verified. 10:40:14 Versed 1 mg was administered by Alex CASEY RN; for sedation; Verbal order read back and verified. 10:48:30 GLIDE WIRE ANGLE 260cm (XT7791) opened to sterile field. 10:53:02 A Tyfone Impress COBRA 2 5Fr 65CM catheter ([id number]) was advanced over the wire and used for . 10:54:18 Versed 1 mg was administered by Alex CASEY RN; for sedation; Verbal order read back and verified. 10:54:27 Fentanyl 50 mcg I.V. was administered by Alex CASEY RN; for sedation; Verbal order read back and verified. 11:00:24 SHEATH 6FR Destination (RSR01) opened to sterile field. 11:00:31 CHOICE PT Extra Support J 300cm guide wire ([id number]) opened to steril e field. 11:02:49 CXI SUPPORT .035 135 CM STR catheter (E82154) opened to sterile field. 11:08:15 TORQUE DEVICE PLASTIC .038 ( TD01) opened to sterile field. 11:10:29 Heparin Bolus 6000 units I.V. was administered by Arianna Mcleod RN; Per physician; Verbal order read back and verified. 11:15:14 Hawkone Medium Atherectomy System (H1-M) opened to sterile field. 11:15:15 INFLATOR BasixTOUCH (LE3819) opened to sterile field. 11:16:37 Inflate balloon Inflation number: 1 A NANOCROSS ELITE 3 X 60 ([id number] was prepped and advanced across the Undefined1 , then inflated . 11:24:46 Heparin Bolus 1000 units I.V. was administered by Arianna Mcleod RN; Per physician; Verbal order read back and verified. 11:43:50 Inflate balloon Inflation number: 2 A IN.PACT Admiral 5 x 40 x 130 DCB Balloon ([id number]) was prepped and advanced across the Undefined1 , then inflated . 11:46:15 Fentanyl 50 mcg I.V. was administered by rAianna Mcleod RN; for sedation ; Verbal order read back and verified. 11:49:08 SHEATH 6FR Barnwell (RZS773) opened to sterile field. 11:54:21 EXOSEAL 6Fr (EX600) opened to sterile field. 11:54:36 A sheath was inserted into the Femoral artery 11:54:36 Sheath removed intact; hemostasis achieved with Exoseal to the Femoral artery. 11:54:40 Procedure ended.(Physican Out) 11:55:25 Fluoroscopy time 22.50 minutes. 11:55:31 Fluoroscopy dose: 355 mGy 11:55:31 Flurop Dose total: 355 11:55:36 Contrast amount:Isovue 300 175ml. 12:04:29 Procedure and supply charges have been captured, reviewed, submitted an d are correct. 12:04:36 Report given to [employer] II. 12:05:07 Vital chart was stopped Intervention Summary Intervention Notes Time ActionType Lesion and Equipment Used Action# Pressure Duration Attributes 11:16:37 Inflate Undefined1 NANOCROSS ELITE 1 0 00:00 balloon 2 X 60 ([id number] 11:43:50 Inflate Undefined1 IN.PACT Admiral 2 0 00:00 balloon 5 x 40 x 130 DCB Balloon ([id number]) Device Usage Item Name Manufacture Quantity Catalog Number Hospital Part Current Minimal Lot# / Charge Number Stock Stock Serial# Code SHEATH 5FR Terumo 1 [id number] 774337 418603 5 Barnwell (WJY604) DOC .035 wire Cook Medical 1 Q14479 199250 435312 5 (F48506) Micropuncture VSI VASCULAR 1 7266V 580281 586609 5 VSI 4FR kit SOLUTIONS Tegaderm 4 x 4 3M 1 1626W 923262 412682 085470 5 (1626W) Sterile Cardinal 1 [id number] 570130 281479 5 Angiographic Health Pack Bag Decanter Microtek 1 612546 83725 499146 5 () Medical Inc. ACIST Manifold Acist Medical 1 29082 179023 031782 770859 5 (03282) Systems Inc ACIST Hand Acist Medical 1 52187 842315 443071 018642 5 Control (46512) Systems Inc ACIST Syringe Acist Medical 1 11955 848851 230443 429308 20 (88692) Systems Kormeli Angiodynamics Angiodynamics 1 34711629 986989 910967 055728 5 Omniflush 5Fr 65cm (35512308) TUBING Contrast [facility] Medical 1 [id number] 583623 089507 086694 5 Injection High Pressure ([id number]) [place] 260 wire Cook Medical 1 Q23908 547949 36416 734718 5 (M94947) GLIDE WIRE Terumo 1 SA9778 091677 756381 294789 5 ANGLE 260cm (OW8121) Merit Impress [facility] Medical 1 [id number] 323669 005108 226141 5 COBRA 2 5Fr 65CM catheter (399105PX4) SHEATH 6FR Terumo 1 RSR01 384542 37983 274461 5 Destination (RSR01) CHOICE PT Extra [place] 1 [id number] 40679720180806 015123 5 Support J 300cm Scientific guide wire ([id number]) CXI SUPPORT Fenton Medical 1 J13475 518170 623636 112538 5 [id number] .035 135 CM STR catheter (E42975) TORQUE DEVICE [place] 1 TD01 047792 639045 481432 5 PLASTIC .038 ( Scientific TD01) Hawkone Medium Medtronic 1 H1-M 985889 8273132 2 5 Atherectomy System (H1-M) INFLATOR Merit Medical 1 IG7527 665922 071807 568820 5 BasixTOUCH (FS0931) NANOCROSS ELITE Medtronic 1 [id number] 843276 20200 112507 1 2 X 60 ([id number] IN.PACT Admiral Medtronic 1 [id number] 382938 060538 765264 5 5 x 40 x 130 DCB Balloon ([id number]) SHEATH 6FR Terumo 1 EIT498 303706 481926 420526 40 Barnwell (MGC942) EXOSEAL 6Fr Cardinal 1 EX600 090580 399492 145207 10 [id number] (EX600) Health Signature Audit [facility] Time Signature Unsigned Intra-Procedure 10/21/2019 Suzan King 12:05:03 PM RT(R) [place] [address] [place] [address]
[2019-10-19] MEDS ORDERED: LEVEMIR IN100 UNITS/ SC (11:52)
[2019-10-19] MEDS ORDERED: [UNRECOGNIZED DRUG - REMARK] (11:53)
[2019-10-19] MEDS ORDERED: FERRIC CITRATE210 MG PO (11:54)
[2019-10-19] MEDS ORDERED: GABAPENTIN100 MG PO (11:54)
[2019-10-19 12:01] LABS: BASOPHILS 0.1 % (0-2); EOSINOPHILS 2.4 % (0-7); HEMATOCRIT 36.9 % (36.0-48.0); HEMOGLOBIN 12.2 g/dL (12-16); IMMATURE GRANULOCYTES 0.1 % (0-5); LYMPHOCYTES 17.1 % (15-50); MCH 31.4 pg (26.0-34.0); MCHC 33.1 g/dL (31.0-37.0); MCV 94.9 fL (80.0-100.0); MEAN PLATELET VOLUME 10.2 fL (7.4-10.4); MONOCYTES 5.6 % (2-11); NEUTROPHILS 74.7 % (40-80); PLATELET COUNT 246 10x3/uL (130-400); RBC 3.89 10x6/uL (4.00-5.40); RDW 14.6 % (11.5-14.5); WBC 9.3 10x3/uL (4.8-10.8)
[2019-10-19 12:03] LABS: CALCIUM 9.3 mg/dL (8.5-10.1); CARBON DIOXIDE 22.4 mmol/L (21.0-32.0); CREATININE - SERUM 4.8 mg/dL (0.6-1.3); POTASSIUM - SERUM 4.4 mmol/L (3.5-5.1)
[2019-10-19 12:11] LABS: ALBUMIN 3.4 g/dL (3.4-5.0); BILIRUBIN - TOTAL 0.34 mg/dL (0.2-1.3); PROTEIN - SERUM 6.9 g/dL (6.4-8.2)
[2019-10-19 12:15] LABS: APTT 23.7 SECONDS (22.8-39.4); INR 1.03 (0.85-1.17); PROTIME 13.5 SECONDS (11.6-15.0)
[2019-10-19 12:53] LABS: CKMB 1.7 U/L (0.0-3.6); CREATINE KINASE 46 UL (21-215); TROPONIN-I 0.052 ng/mL (0.000-0.060)
--- NOTE | 2019-10-19 16:50 | NUR ---
FSBS [id number]
--- NOTE | 2019-10-19 16:51 | NUR ---
VANC INFUSING ON TRANSFER TO FLOOR. ABOUT 1O CC INFUSED.
[2019-10-19 17:51] VITALS: BP 172/66; BMI 30.6
--- NOTE | 2019-10-19 17:55 | NUR ---
PT ASKING FOR SOMETHING FOR PAIN, CALLED [facility] AND RECEIVED NEW ORDER FOR 50MG OF ULTRAM Q6PRN.
--- NOTE | 2019-10-19 18:12 | NUR ---
50MG OF ULTRAM GIVEN FOR PAIN LEVEL OF 10/10. PT DENIES ANY OTHER NEEDS AT THIS TIME. CALL LIGHT IN REACH, NAD NOTED, WILL CONTINUE TO MONITOR.
--- NOTE | 2019-10-19 19:30 | NUR ---
RECEIVED REPORT, WILL ASSUME CARE OF PT, PT HAS R.CHEST HEMOSPLIT,LAVF, RFA-SL, PT DENIES ANY NEEDS, BED IS LOW, SRX2, CALL LIGHT IN REACH, WILL CONTINUE PLAN OF CARE
[2019-10-19 20:00] VITALS: BP 189/77
[2019-10-20] VITALS: BP 182/74
[2019-10-20 04:00] VITALS: BP 175/74
[2019-10-20 05:58] LABS: BASOPHILS 0 % (0-2); EOSINOPHILS 0 % (0-7); HEMATOCRIT 36.8 % (36.0-48.0); HEMOGLOBIN 11.7 g/dL (12-16); IMMATURE GRANULOCYTES 0.1 % (0-5); MCHC 31.8 g/dL (31.0-37.0); MCV 94.4 fL (80.0-100.0); MEAN PLATELET VOLUME 9.8 fL (7.4-10.4); MONOCYTES 5.8 % (2-11); NEUTROPHILS 78.1 % (40-80); PLATELET COUNT 268 10x3/uL (130-400); RDW 14.6 % (11.5-14.5); WBC 8.6 10x3/uL (4.8-10.8)
[2019-10-20 06:41] LABS: ALBUMIN 3.3 g/dL (3.4-5.0); ANION GAP 17.8 mmol/L (8-16); BILIRUBIN - TOTAL 0.36 mg/dL (0.2-1.3); CALCIUM 9.5 mg/dL (8.5-10.1); POTASSIUM - SERUM 4.8 mmol/L (3.5-5.1); PROTEIN - SERUM 6.8 g/dL (6.4-8.2); VANCOMYCIN - RANDOM 16.3 ug/mL (10.0-20.0)
[2019-10-20 08:00] VITALS: BP 173/68
--- NOTE | 2019-10-20 10:54 | NUR ---
PT TRANSFERED TO DIALYSIS.
[2019-10-20 13:16] VITALS: Ht 170.2 cm; Wt 88.5 kg
[2019-10-20 16:12] VITALS: BP 149/57
--- NOTE | 2019-10-20 18:20 | NUR ---
NOTIFIED MARI AESTHER GUAMAN WITH CT THAT I GAVE FIRST DOSE OF PREDNISONE @1736.
--- NOTE | 2019-10-20 19:45 | NUR ---
RECEIVED BEDSIDE REPORT. ROUNDING COMPLETE. PATIENT IS ALERT AND ORIENTED, RESTING COMOFRTABLY IN BED. RESPIRATIONS ARE EVEN AND UNLABORED. NO S/S OF DISTRESS. NO C/O PAIN. CALL LIGHT WITHIN REACH. WILL CPOC.
[2019-10-20 20:00] VITALS: BP 132/45
[2019-10-21] VITALS (9 sets, daily range): BP systolic 109–158; BP diastolic 52–68
[2019-10-21 05:39] LABS: BASOPHILS 0 % (0-2); EOSINOPHILS 0 % (0-7); HEMOGLOBIN 11.7 g/dL (12-16); IMMATURE GRANULOCYTES 0.1 % (0-5); LYMPHOCYTES 14.2 % (15-50); MCH 30.6 pg (26.0-34.0); MCHC 31.6 g/dL (31.0-37.0); MEAN PLATELET VOLUME 10.1 fL (7.4-10.4); MONOCYTES 1.2 % (2-11); NEUTROPHILS 84.5 % (40-80); PLATELET COUNT 247 10x3/uL (130-400); RBC 3.82 10x6/uL (4.00-5.40); RDW 14.9 % (11.5-14.5); WBC 7.5 10x3/uL (4.8-10.8)
[2019-10-21 05:52] LABS: MCV 96.9 fL (80.0-100.0)
[2019-10-21 05:56] LABS: ALBUMIN 3.4 g/dL (3.4-5.0); ANION GAP 13.9 mmol/L (8-16); BILIRUBIN - TOTAL 0.38 mg/dL (0.2-1.3); CALCIUM 9.2 mg/dL (8.5-10.1); CREATININE - SERUM 4.1 mg/dL (0.6-1.3); PHOSPHOROUS 5.8 mg/dL (2.5-4.9); POTASSIUM - SERUM 4.9 mmol/L (3.5-5.1); PROTEIN - SERUM 6.9 g/dL (6.4-8.2); VANCOMYCIN - RANDOM 30.2 ug/mL (10.0-20.0)
--- NOTE | 2019-10-21 12:43 | NUR ---
PT BACK TO ROOM FROM [facility]. FLAT IN BED FOR FOUR HOURS. DRESSING TO LEFT GROIN CLEAN AND DRY. RIGHT FOOT WITH MORE PINK COLOR AND ABLE TO MOVE TOES BETTER. LUNCH TRAY ORDERED. VITALS INITIATED.
[2019-10-21 13:09] LABS: INR 1.22 (0.85-1.17); PROTIME 15.3 SECONDS (11.6-15.0)
--- NOTE | 2019-10-21 14:10 | NUR ---
PT'S PTT WAS 189.6. LAB TO DO REDRAW PRIOR TO STARTING HEPARIN GTT.
[2019-10-21 15:13] LABS: APTT 45.4 SECONDS (22.8-39.4)
[2019-10-22] VITALS: BP 139/55
[2019-10-22 04:00] VITALS: BP 133/62
[2019-10-22 07:14] LABS: VANCOMYCIN - RANDOM 22.6 ug/mL (10.0-20.0)
[2019-10-22 07:15] LABS: CREATININE - SERUM 5.9 mg/dL (0.6-1.3)
[2019-10-22 08:00] VITALS: BP 117/41
[2019-10-22 20:00] VITALS: BP 140/50
[2019-10-23 01:55] VITALS: BP 106/38
[2019-10-23 05:58] VITALS: BP 99/42
[2019-10-23 07:37] LABS: CREATININE - SERUM 5.4 mg/dL (0.6-1.3); VANCOMYCIN - RANDOM 15.7 ug/mL (10.0-20.0)
[2019-10-23 07:57] VITALS: BP 115/53
[2019-10-23] MEDS ORDERED: PLAVIX75 MG PO ×2 (08:10→16:19)
[2019-10-23] MEDS ORDERED: LIPITOR10 MG PO (08:11)
[2019-10-23] MEDS ORDERED: VIBRAMYCIN 100100 MG PO (08:12)
--- NOTE | 2019-10-23 10:49 | NUR ---
WORKING TOWARD DISCHARGE TODAY. VANC INFUSING AT PRESENT. IR HAS BEEN BY WITH INSTRUCTIONS.
--- NOTE | 2019-10-23 13:21 | NUR ---
Nutrition Follow-up: Eating well. Ate 100% of breakfast this AM. HD yesterday. Noted plans to d/c today. Diet: Renal ADA Wt: 195# (10/19) Last BM: 10/21 Labs noted: Glu 194 Meds noted: Lantus, Humulin, Bux, Laurel -RD following.
--- NOTE | 2019-10-23 13:58 | NUR ---
IV REMOVED X2. DISCHARGE INSTRUCTIONS REVIEWED AND SIGNED. RIDE COMING FROM [facility].
== END 2019-10-23 14:15 | disposition home or self-care (01) | DRG 270 ==
LOC: D.ER 11:13 → D.M2 15:50 → D.EDHOLD 15:50 → D.M2 16:08
PROVIDERS: Family Medicine; Radiology Vascular & Interventional Radiology; ADMIT Internal Medicine; ATTEND Internal Medicine
PROC: 047K3Z1 Dilation of Right Femoral Artery using Drug-Coated Balloon, Percutaneous Approach (ICD-10-PCS; 2019-10-20)
PROC: 5A1D70Z Performance of Urinary Filtration, Intermittent, Less than 6 Hours Per Day (ICD-10-PCS; 2019-10-21)
PROC: 04CK3ZZ Extirpation of Matter from Right Femoral Artery, Percutaneous Approach (ICD-10-PCS; principal; 2019-10-21 10:00)
DX: E11.51 Type 2 diabetes mellitus with diabetic peripheral angiopathy without gangrene (principal); N18.6 End stage renal disease; L03.115 Cellulitis of right lower limb; I13.2 Hypertensive heart and chronic kidney disease with heart failure and with stage 5 chronic kidney disease, or end stage renal disease; I50.22 Chronic systolic (congestive) heart failure; I70.228 Atherosclerosis of native arteries of extremities with rest pain, other extremity; E11.22 Type 2 diabetes mellitus with diabetic chronic kidney disease; Z99.2 Dependence on renal dialysis; I25.5 Ischemic cardiomyopathy; E78.5 Hyperlipidemia, unspecified; E11.65 Type 2 diabetes mellitus with hyperglycemia; I25.10 Atherosclerotic heart disease of native coronary artery without angina pectoris

== ENCOUNTER 2019-10-23 16:11 | Inpatient (IN) | payer MEDICARE ==
[~2019-10-23] VITALS: Ht 170.2 cm; Wt 95.6 kg
--- NOTE | ~2019-10-23 | HEMODYNAMI ---
PATIENT:DILIP FAYE MEDICAL RECORD: [id number] : 58 LOCATION[facility] [id number] ADMISSION DATE: 10/23/19 Generatedon:10/29/201913:59 Patient name: DILIP FAYE Patient #: [id number] : 1960 Date of study: 10/29/2019 Page: Of Hemodynamic Procedure Report Patient Data Patient Demographics Procedure consent was obtained First Name: DILIP Gender: Female Last Name: YUNIER : 1960 [facility] Initial: EDD Age: 59 year(s) Patient #: [id number] Race: Unknown SSN: [id number] Additional ID: [id number] Contact details [address]: [address] [place] [address] State: [place] City: [place] Zip code: [address] Past Medical History Allergies Allergen Reaction Date Comments Reported Other allergy 09/09/2014 Iodine Other allergy 12/22/2016 Cephalexin, Prednisone, Carvedilol, Iodinated contrast media (oral and IV) IV contrast 05/21/2017 dye Other allergy 03/28/2018 COREG IODINE Other allergy 07/24/2018 IDODINATED CONTRAST, KEFLEX, COUMADIN, COREG Iodine 10/21/2019 Cephalosporins 10/21/2019 Other allergy 10/21/2019 warfarin, coreg Other allergy 10/29/2019 IODINATED CONTRAST MEDIA/CEPHALEXIN/CARVEDILOL/WARFARIN Admission Admission Data Admission Date: 10/23/2019 Admission Time: 18:01 Arrival Date: 10/29/2019 Arrival Time: 0:00 Admit Source: Other Insurance Payor: Medicaid Room #: D.2123 [facility] #: [id number] Height (in.): 66.93 BSA: 2.06 (m2) Height (cm.): 170 BMI: 32.87 (kg/m2) Weight (lbs.): 209.44 Weight (kg.): 95 Lab Results Lab Result Date: 10/29/2019 Lab Result Time: 0:00 Biochemistry Name Units Result Min Max BUN mg/dl 57 --(----)-* 7 18 Creatinine mg/dl 6.4 --(----)-* 0.6 1.3 eGFR ml/min 7.555083 *-(----)-- 90 120 NONAFRICAN CBC Name Units Result Min Max Hemoglobin g/dl 8.9 *-(----)-- 13.5 17.5 Procedure Procedure Types Cath Procedure Diagnostic Procedure LHC LHC w/Coronaries w/Grafts Sedation Charges Moderate Sedation up to 30 minutes PCI Procedure AMI/SVG/CASH APPLICATIONS ANALYST PTCA or Stent SVG-BMS/HARLEY Initial Hemochron ACT Test Procedure Description Procedure Date Procedure Date: 10/29/2019 Procedure Start Time: 13:21 Procedure End Time: 13:52 Procedure Staff Name Function Don Burciaga MD Performing Physician Ashley Sol RT Monitor Caesar Jimenez RN Nurse Aimee Box RN Nurse Huong Falcon RT Scrub Procedure Data Cath Procedure Fluoroscopy Diagnostic fluoroscopy Total fluoroscopy Time: 7.2 time: 7.2 min min Diagnostic fluoroscopy Total fluoroscopy dose: 839 dose: 839 mGy mGy Contrast Material Contrast Material Type Amount (ml) Isovue 300 105 Entry Location Entry Primary Successful Side Size Upsize Upsize Entry Closure Succes sful Closure Location (Fr) 1 (Fr) 2 (Fr) Remarks Device Remarks Femoral Right 5 Fr 6 Fr Exoseal artery Short Estimated blood loss: 10 ml Diagnostic catheters Device Type Used For End Catheter Placement MULTIPACK JL 4.0 5Fr Procedure catheter DIAGNOSTIC AR MOD 5Fr Procedure Catheter ([id number]) DIAGNOSTIC IM 5Fr SVG Angiography catheter ([id number]) MULTIPACK Pigtail 5 Fr Ventriculography catheter Procedure Complications No complications Procedure Medications Medication Administration Route Dosage 0.9% NaCl I.V. 10 ml/hr Oxygen etCO2 Nasal cannula 2 l/min Heparin Flush Bag added to field 2 bags (1000units/500ml NS) Lidocaine 2% added to field 20 Versed I.V. 1 mg Fentanyl I.V. 50 mcg Versed I.V. 1 mg Fentanyl I.V. 50 mcg Heparin Bolus I.V. 9000 units Hemodynamics Rest BSA: 2.06 (m2) HGB: 8.9 (g/dl) O2 Consumption: Estimated: 182.81 (ml/min) O2 Con sumption indexed: Estimated:88.74 (ml/min/m) Heart Rate: 54 (bpm) Pressure Samples Time Site Value (mmHg) Purpose Heart Use Rate(bpm) 13:34 LV 137/6,19 Snapshot 55 13:35 AO 134/46(77) Pullback 55 13:35 LV 135/2,16 Pullback 55 Gradients Valve Time Site 1 Site 2 Mean SEP/DFP Peak To Heart Use (mmHg) (sec/min) Peak Rate (mmHg) (bpm) Aortic 13:35 LV AO 7 12 1 55 135/2,16 134/46(77) Calculations Valve P-P Mean Valve Index Valve Source Name Gradient Area Flow (cm2) Aortic 1 7 1 7 Snapshots Pre Cath Intra NCS Post Cath Vital Signs Time Heart Resp SPO2 etCO2 NIBP (mmHg) Rhythm Pain Sedation Rate (ipm) (%) (mmHg) Status Level (bpm) 13:06:12 58 15 98 0 124/53(82) NSR 0 (11) 10(A) , No pain 13:11:13 57 15 98 0 131/54(88) NSR 0 (11) 10(A) , No pain 13:16:33 57 14 98 0 125/48(80) NSR 0 (11) 10(A) , No pain 13:20:38 55 15 98 0 108/57(94) NSR 0 (11) 10(A) , No pain 13:24:52 56 12 97 0 116/55(93) NSR 0 (11) 9(A) , No pain 13:29:10 56 14 98 0 122/48(83) NSR 0 (11) 9(A) , No pain 13:33:31 54 13 97 0 107/55(78) NSR 0 (11) 9(A) , No pain 13:37:45 55 17 97 0 120/57(86) NSR 0 (11) 9(A) , No pain 13:42:03 54 14 98 0 124/53(86) NSR 0 (11) 9(A) , No pain 13:46:15 54 13 97 0 119/54(90) NSR 0 (11) 9(A) , No pain 13:50:37 57 13 98 0 119/48(100) NSR 0 (11) 9(A) , No pain Medications Time Medication Route Dose Verified Delivered Reason Notes Effectiveness by by 12:55:04 0.9% NaCl I.V. 10 Caesar Caesar Per physician ml/hr Tony Jimenez RN RN 12:55:19 Oxygen etCO2 2 Caesar Caesar for low 02 sats Nasal l/min Tony Jimenez cannula RN RN 12:55:35 Heparin Flush added 2 Caesar Caesar used for Bag to bags Tony Jimenez procedure (1000units/500ml field RN RN NS) 12:55:46 Lidocaine 2% added 20ml Caesar Caesar for local to vial Tony Jimenez anesthetic field RN RN 13:15:22 Versed I.V. 1 mg Caesar Caesar for sedation Tony Jimenez RN RN 13:15:31 Fentanyl I.V. 50 Caesar Caesar for sedation mcg Tony Jimenez RN RN 13:22:09 Versed I.V. 1 mg Caesar Caesar for sedation Tony Jimenez RN RN 13:22:17 Fentanyl I.V. 50 Caesar Caesar for sedation mcg Tony Jimenez RN RN 13:41:20 Heparin Bolus I.V. 9,000 Caesar Caesar for units Tony Jimenez anticoagulation RN power press operator Log Time Note 12:01:35 Arrival Date: 10/29/2019 12:00:00 AM 12:02:06 Admit Source: Other 12:02:11 Insurance Payor : Medicaid 12:02:16 Patient Height : 66.93 inches 12:02:20 Patient Weight : 209.44 lbs 12:03:03 Lab Result : Hemoglobin 8.9 g/dl 12:03:03 Lab Result : eGFR NONAFRICAN 7.576795 ml/min 12:03:03 Lab Result : BUN 57 mg/dl 12:03:03 Lab Result : Creatinine 6.4 mg/dl 12:03:13 Diagnostic Cath Status : Urgent 12:29:52 Procedure Status Urgent Heart Cath (IP). 12:30:00 Caesar Jimenez RN sent for patient. Start room use. 12:30:02 Time tracking: Regular hours (M-F 7:00 - 5:00) 12:30:10 Plan of Care:Hemodynamics will remain stable., Cardiac rhythm will remain stable., Comfort level will be maintained., Respiratory function will remain adequate., Patient/ family verbilizes understanding of procedure., Procedure tolerated without complication., Recovers from procedure without complications.. 12:32:58 Patient allergic to Other allergyIODINATED CONTRAST MEDIA/CEPHALEXIN/CARVEDILOL/WARFARIN 12:33:35 Lab results completed and on chart. 12:36:22 H&P Date Dictated: 10/23/2019 ER History on chart.. 12:55:04 0.9% NaCl 10 ml/hr I.V. was administered by Caesar Jimenez RN; Per physician; Verbal order read back and verified. 12:55:19 Oxygen 2 l/min etCO2 Nasal cannula was administered by Caesar Jimenez RN; for low 02 sats; Verbal order read back and verified. 12:55:35 Heparin Flush Bag (1000units/500ml NS) 2 bags added to field was administered by Caesar Jimenez RN; used for procedure; Verbal order read back and verified. 12:55:46 Lidocaine 2% 20ml vial added to field was administered by Caesar Jimenez RN; for local anesthetic; Verbal order read back and verified. 13:04:58 Vital chart was started 13:05:19 Patient received from Bonzer[place]arg II to CCL 1 Alert and oriented. Tansferred to table in Supine position. 13:05:20 Warm blankets applied, and angelique hugger turned on for patient comfort. 13:05:21 Correct patient and procedure confirmed by team. 13:05:22 Signed procedure consent form obtained from patient. 13:05:23 ECG and BP/O2 sat monitors applied to patient. 13:05:29 Baseline sample Acquired. 13:05:30 Full Disclosure recording started 13:05:37 Baseline sample Acquired. 13:05:44 Rhythm: sinus bradycardia 13:05:46 Pre-procedure instructions explained to patient. 13:05:46 Pre-op teaching completed and patient verbalized understanding. 13:05:50 Family unavailable. 13:05:51 Patient NPO since Midnight. 13:05:54 Is the patient allergic to Iodine/contrast media? Yes. 13:05:56 Was the patient premedicated? Yes 13:05:59 Is patient on blood thinner?No 13:06:13 Patient diabetic? Yes. 13:06:20 Previous problem with sedation/anesthesia? No ? 13:06:21 Snore? Yes 13:06:34 Sleep apnea? No 13:06:35 Deviated septum? No 13:06:35 Opens mouth fully? Yes 13:06:36 Sticks out tongue? Yes 13:07:38 Airway obstruction? No ? 13:07:39 Dentures? No ? 13:07:43 Pre procedure: left dorsailis pedis pulse 1+ Palpable, but thready & weak; easily obliterated 13:07:58 IV patent on arrival in right forearm with 0.9% NaCl at [facility]. 13:08:04 Left groin area was prepped with chlora-prep and draped in sterile fashion 13:08:07 Alarms reviewed by R. N. 13:08:07 Sharps counted by scrub and verified by R.N. 13:09:12 Use device set Femoral Dx 13:09:13 ACIST Syringe (73123) opened to sterile field. 13:09:15 Bag Decanter (2002S) opened to sterile field. 13:09:16 ACIST Hand Control (28243) opened to sterile field. 13:09:17 ACIST Manifold (64123) opened to sterile field. 13:09:17 Tegaderm 4 x 4 (1626W) opened to sterile field. 13:09:18 Medline Cath Pack ([id number]) opened to sterile field. 13:09:19 DIAGNOSTIC Multipack 5Fr catheter set (ST4691) opened to sterile field. 13:09:20 SHEATH 5FR [place] (FMZ200) opened to sterile field. 13:09:21 EMERALD Guide Wire (150-360) opened to sterile field. 13:14:34 Zero performed for pressure channel P1 13:14:49 Baseline sample Acquired. 13:15:06 Physician arrived 13:15:07 --------ALL STOP TIME OUT------ 13:15:08 Final Timeout: patient, procedure, and site verified with staff and physician. All members of the team are in agreement. 13:15:17 Left groin site verified by team. 13:15:22 Versed 1 mg I.V. was administered by Caesar Jimenez RN; for sedation; Verbal order read back and verified. 13:15:22 Fire Safety Assessment: A--An alcohol-based skin anteseptic being used preoperatively., C--Open oxygen or nitrous oxide is being used., D--An ESU, laser, or fiber-optic light is being used. 13:15:26 Physical assessment completed. ASA score P 3 - A patient with severe systemic disease as per Don Burciaga MD. 13:15:31 Fentanyl 50 mcg I.V. was administered by Caesar Jimenez RN; for sedation; Verbal order read back and verified. 13:15:31 5) <15 or on dialysis Very severe, or end stage kidney failure. 13:15:50 Maximum allowable contrast dose (3.7 X eGFR X 0.75)on dialysis ml. 13:15:55 Sedation plan: IV Moderate Sedation Medication:Versed, Fentanyl 13:20:42 Procedure started. 13:21:30 Local anesthetic to left femerol artery with Lidocaine 2% by Don Burciaga MD.INITIAL ACCESS ONLY 13:22:09 Versed 1 mg I.V. was administered by Caesar Jimenez RN; for sedation; Verbal order read back and verified. 13:22:17 Fentanyl 50 mcg I.V. was administered by Caesar Jimenez RN; for sedation; Verbal order read back and verified. 13:25:19 A 5 Fr sheath was inserted into the Right Femoral artery 13:25:59 J wire advanced. 13:26:16 A MULTIPACK JL 4.0 5Fr catheter was advanced over the wire and used for Procedure. 13:26:18 LCA angiography performed. 13:27:27 Catheter removed. 13:27:33 A DIAGNOSTIC AR MOD 5Fr Catheter (258354C) was advanced over the wire and used for Procedure. 13:27:37 RCA angiography performed. 13:29:05 SVG to Circ angiography performed. 13:29:19 Catheter removed. 13:31:16 A DIAGNOSTIC IM 5Fr catheter ([id number]) was advanced over the wire and used for SVG Angiography. 13:31:20 FLOWERS to LAD angiography performed. 13:33:15 Catheter removed. 13:33:55 A MULTIPACK Pigtail 5 Fr catheter was advanced over the wire and used for Ventriculography. 13:34:01 LV gram done using CHAUDHARI 13:35:11 EF : 30 % 13:36:01 TUBING High Pressure Extension Tubing (Gualberto) ([id number]) opened to sterile field. 13:36:02 INFLATOR Merit BasixCompak (NN6558) opened to sterile field. 13:36:02 GUIDE 6FR AR 1.0 catheter (LJ6SV97) opened to sterile field. 13:36:04 BMW 300cm [place] 2 J wire ([id number]) opened to sterile field. 13:36:12 SHEATH 6FR [place] (AEZ998) opened to sterile field. 13:36:17 Catheter removed. 13:36:18 Proceeding to intervention. 13:36:26 Sheath upsized to a 6 Fr Short. 13:38:46 6 Fr ar1 guide catheter was inserted over the wire 13:40:54 BMW wire advanced. 13:41:20 Heparin Bolus 9,000 units I.V. was administered by Caesar Jimenez RN; for anticoagulation; Verbal order read back and verified. 13:47:53 Place stent Inflation Number: 1 A SHAMEKA RX 4.0 x 15 stent ([id number]) was prepped and advanced across the Aorta Left -> Mid CX 80. The stent was deployed at 13 WHIT for 0:20 (min:sec) . 13:47:58 EXOSEAL 6Fr (EX600) opened to sterile field. 13:48:17 Stent catheter was removed intact over wire. 13:48:18 Wire removed. 13:48:19 Guide catheter removed. 13:48:34 Sheath removed intact; hemostasis achieved with Exoseal to the Right Femoral artery. 13:48:38 Procedure ended.(Physican Out) 13:49:14 Fluoroscopy time 07.20 minutes. 13:49:33 Fluoroscopy dose: 839 mGy 13:49:33 Flurop Dose total: 839 13:49:38 Dose Area Product 62385 mGy/cm. 13:49:44 Contrast amount:Isovue 300 105ml. 13:49:48 Maximum allowable dose exceeded? Yes. 13:49:49 Sharps counted by scrub and verified by R.N. 13:49:51 Insertion/operative site no bleeding no hematoma. 13:49:57 Post right femoral artery:stable 13:50:07 Post-procedure physical assessment completed. ASA score P 3 - A patient with severe systemic disease as per Don Burciaga MD. 13:50:10 Post procedure rhythm: unchanged. 13:50:14 Estimated blood loss: 10 ml 13:50:16 Post procedure instruction explained to patient.Patient verbalizes understanding. 13:50:59 Procedure type changed to Cath procedure, Diagnostic procedure, LHC, LHC w/Coronaries w/Grafts, Sedation Charges, Moderate Sedation up to 30 minutes, PCI procedure, AMI/SVG/CASH APPLICATIONS ANALYST PTCA or Stent, SVG-BMS/HARLEY Initial, Hemochron ACT Test 13:51:01 Procedure and supply charges have been captured, reviewed, submitted and are correct. 13:51:42 Procedure Complication : No complications 13:51:45 Vital chart was stopped 13:51:53 [facility] Findings: MVD- PCI performed (see procedure note) 13:51:57 Operative report dictated upon procedure completion. 13:51:58 See physician's report for complete and final results. 13:52:00 Report given to Med II. 13:52:04 Patient transfered to Med II with Bed. 13:52:07 Procedure ended. 13:52:07 Full Disclosure recording stopped 13:52:11 End room use (Document Last) 13:53:36 ACT drawn and resulted at >400 high out of range seconds. (normal therapeutic range 180-240 seconds). 13:57:07 End room use (Document Last) 13:58:45 FEMSTOP Gold (W41967) opened to sterile field. 13:59:11 femstop placed due to patient moving Intervention Summary Intervention Notes Time ActionType Lesion and Equipment Used Action# Pressure Duration Attributes 13:47:53 Place stent Aorta Left SHAMEKA RX 4.0 x 1 13 00:20 -> Mid CX 15 stent ([id number]) Device Usage Item Name Manufacture Quantity Catalog Hospital Part [facility] Lot# / Number Charge Number Stock Stock Serial# Code ACIST Syringe Acist 1 86140 002720 732909 049116 20 (22752) Medical Systems Inc Bag Decanter Microtek 1 2001S 218749 05570 181798 5 (2001S) Medical Inc. ACIST Hand Acist 1 41006 209519 734237 215230 5 Control Medical (44160) Systems Inc ACIST Manifold Acist 1 29641 988599 304131 851949 5 (81408) Medical Systems Inc Tegaderm 4 x 4 3M 1 1626W 597731 869359 269957 5 (1626W) Medline Cath Medline 1 [id number] 515026 52897 719878 5 Pack ([id number]) DIAGNOSTIC Cardinal 1 ZX6497 261450 80698 778665 30 Multipack 5Fr Health catheter set (RU0768) SHEATH 5FR Terumo 1 HOG232 728499 162484 350064 5 [place] (NRC392) EMERALD Guide Cardinal 1 502-455 791016 682576 351568 5 Wire (502-455) Health MULTIPACK JL Cardinal 1 748407 5 4.0 5Fr Health catheter DIAGNOSTIC AR Cardinal 1 191686L 098550 418066 574484 15 MOD 5Fr Health Catheter (949771F) DIAGNOSTIC IM Cardinal 1 052032Z 135226 607630 708139 5 5Fr catheter Health (892241B) MULTIPACK Cardinal 1 255700 5 Pigtail 5 Fr Health catheter TUBING High Merit 1 FJ0302N 318904 85008 372493 10 Pressure Medical Extension Tubing (Gualberto) (JF9980S) INFLATOR Merit Merit 1 ZF9280 203085 514386 494635 15 BasixCompak Medical (WG2641) GUIDE 6FR AR Medtronic 1 TQ4TU59 384832 11009 085980 1 1.0 catheter (UM3PC00) BMW 300cm Barton 1 2872688S 817996 075374 576232 5 [place] 2 J Vascular wire (4862367O) SHEATH 6FR Terumo 1 OIH081 884061 201892 466948 40 [place] (FJN917) SHAMEKA RX 4.0 x Medtronic 1 [id number] 833720 4630324 158670 5 [id number] 15 stent ([id number]) EXOSEAL 6Fr Cardinal 1 EX600 122292 381249 995986 10 (EX600) Health FEMSTOP Gold St Donny 1 A37893 543979 585297 500545 5 (T12164) Signature Audit [place] Stage Time Signature Unsigned Intra-Procedure 10/29/2019 Ashley Sol 1:57:07 PM RT(R) Intra-Procedure 10/29/2019 Don Burciaga MD 1:59:37 PM [facility] [address] [place] [address]
[~2019-10-23 16:11] MED LIST changes: +FERRIC CITRATE210 MG PO; +GABAPENTIN100 MG PO; +LEVEMIR IN100 UNITS/ SC; +[UNRECOGNIZED DRUG - REMARK]
[2019-10-23] MEDS ORDERED: PLAVIX75 MG PO (16:19)
[2019-10-23 17:12] LABS: BASOPHILS 0 % (0-2); EOSINOPHILS 1.4 % (0-7); HEMATOCRIT 32.5 % (36.0-48.0); HEMOGLOBIN 10.7 g/dL (12-16); IMMATURE GRANULOCYTES 0.5 % (0-5); LYMPHOCYTES 22.2 % (15-50); MCH 31.1 pg (26.0-34.0); MCHC 32.9 g/dL (31.0-37.0); MCV 94.5 fL (80.0-100.0); MEAN PLATELET VOLUME 9.6 fL (7.4-10.4); MONOCYTES 10.3 % (2-11); NEUTROPHILS 65.6 % (40-80); PLATELET COUNT 231 10x3/uL (130-400); RBC 3.44 10x6/uL (4.00-5.40)
[2019-10-23 17:28] LABS: CALCIUM 8.4 mg/dL (8.5-10.1); CARBON DIOXIDE 26.1 mmol/L (21.0-32.0); CREATININE - SERUM 5.9 mg/dL (0.6-1.3); POTASSIUM - SERUM 4.1 mmol/L (3.5-5.1)
[2019-10-23 17:33] LABS: ALBUMIN 3.3 g/dL (3.4-5.0); BILIRUBIN - TOTAL 0.3 mg/dL (0.2-1.3); PROTEIN - SERUM 6.7 g/dL (6.4-8.2)
--- NOTE | 2019-10-23 18:45 | NUR ---
I have reviewed this patient and I concur with the Shift Assessment completed by the Licensed Practical Nurse today this shift.
[2019-10-23 21:24] LABS: BILIRUBIN NEGATIVE (NEGATIVE); KETONE NEGATIVE (NEGATIVE); NITRITE NEGATIVE (NEGATIVE); UROBILINOGEN NORMAL mg/dL (< 2)
[2019-10-23 21:32] LABS: BACTERIA FEW /HPF (NONE SEEN); EPITHELIAL CELLS 0-5 /hpf (0-5)
[2019-10-23 22:59] VITALS: BP 115/65; BMI 30.6
[2019-10-24] VITALS: BP 102/54
--- NOTE | 2019-10-24 03:26 | NUR ---
ASSESSED WHEN ARRIVED FROM THE ER. PT IS ALERT AND ORIENTED BUT HAS BEEN MEDICATED AND IS HARD TO KEEP AWAKE. SHE HAS A COUPLE OF DAYS OLD AFRO WITH PCI INCISION THAT IS HEALING NICELY BUT HAS ALOT OF BRUISING . SHE WAS ABLE TO GIVE INFO FOR HER ADMIT. THERE IS A ACTIVITIES OFFICER OF MORPHINE FOR PAIN MANAGEMENT AND IT HAS KEPT HER COMFORTABLE. HER TELEMETRY IS SHOWING 80'S NSR.
--- NOTE | 2019-10-24 07:30 | NUR ---
RECEIVED BEDSIDE REPORT. PT LAYING IN BED RECEIVING CHG BATH, A&O X4. C/O PAIN 8/10 IN R HIP, PROVIDED MEDS PER ORDER. BRUISES OVER GROIN AREA TO BILAT HIPS. R FOOT PEELING AND DRY CRACKING. PIV IN R HAND, PATENT AND INFUSING, NO REDNESS OR SWELLING. TELEMETRY IN PLACE, 87 SR. LEFT UPPER ARM AVF. PT UNABLE TO AMBULATE, ON BEDREST. EDUCATED PT ON CL AND NEEDS, VERBALIZED UNDERSTANDING. BED LOW, CL IN REACH. WILL CONTINUE TO MONITOR.
[2019-10-24 08:49] VITALS: BP 100/64
[2019-10-24 09:27] LABS: BASOPHILS 0.1 % (0-2); EOSINOPHILS 1.9 % (0-7); HEMATOCRIT 33.5 % (36.0-48.0); HEMOGLOBIN 10.7 g/dL (12-16); IMMATURE GRANULOCYTES 0.5 % (0-5); LYMPHOCYTES 16.3 % (15-50); MCH 30.8 pg (26.0-34.0); MCHC 31.9 g/dL (31.0-37.0); MEAN PLATELET VOLUME 10.2 fL (7.4-10.4); MONOCYTES 9.7 % (2-11); NEUTROPHILS 71.5 % (40-80); PLATELET COUNT 244 10x3/uL (130-400); RBC 3.47 10x6/uL (4.00-5.40); RDW 15.3 % (11.5-14.5); WBC 12.5 10x3/uL (4.8-10.8)
[2019-10-24 09:31] LABS: MCV 96.5 fL (80.0-100.0)
[2019-10-24 09:52] LABS: APTT 26.4 SECONDS (22.8-39.4); INR 1.17 (0.85-1.17); PROTIME 14.8 SECONDS (11.6-15.0)
[2019-10-24 10:14] LABS: ALBUMIN 3.4 g/dL (3.4-5.0); BILIRUBIN - TOTAL 0.5 mg/dL (0.2-1.3); CALCIUM 8.7 mg/dL (8.5-10.1); CARBON DIOXIDE 21.4 mmol/L (21.0-32.0); CREATININE - SERUM 6.8 mg/dL (0.6-1.3); PROTEIN - SERUM 6.3 g/dL (6.4-8.2)
[2019-10-24 10:24] LABS: ANION GAP 21.1 mmol/L (8-16); POTASSIUM - SERUM 5.5 mmol/L (3.5-5.1)
[2019-10-24 10:28] LABS: PHOSPHOROUS 11.2 mg/dL (2.5-4.9)
[2019-10-24 12:39] VITALS: BP 141/57
--- NOTE | 2019-10-24 12:39 | NUR ---
Rehab Prescreening Consult recieved and the chart has been reviewed. She is [employer] managed care and will require a preauthorization for the ARU. She will need a PT/OT eval post op. [facility] is also requiring a peer to peer prior to sending information to the medical record transcriber. Kath Manzano RN Clinical Liaison, Rehab
--- NOTE | 2019-10-24 13:45 | NUR ---
RECEIVED PREOP CALL. GAVE PT PREOP MEDS, D/C CLERICAL RECEPTIONIST AND NS. BED LOW, RAILS X2.
[2019-10-24 18:27] VITALS: BP 98/45
--- NOTE | 2019-10-24 19:42 | NUR ---
RECIEVED PATIENT FROM [facility]UR[facility]. JUST RETURNED FROM SURGERY. SHE WAS DIAPHORETIC AND PASTY IN COLOR. B/P 83/36 WITH TEMP OF 96.6. CALLED DR. VARELA GAVE 250CC BOLUS THROUGH HEMOSPLIT. ORDERS TO POSTPONE TILL TOMORROW. 1926 BP 107/48. 1934 B/P 99/35 MED/SURG CALLED FOR PICKUP
[2019-10-25] VITALS (8 sets, daily range): BP systolic 118–155; BP diastolic 31–68
[2019-10-25 07:00] LABS: BASOPHILS 0.1 % (0-2); EOSINOPHILS 0 % (0-7); HEMATOCRIT 26.6 % (36.0-48.0); HEMOGLOBIN 8.5 g/dL (12-16); IMMATURE GRANULOCYTES 0.4 % (0-5); LYMPHOCYTES 7.1 % (15-50); MCV 97.1 fL (80.0-100.0); MEAN PLATELET VOLUME 10.7 fL (7.4-10.4); MONOCYTES 7.3 % (2-11); NEUTROPHILS 85.1 % (40-80); PLATELET COUNT 216 10x3/uL (130-400); RBC 2.74 10x6/uL (4.00-5.40); RDW 15.4 % (11.5-14.5); WBC 14.7 10x3/uL (4.8-10.8)
[2019-10-25 07:09] LABS: ALBUMIN 2.8 g/dL (3.4-5.0); BILIRUBIN - TOTAL 0.62 mg/dL (0.2-1.3); CALCIUM 8.9 mg/dL (8.5-10.1); CREATININE - SERUM 8.2 mg/dL (0.6-1.3); MAGNESIUM - SERUM 2.2 mg/dL (1.8-2.4); PROTEIN - SERUM 5.7 g/dL (6.4-8.2)
[2019-10-25 07:12] LABS: PHOSPHOROUS 14.8 mg/dL (2.5-4.9)
--- NOTE | 2019-10-25 08:00 | NUR ---
ALERT AND ORIENTED X4. TELEMETRY INTACT. LORTAB GIVEN FOR GENERALIZED BUSTILLO / AND EFFECTIVE. ENCOURAGED TO USE CALL LIGHT FOR ASSSIT.
[2019-10-25 09:53] LABS: ALBUMIN 2.7 g/dL (3.4-5.0); ANION GAP 23.6 mmol/L (8-16); BILIRUBIN - TOTAL 0.57 mg/dL (0.2-1.3); CARBON DIOXIDE 18.3 mmol/L (21.0-32.0); CREATININE - SERUM 8.5 mg/dL (0.6-1.3); POTASSIUM - SERUM 5.9 mmol/L (3.5-5.1); PROTEIN - SERUM 5.6 g/dL (6.4-8.2)
[2019-10-25 10:45] LABS: INR 1.73 (0.85-1.17); PROTIME 20.1 SECONDS (11.6-15.0)
--- NOTE | 2019-10-25 11:03 | NUR ---
ONE UNIT PRBC'S TAKEN TO DIALYSIS TO BE GIVEN WITH CONFIMATION VERIFIED WITH DIALYSIS STAFF.
[2019-10-25 12:48] LABS: AMYLASE - SERUM 186 U/L (25-115); LIPASE 239 U/L (73-393)
[2019-10-25 14:56] LABS: BILIRUBIN - DIRECT 0.37 mg/dL (0.00-0.30); BILIRUBIN - INDIRECT 0.5 mg/dL (0.00-1.00); BILIRUBIN - TOTAL 0.87 mg/dL (0.2-1.3); PROTEIN - SERUM 6.3 g/dL (6.4-8.2)
[2019-10-25 14:59] LABS: ALBUMIN 3.5 g/dL (3.4-5.0)
--- NOTE | 2019-10-25 16:34 | OP ---
PATIENT NAME: DILIP FAYE MEDICAL RECORD: [id number] :58 LOCATION:[facility] [place] ADMISSION DATE:10/23/19 SURGEON: RONALD CALVERT MD DATE OF OPERATION: 10/24/2019 PREOPERATIVE DIAGNOSIS: Subtrochanteric hip fracture of the right hip. POSTOPERATIVE DIAGNOSIS: Subtrochanteric hip fracture of the right hip. PROCEDURE: Cephalomedullary fixation of the right subtrochanteric hip fracture - gamma nail. SURGEON: Ronald Calvert MD DECKHAND FISHING VESSEL: ANGEL Judge INTRAOPERATIVE COMPLICATIONS: None. SUMMARY OF PATHOLOGIC FINDINGS: The patient was indeed found to have a comminuted subtrochanteric fracture consistent with the preoperative radiographs. This was fixed with a long gamma nail. OPERATIVE SUMMARY IN DETAIL: After obtaining the appropriate preoperative orthopedic surgery consent as well as anesthetic consultation, evaluation and clearance, the patient was taken to the operating room and left on her hospital bed while general laryngeal mask anesthesia was performed. After the patient was completely sedated, she was moved to the fracture table. She was held firmly to the fracture table with a strap. Right leg was placed in the fracture boot. Left leg was placed in a well leg delaney. Under direct fluoroscopic visualization, the hip was reduced with the appropriate amount of traction and rotation. Having completed this, the right hip was prepped and draped in a routine sterile fashion. At this point, appropriate timeout was taken and agreed upon by all given the patient's unique identifiers. Incision was made proximal to the tip of the greater trochanter. The awl was then used to create a perforation of the greater trochanter. The ball-tipped guidewire was slide through the subtrochanteric fracture for reaming. Proximal reaming was then followed by insertion of the long gamma nail 300 mm. This was placed to the appropriate depth and then a guide pin was placed using the guide pin placement system into a low center position on both AP and lateral planes as seen on fluoroscopy. Appropriate reaming was done and a 105 mm compression screw was put into place and tensioned to within less than 2.5 cm on AP and lateral plane with the tip apex distance. The derotational screw was deployed and allowed for compression, but not the rotation. Compression was then achieved until radiograph showed that the compression was complete. Having completed this, attention was turned to distal interlocking. Under fluoroscopic guidance, the distal interlocking screw was placed and verified on AP and lateral planes. Having completed this, the wounds were copiously irrigated and closed with 2-0 Vicryl followed by skin brien done by ANGEL Judge. Sterile dressings were applied. The patient was awakened, taken to recovery room in stable condition. All final needle and sponge counts were correct. ESTIMATED BLOOD LOSS: 250 cc. TRANSINT:[id number] Voice Confirmation ID: [id number] DOCUMENT ID: [id number] OPERATIVE REPORT [id number] DILIP FAYE MD, RONALD CARTY at 1634 CC: [id number] DICTATION DATE: 10/25/19 1117 ARCHITECTURAL DRAFTING INSTRUCTOR: 10/25/19 1609 ADM IN [place] [id number] [place] [address]
--- NOTE | 2019-10-25 21:00 | NUR ---
LYING IN BED. ALERT AND ORIENTED. TELEMETRY SHOWS SR WITH RATE OF 76. O2 @ 2LNC BUT NOT WEARING. DRSG NOTED TO RT HIP IS C/D/I. LT GROIN/PUBIC AREA IS BRUISED. EDEMA NOTED TO RLE. TOES ON RT FOOT ARE RED, SCALY. SALINE LOCK NOTED TO RT HAND. RT HEMOSPLIT NOTED. DENIES PAIN. SR ELEVATED X2. CL IN REACH.
[2019-10-26 00:31] VITALS: BP 110/35
--- NOTE | 2019-10-26 01:34 | NUR ---
HAS RESTED WELL TONIGHT. PULLS O2 OFF DURING SLEEP AND STAFF PLACES IT BACK ON. NO DISTRESS. CL IN REACH.
--- NOTE | 2019-10-26 04:24 | NUR ---
V/S TAKEN. DENIES NEEDS. CL IN REACH. NO DISTRESS.
[2019-10-26 05:57] VITALS: BP 142/46
[2019-10-26 06:19] LABS: BASOPHILS 0.1 % (0-2); EOSINOPHILS 1.3 % (0-7); HEMATOCRIT 27.4 % (36.0-48.0); HEMOGLOBIN 9.1 g/dL (12-16); IMMATURE GRANULOCYTES 0.5 % (0-5); LYMPHOCYTES 8.9 % (15-50); MCH 30.6 pg (26.0-34.0); MCHC 33.2 g/dL (31.0-37.0); MEAN PLATELET VOLUME 10.5 fL (7.4-10.4); NEUTROPHILS 79.2 % (40-80); PLATELET COUNT 209 10x3/uL (130-400); RBC 2.97 10x6/uL (4.00-5.40); RDW 16.1 % (11.5-14.5)
[2019-10-26 06:20] LABS: MCV 92.3 fL (80.0-100.0); WBC 9.9 10x3/uL (4.8-10.8)
[2019-10-26 06:57] LABS: CALCIUM 8.9 mg/dL (8.5-10.1)
[2019-10-26 07:00] LABS: ANION GAP 19.3 mmol/L (8-16); CARBON DIOXIDE 23.6 mmol/L (21.0-32.0); CREATININE - SERUM 5.5 mg/dL (0.6-1.3); PHOSPHOROUS 7.9 mg/dL (2.5-4.9); POTASSIUM - SERUM 3.9 mmol/L (3.5-5.1)
--- NOTE | 2019-10-26 07:50 | NUR ---
RESTING IN BED WITH EYES CLOSED, EASILY AROUSED TO SPEECH. STATES PAIN 8/10 ADMINISTERED PAIN MEDICATION PER DRS ORDERS. IV LOCATED TO RIGHT HAND CURRENTLY SL, RCVING 2L VIA NC. DENIES ANY FURTHER NEEDS, WILL CONT TO MONITOR.
[2019-10-26 08:16] VITALS: BP 137/52
[2019-10-26 08:25] LABS: ALT (SGPT) 1460 U/L (10-68)
[2019-10-26 12:23] VITALS: BP 143/40
[2019-10-26 16:40] VITALS: BP 156/47
--- NOTE | 2019-10-26 16:51 | NUR ---
PT PULLED OUT IV, CATH TIP INTACT. STARTED NEW IV TO RIGHT FOREARM.
--- NOTE | 2019-10-26 19:35 | NUR ---
LYING IN BED. DROWSY. SLOW TO RESPOND TO QUESTIONS. REPORTS PAIN IN RT HIP 7. DRSG NOTED TO RT HIP IS C/D/I. TELEMETRY SHOWS SR WITH RATE OF 79. O2 @ 3L/NC IS OFF AND PLACED BACK ON PT. SHE STATES SHE PULLS IT OFF DURING SLEEP. SALINE LOCK NOTED TO RT FOREARM. RT CHEST HEMOSPLIT IS SALINE LOCKED. LT ARM RESERVE DUE TO FISTULA. BED ALARM ON. CL IN REACH. ORIENTED TO SELF, PLACE, SITUATION, CONFUSED TO TIME.
--- NOTE | 2019-10-26 20:28 | NUR ---
MEDICATED FOR C/O PAIN IN RT HIP RATING 7. CL IN REACH. BED ALARM ON
[2019-10-26 21:16] VITALS: BP 145/45
--- NOTE | 2019-10-26 22:05 | NUR ---
LYING IN BED. HOB ELEVATED. EYES CLOSED. RESP NONLABORED. NO DISTRESS. CL IN REACH. BED ALARM ON
[2019-10-27 01:27] VITALS: BP 166/56
--- NOTE | 2019-10-27 01:30 | NUR ---
RESTING WITH EYES CLOSED. RESP NONLABORED. NO DISTRESS. O2 @ 3LNC. CL IN REACH.
[2019-10-27 05:09] LABS: BASOPHILS 0.1 % (0-2); EOSINOPHILS 2.7 % (0-7); HEMATOCRIT 27.1 % (36.0-48.0); IMMATURE GRANULOCYTES 0.6 % (0-5); LYMPHOCYTES 12.3 % (15-50); MCH 30.6 pg (26.0-34.0); MCHC 33.2 g/dL (31.0-37.0); MCV 92.2 fL (80.0-100.0); MEAN PLATELET VOLUME 10.3 fL (7.4-10.4); MONOCYTES 11.8 % (2-11); NEUTROPHILS 72.5 % (40-80); PLATELET COUNT 223 10x3/uL (130-400); RBC 2.94 10x6/uL (4.00-5.40); RDW 15.6 % (11.5-14.5); WBC 9.4 10x3/uL (4.8-10.8)
[2019-10-27 05:44] VITALS: BP 161/58
[2019-10-27 05:53] LABS: CALCIUM 8.9 mg/dL (8.5-10.1); CREATININE - SERUM 6.8 mg/dL (0.6-1.3); MAGNESIUM - SERUM 2.2 mg/dL (1.8-2.4)
[2019-10-27 07:46] VITALS: BP 149/47
[2019-10-27 12:03] VITALS: BP 145/52
[2019-10-27 14:48] LABS: MAGNESIUM - SERUM 2.3 mg/dL (1.8-2.4)
[2019-10-27 14:50] LABS: TROPONIN-I 0.794 ng/mL (0.000-0.060)
[2019-10-27 15:09] VITALS: BMI 30.5
--- NOTE | 2019-10-27 15:50 | NUR ---
DOES NOT WANT NARCAN. STATED SHE SLEPT THIS MORNING FOR AWHILE AND SHE IS NOW AWAKE. TELEMETRY CALLED AND STATED PATIENT RUNNING VTACH AGAIN. PATIENT IN BED. BETTY RN LISTENED TO PATIENT. STATED SHE COULD HERE A REGULAR HB AT FIRST BUT THEN IT GOES IRREGULAR. TELE STICKERS REPLACED. WILL CONTINUE TO MONITOR. CALL LIGHT WITHIN REACH.
--- NOTE | 2019-10-27 16:15 | NUR ---
IOANA CALLED CARDIOLOGY PER ORDERS.
[2019-10-27 16:41] VITALS: BP 144/64
--- NOTE | 2019-10-27 16:45 | NUR ---
IOANA PAGED CARDIO AGAIN TO GET ORDERS AND CONSULT.
--- NOTE | 2019-10-27 17:30 | NUR ---
FINALLY SPOKE WITH MALKA. NEW ORDERS RECIEVED AND CARRIED OUT. NOTIFIED [facility] THAT PATIENT WOULD NEED TO BE TRANSFERRED FOR AN AMIODORONE DRIP. VERBALIZED UNDERSTANDING. PATIENT IN BED WITH IV INTACT. NO COMPLAINTS AT THIS TIME. TELE ON. VS WNL. CALL LIGHT WITHIN REACH.
--- NOTE | 2019-10-27 17:55 | NUR ---
CALLED REPORT TO DAVID ON MED 2
--- NOTE | 2019-10-27 18:15 | NUR ---
PATIENT TRANSFERRED TO 2122. NOTIFIED BROTHER ARNIE AT THIS TIME. BELONGINGS TAKEN WITH PATIENT, INCLUDING CELL PHONE. [facility].
--- NOTE | 2019-10-27 18:21 | NUR ---
CALLED ARNIE VALERA TO LET HIM KNOW PATIENT HAD BEEN MOVED TO 2122 AT THIS TIME. NO ANSWER. VOICEMAIL LEFT.
--- NOTE | 2019-10-27 19:30 | NUR ---
RECEIVED BEDSIDE REPORT. ROUNDING COMPLETE. PATIENT IS RESTING COMFORTABLY IN BED. RESPIRATIONS ARE EVEN AND UNLABORED. NO S/S OF DISTRESS. NO C/O PAIN. CALL LIGHT WITHIN REACH. WILL CPOC.
[2019-10-27 20:00] VITALS: BP 129/49
[2019-10-28] VITALS: BP 132/55
[2019-10-28 07:06] VITALS: BP 134/52
--- NOTE | 2019-10-28 07:20 | NUR ---
RECIEVE REPORT. ALERT AND CONFUSED TO SITUATION AND TIME. ASSIST ON BED BUSTILLO. DENIES ANY OTHER NEEDS AT THIS TIME. CONTINUE PLAN OF CARE AND SAFETY PRECAUTIONS.
[2019-10-28 07:22] LABS: ANION GAP 17.8 mmol/L (8-16); CALCIUM 8.7 mg/dL (8.5-10.1); CREATININE - SERUM 6.4 mg/dL (0.6-1.3); MAGNESIUM - SERUM 2.2 mg/dL (1.8-2.4); PHOSPHOROUS 7.2 mg/dL (2.5-4.9); POTASSIUM - SERUM 3.8 mmol/L (3.5-5.1)
[2019-10-28 07:25] LABS: TROPONIN-I 0.925 ng/mL (0.000-0.060)
[2019-10-28 07:43] LABS: BASOPHILS 0.2 % (0-2); EOSINOPHILS 1.2 % (0-7); HEMATOCRIT 27.2 % (36.0-48.0); HEMOGLOBIN 8.9 g/dL (12-16); IMMATURE GRANULOCYTES 0.7 % (0-5); LYMPHOCYTES 14.1 % (15-50); MCH 30.5 pg (26.0-34.0); MCHC 32.7 g/dL (31.0-37.0); MCV 93.2 fL (80.0-100.0); MEAN PLATELET VOLUME 10.4 fL (7.4-10.4); MONOCYTES 14.5 % (2-11); NEUTROPHILS 69.3 % (40-80); PLATELET COUNT 203 10x3/uL (130-400); RBC 2.92 10x6/uL (4.00-5.40); RDW 15.6 % (11.5-14.5); WBC 11.2 10x3/uL (4.8-10.8)
[2019-10-28 08:24] VITALS: Ht 170.2 cm; Wt 95.6 kg
[2019-10-28 08:48] LABS: CHOL - HDL RATIO 3.4 ratio (2.3-4.1); LDL-HDL RATIO 1.7 ratio (1.5-3.5)
[2019-10-28 11:03] VITALS: BP 168/59
--- NOTE | 2019-10-28 14:50 | NUR ---
ALERT AND CONFUSED X3. RT WRIST IV OUT. LINENS SOILED WITH BLOOD. BED BATH AND LINEN CHANGE COMPLETE. CALL ARNIE VILLEDA (BROTHER) FOR NEXT OF KIN TO GIVE CONSENT FOR HEART CATH TOMORROW 10/29/19. ARNIE STATES, "NEXT OF KIN IS HER SON LUIZ FAYE, I WILL HAVE HIM CALL YOU."
[2019-10-28 14:57] VITALS: BP 137/40
--- NOTE | 2019-10-28 15:39 | NUR ---
OT NOTE: PT COMPLETED BED MOB WITH MAX/MOD A X2. PT COMPLETED SUPINE TO SIT WITH MAX/MOD A X2. PT COMPLETED HYGIENE TASKS WITH MAX A. [phone] THANK YOU,AMI DUMONT
--- NOTE | 2019-10-28 16:49 | NUR ---
ALERT AND CONFUSED. LUIZ FAYE GIVES CONSENT FOR TRIMMER HAND IN AM. IV RESITE 22G TO RT FA. NO CHANGE. CONTINUE PLAN OF CARE AND SAFETY PRECAUTIONS.
--- NOTE | 2019-10-28 19:36 | NUR ---
RECEIVED BEDSIDE REPORT. ROUNDING COMPLETE. PATIENT IS ALERT AND PLEASANLY CONFUSED, RESTING COMFORTABLY IN BED. RESPIRATIONS ARE EVEN AND UNLABORED. NO S/S OF DISTRESS. NO C/O PAIN. CALL LIGHT WITHIN REACH. WILL CPOC.
[2019-10-28 20:00] VITALS: BP 119/58; BP 137/47
[2019-10-29 04:00] VITALS: BP 140/51
[2019-10-29 06:43] LABS: BASOPHILS 0.1 % (0-2); EOSINOPHILS 0 % (0-7); HEMATOCRIT 26.8 % (36.0-48.0); HEMOGLOBIN 8.7 g/dL (12-16); IMMATURE GRANULOCYTES 0.7 % (0-5); LYMPHOCYTES 8.2 % (15-50); MCH 29.9 pg (26.0-34.0); MCHC 32.5 g/dL (31.0-37.0); MCV 92.1 fL (80.0-100.0); MEAN PLATELET VOLUME 10.1 fL (7.4-10.4); MONOCYTES 3.4 % (2-11); NEUTROPHILS 87.6 % (40-80); PLATELET COUNT 176 10x3/uL (130-400); RBC 2.91 10x6/uL (4.00-5.40); RDW 15.3 % (11.5-14.5)
[2019-10-29 06:58] LABS: WBC 8.2 10x3/uL (4.8-10.8)
[2019-10-29 07:20] LABS: ANION GAP 21.3 mmol/L (8-16); CALCIUM 9.1 mg/dL (8.5-10.1); CARBON DIOXIDE 22.7 mmol/L (21.0-32.0); CREATININE - SERUM 7.6 mg/dL (0.6-1.3); MAGNESIUM - SERUM 2.4 mg/dL (1.8-2.4)
--- NOTE | 2019-10-29 14:08 | NUR ---
PT BACK FROM [facility]. GROIN DSG CDI. VITALS TAKEN AND TRANSFERRED TO DIALYSIS FOR TREATMENT. INSTRUCTED NURSE PT IS TO LIE FLAT FOR 4 HOURS AND KEEP EYE ON GROIN FOR BLEEDING AND PULSE CHECKS.
--- NOTE | 2019-10-29 18:30 | NUR ---
PT TRANSFERRED BACK TO ROOM FROM DIALYSIS. LEFT GROIN DRESSING IS CLEAN AND DRY BUT SOME BRUISING AROUND PUBIS AREA NOTED. VITALS BEING MONITORED DURING DIALYSIS.
[2019-10-29 20:00] VITALS: BP 136/45
[2019-10-30] VITALS: BP 138/54
[2019-10-30 04:00] VITALS: BP 121/48
[2019-10-30 07:11] LABS: BASOPHILS 0.1 % (0-2); EOSINOPHILS 0 % (0-7); HEMATOCRIT 25.9 % (36.0-48.0); HEMOGLOBIN 8.5 g/dL (12-16); IMMATURE GRANULOCYTES 1.3 % (0-5); LYMPHOCYTES 11.1 % (15-50); MCH 30.5 pg (26.0-34.0); MCHC 32.8 g/dL (31.0-37.0); MCV 92.8 fL (80.0-100.0); MEAN PLATELET VOLUME 10.5 fL (7.4-10.4); MONOCYTES 4.7 % (2-11); NEUTROPHILS 82.8 % (40-80); PLATELET COUNT 177 10x3/uL (130-400); RBC 2.79 10x6/uL (4.00-5.40); RDW 15.6 % (11.5-14.5); WBC 8.4 10x3/uL (4.8-10.8)
[2019-10-30 07:53] LABS: ANION GAP 18.3 mmol/L (8-16); CALCIUM 9.1 mg/dL (8.5-10.1); CARBON DIOXIDE 24.6 mmol/L (21.0-32.0); MAGNESIUM - SERUM 2.3 mg/dL (1.8-2.4); POTASSIUM - SERUM 3.9 mmol/L (3.5-5.1)
[2019-10-30 07:58] LABS: CREATININE - SERUM 5.2 mg/dL (0.6-1.3)
[2019-10-30 08:07] VITALS: BP 158/50
--- NOTE | 2019-10-30 12:12 | NUR ---
OT NOTE: PT DOING MUCH BETTER TODAY, HOWEVER, CONTINUES WITH INTERMITTENT CONFUSION. REQUIRED MAX ASSIST X 2 TO GET TO EOB; ONCE TO EOB, SITTING BALANCE WAS GOOD. ABLE TO PERFORM A FEW SIMPLE GROOMING TASKS. MOTIVATED TO GET UP INTO CHAIR TODAY. PROVIDED WITH WALKER; PT PERFORMED SIT TO STAND WITH MOD ASSIST. TOOK SEVERAL VERY SMALL STEPS FROM BED TO CHAIR; PT VERY FATIGUED AND SOB ONCE IN CHAIR. EDUCATED ON UE EXS TO IMPROVE STRENGTH FOR WALKER MGMT. TRAY SET UP FOR LUNCH COLEEN LARIOS, OTR/L [phone]
--- NOTE | 2019-10-30 12:24 | NUR ---
PT GLUCOSE 450 AND 473 ON TWO DIFFERENT STICKS. ORDER PLACED FOR STAT GLUCOSE FROM LAB.
--- NOTE | 2019-10-30 13:20 | NUR ---
Nutrition Follow-up: Ate ~25% of breakfast this AM but drank Nepro. C/o dizziness with some nausea. S/p cath yesterday. HD MWF. -BM. Diet: Renal ADA, Nepro BID WT: 210# (10/27) Labs noted: Na 133, K+ 3.9, Glu 271, PO4 7.0 Meds noted: Solumedrol, Tums, Colace, Florajen, Pepcid, Humulin, NS @ KVO, electrolyte protocol -Encourage PO intake and honor food preferences within diet restrictions. -Monitor wt; noted daily wts ordered. -RD following.
--- NOTE | 2019-10-30 13:44 | NUR ---
PT GIVEN 12 UNITS PER SLIDING SCALE AND 8 ADDITIONAL UNITS OF INSULIN PER PHONE ORDER BY FRANCIA OLEARY. SCALE CHANGED TO INTERMEDIATE.
[2019-10-30 15:12] VITALS: BP 120/76
--- NOTE | 2019-10-30 16:13 | NUR ---
Rehab Prescreening Consult recieved and the chart has been reviewed. Patient recently had a preauth initiated with [employer] that was cancelled by the intake nurse Magda Sarabia stating patient was unstable. After reviewing chart patient appears much more stable, will call Magda Sarabia to see if a new preauth will be required or if the original can be added to for their review. Kath Manzano RN Clinical Liaison, Rehab
--- NOTE | 2019-10-30 18:12 | NUR ---
PT POSITIONED IN BED FOR COMFORT. DRESSING TO RIGHT HIP CHANGED. GOWN CHANGED TO YELLOW GOWN.
[2019-10-30 20:22] VITALS: BP 123/48
[2019-10-31 00:32] VITALS: BP 108/45
[2019-10-31 04:30] VITALS: BP 125/69
[2019-10-31 05:45] LABS: BASOPHILS 0.1 % (0-2); EOSINOPHILS 0 % (0-7); HEMATOCRIT 27.6 % (36.0-48.0); HEMOGLOBIN 8.8 g/dL (12-16); IMMATURE GRANULOCYTES 1.6 % (0-5); LYMPHOCYTES 10.1 % (15-50); MCH 29.6 pg (26.0-34.0); MCHC 31.9 g/dL (31.0-37.0); MCV 92.9 fL (80.0-100.0); MEAN PLATELET VOLUME 10.1 fL (7.4-10.4); MONOCYTES 7.4 % (2-11); NEUTROPHILS 80.8 % (40-80); PLATELET COUNT 195 10x3/uL (130-400); RBC 2.97 10x6/uL (4.00-5.40); RDW 15.8 % (11.5-14.5); WBC 9.9 10x3/uL (4.8-10.8)
[2019-10-31 05:53] LABS: ANION GAP 13.9 mmol/L (8-16); CALCIUM 9.3 mg/dL (8.5-10.1); CARBON DIOXIDE 26.9 mmol/L (21.0-32.0); POTASSIUM - SERUM 3.8 mmol/L (3.5-5.1)
[2019-10-31 05:56] LABS: CREATININE - SERUM 6.7 mg/dL (0.6-1.3)
[2019-10-31 05:57] LABS: MAGNESIUM - SERUM 2.3 mg/dL (1.8-2.4); PHOSPHOROUS 7.9 mg/dL (2.5-4.9)
[2019-10-31 08:39] VITALS: BP 106/58
--- NOTE | 2019-10-31 12:17 | NUR ---
OT NOTE: PT IN DIALYSIS IN AM COLEEN LARIOS, OTR/L
--- NOTE | 2019-10-31 14:14 | NUR ---
PT BACK FROM DIALYSIS. LUNCH WARMED AND FSBS CHECKED.
--- NOTE | 2019-10-31 14:42 | NUR ---
Spoke to Magda Sarabia with [facility]. A new preauthorization will have to be started on this patient. I did fax updated clinicals from 10/27 forward and will initiate a new auth on Sunday. The rehab is full at 14 patients and will not have a bed until Sunday. Called and informed Elise Chester RN of this update. Kath Manzano RN CL
--- NOTE | 2019-10-31 18:13 | NUR ---
PT WITH TELEMETRY OFF AGAIN. HAS BEEN RUNNING SINUS TO VINCE SINCE OFF OF GTT. WAITING FOR REHAB SCREEN. CARDIO SIGNED OFF TODAY SO WILL LEAVE OFF DUE TO PT NOT WANTING TO WEAR IT.
--- NOTE | 2019-10-31 20:30 | NUR ---
PT IN BED, AAO X 3, RESP EVEN AND UNLABORED, NO DISTRESS NOTED, CL IN REACH, SR UP X 2.
--- NOTE | 2019-11-01 03:54 | NUR ---
I have reviewed this patient and I concur with the Shift Assessment completed by the Licensed Practical Nurse today this shift.
[2019-11-01 04:00] VITALS: BP 151/57
[2019-11-01 06:58] LABS: BASOPHILS 0.1 % (0-2); EOSINOPHILS 0 % (0-7); HEMATOCRIT 27.9 % (36.0-48.0); IMMATURE GRANULOCYTES 1.3 % (0-5); LYMPHOCYTES 9.2 % (15-50); MCH 30.6 pg (26.0-34.0); MCHC 32.3 g/dL (31.0-37.0); MEAN PLATELET VOLUME 10.4 fL (7.4-10.4); NEUTROPHILS 84.4 % (40-80); PLATELET COUNT 186 10x3/uL (130-400); RBC 2.94 10x6/uL (4.00-5.40); RDW 16.4 % (11.5-14.5); WBC 11.1 10x3/uL (4.8-10.8)
--- NOTE | 2019-11-01 07:00 | NUR ---
RECEIVED REPORT. ASSUMED CARE OF PATIENT. PATIENT RESTING WITH EYES CLOSED. RESP EVEN AND UNLABORED. CALL LIGHT WITHIN REACH. BEDSIDE SHIFT REPORT COMPLETE. WHITE BOARD UPDATED. NO DISTRESS.
[2019-11-01 07:04] LABS: MCV 94.9 fL (80.0-100.0)
[2019-11-01 07:29] LABS: ANION GAP 19.9 mmol/L (8-16); MAGNESIUM - SERUM 2.3 mg/dL (1.8-2.4); POTASSIUM - SERUM 3.9 mmol/L (3.5-5.1)
[2019-11-01 07:30] LABS: PHOSPHOROUS 5.9 mg/dL (2.5-4.9)
[2019-11-01 08:24] VITALS: BP 156/48
--- NOTE | 2019-11-01 09:44 | NUR ---
medicated for pain at this time. no acute distress.
--- NOTE | 2019-11-01 11:42 | NUR ---
FSBS 267. 10 UNITS HUMULIN ADMINISTERED PER SLIDING SCALE.
[2019-11-01 12:10] VITALS: BP 160/58
[2019-11-01 16:24] VITALS: BP 151/55
--- NOTE | 2019-11-01 16:49 | NUR ---
FSBS 350. 12 UNITS HUMULIN ADMINISTERED PER SLIDING SCALE.
--- NOTE | 2019-11-01 19:44 | NUR ---
RECEIVED REPORT, WILL ASSUME CARE OF PT, IV-22 RFA-SL, R.CHEST HEMOSPLIT, PT DENIES ANY NEEDS AT THIS TIME, BED IS LOW, SRX2, CALL LIGHT IN REACH, WILL CONTINUE PLAN OF CARE
[2019-11-01 21:14] VITALS: BP 155/50
[2019-11-02 00:16] VITALS: BP 146/48
--- NOTE | 2019-11-02 03:36 | NUR ---
I have reviewed this patient and I concur with the Shift Assessment completed by the Licensed Practical Nurse today this shift.
[2019-11-02 04:00] VITALS: BP 160/43
[2019-11-02 04:53] LABS: BASOPHILS 0.1 % (0-2); EOSINOPHILS 0 % (0-7); HEMATOCRIT 27.9 % (36.0-48.0); HEMOGLOBIN 8.9 g/dL (12-16); IMMATURE GRANULOCYTES 1.3 % (0-5); MCH 30.3 pg (26.0-34.0); MCHC 31.9 g/dL (31.0-37.0); MCV 94.9 fL (80.0-100.0); MEAN PLATELET VOLUME 10.4 fL (7.4-10.4); MONOCYTES 8.5 % (2-11); NEUTROPHILS 81.1 % (40-80); PLATELET COUNT 211 10x3/uL (130-400); RBC 2.94 10x6/uL (4.00-5.40); RDW 16.4 % (11.5-14.5); WBC 12.6 10x3/uL (4.8-10.8)
[2019-11-02 05:08] LABS: ANION GAP 13.3 mmol/L (8-16); CALCIUM 9.1 mg/dL (8.5-10.1); MAGNESIUM - SERUM 2.3 mg/dL (1.8-2.4); PHOSPHOROUS 6.2 mg/dL (2.5-4.9); POTASSIUM - SERUM 4.2 mmol/L (3.5-5.1)
[2019-11-02 05:09] LABS: CARBON DIOXIDE 29.9 mmol/L (21.0-32.0); CREATININE - SERUM 6.3 mg/dL (0.6-1.3)
--- NOTE | 2019-11-02 07:00 | NUR ---
RECEIVED REPORT. ASSUMED CARE OF PATIENT. PATIENT RESTING IN BED WITH EYES CLOSED, RESP EVEN AND UNLABORED. BEDSIDE SHIFT REPORT COMPLETE, WHITE BOARD UPDATED. CALL LIGHT WITHIN REACH. NO DISTRESS.
[2019-11-02 08:13] VITALS: BP 159/56
--- NOTE | 2019-11-02 11:29 | NUR ---
FSBS 357. 16 UNITS HUMULIN INSULIN ADMINISTERED PER SLIDING SCALE.
[2019-11-02 11:55] VITALS: BP 175/56
[2019-11-02 16:21] VITALS: BP 107/62
--- NOTE | 2019-11-02 16:30 | NUR ---
FSBS = 467, RECHECKED 457. NEW ORDER OBTAINED TO COVER WITH 20 UNITS HUMULIN NOW PER SLIDING SCALE, RECHECK IN ONE HOUR AND COVER PER SLIDING SCALE AT THAT TIME.
--- NOTE | 2019-11-02 18:10 | NUR ---
FSBS RECHECKED ORDERED AND = 404. FSBS TRENDING DOWNWARD. COVERED PER SLIDING SCALE WITH 20 UNITS AT THIS TIME. PATIENT WILL BE RECHECKED AT 2099.
[2019-11-02 18:56] VITALS: BP 107/62
--- NOTE | 2019-11-02 19:30 | NUR ---
RECEIVED REPORT, WILL ASSUME CARE OF PT, IV-RFA-SL, R.CHEST-HEMOSPLIT, LAVF, R.HIP FRACTURE-DRESSING IN PLACE, DENIES ANY NEEDS AT THIS TIME, BED IS LOW, SRX2, WILL CONTINUE PLAN OF CARE
[2019-11-03 03:54] VITALS: BP 141/42
--- NOTE | 2019-11-03 06:43 | NUR ---
[id number] MARCIAL
[2019-11-03 07:05] LABS: ANION GAP 18.8 mmol/L (8-16); CARBON DIOXIDE 24.9 mmol/L (21.0-32.0); CREATININE - SERUM 6.7 mg/dL (0.6-1.3); MAGNESIUM - SERUM 2.3 mg/dL (1.8-2.4); PHOSPHOROUS 5.3 mg/dL (2.5-4.9); POTASSIUM - SERUM 4.7 mmol/L (3.5-5.1)
[2019-11-03 07:17] VITALS: BP 166/45
[2019-11-03 07:56] LABS: HEMATOCRIT 29.1 % (36.0-48.0); HEMOGLOBIN 9.7 g/dL (12-16); MCH 31.3 pg (26.0-34.0); MCHC 33.3 g/dL (31.0-37.0); MCV 93.9 fL (80.0-100.0); PLATELET COUNT 247 10x3/uL (130-400); RDW 16.7 % (11.5-14.5); WBC 22.8 10x3/uL (4.8-10.8)
[2019-11-03 08:02] VITALS: BP 150/51
--- NOTE | 2019-11-03 08:32 | NUR ---
RIGHT HIP LEAKED SEROSANGENOUS FLUID THROUGH DRESSING ONTO PAD A MODERATE AMOUNT. CHANGED PADS AND REMOVED DRESSING AND CLEANSER WITH WOUND CLEANSER AND 4X4'S AND PATTED DRY. X3 INCISION SHOW NO S/S OF INFECTION AND SHELIA INTACT. PLACED BORDER GAUZE DRESSING ON RIGHT HIP. WILL CONTINUE TO MONITOR.
--- NOTE | 2019-11-03 10:08 | NUR ---
PT TAKEN TO DIALSYSIS VIA .
--- NOTE | 2019-11-03 10:20 | MORECARE ---
CASE MANAGEMENT DISCHARGE SUMMARY PATIENT: DILIP FAYE UNIT: [id number] ADM DATE: 10/23/19 AGE: 59 : 58 SEX: F ROOM/BED: D.1321 AUTHOR: ADELIADOC PHYSICIAN: REFERRING PHYSICIAN: NICHOLE BIRCH MD DATE OF SERVICE: 11/03/19 Discharge Plan Patient Name: DILIP FAYE Facility: [facility]:[place] : 1960 Planned Disposition: Anticipated Discharge Date: Discharge Date: Expected LOS: Initial Reviewer: [email or web address] Initial Review Date: 10/23/2019 Generated: 11/03/19 11:20 am Comments DCP- Discharge Planning Updated by [id number]: Elise Chester on 10/31/19 1:[address] Patient Name: DILIP FAYE Admission Status: ER Accout number: [id number] Admission Date: 10-23-2019 : 1960 Admission Diagnosis:FRACTURE OF UNSP PART OF NECK OF UNSP FEMUR, INIT Attending: NICHOLE BIRCH Current LOS: 8 Anticipated DC Date: Planned Disposition: Primary Insurance: [employer] CHO[employer] PPO MCR ADVANT Discharge Planning Comments: NICKIE spoke with Kath in IP rehab. The auth was canceled, and Lakisha will determine if a new auth will be required. Kath states they do not have any available beds and will consider her for admit on Sunday if the insurance auth is completed. CM will continue to assist in DC planning/needs. Export Sales Assistant: Elise Chester DCP- Discharge Planning Updated by [id number]: Elise Chester on 10/31/19 1:[address] Patient Name: DILIP FAYE Admission Status: ER Accout number: [id number] Admission Date: 10-23-2019 : 1960 Admission Diagnosis:FRACTURE OF UNSP PART OF NECK OF UNSP FEMUR, INIT Attending: NICHOLE BIRCH Current LOS: 8 Anticipated DC Date: Planned Disposition: Primary Insurance: [employer] CHOICE PPO MCR ADVANT Late entry assessment completed 10/30/19 Discharge Planning Comments: CM met with patient to complete initial dc planning assessment. CM educated patient on the CM role and verbal consent given by patient to complete assessment. CM verified patient's address, phone number, and emergency contact phone numbers. Patient lives with her God child's parents. . At discharge patient plans to return home and feels this is a safe discharge. Pt states since her last admit, she has fallen and fractured her hip. States she would like to go to [facility] Ip rehab. RONALD signed. CM discussed availability of home health, rehab services, and medical equipment. Patient states she has a walker, and would like HH with PT at discharge after IP rehab. Patient denies other known discharge needs at this time.CM will continue to follow and will assist as needed with dc plans/needs. Export Sales Assistant: Elise Chester Coverage Notice Reviewer: [id number] - Elise Chester Notice Issued Date-Time: 10/31/2019 14:10 Notice Type: Patient Choice Letter Notice Delivered To: Patient Relationship to Patient: Self Dental Service Technician Name: Delivery Method: HAND - Hand Delivered Darlene Days: Prior Verbal Notification: Recipient Understood Notice: Yes Recipient Signature: Yes Med Rec Note Co-signed by Attending: Coverage Notice Comment: ronald for ip rehab at [facility] Patient Name: DILIP FAYE Page [phone] at 1020 All edits/amendments must be made on the electronic document DICTATION DATE: 11/03/19 1020 TITLE CURATOR: DUY 11/03/19 1020 RPT#: [id number] DC DATE: STATUS: ADM IN [facility] [address] [place] [address] END OF REPORT
[2019-11-03 11:15] LABS: ANISOCYTOSIS OCC; LYMPHOCYTES 14 % (15-50); MONOCYTES 17 % (2-11); NEUTROPHILS 66 % (40-80); PLATELET ESTIMATE NORMAL
[2019-11-03 16:29] VITALS: BP 151/41
--- NOTE | 2019-11-03 19:38 | NUR ---
RECEIVED REPORT, WILL ASSUME CARE OF PT, PT DENIES ANY NEEDS AT THIS TIME, BED IS LOW, SRX2, CALL LIGHT IN REACH, WILL CONTINUE PLAN OF CARE
[2019-11-03 22:45] VITALS: BP 144/41
[2019-11-04 02:12] VITALS: BP 148/52
[2019-11-04 06:14] VITALS: BP 145/58
[2019-11-04 07:00] VITALS: BP 141/48
[2019-11-04 07:04] LABS: BASOPHILS 0.1 % (0-2); EOSINOPHILS 0 % (0-7); HEMATOCRIT 27.6 % (36.0-48.0); HEMOGLOBIN 8.6 g/dL (12-16); MCHC 31.2 g/dL (31.0-37.0); MEAN PLATELET VOLUME 10.2 fL (7.4-10.4); MONOCYTES 4.6 % (2-11); NEUTROPHILS 82.3 % (40-80); PLATELET COUNT 218 10x3/uL (130-400); RBC 2.87 10x6/uL (4.00-5.40); RDW 16.9 % (11.5-14.5)
[2019-11-04 07:07] LABS: MCV 96.2 fL (80.0-100.0)
[2019-11-04 07:30] LABS: ANION GAP 14.7 mmol/L (8-16); CALCIUM 8.6 mg/dL (8.5-10.1); CARBON DIOXIDE 27.7 mmol/L (21.0-32.0); POTASSIUM - SERUM 4.4 mmol/L (3.5-5.1)
--- NOTE | 2019-11-04 10:17 | NUR ---
PT HAS MODERATE AMOUNT OF SEROSANGENOUS FLUID THAT LEAKED THROUGH DRESSING AND IS ON WHITE PAD. CALLED AND PSOKE WITH SARWAT OLEARY AND SHE STATES SHE WILL COME LOOK AT IT AROUND LUNCH TIME. I VERBALIZED UNDERSTANDING.
--- NOTE | 2019-11-04 10:23 | NUR ---
PT REFUSED TO HAVE PAD CHANGED BECUASE SHE IS TRYING TO SLEEP.
--- NOTE | 2019-11-04 10:46 | NUR ---
Nutrition Follow-up: Good/fair PO intake. HD yesterday. Diet: Renal ADA PO intake: 50-100% No new wt; last wt: 210# (10/27) Labs noted: Na 133, Glu 157 Meds noted: Solumedrol, Miralax, Tums, Colace, Florajen, Pepcid, electrolyte protocol -Encourage PO intake and honor food preferences within diet restrictions. -Need new wt if possible; noted daily wts ordered. -RD following.
--- NOTE | 2019-11-04 10:51 | NUR ---
OT NOTE: PT PERFORMED MUCH BETTER TODAY. SHE WAS INITIALLY LETHARGIC BUT AGREEABLE TO TMT. PERFORMED BED MOB INCLUDING SUPINE TO SIT WITH MIN ASSIST AND EXTENDED TIME. SIT TO STAND FROM BED WITH USE OF WALKER AND MIN ASSIST; AMB TO BATHROOM WITH MIN/CGA. TOILET TRANSFER WITH MIN/MOD ASSIST; HYGINE WITH MIN ASSIST; PT ABLE TO BATH UPPER BODY, FACE, AND NECK WITH SET UP; MAX ASSIST WITH BACK, PERINEAL AREA, AND LOWER LEGS; SET UP TO RUPA GOWN; REQUIRED MAX ASSIST FOR SIT TO STAND FROM TOILET. IN ROOM AMBULATION GREATER THAN 15 FT WITH WALKER AND CGA; EDUCATED ON UE AND LE EXS WHILE SITTING IN [facility]. COLEEN LARIOS, OTR/L [phone]
[2019-11-04 11:00] VITALS: BP 145/64
--- NOTE | 2019-11-04 11:00 | NUR ---
O.T. GAVE PT A BED BATH AND DID A COMPLETE LINEN CHANGE AND PLACED PT IN RECLINER CHAIR.
--- NOTE | 2019-11-04 11:37 | MORECARE ---
CASE MANAGEMENT DISCHARGE SUMMARY PATIENT: DILIP FAYE UNIT: [id number] ADM DATE: 10/23/19 AGE: 59 : 58 SEX: F ROOM/BED: D.4594 AUTHOR: ADELIADOC PHYSICIAN: REFERRING PHYSICIAN: NICHOLE BIRCH MD DATE OF SERVICE: 11/04/19 Discharge Plan Patient Name: DILIP FAYE Facility: [facility]:[place] : 1960 Planned Disposition: Anticipated Discharge Date: Discharge Date: Expected LOS: Initial Reviewer: [email or web address] Initial Review Date: 10/23/2019 Generated: 11/04/19 12:37 pm Comments DCP- Discharge Planning Updated by [id number]: Elise Chester on 10/31/19 1:[address] Patient Name: DILIP FAYE Admission Status: ER Accout number: [id number] Admission Date: 10-23-2019 : 1960 Admission Diagnosis:FRACTURE OF UNSP PART OF NECK OF UNSP FEMUR, INIT Attending: NICHOLE BIRCH Current LOS: 8 Anticipated DC Date: Planned Disposition: Primary Insurance: [employer] CHO[employer] PPO MCR ADVANT Discharge Planning Comments: NICKIE spoke with Kath in IP rehab. The auth was canceled, and Lakisha will determine if a new auth will be required. Kath states they do not have any available beds and will consider her for admit on Sunday if the insurance auth is completed. CM will continue to assist in DC planning/needs. Cat Swamper: Elise Chester DCP- Discharge Planning Updated by [id number]: Elise Chester on 10/31/19 1:[address] Patient Name: DILIP FAYE Admission Status: ER Accout number: [id number] Admission Date: 10-23-2019 : 1960 Admission Diagnosis:FRACTURE OF UNSP PART OF NECK OF UNSP FEMUR, INIT Attending: NICHOLE BIRCH Current LOS: 8 Anticipated DC Date: Planned Disposition: Primary Insurance: [employer] CHO[employer] PPO MCR ADVANT Late entry assessment completed 10/30/19 Discharge Planning Comments: CM met with patient to complete initial dc planning assessment. CM educated patient on the CM role and verbal consent given by patient to complete assessment. CM verified patient's address, phone number, and emergency contact phone numbers. Patient lives with her God child's parents. . At discharge patient plans to return home and feels this is a safe discharge. Pt states since her last admit, she has fallen and fractured her hip. States she would like to go to [facility] Ip rehab. RONALD signed. CM discussed availability of home health, rehab services, and medical equipment. Patient states she has a walker, and would like HH with PT at discharge after IP rehab. Patient denies other known discharge needs at this time.CM will continue to follow and will assist as needed with dc plans/needs. Cat Swamper: Elise Chester External Providers [facility] Next Contact Date: Service Request Date: Service Type: Resolution: Reviewer: Comments: Coverage Notice Reviewer: [id number] - Elise Chester Notice Issued Date-Time: 10/31/2019 14:10 Notice Type: Patient Choice Letter Notice Delivered To: Patient Relationship to Patient: Self Social Media Specialist Name: Delivery Method: HAND - Hand Delivered Darlene Days: Prior Verbal Notification: Recipient Understood Notice: Yes Recipient Signature: Yes Med Rec Note Co-signed by Attending: Coverage Notice Comment: ronald for ip rehab at [facility] Last DP export: 11/03/19 9:20 a Patient Name: DILIP FAYE Page [phone] at 1137 All edits/amendments must be made on the electronic document DICTATION DATE: 11/04/19 1137 EXPERIMENTAL ROCKETSLED MECHANIC: DUY 11/04/19 1137 RPT#: [id number] DC DATE: STATUS: ADM IN [facility] [address] [place] [address] END OF REPORT
--- NOTE | 2019-11-04 11:45 | NUR ---
SARWAT OLEARY IN ROOM AND LOOKED AT PT'S RIGHT HIP. SHE STATES IT IS DRAINGING SEROUS FLUID BECAUSE OF PT'S SWELLING HER LEG BUT THE INCISIONS LOOK GOOD AND THEY ARE NOT INFECTED. SHE STATES TO CLEANSE INCISION WITH A CHLORAPREP AND COVER WITH THE BORDER GAUZE DRESSING. FOLLOWED THIS INSTRUCTIONS AND PT TOLERATED WELL.
--- NOTE | 2019-11-04 12:03 | MORECARE ---
CASE MANAGEMENT DISCHARGE SUMMARY PATIENT: DILIP FAYE UNIT: [id number] ADM DATE: 10/23/19 AGE: 59 : 58 SEX: F ROOM/BED: D.9076 AUTHOR: ADELIADOC PHYSICIAN: REFERRING PHYSICIAN: NICHOLE BIRCH MD DATE OF SERVICE: 11/04/19 Discharge Plan Patient Name: DILIP FAYE Facility: [facility]:[place] : 1960 Planned Disposition: Anticipated Discharge Date: Discharge Date: Expected LOS: Initial Reviewer: [email or web address] Initial Review Date: 10/23/2019 Generated: 11/04/19 1:02 pm Comments DCP- Discharge Planning Updated by [id number]: Elise Chester on 10/31/19 1:[address] Patient Name: DILIP FAYE Admission Status: ER Accout number: [id number] Admission Date: 10-23-2019 : 1960 Admission Diagnosis:FRACTURE OF UNSP PART OF NECK OF UNSP FEMUR, INIT Attending: NICHOLE BIRCH Current LOS: 8 Anticipated DC Date: Planned Disposition: Primary Insurance: [employer] PPO MCR ADVANT Discharge Planning Comments: NICKIE spoke with Kath in IP rehab. The auth was canceled, and Lakisha will determine if a new auth will be required. Kath states they do not have any available beds and will consider her for admit on Sunday if the insurance auth is completed. CM will continue to assist in DC planning/needs. Elementary Assistant Teacher: Elise Chester DCP- Discharge Planning Updated by [id number]: Elise Chester on 10/31/19 1:[address] Patient Name: DILIP FAYE Admission Status: ER Accout number: [id number] Admission Date: 10-23-2019 : 1960 Admission Diagnosis:FRACTURE OF UNSP PART OF NECK OF UNSP FEMUR, INIT Attending: NICHOLE BIRCH Current LOS: 8 Anticipated DC Date: Planned Disposition: Primary Insurance: [employer] CHO[employer] PPO MCR ADVANT Late entry assessment completed 10/30/19 Discharge Planning Comments: CM met with patient to complete initial dc planning assessment. CM educated patient on the CM role and verbal consent given by patient to complete assessment. CM verified patient's address, phone number, and emergency contact phone numbers. Patient lives with her God child's parents. . At discharge patient plans to return home and feels this is a safe discharge. Pt states since her last admit, she has fallen and fractured her hip. States she would like to go to [facility] Ip rehab. RONALD signed. CM discussed availability of home health, rehab services, and medical equipment. Patient states she has a walker, and would like HH with PT at discharge after IP rehab. Patient denies other known discharge needs at this time.CM will continue to follow and will assist as needed with dc plans/needs. Elementary Assistant Teacher: Elise Chester External Providers External Provider: [facility] Next Contact Date: Service Request Date: Service Type: Resolution: Reviewer: Comments: Coverage Notice Reviewer: [id number] - Elise Chester Notice Issued Date-Time: 10/31/2019 14:10 Notice Type: Patient Choice Letter Notice Delivered To: Patient Relationship to Patient: Self Laboratory Technical Specialist Name: Delivery Method: HAND - Hand Delivered Darlene Days: Prior Verbal Notification: Recipient Understood Notice: Yes Recipient Signature: Yes Med Rec Note Co-signed by Attending: Coverage Notice Comment: ronald for ip rehab at [facility] Last DP export: 11/04/19 10:37 a Patient Name: DILIP FAYE Page [phone] at 1203 All edits/amendments must be made on the electronic document DICTATION DATE: 11/04/19 1203 GLASS SMOOTHER: DUY 11/04/19 1203 RPT#: [id number] DC DATE: STATUS: ADM IN [facility] [address] [place] [address] END OF REPORT
--- NOTE | 2019-11-04 12:17 | MORECARE ---
CASE MANAGEMENT DISCHARGE SUMMARY PATIENT: DILIP FAYE UNIT: [id number] ADM DATE: 10/23/19 AGE: 59 : 58 SEX: F ROOM/BED: D.8004 AUTHOR: EVELYN DELVALLE PHYSICIAN: REFERRING PHYSICIAN: NICHOLE BIRCH MD DATE OF SERVICE: 11/04/19 Discharge Plan Patient Name: DILIP FAYE Facility: [facility]:[place] : 1960 Planned Disposition: Anticipated Discharge Date: Discharge Date: Expected LOS: Initial Reviewer: [id number] Initial Review Date: 10/23/2019 Generated: 11/04/19 1:16 pm Comments DCP- Discharge Planning Updated by [email or web address]: Elise Chester on 11/04/19 11:[address] Patient Name: DILIP FAYE Encounter No: [id number] : 1960 Primary Insurance: [employer] CHOICE PPO MCR ADVANT Anticipated DC Date: Planned Disposition: External Planned Provider: : DCP follow-up note: CM spoke with pt about SNF for rehab. Pt in agreement with [facility] for rehab. Pt choices were for [address] [place] [address], [facility], [facility] CM called Renetta at [facility] about referral. [place] states they do not accept dialysis patients at this time. Cm called Nikki at [facility] at [phone] about referral. CM left message and faxed referral. Will await return call. Patient and family in agreement with discharge plan. Case management will follow and assist as needed. Elise Chester DCP- Discharge Planning Updated by [email or web address]: Elise Chester on 10/31/19 1:[address] Patient Name: DILIP FAYE Admission Status: ER Accout number: [id number] Admission Date: 10-23-2019 : 1960 Admission Diagnosis:FRACTURE OF UNSP PART OF NECK OF UNSP FEMUR, INIT Attending: NICHOLE BIRCH Current LOS: 8 Anticipated DC Date: Planned Disposition: Primary Insurance: [employer] CHOICE PPO MCR ADVANT Discharge Planning Comments: NICKIE spoke with Kath in IP rehab. The auth was canceled, and Lakisha will determine if a new auth will be required. Kath states they do not have any available beds and will consider her for admit on Sunday if the insurance auth is completed. CM will continue to assist in DC planning/needs. Tobacco Stripper: Elise Chester DCP- Discharge Planning Updated by [email or web address]: Elise Chester on 10/31/19 1:[address] Patient Name: DILIP FAYE Admission Status: ER Accout number: [id number] Admission Date: 10-23-2019 : 1960 Admission Diagnosis:FRACTURE OF UNSP PART OF NECK OF UNSP FEMUR, INIT Attending: NICHOLE BIRCH Current LOS: 8 Anticipated DC Date: Planned Disposition: Primary Insurance: HUMANA CHOICE PPO MCR [facility] Late entry assessment completed 10/30/19 Discharge Planning Comments: CM met with patient to complete initial dc planning assessment. CM educated patient on the CM role and verbal consent given by patient to complete assessment. CM verified patient's address, phone number, and emergency contact phone numbers. Patient lives with her God child's parents. . At discharge patient plans to return home and feels this is a safe discharge. Pt states since her last admit, she has fallen and fractured her hip. States she would like to go to [facility] Ip rehab. RONALD signed. CM discussed availability of home health, rehab services, and medical equipment. Patient states she has a walker, and would like HH with PT at discharge after IP rehab. Patient denies other known discharge needs at this time.CM will continue to follow and will assist as needed with dc plans/needs. Tobacco Stripper: Elise Chester Coverage Notice Reviewer: [id number] - Elise Chester Notice Issued Date-Time: 10/31/2019 14:10 Notice Type: Patient Choice Letter Notice Delivered To: Patient Relationship to Patient: Self Family Worker Name: Delivery Method: HAND - Hand Delivered Darlene Days: Prior Verbal Notification: Recipient Understood Notice: Yes Recipient Signature: Yes Med Rec Note Co-signed by Attending: Coverage Notice Comment: ronald for ip rehab at [facility] Reviewer: [id number] Gunnar Chester Notice Issued Date-Time: 11/04/2019 11:25 Notice Type: Patient Choice Letter Notice Delivered To: Patient Relationship to Patient: Self Family Worker Name: Delivery Method: HAND - Hand Delivered Darlene Days: Prior Verbal Notification: Recipient Understood Notice: Yes Recipient Signature: Yes Med Rec Note Co-signed by Attending: Coverage Notice Comment: liliana briscoe raghu, [facility] Last DP export: 11/04/19 11:03 a Patient Name: DILIP FAYE Page [id number] at 1217 All edits/amendments must be made on the electronic document DICTATION DATE: 11/04/19 1216 GLOBE TESTER: DUY 11/04/19 1216 RPT#: [id number] DC DATE: STATUS: ADM IN [facility] [address] [place] [address] END OF REPORT
--- NOTE | 2019-11-04 12:36 | NUR ---
Rehab Note- Faxed in latest OT note & cardiac cat report to Magda with [employer] per request for PreAuth process. Will continue to await determination for possible inpatient acute rehab stay. Thank you for this referral! Lore Montenegro RN Clinical Liaison, [facility] Rehab
--- NOTE | 2019-11-04 12:37 | MORECARE ---
CASE MANAGEMENT DISCHARGE SUMMARY PATIENT: DILIP FAYE UNIT: [id number] ADM DATE: 10/23/19 AGE: 59 : 58 SEX: F ROOM/BED: D.1528 AUTHOR: EVELYN DELVALLE PHYSICIAN: REFERRING PHYSICIAN: NICHOLE BIRCH MD DATE OF SERVICE: 11/04/19 Discharge Plan Patient Name: IDLIP FAYE Facility: [facility]:[place] : 1960 Planned Disposition: Anticipated Discharge Date: Discharge Date: Expected LOS: Initial Reviewer: [id number] Initial Review Date: 10/23/2019 Generated: 11/04/19 1:36 pm Comments DCP- Discharge Planning Updated by [id number]: Elise Chester on 11/04/19 11:[address] Patient Name: DILIP FAYE Encounter No: [id number] : 1960 Primary Insurance: [employer] CHOICE PPO MCR ADVANT Anticipated DC Date: Planned Disposition: External Planned Provider: : DCP follow-up note: CM spoke with pt about SNF for rehab. Pt in agreement with [facility] for rehab. Pt choices were for [address] [place] [address], [facility], and then [facility]. CM called Renetta at [facility] about referral. [place] states they do not accept dialysis patients at this time. Cm called Nikki at [facility] at [phone] about referral. CM left message and faxed referral. Will await return call. Patient and family in agreement with discharge plan. Case management will follow and assist as needed. Elise Chester DCP- Discharge Planning Updated by [email or web address]: Elise Chester on 10/31/19 1:[address] Patient Name: DILIP FAYE Admission Status: ER Accout number: [id number] Admission Date: 10-23-2019 : 1960 Admission Diagnosis:FRACTURE OF UNSP PART OF NECK OF UNSP FEMUR, INIT Attending: NICHOLE BIRCH Current LOS: 8 Anticipated DC Date: Planned Disposition: Primary Insurance: [employer] CHOICE PPO MCR ADVANT Discharge Planning Comments: NICKIE spoke with Kath in IP rehab. The auth was canceled, and Lakisha will determine if a new auth will be required. Kath states they do not have any available beds and will consider her for admit on Sunday if the insurance auth is completed. CM will continue to assist in DC planning/needs. Paper Baler: Elise Chester DCP- Discharge Planning Updated by [email or web address]: Elise Chester on 10/31/19 1:[address] Patient Name: DILIP FAYE Admission Status: ER Accout number: [id number] Admission Date: 10-23-2019 : 1960 Admission Diagnosis:FRACTURE OF UNSP PART OF NECK OF UNSP FEMUR, INIT Attending: NICHOLE BIRCH Current LOS: 8 Anticipated DC Date: Planned Disposition: Primary Insurance: HU[employer]NA CHOICE PPO [facility] Late entry assessment completed 10/30/19 Discharge Planning Comments: CM met with patient to complete initial dc planning assessment. CM educated patient on the CM role and verbal consent given by patient to complete assessment. CM verified patient's address, phone number, and emergency contact phone numbers. Patient lives with her God child's parents. . At discharge patient plans to return home and feels this is a safe discharge. Pt states since her last admit, she has fallen and fractured her hip. States she would like to go to [facility] Ip rehab. RONALD signed. CM discussed availability of home health, rehab services, and medical equipment. Patient states she has a walker, and would like HH with PT at discharge after IP rehab. Patient denies other known discharge needs at this time.CM will continue to follow and will assist as needed with dc plans/needs. Paper Baler: Elise Chester External Providers External Provider: [facility] Next Contact Date: Service Request Date: Service Type: Resolution: Reviewer: Comments: Coverage Notice Reviewer: [id number] Gunnar Chester Notice Issued Date-Time: 10/31/2019 14:10 Notice Type: Patient Choice Letter Notice Delivered To: Patient Relationship to Patient: Self Business Analysis Consultant Name: Delivery Method: HAND - Hand Delivered Darlene Days: Prior Verbal Notification: Recipient Understood Notice: Yes Recipient Signature: Yes Med Rec Note Co-signed by Attending: Coverage Notice Comment: ronald for ip rehab at [facility] Reviewer: [id number] Gunnar Chester Notice Issued Date-Time: 11/04/2019 11:25 Notice Type: Patient Choice Letter Notice Delivered To: Patient Relationship to Patient: Self Business Analysis Consultant Name: Delivery Method: HAND - Hand Delivered Darlene Days: Prior Verbal Notification: Recipient Understood Notice: Yes Recipient Signature: Yes Med Rec Note Co-signed by Attending: Coverage Notice Comment: liliana briscoe [facility] Last DP export: 11/04/19 11:17 a Patient Name: DILIP FAYE Page [id number] at 1237 All edits/amendments must be made on the electronic document DICTATION DATE: 11/04/19 1236 FISH WORM GROWER: DUY 11/04/19 1236 RPT#: [id number] DC DATE: STATUS: ADM IN [facility] [address] [place] [address] END OF REPORT
[2019-11-04 12:59] LABS: NITRITE NEGATIVE (NEGATIVE)
[2019-11-04 13:00] LABS: AMORPHOUS SEDIMENT <1+ LPF (NONE SEEN); BACTERIA MODERATE HPF (NONE SEEN); BILIRUBIN NEGATIVE (NEGATIVE); KETONE NEGATIVE (NEGATIVE); WHITE CELLS - URINE 25-50 HPF (0-4); YEAST >1+ WITH HYPHAE /hpf (NONE SEEN)
--- NOTE | 2019-11-04 13:15 | NUR ---
Rehab Note- Spoke with Shima with [facility] and stated that their medical support assistant had denied the patient an inpatient acute rehab stay that her needs can be met at a lower level of care. A peer to peer can be set up by Nov 06 at 1100CST, by contacting [phone]. Spoke to Elise Chester CM and informed her of denial. Thank you for this referral! Lore Montenegro RN Clinical Liaison, [facility] Rehab
--- NOTE | 2019-11-04 13:54 | NUR ---
Stage 2 on left and right coccyx area . Each measure 2cm x 2cm. Spoke with Dr. Carvalho and received order for bactroban ointment. Will protect with mepilex. Wound care will continue monitoring.
--- NOTE | 2019-11-04 13:56 | NUR ---
ZAID LANDSCAPE FOREMAN NURSE LOOKED AT PT'S BOTTOM AND STATES TO PUT A MEPILEX ON IT AND DR. RUANO WALKED IN [facility] AND LOOKED AT IT ALSO AND STATES TO HER TO ALSO ORDER BACTROBAN. MEPILEX PLACED ON BUTTOCK.
--- NOTE | 2019-11-04 14:00 | NUR ---
SPOKE WITH DR. RUANO AND HE STATES HE IS AWARE OF URINE RESULTS. I VERBALIZED UNDERSTANDING.
--- NOTE | 2019-11-04 14:33 | NUR ---
I have reviewed this patient and I concur with the Shift Assessment completed by the Licensed Practical Nurse today this shift.
[2019-11-04 15:00] VITALS: BP 146/54
--- NOTE | 2019-11-04 15:26 | MORECARE ---
CASE MANAGEMENT DISCHARGE SUMMARY PATIENT: DILIP FAYE UNIT: [id number] ADM DATE: 10/23/19 AGE: 59 : 58 SEX: F ROOM/BED: D.4317 AUTHOR: EVELYN DELVALLE PHYSICIAN: REFERRING PHYSICIAN: NICHOLE BIRCH MD DATE OF SERVICE: 11/04/19 Discharge Plan Patient Name: DILIP FAYE Facility: [facility]:[place] : 1960 Planned Disposition: Anticipated Discharge Date: Discharge Date: Expected LOS: Initial Reviewer: [id number] Initial Review Date: 10/23/2019 Generated: 11/04/19 4:25 pm Comments DCP- Discharge Planning Updated by [email or web address]: Elise Chester on 11/04/19 11:[address] Patient Name: DILIP FAYE Encounter No: [id number] : 1960 Primary Insurance: [employer] CHO[employer] PPO MCR ADVANT Anticipated DC Date: Planned Disposition: External Planned Provider: : DCP follow-up note: CM spoke with pt about SNF for rehab. Pt in agreement with [facility] for rehab. Pt choices were for [address] [place] [address], [facility], and then [facility]. CM called Renetta at [place] about referral. [place] states they do not accept dialysis patients at this time. Cm called Nikki at [facility] at [phone] about referral. CM left message and faxed referral. Will await return call. Patient and family in agreement with discharge plan. Case management will follow and assist as needed. Elise Chester DCP- Discharge Planning Updated by [email or web address]: Elise Chester on 10/31/19 1:[address] Patient Name: DILIP FAYE Admission Status: ER Accout number: [id number] Admission Date: 10-23-2019 : 1960 Admission Diagnosis:FRACTURE OF UNSP PART OF NECK OF UNSP FEMUR, INIT Attending: NICHOLE BIRCH Current LOS: 8 Anticipated DC Date: Planned Disposition: Primary Insurance: [employer] CHOICE PPO MCR ADVANT Discharge Planning Comments: NICKIE spoke with Kath in IP rehab. The auth was canceled, and Lakisha will determine if a new auth will be required. Kath states they do not have any available beds and will consider her for admit on Sunday if the insurance auth is completed. CM will continue to assist in DC planning/needs. Loans Consultant: Elise Chester DCP- Discharge Planning Updated by [email or web address]: Elise Chester on 10/31/19 1:[address] Patient Name: DILIP FAYE Admission Status: ER Accout number: [id number] Admission Date: 10-23-2019 : 1960 Admission Diagnosis:FRACTURE OF UNSP PART OF NECK OF UNSP FEMUR, INIT Attending: NICHOLE BIRCH Current LOS: 8 Anticipated DC Date: Planned Disposition: Primary Insurance: [employer] CHOICE PPO MCR [facility] Late entry assessment completed 10/30/19 Discharge Planning Comments: CM met with patient to complete initial dc planning assessment. CM educated patient on the CM role and verbal consent given by patient to complete assessment. CM verified patient's address, phone number, and emergency contact phone numbers. Patient lives with her God child's parents. . At discharge patient plans to return home and feels this is a safe discharge. Pt states since her last admit, she has fallen and fractured her hip. States she would like to go to [facility] Ip rehab. RONALD signed. CM discussed availability of home health, rehab services, and medical equipment. Patient states she has a walker, and would like HH with PT at discharge after IP rehab. Patient denies other known discharge needs at this time.CM will continue to follow and will assist as needed with dc plans/needs. Loans Consultant: Elise Chester Coverage Notice Reviewer: [id number] - Elise Chester Notice Issued Date-Time: 10/31/2019 14:10 Notice Type: Patient Choice Letter Notice Delivered To: Patient Relationship to Patient: Self Educational Therapy Teacher Name: Delivery Method: HAND - Hand Delivered Darlene Days: Prior Verbal Notification: Recipient Understood Notice: Yes Recipient Signature: Yes Med Rec Note Co-signed by Attending: Coverage Notice Comment: ronald for ip rehab at [facility] Reviewer: [id number] Gunnar Chester Notice Issued Date-Time: 11/04/2019 11:25 Notice Type: Patient Choice Letter Notice Delivered To: Patient Relationship to Patient: Self Educational Therapy Teacher Name: Delivery Method: HAND - Hand Delivered Darlene Days: Prior Verbal Notification: Recipient Understood Notice: Yes Recipient Signature: Yes Med Rec Note Co-signed by Attending: Coverage Notice Comment: liliana briscoe raghu, [facility] Last DP export: 11/04/19 11:37 a Patient Name: DILIP FAYE Page 43223 at 1526 All edits/amendments must be made on the electronic document DICTATION DATE: 11/04/19 152 CASINO CASHIER MANAGER: DUY 11/04/19 1526 RPT#: [id number] DC DATE: STATUS: ADM IN [facility] [address] [place] [address] END OF REPORT
--- NOTE | 2019-11-04 16:53 | MORECARE ---
CASE MANAGEMENT DISCHARGE SUMMARY PATIENT: DILIP FAYE UNIT: [id number] ADM DATE: 10/23/19 AGE: 59 : 58 SEX: F ROOM/BED: D.5168 AUTHOR: EVELYN DELVALLE PHYSICIAN: REFERRING PHYSICIAN: NICHOLE BIRCH MD DATE OF SERVICE: 11/04/19 Discharge Plan Patient Name: DILIP FAYE Facility: [facility]:[place] : 1960 Planned Disposition: Anticipated Discharge Date: Discharge Date: Expected LOS: Initial Reviewer: [email or web address] Initial Review Date: 10/23/2019 Generated: 11/04/19 5:53 pm Comments DCP- Discharge Planning Updated by [email or web address]: Elise Chester on 11/04/19 11:[address] Patient Name: DILIP FAYE Encounter No: [id number] : 1960 Primary Insurance: [employer] CHO[employer] PPO MCR ADVANT Anticipated DC Date: Planned Disposition: External Planned Provider: : DCP follow-up note: CM spoke with pt about SNF for rehab. Pt in agreement with [facility] for rehab. Pt choices were for [address] [place] [address], [facility], and then [facility]. CM called Renetta at [facility] about referral. [place] states they do not accept dialysis patients at this time. Cm called Nikki at [facility] at [phone] about referral. CM left message and faxed referral. Will await return call. Patient and family in agreement with discharge plan. Case management will follow and assist as needed. Elise Chester DCP- Discharge Planning Updated by [email or web address]: Elise Chester on 10/31/19 1:[address] Patient Name: DILIP FAYE Admission Status: ER Accout number: [id number] Admission Date: 10-23-2019 : 1960 Admission Diagnosis:FRACTURE OF UNSP PART OF NECK OF UNSP FEMUR, INIT Attending: NICHOLE BIRCH Current LOS: 8 Anticipated DC Date: Planned Disposition: Primary Insurance: [employer] CHO[employer] PPO MCR ADVANT Discharge Planning Comments: NICKIE spoke with Kath in IP rehab. The auth was canceled, and Lakisha will determine if a new auth will be required. Kath states they do not have any available beds and will consider her for admit on Sunday if the insurance auth is completed. CM will continue to assist in DC planning/needs. Briquette Maker: Elise Chester DCP- Discharge Planning Updated by [email or web address]: Elise Chester on 10/31/19 1:[address] Patient Name: DILIP FAYE Admission Status: ER Accout number: [id number] Admission Date: 10-23-2019 : 1960 Admission Diagnosis:FRACTURE OF UNSP PART OF NECK OF UNSP FEMUR, INIT Attending: NICHOLE BIRCH Current LOS: 8 Anticipated DC Date: Planned Disposition: Primary Insurance: [employer] CHOICE PPO [facility] Late entry assessment completed 10/30/19 Discharge Planning Comments: CM met with patient to complete initial dc planning assessment. CM educated patient on the CM role and verbal consent given by patient to complete assessment. CM verified patient's address, phone number, and emergency contact phone numbers. Patient lives with her God child's parents. . At discharge patient plans to return home and feels this is a safe discharge. Pt states since her last admit, she has fallen and fractured her hip. States she would like to go to [facility] Ip rehab. RONALD signed. CM discussed availability of home health, rehab services, and medical equipment. Patient states she has a walker, and would like HH with PT at discharge after IP rehab. Patient denies other known discharge needs at this time.CM will continue to follow and will assist as needed with dc plans/needs. Briquette Maker: Elise Chester External Providers External Provider: [facility] Next Contact Date: Service Request Date: Service Type: Resolution: Reviewer: Comments: Coverage Notice Reviewer: [id number] Gunnar Chester Notice Issued Date-Time: 10/31/2019 14:10 Notice Type: Patient Choice Letter Notice Delivered To: Patient Relationship to Patient: Self Net Fisher Name: Delivery Method: HAND - Hand Delivered Darlene Days: Prior Verbal Notification: Recipient Understood Notice: Yes Recipient Signature: Yes Med Rec Note Co-signed by Attending: Coverage Notice Comment: ronald for ip rehab at [facility] Reviewer: [id number] Gunnar Chester Notice Issued Date-Time: 11/04/2019 11:25 Notice Type: Patient Choice Letter Notice Delivered To: Patient Relationship to Patient: Self Net Fisher Name: Delivery Method: HAND - Hand Delivered Darlene Days: Prior Verbal Notification: Recipient Understood Notice: Yes Recipient Signature: Yes Med Rec Note Co-signed by Attending: Coverage Notice Comment: liliana briscoe [place] [place] Last DP export: 11/04/19 2:26 p Patient Name: DILIP FAYE Page 20118 at 1653 All edits/amendments must be made on the electronic document DICTATION DATE: 11/04/191652 AGRONOMY INSTRUCTOR: DUY 11/04/191652 RPT#: [id number] DC DATE: STATUS: ADM IN [facility] [address] [place] [address] END OF REPORT
--- NOTE | 2019-11-04 17:02 | MORECARE ---
CASE MANAGEMENT DISCHARGE SUMMARY PATIENT: DILIP FAYE UNIT: [id number] ADM DATE: 10/23/19 AGE: 59 : 58 SEX: F ROOM/BED: D.0783 AUTHOR: ADELIADOC PHYSICIAN: REFERRING PHYSICIAN: NICHOLE BIRCH MD DATE OF SERVICE: 11/04/19 Discharge Plan Patient Name: DILIP FAYE Facility: [facility]:[place] : 1960 Planned Disposition: Anticipated Discharge Date: Discharge Date: Expected LOS: Initial Reviewer: [email or web address] Initial Review Date: 10/23/2019 Generated: 11/04/19 6:02 pm Comments DCP- Discharge Planning Updated by [email or web address]: Elise Chester on 11/04/19 3:[address] Cm received call from Nikki at [facility] stating they do not have any beds available. CM called and left a message for Clifford at [facility] to return a call about referral. CM spoke with patient and updated update. Patient has agreed to allow CM to send referral to [facility], CM anticipated a PASR, and started DARRIAN.CM called Rissa at [phone] at [facility]. Rissa states they have bed openings, will accept pt insurance, and can accept a pt on dialysis. CM faxed referral, and stated a DARRIAN has been initiated. CM will continue to assist as needed. Elise Chester DCP- Discharge Planning Updated by [email or web address]: Elise Chester on 11/04/19 11:[address] Patient Name: DILPI FAYE Encounter No: [id number] : 1960 Primary Insurance: [employer] CHOICE PPO MCR ADVANT Anticipated DC Date: Planned Disposition: External Planned Provider: : DCP follow-up note: CM spoke with pt about SNF for rehab. Pt in agreement with care home for rehab. Pt choices were for , [facility], [facility], and then [facility]. CM called Renetta at [facility] about referral. Renetta states they do not accept dialysis patients at this time. Cm called Nikki at [facility] at [phone] about referral. CM left message and faxed referral. Will await return call. Patient and family in agreement with discharge plan. Case management will follow and assist as needed. Elise Chester DCP- Discharge Planning Updated by [email or web address]: Elise Chester on 10/31/19 1:[address] Patient Name: DILIP FAYE Admission Status: ER Accout number: [id number] Admission Date: 10-23-2019 : 1960 Admission Diagnosis:FRACTURE OF UNSP PART OF NECK OF UNSP FEMUR, INIT Attending: NICHOLE BIRCH Current LOS: 8 Anticipated DC Date: Planned Disposition: Primary Insurance: HUMANA [employer] PPO MCR ADVANT Discharge Planning Comments: CM spoke with Kath in IP rehab. The auth was canceled, and Lakisha will determine if a new auth will be required. Kath states they do not have any available beds and will consider her for admit on Sunday if the insurance auth is completed. CM will continue to assist in DC planning/needs. Chart Computer: Elise Chester DCP- Discharge Planning Updated by [email or web address]: Elise Chester on 10/31/19 1:[address] Patient Name: DILIP FAYE Admission Status: ER Accout number: [id number] Admission Date: 10-23-2019 : 1960 Admission Diagnosis:FRACTURE OF UNSP PART OF NECK OF UNSP FEMUR, INIT Attending: NICHOLE BIRCH Current LOS: 8 Anticipated DC Date: Planned Disposition: Primary Insurance: [employer] PPO MCR ADVANT Late entry assessment completed 10/30/19 Discharge Planning Comments: CM met with patient to complete initial dc planning assessment. CM educated patient on the CM role and verbal consent given by patient to complete assessment. CM verified patient's address, phone number, and emergency contact phone numbers. Patient lives with her God child's parents. . At discharge patient plans to return home and feels this is a safe discharge. Pt states since her last admit, she has fallen and fractured her hip. States she would like to go to [facility] Ip rehab. RONALD signed. CM discussed availability of home health, rehab services, and medical equipment. Patient states she has a walker, and would like HH with PT at discharge after IP rehab. Patient denies other known discharge needs at this time.CM will continue to follow and will assist as needed with dc plans/needs. Chart Computer: Elise Chester Coverage Notice Reviewer: [email or web address] - Elise Chester Notice Issued Date-Time: 10/31/2019 14:10 Notice Type: Patient Choice Letter Notice Delivered To: Patient Relationship to Patient: Self Tree Topper Name: Delivery Method: HAND - Hand Delivered Darlene Days: Prior Verbal Notification: Recipient Understood Notice: Yes Recipient Signature: Yes Med Rec Note Co-signed by Attending: Coverage Notice Comment: ronald for ip rehab at [facility] Reviewer: [id number] - Elise Chester Notice Issued Date-Time: 11/04/2019 11:25 Notice Type: Patient Choice Letter Notice Delivered To: Patient Relationship to Patient: Self Tree Topper Name: Delivery Method: HAND - Hand Delivered Darlene Days: Prior Verbal Notification: Recipient Understood Notice: Yes Recipient Signature: Yes Med Rec Note Co-signed by Attending: Coverage Notice Comment: liliana briscoe, [facility], marcio Last DP export: 11/04/19 3:53 p Patient Name: DILIP FAYE Page [id number] at 1702 All edits/amendments must be made on the electronic document DICTATION DATE: 11/04/19 170 CONTROL ROOM TENDER: DUY 11/04/191701 RPT#: [id number] DC DATE: STATUS: ADM IN [facility] [address] [place] [address] END OF REPORT
--- NOTE | 2019-11-04 18:18 | NUR ---
OT NOTE: PT COMPLETED BED TO BATHROOM TSF WITH MIN/MOD A. PT COMPLETED COMPLETED HYGIENE TASKS WITH MOD A. PT REQUIRED MIN A FOR RUPA/DOFF GOWN. PT COMPLETED EOB SITTING WITH SBA. [id number] THANK YOU,AMI DUMONT
--- NOTE | 2019-11-04 19:32 | NUR ---
REPORT RECIEVED AND ROUNDING COMPLETE. PATIENT LAYING IN BED EYES CLOSED, EASILY AROUSED WHEN TALKED TO. STATES SHE IS VERY TIRED TONIGHT. RIGHT FOREARM PIV THAT IS SALINE LOCKED. NO DISTRESS NOTED. CALL LIGHT WITHIN REACH AND BED IN LOWEST LOCKED POSITION.
[2019-11-04 19:58] VITALS: BP 143/43
[2019-11-05 04:00] VITALS: BP 131/49
[2019-11-05 07:13] LABS: BASOPHILS 0.1 % (0-2); EOSINOPHILS 0.6 % (0-7); HEMATOCRIT 27.9 % (36.0-48.0); HEMOGLOBIN 8.8 g/dL (12-16); IMMATURE GRANULOCYTES 0.9 % (0-5); LYMPHOCYTES 23.8 % (15-50); MCH 30.4 pg (26.0-34.0); MCHC 31.5 g/dL (31.0-37.0); MCV 96.5 fL (80.0-100.0); MEAN PLATELET VOLUME 10.1 fL (7.4-10.4); MONOCYTES 9.4 % (2-11); NEUTROPHILS 65.2 % (40-80); PLATELET COUNT 231 10x3/uL (130-400); RBC 2.89 10x6/uL (4.00-5.40); WBC 12.4 10x3/uL (4.8-10.8)
[2019-11-05 07:30] LABS: ANION GAP 13.5 mmol/L (8-16); CALCIUM 8.8 mg/dL (8.5-10.1); CARBON DIOXIDE 28.6 mmol/L (21.0-32.0); CREATININE - SERUM 5.8 mg/dL (0.6-1.3); POTASSIUM - SERUM 4.1 mmol/L (3.5-5.1)
--- NOTE | 2019-11-05 07:30 | NUR ---
PT RECEIVED ASLEEP IN BED. NO APPARENT DISTRESS NOTED.
--- NOTE | 2019-11-05 10:39 | NUR ---
PT OFF TO DIALYSIS. MEDS GIVEN OTHER THAN BP MEDS HELD.
[2019-11-05 10:52] VITALS: BP 142/52
--- NOTE | 2019-11-05 13:56 | MORECARE ---
CASE MANAGEMENT DISCHARGE SUMMARY PATIENT: DILIP FAYE UNIT: [id number] ADM DATE: 10/23/19 AGE: 59 : 58 SEX: F ROOM/BED: D.7186 AUTHOR: ADELIA,DOC PHYSICIAN: REFERRING PHYSICIAN: NICHOLE BIRCH MD DATE OF SERVICE: 11/05/19 Discharge Plan Patient Name: DILIP FAYE Facility: [facility]:[place] : 1960 Planned Disposition: Anticipated Discharge Date: Discharge Date: Expected LOS: Initial Reviewer: [id number] Initial Review Date: 10/23/2019 Generated: 11/05/19 2:55 pm Comments DCP- Discharge Planning Updated by [id number]: Karina Carroll on 11/05/19 12:[address] CM attempted to see the patient in order to obtain signature for DARRIAN, but was in HD. CM obtained the signature of MD for DARRIAN. DCP- Discharge Planning Updated by [id number]: Elise Chester on 11/04/19 3:[address] Cm received call from Nikki at [facility] stating they do not have any beds available. CM called and left a message for Clifford at [facility] to return a call about referral. CM spoke with patient and updated update. Patient has agreed to allow CM to send referral to [facility], CM anticipated a PASR, and started DARRIAN.CM called Rissa at [phone] at [facility]. Rissa states they have bed openings, will accept pt insurance, and can accept a pt on dialysis. CM faxed referral, and stated a DARRIAN has been initiated. CM will continue to assist as needed. Elise Chester DCP- Discharge Planning Updated by [id number]: Elise Chester on 11/04/19 11:[address] Patient Name: DILIP FAYE Encounter No: [id number] : 1960 Primary Insurance: [employer] CHOICE PPO MCR ADVANT Anticipated DC Date: Planned Disposition: External Planned Provider: : DCP follow-up note: CM spoke with pt about SNF for rehab. Pt in agreement with [facility] for rehab. Pt choices were for [facility], and [facility]. CM called Renetta at [facility] about referral. Renetta states they do not accept dialysis patients at this time. Cm called Nikki at [facility] at [phone] about referral. CM left message and faxed referral. Will await return call. Patient and family in agreement with discharge plan. Case management will follow and assist as needed. Elise Chester DCP- Discharge Planning Updated by [email or web address]: Elise Chester on 10/31/19 1:[address] Patient Name: DILIP FAYE Admission Status: ER Accout number: [id number] Admission Date: 10-23-2019 : 1960 Admission Diagnosis:FRACTURE OF UNSP PART OF NECK OF UNSP FEMUR, INIT Attending: NICHOLE BIRCH Current LOS: 8 Anticipated DC Date: Planned Disposition: Primary Insurance: [employer] CHOICE PPO MCR ADVANT Discharge Planning Comments: CM spoke with Kath in [facility] rehab. The auth was canceled, and Lakisha will determine if a new auth will be required. Kath states they do not have any available beds and will consider her for admit on Sunday if the insurance auth is completed. CM will continue to assist in DC planning/needs. Surfboard Designer: Elise Chester DCP- Discharge Planning Updated by [email or web address]: Elise Chester on 10/31/19 1:[address] Patient Name: DILIP FAYE Admission Status: ER Accout number: [id number] Admission Date: 10-23-2019 : 1960 Admission Diagnosis:FRACTURE OF UNSP PART OF NECK OF UNSP FEMUR, INIT Attending: NICHOLE BIRCH Current LOS: 8 Anticipated DC Date: Planned Disposition: Primary Insurance: [employer] CHOICE PPO MCR ADVANT Late entry assessment completed 10/30/19 Discharge Planning Comments: CM met with patient to complete initial dc planning assessment. CM educated patient on the CM role and verbal consent given by patient to complete assessment. CM verified patient's address, phone number, and emergency contact phone numbers. Patient lives with her God child's parents. . At discharge patient plans to return home and feels this is a safe discharge. Pt states since her last admit, she has fallen and fractured her hip. States she would like to go to [facility] Ip rehab. MANUELITO signed. CM discussed availability of home health, rehab services, and medical equipment. Patient states she has a walker, and would like HH with PT at discharge after IP rehab. Patient denies other known discharge needs at this time.CM will continue to follow and will assist as needed with dc plans/needs. Surfboard Designer: Elise Chester Coverage Notice Reviewer: [id number] Gunnar Chester Notice Issued Date-Time: 10/31/2019 14:10 Notice Type: Patient Choice Letter Notice Delivered To: Patient Relationship to Patient: Self Salary And Wage Administrator Name: Delivery Method: HAND - Hand Delivered Darlene Days: Prior Verbal Notification: Recipient Understood Notice: Yes Recipient Signature: Yes Med Rec Note Co-signed by Attending: Coverage Notice Comment: manuelito for ip rehab at [facility] [place] Reviewer: [email or web address] Gunnar Chester Notice Issued Date-Time: 11/04/2019 11:25 Notice Type: Patient Choice Letter Notice Delivered To: Patient Relationship to Patient: Self Salary And Wage Administrator Name: Delivery Method: HAND - Hand Delivered Darlene Days: Prior Verbal Notification: Recipient Understood Notice: Yes Recipient Signature: Yes Med Rec Note Co-signed by Attending: Coverage Notice Comment: liliana briscoe, [facility], [email or web address] Last DP export: 11/04/19 4:02 p Patient Name: DILIP FAYE Page [id number] at 1356 All edits/amendments must be made on the electronic document DICTATION DATE: 11/05/19 1355 FILM PROCESSOR: DUY 11/05/19 1355 RPT#: [id number] DC DATE: STATUS: ADM IN [facility] [address] [place] [address] END OF REPORT
--- NOTE | 2019-11-05 18:00 | NUR ---
PT ASSISTED TO BATHROOM USING WALKER THEN BACK TO BED. MEPILEX CHANGED TO COCCYX AND DRESSING TO RIGHT HIP CHANGED.
--- NOTE | 2019-11-05 18:04 | MORECARE ---
CASE MANAGEMENT DISCHARGE SUMMARY PATIENT: DILIP FAYE UNIT: [id number] ADM DATE: 10/23/19 AGE: 59 : 58 SEX: F ROOM/BED: D.7842 AUTHOR: ADELIA,DOC PHYSICIAN: REFERRING PHYSICIAN: NICHOLE BIRCH MD DATE OF SERVICE: 11/05/19 Discharge Plan Patient Name: DILIP FAYE Facility: [facility]:[place] : 1960 Planned Disposition: Anticipated Discharge Date: Discharge Date: Expected LOS: Initial Reviewer: [email or web address] Initial Review Date: 10/23/2019 Generated: 11/05/19 7:03 pm Comments DCP- Discharge Planning Updated by [email or web address]: Karina Carroll on 11/05/19 5:[address] 1700: Patient has returned from HD. CM met with patient in order to sign DARRIAN. Patient is tearful and refuses to sign DARRIAN. Patient states that she after she spoke with friends, she does not want to go to [place]. Patient states she has been to [facility] in January 2019 and would like to go there again. CM verified a second time that she refuses to go to [place] and she agrees that she does not want to go. CM attempted to see the patient in order to obtain signature for DARRIAN, but was in HD. CM obtained the signature of for DARRIAN. DCP- Discharge Planning Updated by [email or web address]: Elise Chester on 11/04/19 3:[address] Cm received call from Nikki at [facility] stating they do not have any beds available. CM called and left a message for Clifford at [facility] to return a call about referral. CM spoke with patient and updated update. Patient has agreed to allow CM to send referral to [facility], CM anticipated a PASR, and started DARRIAN.CM called Rissa at [phone] at [facility]. Rissa states they have bed openings, will accept pt insurance, and can accept a pt on dialysis. CM faxed referral, and stated a DARRIAN has been initiated. CM will continue to assist as needed. Elise Chester DCP- Discharge Planning Updated by [email or web address]: Elise Chester on 11/04/19 11:[address] Patient Name: DILIP FAYE Encounter No: [id number] : 1960 Primary Insurance: [employer] CHOICE PPO MCR ADVANT Anticipated DC Date: Planned Disposition: External Planned Provider: : DCP follow-up note: CM spoke with pt about SNF for rehab. Pt in agreement with care home for rehab. Pt choices were for , [facility], [facility], and then [facility]. CM called Renetta at [facility] about referral. Renetta states they do not accept dialysis patients at this time. Cm called Nikki at [facility] at [phone] about referral. CM left message and faxed referral. Will await return call. Patient and family in agreement with discharge plan. Case management will follow and assist as needed. Elise Chester DCP- Discharge Planning Updated by [id number]: Elise Chester on 10/31/19 1:[address] Patient Name: DILIP FAYE Admission Status: ER Accout number: [id number] Admission Date: 10-23-2019 : 1960 Admission Diagnosis:FRACTURE OF UNSP PART OF NECK OF UNSP FEMUR, INIT Attending: NICHOLE BIRCH Current LOS: 8 Anticipated DC Date: Planned Disposition: Primary Insurance: [employer] CHOICE PPO MCR ADVANT Discharge Planning Comments: CM spoke with Kath in IP rehab. The auth was canceled, and Lakisha will determine if a new auth will be required. Kath states they do not have any available beds and will consider her for admit on Sunday if the insurance auth is completed. CM will continue to assist in DC planning/needs. Boiler Washer: Elise Chester DCP- Discharge Planning Updated by [id number]: Elise Chester on 10/31/19 1:[address] Patient Name: DILIP FAYE Admission Status: ER Accout number: [id number] Admission Date: 10-23-2019 : 1960 Admission Diagnosis:FRACTURE OF UNSP PART OF NECK OF UNSP FEMUR, INIT Attending: NICHOLE BIRHC Current LOS: 8 Anticipated DC Date: Planned Disposition: Primary Insurance: [employer] CHOICE PPO MCR ADVANT Late entry assessment completed 10/30/19 Discharge Planning Comments: CM met with patient to complete initial dc planning assessment. CM educated patient on the CM role and verbal consent given by patient to complete assessment. CM verified patient's address, phone number, and emergency contact phone numbers. Patient lives with her God child's parents. . At discharge patient plans to return home and feels this is a safe discharge. Pt states since her last admit, she has fallen and fractured her hip. States she would like to go to [facility] Ip rehab. MANUELITO signed. CM discussed availability of home health, rehab services, and medical equipment. Patient states she has a walker, and would like HH with PT at discharge after IP rehab. Patient denies other known discharge needs at this time.CM will continue to follow and will assist as needed with dc plans/needs. Boiler Washer: Elise Chester Coverage Notice Reviewer: [id number] Gunnar Chester Notice Issued Date-Time: 10/31/2019 14:10 Notice Type: Patient Choice Letter Notice Delivered To: Patient Relationship to Patient: Self Floor Scrubber Name: Delivery Method: HAND - Hand Delivered Darlene Days: Prior Verbal Notification: Recipient Understood Notice: Yes Recipient Signature: Yes Med Rec Note Co-signed by Attending: Coverage Notice Comment: manuelito for ip rehab at [facility] Reviewer: [email or web address] Gunnar Chester Notice Issued Date-Time: 11/04/2019 11:25 Notice Type: Patient Choice Letter Notice Delivered To: Patient Relationship to Patient: Self Floor Scrubber Name: Delivery Method: HAND - Hand Delivered Dalrene Days: Prior Verbal Notification: Recipient Understood Notice: Yes Recipient Signature: Yes Med Rec Note Co-signed by Attending: Coverage Notice Comment: liliana briscoe, [facility], marcio Last DP export: 11/05/19 12:56 p Patient Name: DILIP FAYE Page [id number] at 1804 All edits/amendments must be made on the electronic document DICTATION DATE: 11/05/191802 COUNTY DIRECTOR WELFARE: DUY 11/05/191802 RPT#: [id number] DC DATE: STATUS: ADM IN [facility] [address] [place] [address] END OF REPORT
--- NOTE | 2019-11-05 19:35 | NUR ---
REPORT RECIEVED AND ROUNDING COMPLETE. PATIENT LAYING IN BED TALKING ON HER CALL PHONE. NO DISTRESS NOTED. NO NEEDS VOICED. RIGHT FOREARM PIV SALINED LOCKED. PATIENT REQUESTED PAIN MEDICATION WHEN I BRINGHER BED TIME MEDS WILL CHECK MAR AND IF SHE CAN HAVE I WILL GIVE. CALL LIGHT WITHIN REACH AND BED IN LOWEST LOCKED POSITION.
[2019-11-05 20:00] VITALS: BP 125/40
[2019-11-06 04:00] VITALS: BP 130/48
[2019-11-06 06:54] LABS: BASOPHILS 0 % (0-2); EOSINOPHILS 0.6 % (0-7); HEMOGLOBIN 8.6 g/dL (12-16); LYMPHOCYTES 22.1 % (15-50); MCHC 30.7 g/dL (31.0-37.0); MCV 97.6 fL (80.0-100.0); MEAN PLATELET VOLUME 10.3 fL (7.4-10.4); MONOCYTES 10.8 % (2-11); NEUTROPHILS 65.5 % (40-80); PLATELET COUNT 233 10x3/uL (130-400); RBC 2.87 10x6/uL (4.00-5.40); RDW 17.1 % (11.5-14.5); WBC 12.5 10x3/uL (4.8-10.8)
[2019-11-06 07:18] LABS: ANION GAP 9.1 mmol/L (8-16); CALCIUM 8.6 mg/dL (8.5-10.1); CARBON DIOXIDE 31.8 mmol/L (21.0-32.0); CREATININE - SERUM 4.6 mg/dL (0.6-1.3); POTASSIUM - SERUM 3.9 mmol/L (3.5-5.1)
[2019-11-06 08:10] VITALS: BP 126/47
--- NOTE | 2019-11-06 10:43 | MORECARE ---
CASE MANAGEMENT DISCHARGE SUMMARY PATIENT: DILIP FAYE UNIT: [id number] ADM DATE: 10/23/19 AGE: 59 : 58 SEX: F ROOM/BED: D.3243 AUTHOR: ADELIADOC PHYSICIAN: REFERRING PHYSICIAN: NICHOLE BIRCH MD DATE OF SERVICE: 11/06/19 Discharge Plan Patient Name: DILIP FAYE Facility: [facility]:[place] : 1960 Planned Disposition: Anticipated Discharge Date: Discharge Date: Expected LOS: Initial Reviewer: [email or web address] Initial Review Date: 10/23/2019 Generated: 11/06/19 11:42 am Comments DCP- Discharge Planning Updated by [id number]: Elise Chester on 11/06/19 9:[address] CM met with pt about rehab. Pt tearful. States she does not want to go to a retirement. States if she can not get into IP rehab at [facility] she will just go home. CM states she will schedule a P2P for the doctor. Pt states if insurance will not authorize IP rehab at [facility] she will go home with [facility]. MANUELITO signed declining any SNF. Pt authorized IP rehab at [facility] and [facility] with Pt. Elise Chester DCP- Discharge Planning Updated by [id number]: Karina Carroll on 11/05/19 5:[address] 1700: Patient has returned from HD. CM met with patient in order to sign DARRIAN. Patient is tearful and refuses to sign DARRIAN. Patient states that she after she spoke with friends, she does not want to go to [facility]. Patient states she has been to [facility] in January 2019 and would like to go there again. CM verified a second time that she refuses to go to [facility] and she agrees that she does not want to go. CM attempted to see the patient in order to obtain signature for DARRIAN, but was in HD. CM obtained the signature of for DARRIAN. DCP- Discharge Planning Updated by [email or web address]: Elise Chester on 11/04/19 3:[address] Cm received call from [facility] at [facility] stating they do not have any beds available. CM called and left a message for Clifford at [facility] to return a call about referral. CM spoke with patient and updated update. Patient has agreed to allow CM to send referral to [facility], CM anticipated a PASR, and started DARRIAN.CM called Rissa at [phone] at [facility]. Rissa states they have bed openings, will accept pt insurance, and can accept a pt on dialysis. CM faxed referral, and stated a DARRIAN has been initiated. CM will continue to assist as needed. Elise Chester DCP- Discharge Planning Updated by [email or web address]: Elise Chester on 11/04/19 11:[address] Patient Name: DILIP FAYE Encounter No: [id number] : 1960 Primary Insurance: [employer] CHOICE PPO MCR ADVANT Anticipated DC Date: Planned Disposition: External Planned Provider: : DCP follow-up note: CM spoke with pt about SNF for rehab. Pt in agreement with fdc for rehab. Pt choices were for [address] [place] [address], [facility], and then [facility]. CM called Renetta at [facility] about referral. Renetta states they do not accept dialysis patients at this time. Cm called Nikki at [facility] at [phone] about referral. CM left message and faxed referral. Will await return call. Patient and family in agreement with discharge plan. Case management will follow and assist as needed. Elise Chester DCP- Discharge Planning Updated by [email or web address]: Elise Chester on 10/31/19 1:[address] Patient Name: DILIP FAYE Admission Status: ER Accout number: [id number] Admission Date: 10-23-2019 : 1960 Admission Diagnosis:FRACTURE OF UNSP PART OF NECK OF UNSP FEMUR, INIT Attending: NICHOLE BIRCH Current LOS: 8 Anticipated DC Date: Planned Disposition: Primary Insurance: [employer] CHOICE PPO MCR ADVANT Discharge Planning Comments: CM spoke with Kath in IP rehab. The auth was canceled, and Lakisha will determine if a new auth will be required. Kath states they do not have any available beds and will consider her for admit on Sunday if the insurance auth is completed. CM will continue to assist in DC planning/needs. Recruitment And Outreach Assistant: Elise Chester DCP- Discharge Planning Updated by [email or web address]: Elise Chester on 10/31/19 1:[address] Patient Name: DILIP FAYE Admission Status: ER Accout number: [id number] Admission Date: 10-23-2019 : 1960 Admission Diagnosis:FRACTURE OF UNSP PART OF NECK OF UNSP FEMUR, INIT Attending: NICHOLE BIRCH Current LOS: 8 Anticipated DC Date: Planned Disposition: Primary Insurance: [employer] CHOICE PPO MCR ADVANT Late entry assessment completed 10/30/19 Discharge Planning Comments: CM met with patient to complete initial dc planning assessment. CM educated patient on the CM role and verbal consent given by patient to complete assessment. CM verified patient's address, phone number, and emergency contact phone numbers. Patient lives with her God child's parents. . At discharge patient plans to return home and feels this is a safe discharge. Pt states since her last admit, she has fallen and fractured her hip. States she would like to go to [facility] Ip rehab. MANUELITO signed. CM discussed availability of home health, rehab services, and medical equipment. Patient states she has a walker, and would like HH with PT at discharge after IP rehab. Patient denies other known discharge needs at this time.CM will continue to follow and will assist as needed with dc plans/needs. Recruitment And Outreach Assistant: Elise Chester Coverage Notice Reviewer: [id number] Gunnar Chester Notice Issued Date-Time: 10/31/2019 14:10 Notice Type: Patient Choice Letter Notice Delivered To: Patient Relationship to Patient: Self Hunting Sales Leader Name: Delivery Method: HAND - Hand Delivered Darlene Days: Prior Verbal Notification: Recipient Understood Notice: Yes Recipient Signature: Yes Med Rec Note Co-signed by Attending: Coverage Notice Comment: manuelito for ip rehab at [facility] Reviewer: [id number] Gunnar Chester Notice Issued Date-Time: 11/04/2019 11:25 Notice Type: Patient Choice Letter Notice Delivered To: Patient Relationship to Patient: Self Hunting Sales Leader Name: Delivery Method: HAND - Hand Delivered Darlene Days: Prior Verbal Notification: Recipient Understood Notice: Yes Recipient Signature: Yes Med Rec Note Co-signed by Attending: Coverage Notice Comment: [facility] [place] Reviewer: [id number] Gunnar Chester Notice Issued Date-Time: 11/06/2019 10:30 Notice Type: Patient Choice Letter Notice Delivered To: Patient Relationship to Patient: Self Hunting Sales Leader Name: Delivery Method: HAND - Hand Delivered Darlene Days: Prior Verbal Notification: Recipient Understood Notice: Yes Recipient Signature: Yes Med Rec Note Co-signed by Attending: Coverage Notice Comment: declinied SNF, wants IP rehab at [facility]. If not able to get into rehab pt wants to go home with [facility] with PT. Last DP export: 11/05/19 5:04 p Patient Name: DILIP FAYE Page [id number] at 1043 All edits/amendments must be made on the electronic document DICTATION DATE: 11/06/191041 TELEGRAPH EDITOR: DUY 11/06/19 104 RPT#: [id number] DC DATE: STATUS: ADM IN [facility] [address] [place] [address] END OF REPORT
[2019-11-06 12:15] VITALS: BP 139/56
--- NOTE | 2019-11-06 12:47 | NUR ---
Nutrition Follow-up: Eating well. HD yesterday. Awaiting placement. Diet: Renal ADA, Nepro BID PO intake: 100% x 5 meals Wt: 210# (10/27) Labs noted: Na 133, K+ 3.9, Glu 74 Meds noted: Solumedrol, Miralax, Florajen, Colace, Tums, Pepcid, Humulin, electrolyte protocol -RD following.
--- NOTE | 2019-11-06 12:52 | NUR ---
OT NOTE: PT DOING VERY WELL; STATED THAT SHE WAS ABLE TO STAND AT SINK AND PERFORM SINK BATH WITH USE OF WALKER, HOWEVER, STATED THAT SHE WAS VERY FATIGUED FOLLOWING THIS. ABLE TO PERFORM TOILET TRANSFER WITH MIN ASSIST; HYGIENE WITH SET UP; IN ROOM AMBULATION WITH WALKER AND MIN ASSIST; AMBULATED OUTSIDE THE DOOR WITH WALKER AND MIN ASSIST. VERY FATIGUED ONCE PT RETURNED TO CHAIR. WILL PROVIDE UE EXS INCLUDING CHAIR PUSHUPS TO IMPROVE TRICEP STRENGTH AND ASSIST WITH WALKER USAGE. COLEEN LARIOS, OTR/L [phone]
--- NOTE | 2019-11-06 14:24 | MORECARE ---
CASE MANAGEMENT DISCHARGE SUMMARY PATIENT: DILIP FAYE UNIT: [id number] ADM DATE: 10/23/19 AGE: 59 : 58 SEX: F ROOM/BED: D.3750 AUTHOR: EVELYN DELVALLE PHYSICIAN: REFERRING PHYSICIAN: NICHOLE BIRCH MD DATE OF SERVICE: 11/06/19 Discharge Plan Patient Name: DILIP FAYE Facility: [facility]:[place] : 1960 Planned Disposition: Anticipated Discharge Date: Discharge Date: Expected LOS: Initial Reviewer: [email or web address] Initial Review Date: 10/23/2019 Generated: 11/06/19 3:24 pm Comments DCP- Discharge Planning Updated by [id number]: Elise Chester on 11/06/19 1:[address] Patient Name: DILIP FAYE Admission Status: ER Accout number: [id number] Admission Date: 10-23-2019 : 1960 Admission Diagnosis:FRACTURE OF UNSP PART OF NECK OF UNSP FEMUR, INIT Attending: NICHOLE BIRCH Current LOS: 14 Anticipated DC Date: Planned Disposition: Primary Insurance: [employer] CHOICE PPO MCR ADVANT Discharge Planning Comments: The denial for IP rehab stands per Annalee OLEARY. CM attempted to speak with pt about her plan for rehab, but pt in restroom. CM will continue assisting pt in DC planning/needs. Elise Chester Varitype Operator: Elise Chester DCP- Discharge Planning Updated by [email or web address]: Elise Chester on 11/06/19 9:[address] CM met with pt about rehab. Pt tearful. States she does not want to go to a usp. States if she can not get into IP rehab at [facility] she will just go home. CM states she will schedule a P2P for the doctor. Pt states if insurance will not authorize IP rehab at [facility] she will go home with [facility]. MANUELITO signed declining any SNF. Pt authorized IP rehab at [facility] and [facility] with Pt. Elise Chester DCP- Discharge Planning Updated by [email or web address]: Karina Carroll on 11/05/19 5:[address] 1700: Patient has returned from HD. CM met with patient in order to sign DARRIAN. Patient is tearful and refuses to sign DARRIAN. Patient states that she after she spoke with friends, she does not want to go to [facility]. Patient states she has been to [facility] in January 2019 and would like to go there again. CM verified a second time that she refuses to go to [facility] and she agrees that she does not want to go. CM attempted to see the patient in order to obtain signature for DARRIAN, but was in HD. CM obtained the signature of for DARRIAN. DCP- Discharge Planning Updated by [email or web address]: Elise Chester on 11/04/19 3:[address] Cm received call from Nikki at [facility] stating they do not have any beds available. CM called and left a message for Clifford at [facility] to return a call about referral. CM spoke with patient and updated update. Patient has agreed to allow CM to send referral to [facility], CM anticipated a PASR, and started DARRIAN.CM called Rissa at [phone] at [facility]. Rissa states they have bed openings, will accept pt insurance, and can accept a pt on dialysis. CM faxed referral, and stated a DARRIAN has been initiated. CM will continue to assist as needed. Elise Chester DCP- Discharge Planning Updated by [email or web address]: Elise Chester on 11/04/19 11:[address] Patient Name: DILIP FAYE Encounter No: [id number] : 1960 Primary Insurance: [employer] CHOICE PPO MCR ADVANT Anticipated DC Date: Planned Disposition: External Planned Provider: : DCP follow-up note: CM spoke with pt about SNF for rehab. Pt in agreement with half-way for rehab. Pt choices were for , [facility], [facility], and then [facility]. CM called Renetta at [facility] about referral. Renetta states they do not accept dialysis patients at this time. Cm called Nikki at [facility] at [phone] about referral. CM left message and faxed referral. Will await return call. Patient and family in agreement with discharge plan. Case management will follow and assist as needed. Elise Chester DCP- Discharge Planning Updated by [email or web address]: Elise Chester on 10/31/19 1:[address] Patient Name: DILIP FAYE Admission Status: ER Accout number: [id number] Admission Date: 10-23-2019 : 1960 Admission Diagnosis:FRACTURE OF UNSP PART OF NECK OF UNSP FEMUR, INIT Attending: NICHOLE BIRCH Current LOS: 8 Anticipated DC Date: Planned Disposition: Primary Insurance: [employer] CHOICE PPO MCR ADVANT Discharge Planning Comments: CM spoke with Kath in IP rehab. The auth was canceled, and Lakisha will determine if a new auth will be required. Kath states they do not have any available beds and will consider her for admit on Sunday if the insurance auth is completed. CM will continue to assist in DC planning/needs. Varitype Operator: Elise Chester DCP- Discharge Planning Updated by [id number]: Elise Chester on 10/31/19 1:[address] Patient Name: DILIP FAYE Admission Status: ER Accout number: [id number] Admission Date: 10-23-2019 : 1960 Admission Diagnosis:FRACTURE OF UNSP PART OF NECK OF UNSP FEMUR, INIT Attending: NICHOLE BIRCH Current LOS: 8 Anticipated DC Date: Planned Disposition: Primary Insurance: [employer] CHOICE PPO MCR ADVANT Late entry assessment completed 10/30/19 Discharge Planning Comments: CM met with patient to complete initial dc planning assessment. CM educated patient on the CM role and verbal consent given by patient to complete assessment. CM verified patient's address, phone number, and emergency contact phone numbers. Patient lives with her God child's parents. . At discharge patient plans to return home and feels this is a safe discharge. Pt states since her last admit, she has fallen and fractured her hip. States she would like to go to [facility] Ip rehab. MANUELITO signed. CM discussed availability of home health, rehab services, and medical equipment. Patient states she has a walker, and would like HH with PT at discharge after IP rehab. Patient denies other known discharge needs at this time.CM will continue to follow and will assist as needed with dc plans/needs. Varitype Operator: Elise Chester Coverage Notice Reviewer: [id number] - Elise Chester Notice Issued Date-Time: 10/31/2019 14:10 Notice Type: Patient Choice Letter Notice Delivered To: Patient Relationship to Patient: Self Chief Lifestyle Officer Name: Delivery Method: HAND - Hand Delivered Darlene Days: Prior Verbal Notification: Recipient Understood Notice: Yes Recipient Signature: Yes Med Rec Note Co-signed by Attending: Coverage Notice Comment: manuelito for ip rehab at [facility] Reviewer: [id number] Gunnar Chester Notice Issued Date-Time: 11/04/2019 11:25 Notice Type: Patient Choice Letter Notice Delivered To: Patient Relationship to Patient: Self Chief Lifestyle Officer Name: Delivery Method: HAND - Hand Delivered Darlene Days: Prior Verbal Notification: Recipient Understood Notice: Yes Recipient Signature: Yes Med Rec Note Co-signed by Attending: Coverage Notice Comment: [facility] [place] Reviewer: [id number] Gunnar Chester Notice Issued Date-Time: 11/06/2019 10:30 Notice Type: Patient Choice Letter Notice Delivered To: Patient Relationship to Patient: Self Chief Lifestyle Officer Name: Delivery Method: HAND - Hand Delivered Darlene Days: Prior Verbal Notification: Recipient Understood Notice: Yes Recipient Signature: Yes Med Rec Note Co-signed by Attending: Coverage Notice Comment: declinied SNF, wants IP rehab at [facility]. If not able to get into rehab pt wants to go home with [facility] with PT. Last DP export: 11/06/19 9:43 a Patient Name: DILIP FAYE Page [id number] at 1424 All edits/amendments must be made on the electronic document DICTATION DATE: 11/06/191423 LINE CLEARANCE FOREMAN: DUY 11/06/191423 RPT#: [id number] DC DATE: STATUS: ADM IN [facility] [address] [place] [address] END OF REPORT
--- NOTE | 2019-11-06 14:55 | MORECARE ---
CASE MANAGEMENT DISCHARGE SUMMARY PATIENT: DILIP FAYE UNIT: [id number] ADM DATE: 10/23/19 AGE: 59 : 58 SEX: F ROOM/BED: D.9522 AUTHOR: EVELYN DELVALLE PHYSICIAN: REFERRING PHYSICIAN: NICHOLE BIRCH MD DATE OF SERVICE: 11/06/19 Discharge Plan Patient Name: DILIP FAYE Facility: [facility]:[place] : 1960 Planned Disposition: Anticipated Discharge Date: Discharge Date: Expected LOS: Initial Reviewer: [id number] Initial Review Date: 10/23/2019 Generated: 11/06/19 3:55 pm Comments DCP- Discharge Planning Updated by [email or web address]: Elise Chester on 11/06/19 1:[address] Patient Name: DILIP FAYE Encounter No: [id number] : 1960 Primary Insurance: [employer] CHOICE PPO [facility] Anticipated DC Date: Planned Disposition: External Planned Provider: : DCP follow-up note: CM met with pt about SNF rehab. Pt tearful. States she isn't sure what she needs to do. Asks if she can think about it tonight. CM provided emotional support. No changes to plan. Case management will follow and assist as needed. Elise Chester DCP- Discharge Planning Updated by [id number]: Elise Chester on 11/06/19 1:[address] Patient Name: DILIP FAYE Admission Status: ER Accout number: [id number] Admission Date: 10-23-2019 : 1960 Admission Diagnosis:FRACTURE OF UNSP PART OF NECK OF UNSP FEMUR, INIT Attending: NICHOLE BIRCH Current LOS: 14 Anticipated DC Date: Planned Disposition: Primary Insurance: [employer] CHOICE PPO [employer] ADVANT Discharge Planning Comments: The denial for IP rehab stands per Annalee OLEARY. CM attempted to speak with pt about her plan for rehab, but pt in restroom. CM will continue assisting pt in DC planning/needs. Elise Chester Dental Amalgam Processor: Elise Chester DCP- Discharge Planning Updated by [id number]: Elise Chester on 11/06/19 9:[address] CM met with pt about rehab. Pt tearful. States she does not want to go to a fpc. States if she can not get into IP rehab at [facility] she will just go home. CM states she will schedule a P2P for the doctor. Pt states if insurance will not authorize IP rehab at [facility] she will go home with [facility]. MANUELITO signed declining any SNF. Pt authorized IP rehab at [facility] and [facility] with Pt. Elise Chester DCP- Discharge Planning Updated by [email or web address]: Karina Olguinlroy on 11/05/19 5:[address] 1700: Patient has returned from HD. CM met with patient in order to sign DARRIAN. Patient is tearful and refuses to sign DARRIAN. Patient states that she after she spoke with friends, she does not want to go to [facility]. Patient states she has been to [facility] in January 2019 and would like to go there again. CM verified a second time that she refuses to go to [facility] and she agrees that she does not want to go. CM attempted to see the patient in order to obtain signature for DARRIAN, but was in HD. CM obtained the signature of for DARRIAN. DCP- Discharge Planning Updated by [id number]: Elise Chester on 11/04/19 3:[address] Cm received call from Nikki at [facility] stating they do not have any beds available. CM called and left a message for Clifford at [facility] to return a call about referral. CM spoke with patient and updated update. Patient has agreed to allow CM to send referral to [facility], CM anticipated a PASR, and started DARRIAN.CM called Rissa at [phone] at [facility]. Rissa states they have bed openings, will accept pt insurance, and can accept a pt on dialysis. CM faxed referral, and stated a DARRIAN has been initiated. CM will continue to assist as needed. Elise Chester DCP- Discharge Planning Updated by [email or web address]: Elise Cehster on 11/04/19 11:[address] Patient Name: DILIP FAYE Encounter No: [id number] : 1960 Primary Insurance: [employer] CHOICE PPO [employer] Anticipated DC Date: Planned Disposition: External Planned Provider: : DCP follow-up note: CM spoke with pt about SNF for rehab. Pt in agreement with custodial for rehab. Pt choices were for , [facility], [facility], and then [facility]. CM called Renetta at [facility] about referral. Renetta states they do not accept dialysis patients at this time. Cm called Nikki at [facility] at [phone] about referral. CM left message and faxed referral. Will await return call. Patient and family in agreement with discharge plan. Case management will follow and assist as needed. Elise Chester DCP- Discharge Planning Updated by [id number]: Elise Chester on 10/31/19 1:[address] Patient Name: DILIP FAYE Admission Status: ER Accout number: [id number] Admission Date: 10-23-2019 : 1960 Admission Diagnosis:FRACTURE OF UNSP PART OF NECK OF UNSP FEMUR, INIT Attending: NICHOLE BIRCH Current LOS: 8 Anticipated DC Date: Planned Disposition: Primary Insurance: [employer] CHOICE PPO [employer] Discharge Planning Comments: NICKIE spoke with Kath in IP rehab. The auth was canceled, and Lakisha will determine if a new auth will be required. Kath states they do not have any available beds and will consider her for admit on Sunday if the insurance auth is completed. CM will continue to assist in DC planning/needs. Dental Amalgam Processor: Elise Chester DCP- Discharge Planning Updated by [id number]: Elise Chester on 10/31/19 1:[address] Patient Name: DILIP FAYE Admission Status: ER Accout number: [id number] Admission Date: 10-23-2019 : 1960 Admission Diagnosis:FRACTURE OF UNSP PART OF NECK OF UNSP FEMUR, INIT Attending: NICHOLE BIRCH Current LOS: 8 Anticipated DC Date: Planned Disposition: Primary Insurance: [employer] CHOICE PPO [employer] Late entry assessment completed 10/30/19 Discharge Planning Comments: CM met with patient to complete initial dc planning assessment. CM educated patient on the CM role and verbal consent given by patient to complete assessment. CM verified patient's address, phone number, and emergency contact phone numbers. Patient lives with her God child's parents. . At discharge patient plans to return home and feels this is a safe discharge. Pt states since her last admit, she has fallen and fractured her hip. States she would like to go to [facility] Ip rehab. MANUELITO signed. CM discussed availability of home health, rehab services, and medical equipment. Patient states she has a walker, and would like HH with PT at discharge after IP rehab. Patient denies other known discharge needs at this time.CM will continue to follow and will assist as needed with dc plans/needs. Dental Amalgam Processor: Elise Chester Coverage Notice Reviewer: [id number] Gunnar Chester Notice Issued Date-Time: 10/31/2019 14:10 Notice Type: Patient Choice Letter Notice Delivered To: Patient Relationship to Patient: Self Hardening Machine Operator Helper Name: Delivery Method: HAND - Hand Delivered Darlene Days: Prior Verbal Notification: Recipient Understood Notice: Yes Recipient Signature: Yes Med Rec Note Co-signed by Attending: Coverage Notice Comment: manuelito for ip rehab at [facility] Reviewer: [id number] Gunnar Chester Notice Issued Date-Time: 11/04/2019 11:25 Notice Type: Patient Choice Letter Notice Delivered To: Patient Relationship to Patient: Self Hardening Machine Operator Helper Name: Delivery Method: HAND - Hand Delivered Darlene Days: Prior Verbal Notification: Recipient Understood Notice: Yes Recipient Signature: Yes Med Rec Note Co-signed by Attending: Coverage Notice Comment: [facility] [place] Reviewer: [id number] Gunnar Chester Notice Issued Date-Time: 11/06/2019 10:30 Notice Type: Patient Choice Letter Notice Delivered To: Patient Relationship to Patient: Self Hardening Machine Operator Helper Name: Delivery Method: HAND - Hand Delivered Darlene Days: Prior Verbal Notification: Recipient Understood Notice: Yes Recipient Signature: Yes Med Rec Note Co-signed by Attending: Coverage Notice Comment: declinied SNF, wants IP rehab at [facility]. If not able to get into rehab pt wants to go home with [facility] with PT. Last DP export: 11/06/19 1:24 p Patient Name: DILIP FAYE Page [id number] at 1457 All edits/amendments must be made on the electronic document DICTATION DATE: 11/06/19 5174 ORDER PLANNER: DUY 11/06/19 1455 RPT#: [id number] DC DATE: STATUS: ADM IN [facility] [address] [place] [address] END OF REPORT
[2019-11-06 15:58] VITALS: BP 135/41
--- NOTE | 2019-11-06 19:29 | NUR ---
REPORT RECIEVED AND ROUNDING COMPLETE. PATIENT LAYING IN BED IN LOW FOWLERS TALKING ON HER PHONE. PATIENT STATES SHE IS NOT HAPPY THAT HER INSURANCE WONT LET HER GO TO REHAB HERE. WE TALKED AND RESURED HER THAT CASE MANAGMENT IS GREAT AND WILL TRY THEIR HARDEST TO GET HER INTO A PLACE SHE IS COMFORTABLE. NO NEEDS VOICED AT THIS TIME. CALL LIGHT WITHIN REACH AND BED IN LOWEST LOCKED POSITION.
[2019-11-06 20:00] VITALS: BP 135/38
[2019-11-07 04:00] VITALS: BP 129/48
[2019-11-07 07:28] LABS: ANION GAP 14.4 mmol/L (8-16); CALCIUM 8.8 mg/dL (8.5-10.1); CARBON DIOXIDE 28.9 mmol/L (21.0-32.0); CREATININE - SERUM 5.7 mg/dL (0.6-1.3); POTASSIUM - SERUM 4.3 mmol/L (3.5-5.1)
[2019-11-07 07:44] LABS: BASOPHILS 0.1 % (0-2); EOSINOPHILS 0.7 % (0-7); HEMATOCRIT 28.4 % (36.0-48.0); HEMOGLOBIN 8.7 g/dL (12-16); IMMATURE GRANULOCYTES 0.7 % (0-5); LYMPHOCYTES 18.1 % (15-50); MCH 29.8 pg (26.0-34.0); MCHC 30.6 g/dL (31.0-37.0); MCV 97.3 fL (80.0-100.0); MEAN PLATELET VOLUME 10.2 fL (7.4-10.4); MONOCYTES 9.5 % (2-11); NEUTROPHILS 70.9 % (40-80); PLATELET COUNT 276 10x3/uL (130-400); RBC 2.92 10x6/uL (4.00-5.40); WBC 14.7 10x3/uL (4.8-10.8)
--- NOTE | 2019-11-07 08:36 | MORECARE ---
CASE MANAGEMENT DISCHARGE SUMMARY PATIENT: DILIP FAYE UNIT: [id number] ADM DATE: 10/23/19 AGE: 59 : 58 SEX: F ROOM/BED: D.5126 AUTHOR: EVELYN DELVALLE PHYSICIAN: REFERRING PHYSICIAN: NICHOLE BIRCH MD DATE OF SERVICE: 11/07/19 Discharge Plan Patient Name: DILIP FAYE Facility: [facility]:[place] : 1960 Planned Disposition: Anticipated Discharge Date: Discharge Date: Expected LOS: Initial Reviewer: [id number] Initial Review Date: 10/23/2019 Generated: 11/07/19 9:35 am DCP- Discharge Planning Updated by [id number]: Elise Chester on 11/06/19 1:[address] Patient Name: DILIP FAYE Encounter No: [id number] : 1960 Primary Insurance: HUMANA CHOICE PPO [facility] AD[facility] Anticipated DC Date: Planned Disposition: External Planned Provider: : DCP follow-up note: CM met with pt about SNF rehab. Pt tearful. States she isn't sure what she needs to do. Asks if she can think about it tonight. CM provided emotional support. No changes to plan. Case management will follow and assist as needed. Elise Chester DCP- Discharge Planning Updated by [email or web address]: Elise Chester on 11/06/19 1:[address] Patient Name: DILIP FAYE Admission Status: ER Accout number: [id number] Admission Date: 10-23-2019 : 1960 Admission Diagnosis:FRACTURE OF UNSP PART OF NECK OF UNSP FEMUR, INIT Attending: NICHOLE BIRCH Current LOS: 14 Anticipated DC Date: Planned Disposition: Primary Insurance: [employer]NA CHOICE PPO [employer] ADV[employer] Discharge Planning Comments: The denial for IP rehab stands per Annalee OLEARY. CM attempted to speak with pt about her plan for rehab, but pt in restroom. CM will continue assisting pt in DC planning/needs. Elise Chester Cashier Ticket Selling: Elise Chester DCP- Discharge Planning Updated by [id number]: Elise Chester on 11/06/19 9:[address] CM met with pt about rehab. Pt tearful. States she does not want to go to a correction. States if she can not get into IP rehab at [facility] she will just go home. CM states she will schedule a P2P for the doctor. Pt states if insurance will not authorize IP rehab at [facility] she will go home with [facility]. MANUELITO signed declining any SNF. Pt authorized IP rehab at [facility] and [facility] with Pt. Elise Chester DCP- Discharge Planning Updated by [email or web address]: Karina Olguinlroy on 11/05/19 5:[address] 1700: Patient has returned from HD. CM met with patient in order to sign DARRIAN. Patient is tearful and refuses to sign DARRIAN. Patient states that she after she spoke with friends, she does not want to go to [facility]. Patient states she has been to [facility] in January 2019 and would like to go there again. CM verified a second time that she refuses to go to [facility] and she agrees that she does not want to go. CM attempted to see the patient in order to obtain signature for DARRIAN, but was in HD. CM obtained the signature of for DARRIAN. DCP- Discharge Planning Updated by [email or web address]: Elise Chester on 11/04/19 3:[address] Cm received call from Nikki at [facility] stating they do not have any beds available. CM called and left a message for Clifford at [facility] to return a call about referral. CM spoke with patient and updated update. Patient has agreed to allow CM to send referral to [facility], CM anticipated a PASR, and started DARRIAN.CM called Rissa at [phone] at [facility]. Rissa states they have bed openings, will accept pt insurance, and can accept a pt on dialysis. CM faxed referral, and stated a DARRIAN has been initiated. CM will continue to assist as needed. Elise Chester DCP- Discharge Planning Updated by [id number]: Elise Chester on 11/04/19 11:[address] Patient Name: DILIP FAYE Encounter No: [id number] : 1960 Primary Insurance: [employer] CHOICE PPO [employer] Anticipated DC Date: Planned Disposition: External Planned Provider: : DCP follow-up note: CM spoke with pt about SNF for rehab. Pt in agreement with [facility] for rehab. Pt choices were for , [facility], [facility], and then [facility]. CM called Renetta at [facility] about referral. Renetta states they do not accept dialysis patients at this time. Cm called Nikki at [facility] at [phone] about referral. CM left message and faxed referral. Will await return call. Patient and family in agreement with discharge plan. Case management will follow and assist as needed. Elise Chester DCP- Discharge Planning Updated by [id number]: Elise Chester on 10/31/19 1:[address] Patient Name: DILIP FAYE Admission Status: ER Accout number: [id number] Admission Date: 10-23-2019 : 1960 Admission Diagnosis:FRACTURE OF UNSP PART OF NECK OF UNSP FEMUR, INIT Attending: NICHOLE BIRCH Current LOS: 8 Anticipated DC Date: Planned Disposition: Primary Insurance: [employer] CHOICE PPO [employer] Discharge Planning Comments: NICKIE spoke with Kath in IP rehab. The auth was canceled, and Lakisha will determine if a new auth will be required. Kath states they do not have any available beds and will consider her for admit on Sunday if the insurance auth is completed. CM will continue to assist in DC planning/needs. Cashier Ticket Selling: Elise Chester DCP- Discharge Planning Updated by [email or web address]: Elise Chester on 10/31/19 1:[address] Patient Name: DILIP FAYE Admission Status: ER Accout number: [id number] Admission Date: 10-23-2019 : 1960 Admission Diagnosis:FRACTURE OF UNSP PART OF NECK OF UNSP FEMUR, INIT Attending: NICHOLE BIRCH Current LOS: 8 Anticipated DC Date: Planned Disposition: Primary Insurance: [employer] CHOICE PPO [employer] Late entry assessment completed 10/30/19 Discharge Planning Comments: CM met with patient to complete initial dc planning assessment. CM educated patient on the CM role and verbal consent given by patient to complete assessment. CM verified patient's address, phone number, and emergency contact phone numbers. Patient lives with her God child's parents. . At discharge patient plans to return home and feels this is a safe discharge. Pt states since her last admit, she has fallen and fractured her hip. States she would like to go to [facility] Ip rehab. MANUELITO signed. CM discussed availability of home health, rehab services, and medical equipment. Patient states she has a walker, and would like HH with PT at discharge after IP rehab. Patient denies other known discharge needs at this time.CM will continue to follow and will assist as needed with dc plans/needs. Cashier Ticket Selling: Elise Chester External Providers External Provider: NANCY Montero Next Contact Date: Service Request Date: Service Type: Resolution: Reviewer: Comments: Coverage Notice Reviewer: [id number] Gunnar Chester Notice Issued Date-Time: 10/31/2019 14:10 Notice Type: Patient Choice Letter Notice Delivered To: Patient Relationship to Patient: Self Suction Plate Carrier Cleaner Name: Delivery Method: HAND - Hand Delivered Darlene Days: Prior Verbal Notification: Recipient Understood Notice: Yes Recipient Signature: Yes Med Rec Note Co-signed by Attending: Coverage Notice Comment: manuelito for ip rehab at [facility] Reviewer: [id number] Gunnar Chester Notice Issued Date-Time: 11/04/2019 11:25 Notice Type: Patient Choice Letter Notice Delivered To: Patient Relationship to Patient: Self Suction Plate Carrier Cleaner Name: Delivery Method: HAND - Hand Delivered Darlene Days: Prior Verbal Notification: Recipient Understood Notice: Yes Recipient Signature: Yes Med Rec Note Co-signed by Attending: Coverage Notice Comment: [place] Reviewer: [id number] Gunnar Chester Notice Issued Date-Time: 11/06/2019 10:30 Notice Type: Patient Choice Letter Notice Delivered To: Patient Relationship to Patient: Self Suction Plate Carrier Cleaner Name: Delivery Method: HAND - Hand Delivered Darlene Days: Prior Verbal Notification: Recipient Understood Notice: Yes Recipient Signature: Yes Med Rec Note Co-signed by Attending: Coverage Notice Comment: declinied SNF, wants IP rehab at [facility]. If not able to get into rehab pt wants to go home with [facility] with PT. Last DP export: 11/06/19 1:55 p Patient Name: DILIP FAYE Page [id number] at 0836 All edits/amendments must be made on the electronic document DICTATION DATE: 11/07/19835 BUS OPERATOR: DUY 11/07/19835 RPT#: [id number] DC DATE: STATUS: ADM IN [facility] [address] [place] [address] END OF REPORT
[2019-11-07] MEDS ORDERED: PERCOCET 10-321 EAC1 PO (08:41)
--- NOTE | 2019-11-07 09:21 | MORECARE ---
CASE MANAGEMENT DISCHARGE SUMMARY PATIENT: DILIP FAYE UNIT: [id number] ADM DATE: 10/23/19 AGE: 59 : 58 SEX: F ROOM/BED: D.8558 AUTHOR: ADELIADOC PHYSICIAN: REFERRING PHYSICIAN: NICHOLE BIRCH MD DATE OF SERVICE: 11/07/19 Discharge Plan Patient Name: DILIP FAYE Facility: [facility]:[place] : 1960 Planned Disposition: Anticipated Discharge Date: Discharge Date: Expected LOS: Initial Reviewer: [id number] Initial Review Date: 10/23/2019 Generated: 11/07/19 10:20 am Comments DCP- Discharge Planning Updated by [email or web address]: Elise Chester on 11/07/19 8:[address] Patient Name: DILIP FAYE Encounter No: [id number] : 1960 Primary Insurance: HU[employer]NA CHOICE PPO MCR ADVANT Anticipated DC Date: Planned Disposition: External Planned Provider: : DCP follow-up note: CM met with pt to discuss dc plan. Pt tearful states she needs a few more days to decide. Cm stated she is ready for DC and she needed to make a decision. Cm discussed options of going home with home health, and also SNF. Pt tearful. States she can't walk great and she knows she needs rehab, but she just did not want to go to a correction. Pt is in agreement for [facility]. MANUELITO signed for [facility]. [place] signed and faxed. CM Called Rissa at [facility] at [phone] about referral and faxed clinicals. Case management will follow and assist as needed. Elise Chester MSN,RN,CM DCP- Discharge Planning Updated by [id number]: Elise Chester on 11/06/19 1:[address] Patient Name: DILIP FAYE Encounter No: [id number] : 1960 Primary Insurance: HU[employer]NA CHOICE PPO MCR ADVANT Anticipated DC Date: Planned Disposition: External Planned Provider: : DCP follow-up note: CM met with pt about SNF rehab. Pt tearful. States she isn't sure what she needs to do. Asks if she can think about it tonight. CM provided emotional support. No changes to plan. Case management will follow and assist as needed. Elise Chester DCP- Discharge Planning Updated by [id number]: Elise Chester on 11/06/19 1:[address] Patient Name: DILIP FAYE Admission Status: ER Accout number: [id number] Admission Date: 10-23-2019 : 1960 Admission Diagnosis:FRACTURE OF UNSP PART OF NECK OF UNSP FEMUR, INIT Attending: NICHOLE BIRCH Current LOS: 14 Anticipated DC Date: Planned Disposition: Primary Insurance: HU[employer]NA CHOICE PPO MCR ADVANT Discharge Planning Comments: The denial for IP rehab stands per Annalee OLEARY. CM attempted to speak with pt about her plan for rehab, but pt in restroom. CM will continue assisting pt in DC planning/needs. Elise Chester Tree Warden: Elise Chester DCP- Discharge Planning Updated by [id number]: Elise Chester on 11/06/19 9:[address] CM met with pt about rehab. Pt tearful. States she does not want to go to a correction. States if she can not get into IP rehab at [facility] she will just go home. CM states she will schedule a P2P for the doctor. Pt states if insurance will not authorize IP rehab at [facility] she will go home with [facility]. MANUELITO signed declining any SNF. Pt authorized IP rehab at [facility] and [facility] with Pt. Elise Chester DCP- Discharge Planning Updated by [email or web address]: Karina Carroll on 11/05/19 5:[address] 1700: Patient has returned from HD. CM met with patient in order to sign DARRIAN. Patient is tearful and refuses to sign DARRIAN. Patient states that she after she spoke with friends, she does not want to go to [facility]. Patient states she has been to [facility] in January 2019 and would like to go there again. CM verified a second time that she refuses to go to [facility] and she agrees that she does not want to go. CM attempted to see the patient in order to obtain signature for DARRIAN, but was in HD. CM obtained the signature of for DARRIAN. DCP- Discharge Planning Updated by [id number]: Elise Chester on 11/04/19 3:[address] Cm received call from Nikki at [facility] stating they do not have any beds available. CM called and left a message for Clifford at [facility] to return a call about referral. CM spoke with patient and updated update. Patient has agreed to allow CM to send referral to [facility], CM anticipated a PASR, and started DARRIAN.CM called Rissa at [phone] at [facility]. Rissa states they have bed openings, will accept pt insurance, and can accept a pt on dialysis. CM faxed referral, and stated a DARRIAN has been initiated. CM will continue to assist as needed. Elise Chester DCP- Discharge Planning Updated by [id number]: Elise Chester on 11/04/19 11:[address] Patient Name: DILIP FAYE Encounter No: [id number] : 1960 Primary Insurance: [employer] CHOICE PPO MCR ADVANT Anticipated DC Date: Planned Disposition: External Planned Provider: : DCP follow-up note: CM spoke with pt about SNF for rehab. Pt in agreement with correction for rehab. Pt choices were for [address] [place] [address], [facility], and then [facility]. CM called Renetta at [facility] about referral. Renetta states they do not accept dialysis patients at this time. Cm called Nikki at [facility] at [phone] about referral. CM left message and faxed referral. Will await return call. Patient and family in agreement with discharge plan. Case management will follow and assist as needed. Elise Chester DCP- Discharge Planning Updated by [email or web address]: Elise Chester on 10/31/19 1:[address] Patient Name: DILIP FAYE Admission Status: ER Accout number: [id number] Admission Date: 10-23-2019 : 1960 Admission Diagnosis:FRACTURE OF UNSP PART OF NECK OF UNSP FEMUR, INIT Attending: NICHOLE BIRCH Current LOS: 8 Anticipated DC Date: Planned Disposition: Primary Insurance: [employer] CHOICE PPO MCR ADVANT Discharge Planning Comments: CM spoke with Kath in IP rehab. The auth was canceled, and Lakisha will determine if a new auth will be required. Kath states they do not have any available beds and will consider her for admit on Sunday if the insurance auth is completed. CM will continue to assist in DC planning/needs. Tree Warden: Elise Chester DCP- Discharge Planning Updated by [id number]: Elise Chester on 10/31/19 1:[address] Patient Name: DILIP FAYE Admission Status: ER Accout number: [id number] Admission Date: 10-23-2019 : 1960 Admission Diagnosis:FRACTURE OF UNSP PART OF NECK OF UNSP FEMUR, INIT Attending: NICHOLE BIRCH Current LOS: 8 Anticipated DC Date: Planned Disposition: Primary Insurance: [employer] CHOICE PPO MCR ADVANT Late entry assessment completed 10/30/19 Discharge Planning Comments: CM met with patient to complete initial dc planning assessment. CM educated patient on the CM role and verbal consent given by patient to complete assessment. CM verified patient's address, phone number, and emergency contact phone numbers. Patient lives with her God child's parents. . At discharge patient plans to return home and feels this is a safe discharge. Pt states since her last admit, she has fallen and fractured her hip. States she would like to go to [facility] Ip rehab. MANUELITO signed. CM discussed availability of home health, rehab services, and medical equipment. Patient states she has a walker, and would like HH with PT at discharge after IP rehab. Patient denies other known discharge needs at this time.CM will continue to follow and will assist as needed with dc plans/needs. Tree Warden: Elise Chester Coverage Notice Reviewer: [id number] - Elise Chester Notice Issued Date-Time: 11/07/2019 8:20 Notice Type: Patient Choice Letter Notice Delivered To: Patient Relationship to Patient: Self Client Support Consultant Name: Delivery Method: HAND - Hand Delivered Darlene Days: Prior Verbal Notification: Recipient Understood Notice: Yes Recipient Signature: Yes Med Rec Note Co-signed by Attending: Coverage Notice Comment: marcio Reviewer: [id number] Gunnar Chester Notice Issued Date-Time: 11/06/2019 10:30 Notice Type: Patient Choice Letter Notice Delivered To: Patient Relationship to Patient: Self Client Support Consultant Name: Delivery Method: HAND - Hand Delivered Darlene Days: Prior Verbal Notification: Recipient Understood Notice: Yes Recipient Signature: Yes Med Rec Note Co-signed by Attending: Coverage Notice Comment: declinied SNF, wants IP rehab at [facility]. If not able to get into rehab pt wants to go home with [facility] PT. Reviewer: [id number] Gunnar Chester Notice Issued Date-Time: 11/04/2019 11:25 Notice Type: Patient Choice Letter Notice Delivered To: Patient Relationship to Patient: Self Client Support Consultant Name: Delivery Method: HAND - Hand Delivered Darlene Days: Prior Verbal Notification: Recipient Understood Notice: Yes Recipient Signature: Yes Med Rec Note Co-signed by Attending: Coverage Notice Comment: liliana briscoe raghu, preston daniela, [place] Reviewer: [id number] Gunnar Chester Notice Issued Date-Time: 10/31/2019 14:10 Notice Type: Patient Choice Letter Notice Delivered To: Patient Relationship to Patient: Self Client Support Consultant Name: Delivery Method: HAND - Hand Delivered Darlene Days: Prior Verbal Notification: Recipient Understood Notice: Yes Recipient Signature: Yes Med Rec Note Co-signed by Attending: Coverage Notice Comment: manuelito for ip rehab at [facility] Last DP export: 11/07/19 7:36 a Patient Name: DILIP FAYE Page [id number] at 0921 All edits/amendments must be made on the electronic document DICTATION DATE: 11/07/19920 CRITICAL CARE UNIT NURSE: DUY 11/07/19920 RPT#: [id number] DC DATE: STATUS: ADM IN [facility] [address] [place] [address] END OF REPORT
--- NOTE | 2019-11-07 09:46 | NUR ---
LEAVING FOR DIALYSIS BY [facility]. WILL CONT. PLAN OF CARE.
--- NOTE | 2019-11-07 10:08 | MORECARE ---
CASE MANAGEMENT DISCHARGE SUMMARY PATIENT: DILIP FAYE UNIT: [id number] ADM DATE: 10/23/19 AGE: 59 : 58 SEX: F ROOM/BED: D.4390 AUTHOR: ADELIADOC PHYSICIAN: REFERRING PHYSICIAN: NICHOLE BIRCH MD DATE OF SERVICE: 11/07/19 Discharge Plan Patient Name: DILIP FAYE Facility: [facility]:[place] : 1960 Planned Disposition: Anticipated Discharge Date: Discharge Date: Expected LOS: Initial Reviewer: [email or web address] Initial Review Date: 10/23/2019 Generated: 11/07/19 11:08 am Comments DCP- Discharge Planning Updated by [id number]: Elise Chester on 11/07/19 8:[address] Patient Name: DILIP FAYE Encounter No: [id number] : 1960 Primary Insurance: [employer] CHOICE PPO MCR ADVANT Anticipated DC Date: Planned Disposition: External Planned Provider: : DCP follow-up note: CM met with pt to discuss dc plan. Pt tearful states she needs a few more days to decide. Cm stated she is ready for DC and she needed to make a decision. Cm discussed options of going home with home health, and also SNF. Pt tearful. States she can't walk great and she knows she needs rehab, but she just did not want to go to a residential. Pt is in agreement for [facility]. MANUELITO signed for [facility]. [place] signed and faxed. CM Called Rissa at [facility] at [phone] about referral and faxed clinicals. Case management will follow and assist as needed. Elise Chester MSN,RN,CM DCP- Discharge Planning Updated by [id number]: Elise Chester on 11/06/19 1:[address] Patient Name: DILIP FAYE Encounter No: [id number] : 1960 Primary Insurance: HUMANA CHOICE PPO MCR ADVANT Anticipated DC Date: Planned Disposition: External Planned Provider: : DCP follow-up note: CM met with pt about SNF rehab. Pt tearful. States she isn't sure what she needs to do. Asks if she can think about it tonight. CM provided emotional support. No changes to plan. Case management will follow and assist as needed. Elise Chester DCP- Discharge Planning Updated by [email or web address]: Elise Chester on 11/06/19 1:[address] Patient Name: DILIP FAYE Admission Status: ER Accout number: [id number] Admission Date: 10-23-2019 : 1960 Admission Diagnosis:FRACTURE OF UNSP PART OF NECK OF UNSP FEMUR, INIT Attending: NICHOLE BIRCH Current LOS: 14 Anticipated DC Date: Planned Disposition: Primary Insurance: HUMANA CHOICE PPO MCR ADVANT Discharge Planning Comments: The denial for IP rehab stands per Annalee OLEARY. CM attempted to speak with pt about her plan for rehab, but pt in restroom. CM will continue assisting pt in DC planning/needs. Elise Chester Wild Life Manager: Elise Chester DCP- Discharge Planning Updated by [id number]: Elise Chester on 11/06/19 9:[address] CM met with pt about rehab. Pt tearful. States she does not want to go to a residential. States if she can not get into IP rehab at [facility] she will just go home. CM states she will schedule a P2P for the doctor. Pt states if insurance will not authorize IP rehab at [facility] she will go home with [facility]. MANUELITO signed declining any SNF. Pt authorized IP rehab at [facility] and [facility] with Pt. Elise Chester DCP- Discharge Planning Updated by [id number]: Karina Carroll on 11/05/19 5:[address] 1700: Patient has returned from HD. CM met with patient in order to sign DARRIAN. Patient is tearful and refuses to sign DARRIAN. Patient states that she after she spoke with friends, she does not want to go to [facility]. Patient states she has been to [facility] in January 2019 and would like to go there again. CM verified a second time that she refuses to go to [facility] and she agrees that she does not want to go. CM attempted to see the patient in order to obtain signature for DARRIAN, but was in HD. CM obtained the signature of for DARRIAN. DCP- Discharge Planning Updated by [id number]: Elise Chester on 11/04/19 3:[address] Cm received call from Nikki at [facility] stating they do not have any beds available. CM called and left a message for Clifford at [facility] to return a call about referral. CM spoke with patient and updated update. Patient has agreed to allow CM to send referral to [facility], CM anticipated a PASR, and started DARRIAN.CM called Rissa at [phone] at [facility]. Rissa states they have bed openings, will accept pt insurance, and can accept a pt on dialysis. CM faxed referral, and stated a DARRIAN has been initiated. CM will continue to assist as needed. Elise Chester DCP- Discharge Planning Updated by [id number]: Elise Chester on 11/04/19 11:[address] Patient Name: DILIP FAYE Encounter No: [id number] : 1960 Primary Insurance: [employer] CHOICE PPO MCR ADVANT Anticipated DC Date: Planned Disposition: External Planned Provider: : DCP follow-up note: CM spoke with pt about SNF for rehab. Pt in agreement with long term for rehab. Pt choices were for [address] [place] [address], [facility], and then [facility]. CM called Renetta at [facility] about referral. Renetta states they do not accept dialysis patients at this time. Cm called Nikki at [facility] at [phone] about referral. CM left message and faxed referral. Will await return call. Patient and family in agreement with discharge plan. Case management will follow and assist as needed. Elise Chester DCP- Discharge Planning Updated by [id number]: Elise Chester on 10/31/19 1:[address] Patient Name: DILIP FAYE Admission Status: ER Accout number: [id number] Admission Date: 10-23-2019 : 1960 Admission Diagnosis:FRACTURE OF UNSP PART OF NECK OF UNSP FEMUR, INIT Attending: NICHOLE BIRCH Current LOS: 8 Anticipated DC Date: Planned Disposition: Primary Insurance: [employer] CHOICE PPO MCR ADVANT Discharge Planning Comments: CM spoke with Kath in IP rehab. The auth was canceled, and Lakisha will determine if a new auth will be required. Kath states they do not have any available beds and will consider her for admit on Sunday if the insurance auth is completed. CM will continue to assist in DC planning/needs. Wild Life Manager: Elise Chester DCP- Discharge Planning Updated by [id number]: Elise Chester on 10/31/19 1:[address] Patient Name: DILIP FAYE Admission Status: ER Accout number: [id number] Admission Date: 10-23-2019 : 1960 Admission Diagnosis:FRACTURE OF UNSP PART OF NECK OF UNSP FEMUR, INIT Attending: NICHOLE BIRCH Current LOS: 8 Anticipated DC Date: Planned Disposition: Primary Insurance: [employer] CHOICE PPO MCR ADVANT Late entry assessment completed 10/30/19 Discharge Planning Comments: CM met with patient to complete initial dc planning assessment. CM educated patient on the CM role and verbal consent given by patient to complete assessment. CM verified patient's address, phone number, and emergency contact phone numbers. Patient lives with her God child's parents. . At discharge patient plans to return home and feels this is a safe discharge. Pt states since her last admit, she has fallen and fractured her hip. States she would like to go to [facility] Ip rehab. MANUELITO signed. CM discussed availability of home health, rehab services, and medical equipment. Patient states she has a walker, and would like HH with PT at discharge after IP rehab. Patient denies other known discharge needs at this time.CM will continue to follow and will assist as needed with dc plans/needs. Wild Life Manager: Elise Chester Coverage Notice Reviewer: [id number] - Elise Chester Notice Issued Date-Time: 10/31/2019 14:10 Notice Type: Patient Choice Letter Notice Delivered To: Patient Relationship to Patient: Self Sink Cutter Name: Delivery Method: HAND - Hand Delivered Darlene Days: Prior Verbal Notification: Recipient Understood Notice: Yes Recipient Signature: Yes Med Rec Note Co-signed by Attending: Coverage Notice Comment: manuelito for [facility] rehab [facility] Reviewer: [id number] Gunnar Chester Notice Issued Date-Time: 11/04/2019 11:25 Notice Type: Patient Choice Letter Notice Delivered To: Patient Relationship to Patient: Self Sink Cutter Name: Delivery Method: HAND - Hand Delivered Darlene Days: Prior Verbal Notification: Recipient Understood Notice: Yes Recipient Signature: Yes Med Rec Note Co-signed by Attending: Coverage Notice Comment: liliana briscoe [place], [place] Reviewer: [id number] Gunnar Chester Notice Issued Date-Time: 11/06/2019 10:30 Notice Type: Patient Choice Letter Notice Delivered To: Patient Relationship to Patient: Self Sink Cutter Name: Delivery Method: HAND - Hand Delivered Darlene Days: Prior Verbal Notification: Recipient Understood Notice: Yes Recipient Signature: Yes Med Rec Note Co-signed by Attending: Coverage Notice Comment: declinied SNF, wants IP rehab at [facility]. If not able to get into rehab pt wants to go home with [facility] with PT. Reviewer: [id number] Gunnar Chester Notice Issued Date-Time: 11/07/2019 8:20 Notice Type: Patient Choice Letter Notice Delivered To: Patient Relationship to Patient: Self Sink Cutter Name: Delivery Method: HAND - Hand Delivered Darlene Days: Prior Verbal Notification: Recipient Understood Notice: Yes Recipient Signature: Yes Med Rec Note Co-signed by Attending: Coverage Notice Comment: marcio Hay DP export: 11/07/19 8:21 a Patient Name: DILIP FAYE Page [id number] at 1008 All edits/amendments must be made on the electronic document DICTATION DATE: 11/07/19 1008 REEL STRIPPER: DUY 11/07/19 1008 RPT#: [id number] DC DATE: STATUS: ADM IN [facility] [address] [place] [address] END OF REPORT
--- NOTE | 2019-11-07 11:29 | MORECARE ---
CASE MANAGEMENT DISCHARGE SUMMARY PATIENT: DILIP FAYE UNIT: [id number] ADM DATE: 10/23/19 AGE: 59 : 58 SEX: F ROOM/BED: D.1542 AUTHOR: ADELIA,DOC PHYSICIAN: REFERRING PHYSICIAN: NICHOLE BIRCH MD DATE OF SERVICE: 11/07/19 Discharge Plan Patient Name: DILIP FAYE Facility: [facility]:[place] : 1960 Planned Disposition: Anticipated Discharge Date: Discharge Date: Expected LOS: Initial Reviewer: [id number] Initial Review Date: 10/23/2019 Generated: 11/07/19 12:28 pm Comments DCP- Discharge Planning Updated by [id number]: Elise Mejia on 11/07/19 10:[address] FAXED NON PASSAR TO RISSA AT [facility]. ELISE MEJIA DCP- Discharge Planning Updated by [id number]: Elise Mejia on 11/07/19 8:[address] Patient Name: DILIP FAYE Encounter No: [id number] : 1960 Primary Insurance: [employer] CHOICE PPO MCR ADVANT Anticipated DC Date: Planned Disposition: External Planned Provider: : DCP follow-up note: CM met with pt to discuss dc plan. Pt tearful states she needs a few more days to decide. Cm stated she is ready for DC and she needed to make a decision. Cm discussed options of going home with home health, and also SNF. Pt tearful. States she can't walk great and she knows she needs rehab, but she just did not want to go to a shelter. Pt is in agreement for [facility]. MANUELITO signed for [facility]. [facility] signed and faxed. CM Called Rissa at [facility] at [phone] about referral and faxed clinicals. Case management will follow and assist as needed. Elise Mejia MSN,RN,CM DCP- Discharge Planning Updated by [id number]: Elise Mejia on 11/06/19 1:[address] Patient Name: DILIP FAYE Encounter No: [id number] : 1960 Primary Insurance: [employer] CHOICE PPO MCR ADVANT Anticipated DC Date: Planned Disposition: External Planned Provider: : DCP follow-up note: CM met with pt about SNF rehab. Pt tearful. States she isn't sure what she needs to do. Asks if she can think about it tonight. CM provided emotional support. No changes to plan. Case management will follow and assist as needed. Elise Mejia DCP- Discharge Planning Updated by [email or web address]: Elise Mejia on 11/06/19 1:[address] Patient Name: DILIP FYAE Admission Status: ER Accout number: [id number] Admission Date: 10-23-2019 : 1960 Admission Diagnosis:FRACTURE OF UNSP PART OF NECK OF UNSP FEMUR, INIT Attending: NICHOLE BIRCH Current LOS: 14 Anticipated DC Date: Planned Disposition: Primary Insurance: [employer] PPO MCR ADVANT Discharge Planning Comments: The denial for IP rehab stands per Annalee OLEARY. CM attempted to speak with pt about her plan for rehab, but pt in restroom. CM will continue assisting pt in DC planning/needs. Elise Mejia Manager Wholesale: Elise Mejia DCP- Discharge Planning Updated by [id number]: Elise Mejia on 11/06/19 9:[address] CM met with pt about rehab. Pt tearful. States she does not want to go to a shelter. States if she can not get into IP rehab at [facility] she will just go home. CM states she will schedule a P2P for the doctor. Pt states if insurance will not authorize IP rehab at [facility] she will go home with [facility]. MANUELITO signed declining any SNF. Pt authorized IP rehab at [facility] and [facility] with Pt. Elise Mejia DCP- Discharge Planning Updated by [id number]: Karinaisaias Carroll on 11/05/19 5:[address] 1700: Patient has returned from HD. CM met with patient in order to sign DARRIAN. Patient is tearful and refuses to sign DARRIAN. Patient states that she after she spoke with friends, she does not want to go to [facility]. Patient states she has been to [facility] in January 2019 and would like to go there again. CM verified a second time that she refuses to go to [facility] and she agrees that she does not want to go. CM attempted to see the patient in order to obtain signature for DARRIAN, but was in HD. CM obtained the signature of for DARRIAN. DCP- Discharge Planning Updated by [email or web address]: Elise Mejia on 11/04/19 3:[address] Cm received call from Nikki at [facility] stating they do not have any beds available. CM called and left a message for Clifford at [facility] to return a call about referral. CM spoke with patient and updated update. Patient has agreed to allow CM to send referral to [facility], CM anticipated a PASR, and started DARRIAN.CM called Rissa at [phone] at [facility]. Rissa states they have bed openings, will accept pt insurance, and can accept a pt on dialysis. CM faxed referral, and stated a DARRIAN has been initiated. CM will continue to assist as needed. Elise Mejia DCP- Discharge Planning Updated by [email or web address]: Elise Mejia on 11/04/19 11:[address] Patient Name: DILIP FAYE Encounter No: [id number] : 1960 Primary Insurance: [employer] CHOICE PPO MCR ADVANT Anticipated DC Date: Planned Disposition: External Planned Provider: : DCP follow-up note: CM spoke with pt about SNF for rehab. Pt in agreement with care home for rehab. Pt choices were for [address] [place] [address], [facility], and then [facility]. CM called Renetta at [facility] about referral. Renetta states they do not accept dialysis patients at this time. Cm called Nikki at [facility] at [phone] about referral. CM left message and faxed referral. Will await return call. Patient and family in agreement with discharge plan. Case management will follow and assist as needed. Elise Mejia DCP- Discharge Planning Updated by [id number]: Elise Mejia on 10/31/19 1:[address] Patient Name: DILIP FAYE Admission Status: ER Accout number: [id number] Admission Date: 10-23-2019 : 1960 Admission Diagnosis:FRACTURE OF UNSP PART OF NECK OF UNSP FEMUR, INIT Attending: NICHOLE BIRCH Current LOS: 8 Anticipated DC Date: Planned Disposition: Primary Insurance: [employer] CHOICE PPO MCR ADVANT Discharge Planning Comments: CM spoke with Kath in IP rehab. The auth was canceled, and Lakisha will determine if a new auth will be required. Kath states they do not have any available beds and will consider her for admit on Sunday if the insurance auth is completed. CM will continue to assist in DC planning/needs. Manager Wholesale: Elise Mejia DCP- Discharge Planning Updated by [id number]: Elise Mejia on 10/31/19 1:[address] Patient Name: DILIP FAYE Admission Status: ER Accout number: [id number] Admission Date: 10-23-2019 : 1960 Admission Diagnosis:FRACTURE OF UNSP PART OF NECK OF UNSP FEMUR, INIT Attending: NICHOLE BIRCH Current LOS: 8 Anticipated DC Date: Planned Disposition: Primary Insurance: [employer] PPO MCR ADVANT Late entry assessment completed 10/30/19 Discharge Planning Comments: CM met with patient to complete initial dc planning assessment. CM educated patient on the CM role and verbal consent given by patient to complete assessment. CM verified patient's address, phone number, and emergency contact phone numbers. Patient lives with her God child's parents. . At discharge patient plans to return home and feels this is a safe discharge. Pt states since her last admit, she has fallen and fractured her hip. States she would like to go to [facility] Ip rehab. MANUELITO signed. CM discussed availability of home health, rehab services, and medical equipment. Patient states she has a walker, and would like HH with PT at discharge after IP rehab. Patient denies other known discharge needs at this time.CM will continue to follow and will assist as needed with dc plans/needs. Manager Wholesale: Elise Mejia Coverage Notice Reviewer: [id number] - Elise Mejia Notice Issued Date-Time: 10/31/2019 14:10 Notice Type: Patient Choice Letter Notice Delivered To: Patient Relationship to Patient: Self Director Of People Name: Delivery Method: HAND - Hand Delivered Darlene Days: Prior Verbal Notification: Recipient Understood Notice: Yes Recipient Signature: Yes Med Rec Note Co-signed by Attending: Coverage Notice Comment: manuelito for ip rehab at [facility] Reviewer: [id number] Gunnar Mejia Notice Issued Date-Time: 11/04/2019 11:25 Notice Type: Patient Choice Letter Notice Delivered To: Patient Relationship to Patient: Self Director Of People Name: Delivery Method: HAND - Hand Delivered Darlene Days: Prior Verbal Notification: Recipient Understood Notice: Yes Recipient Signature: Yes Med Rec Note Co-signed by Attending: Coverage Notice Comment: liliana [place] Reviewer: [id number] Gunnar Mejia Notice Issued Date-Time: 11/06/2019 10:30 Notice Type: Patient Choice Letter Notice Delivered To: Patient Relationship to Patient: Self Director Of People Name: Delivery Method: HAND - Hand Delivered Darlene Days: Prior Verbal Notification: Recipient Understood Notice: Yes Recipient Signature: Yes Med Rec Note Co-signed by Attending: Coverage Notice Comment: declinied SNF, wants IP rehab at [facility]. If not able to get into rehab pt wants to go home with [facility] with PT. Reviewer: [id number] Gunnar Mejia Notice Issued Date-Time: 11/07/2019 8:20 Notice Type: Patient Choice Letter Notice Delivered To: Patient Relationship to Patient: Self Director Of People Name: Delivery Method: HAND - Hand Delivered Darlene Days: Prior Verbal Notification: Recipient Understood Notice: Yes Recipient Signature: Yes Med Rec Note Co-signed by Attending: Coverage Notice Comment: marcio Hay DP export: 11/07/19 9:08 a Patient Name: DILIP FAYE Page [id number] at 1129 All edits/amendments must be made on the electronic document DICTATION DATE: 11/07/19 112 SAP DIRECTOR: DUY 11/07/19 1128 RPT#: [id number] DC DATE: STATUS: ADM IN [facility] [address] [place] [address] END OF REPORT
--- NOTE | 2019-11-07 13:30 | NUR ---
BACK FROM DIALYSIS. VS WNL. SHELIA REMOVED FROM RIGHT HIP AND DRY DRSG APPLIED. MEPILEX DRSG CHANGED TO BUTTOCKS. WILL CONT TO MONITOR LEADS.
[2019-11-07 14:28] VITALS: BP 132/43
--- NOTE | 2019-11-07 15:58 | MORECARE ---
CASE MANAGEMENT DISCHARGE SUMMARY PATIENT: DILIP FAYE UNIT: [id number] ADM DATE: 10/23/19 AGE: 59 : 58 SEX: F ROOM/BED: D.7633 AUTHOR: ADELIA,DOC PHYSICIAN: REFERRING PHYSICIAN: NICHOLE BIRCH MD DATE OF SERVICE: 11/07/19 Discharge Plan Patient Name: DILIP FAYE Facility: [facility]:[place] : 1960 Planned Disposition: Anticipated Discharge Date: Discharge Date: Expected LOS: Initial Reviewer: [id number] Initial Review Date: 10/23/2019 Generated: 11/07/19 4:58 pm Comments DCP- Discharge Planning Updated by [id number]: Elise Mejia on 11/07/19 10:[address] FAXED NON PASSAR TO RISSA AT [facility]. ELISE MEJIA DCP- Discharge Planning Updated by [email or web address]: Elise Mejia on 11/07/19 8:[address] Patient Name: DILIP FAYE Encounter No: [id number] : 1960 Primary Insurance: [employer] CHOICE PPO MCR ADVANT Anticipated DC Date: Planned Disposition: External Planned Provider: : DCP follow-up note: CM met with pt to discuss dc plan. Pt tearful states she needs a few more days to decide. Cm stated she is ready for DC and she needed to make a decision. Cm discussed options of going home with home health, and also SNF. Pt tearful. States she can't walk great and she knows she needs rehab, but she just did not want to go to a long-term. Pt is in agreement for [facility]. MANUELITO signed for [facility]. [place] signed and faxed. CM Called Rissa at [facility] at [phone] about referral and faxed clinicals. Case management will follow and assist as needed. Elise Mejia MSN,RN,CM DCP- Discharge Planning Updated by [email or web address]: Elise Mejia on 11/06/19 1:[address] Patient Name: DILIP FAYE Encounter No: [id number] : 1960 Primary Insurance: [employer] CHOICE PPO MCR ADVANT Anticipated DC Date: Planned Disposition: External Planned Provider: : DCP follow-up note: CM met with pt about SNF rehab. Pt tearful. States she isn't sure what she needs to do. Asks if she can think about it tonight. CM provided emotional support. No changes to plan. Case management will follow and assist as needed. Elise Mejia DCP- Discharge Planning Updated by [id number]: Elise Mejia on 11/06/19 1:[address] Patient Name: DILIP FAYE Admission Status: ER Accout number: [id number] Admission Date: 10-23-2019 : 1960 Admission Diagnosis:FRACTURE OF UNSP PART OF NECK OF UNSP FEMUR, INIT Attending: NICHOLE BIRCH Current LOS: 14 Anticipated DC Date: Planned Disposition: Primary Insurance: HUMANA [employer] PPO MCR ADVANT Discharge Planning Comments: The denial for IP rehab stands per Annalee OLEARY. CM attempted to speak with pt about her plan for rehab, but pt in restroom. CM will continue assisting pt in DC planning/needs. Elise Mejia Mud Logger: Elise Mejia DCP- Discharge Planning Updated by [id number]: Elise Mejia on 11/06/19 9:[address] CM met with pt about rehab. Pt tearful. States she does not want to go to a long-term. States if she can not get into IP rehab at [facility] she will just go home. CM states she will schedule a P2P for the doctor. Pt states if insurance will not authorize IP rehab at [facility] she will go home with [facility]. MANUELITO signed declining any SNF. Pt authorized IP rehab at [facility] and [facility] with Pt. Elise Mejia DCP- Discharge Planning Updated by [id number]: Karinaisaias Carroll on 11/05/19 5:[address] 1700: Patient has returned from HD. CM met with patient in order to sign DARRIAN. Patient is tearful and refuses to sign DARRIAN. Patient states that she after she spoke with friends, she does not want to go to [facility]. Patient states she has been to [facility] in January 2019 and would like to go there again. CM verified a second time that she refuses to go to [facility] and she agrees that she does not want to go. CM attempted to see the patient in order to obtain signature for DARRIAN, but was in HD. CM obtained the signature of for DARRIAN. DCP- Discharge Planning Updated by [id number]: Elise Mejia on 11/04/19 3:[address] Cm received call from Nikki at [facility] stating they do not have any beds available. CM called and left a message for Clifford at [facility] to return a call about referral. CM spoke with patient and updated update. Patient has agreed to allow CM to send referral to [facility], CM anticipated a PASR, and started DARRIAN.CM called Rissa at [phone] at [facility]. Rissa states they have bed openings, will accept pt insurance, and can accept a pt on dialysis. CM faxed referral, and stated a DARRIAN has been initiated. CM will continue to assist as needed. Elise Mejia DCP- Discharge Planning Updated by [email or web address]: Elise Mejia on 11/04/19 11:[address] Patient Name: DILIP FAYE Encounter No: [id number] : 1960 Primary Insurance: [employer] CHO[employer] PPO MCR ADVANT Anticipated DC Date: Planned Disposition: External Planned Provider: : DCP follow-up note: CM spoke with pt about SNF for rehab. Pt in agreement with [facility] for rehab. Pt choices were for [address] [place] [address], [facility], and then [facility]. CM called Renetta at [facility] about referral. Renetta states they do not accept dialysis patients at this time. Cm called Nikki at [facility] at [phone] about referral. CM left message and faxed referral. Will await return call. Patient and family in agreement with discharge plan. Case management will follow and assist as needed. Elise Mejia DCP- Discharge Planning Updated by [id number]: Elise Mejia on 10/31/19 1:[address] Patient Name: DILIP FAYE Admission Status: ER Accout number: [id number] Admission Date: 10-23-2019 : 1960 Admission Diagnosis:FRACTURE OF UNSP PART OF NECK OF UNSP FEMUR, INIT Attending: NICHOLE BIRCH Current LOS: 8 Anticipated DC Date: Planned Disposition: Primary Insurance: [employer] CHO[employer] PPO MCR ADVANT Discharge Planning Comments: CM spoke with Kath in IP rehab. The auth was canceled, and Lakisha will determine if a new auth will be required. Kath states they do not have any available beds and will consider her for admit on Sunday if the insurance auth is completed. CM will continue to assist in DC planning/needs. Mud Logger: Elise Mejia DCP- Discharge Planning Updated by [id number]: Elise Mejia on 10/31/19 1:[address] Patient Name: DILIP FAYE Admission Status: ER Accout number: [id number] Admission Date: 10-23-2019 : 1960 Admission Diagnosis:FRACTURE OF UNSP PART OF NECK OF UNSP FEMUR, INIT Attending: NICHOLE BIRCH Current LOS: 8 Anticipated DC Date: Planned Disposition: Primary Insurance: HUMANA [employer] PPO MCR ADVANT Late entry assessment completed 10/30/19 Discharge Planning Comments: CM met with patient to complete initial dc planning assessment. CM educated patient on the CM role and verbal consent given by patient to complete assessment. CM verified patient's address, phone number, and emergency contact phone numbers. Patient lives with her God child's parents. . At discharge patient plans to return home and feels this is a safe discharge. Pt states since her last admit, she has fallen and fractured her hip. States she would like to go to [facility] Ip rehab. MANUELITO signed. CM discussed availability of home health, rehab services, and medical equipment. Patient states she has a walker, and would like HH with PT at discharge after IP rehab. Patient denies other known discharge needs at this time.CM will continue to follow and will assist as needed with dc plans/needs. Mud Logger: Elise Mejia Coverage Notice Reviewer: [id number] - Elise Mejia Notice Issued Date-Time: 10/31/2019 14:10 Notice Type: Patient Choice Letter Notice Delivered To: Patient Relationship to Patient: Self Corporate Strategy Associate Name: Delivery Method: HAND - Hand Delivered Darlene Days: Prior Verbal Notification: Recipient Understood Notice: Yes Recipient Signature: Yes Med Rec Note Co-signed by Attending: Coverage Notice Comment: manuelito for ip rehab at [facility] Reviewer: [id number] Gunnar Mejia Notice Issued Date-Time: 11/04/2019 11:25 Notice Type: Patient Choice Letter Notice Delivered To: Patient Relationship to Patient: Self Corporate Strategy Associate Name: Delivery Method: HAND - Hand Delivered Darlene Days: Prior Verbal Notification: Recipient Understood Notice: Yes Recipient Signature: Yes Med Rec Note Co-signed by Attending: Coverage Notice Comment: liliana [place] Reviewer: [id number] Gunnar Mejia Notice Issued Date-Time: 11/06/2019 10:30 Notice Type: Patient Choice Letter Notice Delivered To: Patient Relationship to Patient: Self Corporate Strategy Associate Name: Delivery Method: HAND - Hand Delivered Darlene Days: Prior Verbal Notification: Recipient Understood Notice: Yes Recipient Signature: Yes Med Rec Note Co-signed by Attending: Coverage Notice Comment: declinied SNF, wants IP rehab at [facility]. If not able to get into rehab pt wants to go home with [facility] with PT. Reviewer: [id number] Mejia Notice Issued Date-Time: 11/07/2019 8:20 Notice Type: Patient Choice Letter Notice Delivered To: Patient Relationship to Patient: Self Corporate Strategy Associate Name: Delivery Method: HAND - Hand Delivered Darlene Days: Prior Verbal Notification: Recipient Understood Notice: Yes Recipient Signature: Yes Med Rec Note Co-signed by Attending: Coverage Notice Comment: marcio Reviewer: [id number] Gunnar Mejia Notice Issued Date-Time: 11/07/2019 14:50 Notice Type: IM Discharge Notice Notice Delivered To: Patient Relationship to Patient: Self Corporate Strategy Associate Name: Delivery Method: HAND - Hand Delivered Darlene Days: Prior Verbal Notification: Recipient Understood Notice: Yes Recipient Signature: Yes Med Rec Note Co-signed by Attending: Coverage Notice Comment: DC IMM delivered, explained, signed by the patient, and placed in chart. Signed form also left with the patient. Last DP export: 11/07/19 10:29 a Patient Name: DILIP FAYE Page [id number] at 1558 All edits/amendments must be made on the electronic document DICTATION DATE: 11/07/191557 SLITTER SERVICE AND SETTER: DUY 11/07/19 155 RPT#: [id number] DC DATE: STATUS: [facility] [address] [place] [address] END OF REPORT
--- NOTE | 2019-11-07 17:28 | NUR ---
OT NOTE: PT COMPLETED SUPINE TO SIT WITH SBA. PT COMPLETED SIT TO STAND WITH CGA. PT COMPLETED SIDE STEPS WITH CGA/SBA. PT COMPLETED UE AROM EXS FOR INCREASED ENDURANCE. [phone] THANK YOU,CONCEPCION DUMONT
[2019-11-07 21:41] VITALS: BP 114/36
--- NOTE | 2019-11-07 23:26 | NUR ---
INITIAL ROUNDS AND ASSESSMENT COMPLETED. PT RESTING IN BED. NO DISTRESS. CALL LIGHT IN REACH. CPOC.
[2019-11-08 04:40] VITALS: BP 110/39
[2019-11-08 06:01] LABS: BASOPHILS 0 % (0-2); EOSINOPHILS 0.2 % (0-7); HEMATOCRIT 27.2 % (36.0-48.0); HEMOGLOBIN 8.3 g/dL (12-16); IMMATURE GRANULOCYTES 0.6 % (0-5); LYMPHOCYTES 15.1 % (15-50); MCH 29.9 pg (26.0-34.0); MCHC 30.5 g/dL (31.0-37.0); MCV 97.8 fL (80.0-100.0); MEAN PLATELET VOLUME 10.2 fL (7.4-10.4); MONOCYTES 10.1 % (2-11); PLATELET COUNT 267 10x3/uL (130-400); RBC 2.78 10x6/uL (4.00-5.40); RDW 17.4 % (11.5-14.5); WBC 13.8 10x3/uL (4.8-10.8)
--- NOTE | 2019-11-08 06:35 | NUR ---
NO CHANGE FROM INITIAL SHIFT ASSESSMENT. CONTINUE PLAN OF CARE. CALL LIGHT IN REACH. BED LOW AND SR UP X 2. REPORT TO ONCOMING SHIFT.
[2019-11-08 06:48] LABS: ANION GAP 10.2 mmol/L (8-16); CALCIUM 8.5 mg/dL (8.5-10.1); CARBON DIOXIDE 31.8 mmol/L (21.0-32.0); CREATININE - SERUM 4.3 mg/dL (0.6-1.3)
--- NOTE | 2019-11-08 07:38 | NUR ---
BLOOD SUGAR OF 81, NO COVERAGE NEEDED PER S/S. PT UP TO CHAIR, A/O X4, RSEP EVEN AND NONLABORED ON RA. LT AV FISTULA WITH BRUIT AND THRILL NOTED. RT FA IV SL. DRESSINGS TO RT HIP CDI. SMALL AREA ON ABD BLEEDING, APPLIED BAND AID TO SITE. ALSO PROVIDED PT WITH A CUP OF COFFEE AND NEW GOWN. PT DENIES ANY NEEDS AT THIS TIME. CALL LIGHT IN REACH, WILL CONTINUE PLAN OF CARE.
[2019-11-08 08:33] VITALS: BP 121/54
[2019-11-08 10:30] VITALS: BP 131/40
--- NOTE | 2019-11-08 10:39 | NUR ---
PERCOCET GIVEN FOR PAIN LEVEL OF 7/10. NEW DRESSING APPLIED TO BUTTUCKS. PT DENIES ANY OTHER NEEDS AT THIS TIME, CALL LIGHT IN REACH.
--- NOTE | 2019-11-08 11:22 | NUR ---
BLOOD SUGAR OF 290, 10UNITS GIVEN PER S/S.
[2019-11-08 15:00] VITALS: BP 116/44
--- NOTE | 2019-11-08 16:41 | NUR ---
BLOOD SUGAR OF 361, 16UNITS OF INSULIN GIVEN PER S/S. PRESSURE DRESSING APPLIED TO SITE ON ABD THAT KEEPS BLEEDING. PT DENIES ANY NEEDS AT THIS TIME, CALL LIGHT IN REACH.
[2019-11-08 20:18] VITALS: BP 128/42
--- NOTE | 2019-11-08 20:19 | NUR ---
INITIAL REPORT AND ROUNDS COMPLETED. SEE ASSESSMENTS. PT RESTING IN BED WITH NO DISTRESS. CALL LIGHT IN REACH. CPOC.
[2019-11-09 04:45] VITALS: BP 125/83
[2019-11-09 06:51] LABS: BASOPHILS 0 % (0-2); EOSINOPHILS 0.2 % (0-7); HEMATOCRIT 25.9 % (36.0-48.0); HEMOGLOBIN 8.1 g/dL (12-16); IMMATURE GRANULOCYTES 0.6 % (0-5); MCH 30.5 pg (26.0-34.0); MCHC 31.3 g/dL (31.0-37.0); MCV 97.4 fL (80.0-100.0); MEAN PLATELET VOLUME 10.2 fL (7.4-10.4); MONOCYTES 11.1 % (2-11); NEUTROPHILS 74.1 % (40-80); PLATELET COUNT 260 10x3/uL (130-400); RBC 2.66 10x6/uL (4.00-5.40); RDW 17.6 % (11.5-14.5); WBC 12.4 10x3/uL (4.8-10.8)
--- NOTE | 2019-11-09 07:15 | NUR ---
REPORT TO ONCOMING NURSE. PT RESTING IN BEDSIDE RECLINER. ALERT/ORIENTED. DRINKING COFFEE. NO CHANGE FROM INITIAL SHIFT ASSESSMENT. CPOC. CALL LIGHT IN REACH.
[2019-11-09 07:20] LABS: ANION GAP 13.7 mmol/L (8-16); CALCIUM 8.8 mg/dL (8.5-10.1); CARBON DIOXIDE 27.8 mmol/L (21.0-32.0); POTASSIUM - SERUM 4.5 mmol/L (3.5-5.1)
[2019-11-09 07:21] LABS: CREATININE - SERUM 5.7 mg/dL (0.6-1.3)
[2019-11-09 08:18] VITALS: BP 145/49
[2019-11-09 11:25] VITALS: BP 136/83
--- NOTE | 2019-11-09 16:28 | NUR ---
BLOOD SUGAR OF 383, 16 UNITS OF INSULIN GIVEN. ALSO GAVE PERCOCET FOR PAIN LEVEL OF 7/10. PT DENIES ANY NEEDS AT THIS TIME. CALL LIGHT IN REACH.
[2019-11-09 17:41] VITALS: BP 143/55
--- NOTE | 2019-11-09 18:06 | NUR ---
WHEN PT WAS TRYING TO GET BACK TO BED FROM BATHROOM, PT WAS HOLDING USING WALKER AND HER ARMS GAVE UP ON HER AND PT STARTED FALLING, THIS NURSE GUIDED PT'S FALL BUT HIT HER RT ELBOW AND RT BUTTUCKS. NO VISIBLE INJURIES NOTED. PAGED DANIKA MEHTA.
--- NOTE | 2019-11-09 18:18 | NUR ---
WHEN PT WAS TRYING TO GET BACK TO BED FROM BATHROOM, PT WAS HOLDING USING WALKER AND HER ARMS GAVE UP ON HER AND PT STARTED FALLING, THIS NURSE GUIDED PT'S FALL BUT PT HIT HER LT ELBOW AND LT BUTTUCKS. NO VISIBLE INJURIES NOTED. PT C/O OF BOTTOM AND RT HIP HURTING WHICH BOTH WERE HURTING BEFORE PT FELL. NOTIFIED DANIKA MEHTA APRN.
[2019-11-09 21:30] VITALS: BP 137/34
[2019-11-10 04:35] VITALS: BP 123/48
[2019-11-10 07:38] LABS: ANION GAP 14.5 mmol/L (8-16); CALCIUM 8.7 mg/dL (8.5-10.1); CARBON DIOXIDE 28.4 mmol/L (21.0-32.0); CREATININE - SERUM 6.7 mg/dL (0.6-1.3); POTASSIUM - SERUM 4.9 mmol/L (3.5-5.1)
[2019-11-10 07:47] LABS: BASOPHILS 0 % (0-2); EOSINOPHILS 0.4 % (0-7); HEMATOCRIT 27.5 % (36.0-48.0); HEMOGLOBIN 8.5 g/dL (12-16); IMMATURE GRANULOCYTES 0.6 % (0-5); LYMPHOCYTES 17.9 % (15-50); MCH 30.1 pg (26.0-34.0); MCHC 30.9 g/dL (31.0-37.0); MCV 97.5 fL (80.0-100.0); MEAN PLATELET VOLUME 9.8 fL (7.4-10.4); NEUTROPHILS 71.1 % (40-80); PLATELET COUNT 268 10x3/uL (130-400); RBC 2.82 10x6/uL (4.00-5.40); RDW 17.5 % (11.5-14.5); WBC 10.4 10x3/uL (4.8-10.8)
[2019-11-10 08:28] VITALS: BP 121/45
--- NOTE | 2019-11-10 10:37 | NUR ---
PT TO DIALYSIS.
--- NOTE | 2019-11-10 10:56 | NUR ---
TOOK PERCOCET TO PT IN DIALYSIS FOR PAIN LEVEL OF 10/10.
[2019-11-10] MEDS ORDERED: ZYVOX600 MG PO (12:20)
--- NOTE | 2019-11-10 12:52 | MORECARE ---
CASE MANAGEMENT DISCHARGE SUMMARY PATIENT: DILIP FAYE UNIT: [id number] ADM DATE: 10/23/19 AGE: 59 : 58 SEX: F ROOM/BED: D.9882 AUTHOR: ADELIA,DOC PHYSICIAN: REFERRING PHYSICIAN: NICHOLE BIRCH MD DATE OF SERVICE: 11/10/19 Discharge Plan Patient Name: DILIP FAYE Facility: [facility]:[place] : 1960 Planned Disposition: Anticipated Discharge Date: Discharge Date: Expected LOS: Initial Reviewer: [email or web address] Initial Review Date: 10/23/2019 Generated: 11/10/19 1:51 pm Comments DCP- Discharge Planning Updated by [id number]: Elise Mejia on 11/10/19 11:[address] Patient Name: DILIP FAYE Encounter No: [id number] : 1960 Primary Insurance: [employer] CHO[employer] PPO MCR ADVANT Anticipated DC Date: Planned Disposition: External Planned Provider: : DCP follow-up note: CM received call from Rissa at [facility] [phone] who states they have received auth from ins, and they will accept her today. The patient will be admitted into a [facility] bed. CM spoke with MIKAEL Saul who states the admission paperwork will need to be completed prior to transporting pt to the facility. Dorys states she will call CM with bed disposition, and who report will be called to. Patient and family in agreement with discharge plan. Updated orders and requested information faxed to SNF. SNF phone number and contact information given to patient \family. Patient will be transported by [facility]. Elise Mejia DCP- Discharge Planning Updated by [id number]: Elise Mejia on 11/07/19 10:[address] FAXED NON PASSAR TO RISSA AT [facility]. ELISE MEJIA DCP- Discharge Planning Updated by [id number]: Elise Mejia on 11/07/19 8:[address] Patient Name: DILIP FAYE Encounter No: [id number] : 1960 Primary Insurance: [employer] CHO[employer] PPO MCR ADVANT Anticipated DC Date: Planned Disposition: External Planned Provider: : DCP follow-up note: CM met with pt to discuss dc plan. Pt tearful states she needs a few more days to decide. Cm stated she is ready for DC and she needed to make a decision. Cm discussed options of going home with home health, and also SNF. Pt tearful. States she can't walk great and she knows she needs rehab, but she just did not want to go to a fci. Pt is in agreement for [facility]. MANUELITO signed for [facility]. Darrian signed and faxed. CM Called Rissa at [facility] at [phone] about referral and faxed clinicals. Case management will follow and assist as needed. Elise Mejia MSN,RN,CM DCP- Discharge Planning Updated by [email or web address]: Elise Mejia on 11/06/19 1:[address] Patient Name: DILIP FAYE Encounter No: [id number] : 1960 Primary Insurance: [employer]NA [employer] PPO [facility] ADVANT Anticipated DC Date: Planned Disposition: External Planned Provider: : DCP follow-up note: CM met with pt about SNF rehab. Pt tearful. States she isn't sure what she needs to do. Asks if she can think about it tonight. CM provided emotional support. No changes to plan. Case management will follow and assist as needed. Elise Mejia DCP- Discharge Planning Updated by [id number]: Elise Mejia on 11/06/19 1:[address] Patient Name: DILIP FAYE Admission Status: ER Accout number: [id number] Admission Date: 10-23-2019 : 1960 Admission Diagnosis:FRACTURE OF UNSP PART OF NECK OF UNSP FEMUR, INIT Attending: NICHOLE BIRCH Current LOS: 14 Anticipated DC Date: Planned Disposition: Primary Insurance: [employer] CHOICE PPO MCR ADVANT Discharge Planning Comments: The denial for IP rehab stands per Annalee OLEARY. CM attempted to speak with pt about her plan for rehab, but pt in restroom. CM will continue assisting pt in DC planning/needs. Elise Mejia Fruit Loader Machine Operator: Elise Mejia DCP- Discharge Planning Updated by [id number]: Elise Mejia on 11/06/19 9:[address] CM met with pt about rehab. Pt tearful. States she does not want to go to a fci. States if she can not get into IP rehab at [facility] she will just go home. CM states she will schedule a P2P for the doctor. Pt states if insurance will not authorize IP rehab at [facility] she will go home with [facility]. MANUELITO signed declining any SNF. Pt authorized IP rehab at [facility] and [facility] with Pt. Elise Mejia DCP- Discharge Planning Updated by [id number]: Karina Carroll on 11/05/19 5:[address] 1700: Patient has returned from HD. CM met with patient in order to sign DARRIAN. Patient is tearful and refuses to sign DARRIAN. Patient states that she after she spoke with friends, she does not want to go to [facility]. Patient states she has been to [facility] in January 2019 and would like to go there again. CM verified a second time that she refuses to go to [facility] and she agrees that she does not want to go. CM attempted to see the patient in order to obtain signature for DARRIAN, but was in HD. CM obtained the signature of for DARRIAN. DCP- Discharge Planning Updated by [id number]: Elise Mejia on 11/04/19 3:[address] Cm received call from Nikki at [facility] stating they do not have any beds available. CM called and left a message for Clifford at [facility] to return a call about referral. CM spoke with patient and updated update. Patient has agreed to allow CM to send referral to [facility], CM anticipated a PASR, and started DARRIAN.CM called Rissa at [phone] at [facility]. Rissa states they have bed openings, will accept pt insurance, and can accept a pt on dialysis. CM faxed referral, and stated a DARRIAN has been initiated. CM will continue to assist as needed. Elise Mejia DCP- Discharge Planning Updated by [id number]: Elise Mejia on 11/04/19 11:[address] Patient Name: DILIP FAYE Encounter No: [id number] : 1960 Primary Insurance: [employer] CHO[employer] PPO MCR ADVANT Anticipated DC Date: Planned Disposition: External Planned Provider: : DCP follow-up note: CM spoke with pt about SNF for rehab. Pt in agreement with [facility] for rehab. Pt choices were for , [facility], [facility], and then [facility]. CM called Renetta at [facility] about referral. Renetta states they do not accept dialysis patients at this time. Cm called Nikki at [facility] at [phone] about referral. CM left message and faxed referral. Will await return call. Patient and family in agreement with discharge plan. Case management will follow and assist as needed. Elise Mejia DCP- Discharge Planning Updated by [id number]: Elise Mejia on 10/31/19 1:[address] Patient Name: DILIP FAYE Admission Status: ER Accout number: [id number] Admission Date: 10-23-2019 : 1960 Admission Diagnosis:FRACTURE OF UNSP PART OF NECK OF UNSP FEMUR, INIT Attending: NICHOLE BIRCH Current LOS: 8 Anticipated DC Date: Planned Disposition: Primary Insurance: [employer] CHOICE PPO MCR ADVANT Discharge Planning Comments: NICKIE spoke with Kath in IP rehab. The auth was canceled, and Lakisha will determine if a new auth will be required. Kath states they do not have any available beds and will consider her for admit on Sunday if the insurance auth is completed. CM will continue to assist in DC planning/needs. Fruit Loader Machine Operator: Elise Mejia DCP- Discharge Planning Updated by [id number]: Elise Mejia on 10/31/19 1:[address] Patient Name: DILIP FAYE Admission Status: ER Accout number: [id number] Admission Date: 10-23-2019 : 1960 Admission Diagnosis:FRACTURE OF UNSP PART OF NECK OF UNSP FEMUR, INIT Attending: NICHOLE BIRCH Current LOS: 8 Anticipated DC Date: Planned Disposition: Primary Insurance: [employer] CHOICE PPO MCR ADVANT Late entry assessment completed 10/30/19 Discharge Planning Comments: CM met with patient to complete initial dc planning assessment. CM educated patient on the CM role and verbal consent given by patient to complete assessment. CM verified patient's address, phone number, and emergency contact phone numbers. Patient lives with her God child's parents. . At discharge patient plans to return home and feels this is a safe discharge. Pt states since her last admit, she has fallen and fractured her hip. States she would like to go to [facility] Ip rehab. MANUELITO signed. CM discussed availability of home health, rehab services, and medical equipment. Patient states she has a walker, and would like HH with PT at discharge after IP rehab. Patient denies other known discharge needs at this time.CM will continue to follow and will assist as needed with dc plans/needs. Fruit Loader Machine Operator: Elise Mejia Coverage Notice Reviewer: [id number] Gunnar Mejia Notice Issued Date-Time: 10/31/2019 14:10 Notice Type: Patient Choice Letter Notice Delivered To: Patient Relationship to Patient: Self Construction Representative Name: Delivery Method: HAND - Hand Delivered Darlene Days: Prior Verbal Notification: Recipient Understood Notice: Yes Recipient Signature: Yes Med Rec Note Co-signed by Attending: Coverage Notice Comment: manuelito for ip rehab at [facility] Reviewer: [id number] Gunnar Mejia Notice Issued Date-Time: 11/04/2019 11:25 Notice Type: Patient Choice Letter Notice Delivered To: Patient Relationship to Patient: Self Construction Representative Name: Delivery Method: HAND - Hand Delivered Darlene Days: Prior Verbal Notification: Recipient Understood Notice: Yes Recipient Signature: Yes Med Rec Note Co-signed by Attending: Coverage Notice Comment: liliana [place], [place] Reviewer: [id number] Gunnar Mejia Notice Issued Date-Time: 11/06/2019 10:30 Notice Type: Patient Choice Letter Notice Delivered To: Patient Relationship to Patient: Self Construction Representative Name: Delivery Method: HAND - Hand Delivered Darlene Days: Prior Verbal Notification: Recipient Understood Notice: Yes Recipient Signature: Yes Med Rec Note Co-signed by Attending: Coverage Notice Comment: declinied SNF, wants IP rehab at [facility]. If not able to get into rehab pt wants to go home with [facility] with PT. Reviewer: [id number] Gunnar Mejia Notice Issued Date-Time: 11/07/2019 8:20 Notice Type: Patient Choice Letter Notice Delivered To: Patient Relationship to Patient: Self Construction Representative Name: Delivery Method: HAND - Hand Delivered Darlene Days: Prior Verbal Notification: Recipient Understood Notice: Yes Recipient Signature: Yes Med Rec Note Co-signed by Attending: Coverage Notice Comment: marcio Reviewer: [email or web address] Gunnar Mercedesa Nemo Notice Issued Date-Time: 11/07/2019 14:50 Notice Type: IM Discharge Notice Notice Delivered To: Patient Relationship to Patient: Self Construction Representative Name: Delivery Method: HAND - Hand Delivered Darlene Days: Prior Verbal Notification: Recipient Understood Notice: Yes Recipient Signature: Yes Med Rec Note Co-signed by Attending: Coverage Notice Comment: DC IMM delivered, explained, signed by the patient, and placed in chart. Signed form also left with the patient. Reviewer: [id number] Gunnar Mercedesa Nemo Notice Issued Date-Time: 11/10/2019 12:20 Notice Type: IM Discharge Notice Notice Delivered To: Patient Relationship to Patient: Self Construction Representative Name: Delivery Method: HAND - Hand Delivered Darlene Days: Prior Verbal Notification: Yes Recipient Understood Notice: Recipient Signature: Med Rec Note Co-signed by Attending: Coverage Notice Comment: DELIVERED VIA NURSE. PT IN CONTACT ISOLATION. CM SPOKE WITH PT TO PROVIDE EXPLANATION OF MCR DC RIGHTS Last DP export: 11/07/19 2:58 p Patient Name: DILIP FAYE Page [id number] at 1252 All edits/amendments must be made on the electronic document DICTATION DATE: 11/10/19 1252 FUR DRY CLEANER: DUY 11/10/19 1252 RPT#: [id number] DC DATE: STATUS: ADM IN [facility] [address] [place] [address] END OF REPORT
--- NOTE | 2019-11-10 17:14 | NUR ---
PROVIDED VERBAL AND WRITTEN DISCHARGE TEACHING TO PT, WHO VERBALIZED UNDERSTANDING REGARING TEACHING. D/C RT FA IV WITH CATHETER TIP INTACT. [facility] WILL BE HERE AROUND 1999 TO PICK PT UP.
--- NOTE | 2019-11-10 19:54 | NUR ---
RECIEVED CALL FROM TIRSO RUBIN LPN FROM [facility] UNABLE TO PICK PT UP TO NIGHT BUT WILL BE ABLE TO IN THE AM. INFORMED DANIKA MEHTA APN, ORDERS GIVEN TO POSTPONE DC UNTIL AM. HOUSE SUPP. SIN BABB NOTIFIED.
[2019-11-11 03:19] VITALS: BP 133/29
[2019-11-11 06:27] LABS: BASOPHILS 0 % (0-2); EOSINOPHILS 0.5 % (0-7); HEMOGLOBIN 8.2 g/dL (12-16); IMMATURE GRANULOCYTES 0.4 % (0-5); LYMPHOCYTES 15.7 % (15-50); MCH 30.3 pg (26.0-34.0); MCHC 30.4 g/dL (31.0-37.0); MEAN PLATELET VOLUME 9.3 fL (7.4-10.4); MONOCYTES 7.5 % (2-11); NEUTROPHILS 75.9 % (40-80); RBC 2.71 10x6/uL (4.00-5.40); RDW 18.1 % (11.5-14.5); WBC 8.6 10x3/uL (4.8-10.8)
[2019-11-11 06:29] LABS: MCV 99.6 fL (80.0-100.0); PLATELET COUNT 213 10x3/uL (130-400)
[2019-11-11 06:36] LABS: ANION GAP 11.1 mmol/L (8-16); CALCIUM 8.5 mg/dL (8.5-10.1); CARBON DIOXIDE 31.1 mmol/L (21.0-32.0); POTASSIUM - SERUM 4.2 mmol/L (3.5-5.1)
[2019-11-11 06:37] LABS: CREATININE - SERUM 4.5 mg/dL (0.6-1.3)
[2019-11-11 06:59] VITALS: BP 134/53
[2019-11-11 07:52] VITALS: BP 125/49
--- NOTE | 2019-11-11 09:44 | NUR ---
REPORT CALLED TO REHAB. TRANSPORTED BY [facility]
[2019-11-11 10:12] LABS: HEPATITIS C ANTIBODY <0.1 S/CO RAT (0.0-0.9)
--- NOTE | 2019-11-11 16:08 | MORECARE ---
CASE MANAGEMENT DISCHARGE SUMMARY PATIENT: DILIP FAYE UNIT: [id number] ADM DATE: 10/23/19 AGE: 59 : 58 SEX: F ROOM/BED: D.4988 AUTHOR: ADELIA,DOC PHYSICIAN: REFERRING PHYSICIAN: NICHOLE BIRCH MD DATE OF SERVICE: 11/11/19 Discharge Plan Patient Name: DILIP FAYE Facility: [facility]:[place] : 1960 Planned Disposition: Anticipated Discharge Date: Discharge Date: 11/11/2019 Expected LOS: Initial Reviewer: [id number] Initial Review Date: 10/23/2019 Generated: 11/11/19 5:07 pm Comments DCP- Discharge Planning Updated by [id number]: Elise Mejia on 11/11/19 3:[address] CM received call from Rissa at [facility] [phone] stating that transport was unable to pickling solution maker the patient yesterday. CM asked if the facility could provide transport today or would the patient need to go by EMS. Rissa states she needed to call [employer] to see if the auth is still good. Rissa called back and stated the fan is on the way to pickling solution maker the patient. Nursing can call report to Leland at [phone]. Elise PAZ,RN, DCP- Discharge Planning Updated by [id number]: Elise Mejia on 11/10/19 11:[address] Patient Name: DILIP FAYE Encounter No: [id number] : 1960 Primary Insurance: [employer] CHO[employer] PPO MCR ADVANT Anticipated DC Date: Planned Disposition: External Planned Provider: : DCP follow-up note: CM received call from Rissa at [facility] [phone] who states they have received auth from ins, and they will accept her today. The patient will be admitted into a [facility] bed. CM spoke with MIKAEL Saul who states the admission paperwork will need to be completed prior to transporting pt to the facility. Dorys states she will call CM with bed disposition, and who report will be called to. Patient and family in agreement with discharge plan. Updated orders and requested information faxed to SNF. SNF phone number and contact information given to patient \family. Patient will be transported by [facility]. Elise Mejia DCP- Discharge Planning Updated by [id number]: Elise Mejia on 11/07/19 10:[address] FAXED NON PASSAR TO RISSA AT [facility]. ELISE MEJIA DCP- Discharge Planning Updated by [id number]: Elise Mejia on 11/07/19 8:[address] Patient Name: DILIP FAYE Encounter No: [id number] : 1960 Primary Insurance: [employer] [place] O [facility] ADVANT Anticipated DC Date: Planned Disposition: External Planned Provider: : DCP follow-up note: CM met with pt to discuss dc plan. Pt tearful states she needs a few more days to decide. Cm stated she is ready for DC and she needed to make a decision. Cm discussed options of going home with home health, and also SNF. Pt tearful. States she can't walk great and she knows she needs rehab, but she just did not want to go to a long term. Pt is in agreement for [facility]. MANUELITO signed for [facility]. Darrian signed and faxed. CM Called Rissa at [facility] at [phone] about referral and faxed clinicals. Case management will follow and assist as needed. Elise Mejia MSN,RN,CM DCP- Discharge Planning Updated by [id number]: Elise Mejia on 11/06/19 1:[address] Patient Name: DILIP FAYE Encounter No: [id number] : 1960 Primary Insurance: [employer] [facility] ADVANT Anticipated DC Date: Planned Disposition: External Planned Provider: : DCP follow-up note: CM met with pt about SNF rehab. Pt tearful. States she isn't sure what she needs to do. Asks if she can think about it tonight. CM provided emotional support. No changes to plan. Case management will follow and assist as needed. Elise Mejia DCP- Discharge Planning Updated by [id number]: Elise Mejia on 11/06/19 1:[address] Patient Name: DILIP FAYE Admission Status: ER Accout number: [id number] Admission Date: 10-23-2019 : 1960 Admission Diagnosis:FRACTURE OF UNSP PART OF NECK OF UNSP FEMUR, INIT Attending: NICHOLE BIRCH Current LOS: 14 Anticipated DC Date: Planned Disposition: Primary Insurance: [employer] CHOICE O MCR ADVANT Discharge Planning Comments: The denial for IP rehab stands per Annalee OLEARY. CM attempted to speak with pt about her plan for rehab, but pt in restroom. CM will continue assisting pt in DC planning/needs. Elise Mejia [employer] Agent: Elise Mejia DCP- Discharge Planning Updated by [id number]: Elise Mejia on 11/06/19 9:[address] CM met with pt about rehab. Pt tearful. States she does not want to go to a long term. States if she can not get into IP rehab at [facility] she will just go home. CM states she will schedule a P2P for the doctor. Pt states if insurance will not authorize IP rehab at [facility] she will go home with [facility]. MANUELITO signed declining any SNF. Pt authorized IP rehab at [facility] and [facility] with Pt. Elise Mejia DCP- Discharge Planning Updated by [id number]: Karina Olguinlroy on 11/05/19 5:[address] 1700: Patient has returned from HD. CM met with patient in order to sign DARRIAN. Patient is tearful and refuses to sign DARRIAN. Patient states that she after she spoke with friends, she does not want to go to [facility]. Patient states she has been to [facility] in January 2019 and would like to go there again. CM verified a second time that she refuses to go to [facility] and she agrees that she does not want to go. CM attempted to see the patient in order to obtain signature for DARRIAN, but was in HD. CM obtained the signature of for DARRIAN. DCP- Discharge Planning Updated by [id number]: Elise Mejia on 11/04/19 3:[address] Cm received call from Nikki at [facility] stating they do not have any beds available. CM called and left a message for Clifford at [facility] [place] to return a call about referral. CM spoke with patient and updated update. Patient has agreed to allow CM to send referral to [facility], CM anticipated a PASR, and started DARRIAN.CM called Rissa at [phone] at [facility]. Rissa states they have bed openings, will accept pt insurance, and can accept a pt on dialysis. CM faxed referral, and stated a DARRIAN has been initiated. CM will continue to assist as needed. Elise Mejia DCP- Discharge Planning Updated by [id number]: Elise Mejia on 11/04/19 11:[address] Patient Name: DILIP FAYE Encounter No: [id number] : 1960 Primary Insurance: [employer] CHOICE PPO [facility] ADVANT Anticipated DC Date: Planned Disposition: External Planned Provider: : DCP follow-up note: CM spoke with pt about SNF for rehab. Pt in agreement with custodial for rehab. Pt choices were for , [facility], [facility], and then [facility] [place]. CM called Renetta at [facility] about referral. Renetta states they do not accept dialysis patients at this time. Cm called Nikki at [facility] at [phone] about referral. CM left message and faxed referral. Will await return call. Patient and family in agreement with discharge plan. Case management will follow and assist as needed. Elise Mejia DCP- Discharge Planning Updated by [id number]: Elise Mejia on 10/31/19 1:[address] Patient Name: DILIP FAYE Admission Status: ER Accout number: [id number] Admission Date: 10-23-2019 : 1960 Admission Diagnosis:FRACTURE OF UNSP PART OF NECK OF UNSP FEMUR, INIT Attending: NICHOLE BIRCH Current LOS: 8 Anticipated DC Date: Planned Disposition: Primary Insurance: [employer] CHOICE PPO MCR ADVANT Discharge Planning Comments: CM spoke with Kath in IP rehab. The auth was canceled, and Lakisha will determine if a new auth will be required. Kath states they do not have any available beds and will consider her for admit on Sunday if the insurance auth is completed. CM will continue to assist in DC planning/needs. [employer] Agent: Elise Mejia DCP- Discharge Planning Updated by [id number]: Elise Mejia on 10/31/19 1:[address] Patient Name: DILIP FAYE Admission Status: ER Accout number: [id number] Admission Date: 10-23-2019 : 1960 Admission Diagnosis:FRACTURE OF UNSP PART OF NECK OF UNSP FEMUR, INIT Attending: NICHOLE BIRCH Current LOS: 8 Anticipated DC Date: Planned Disposition: Primary Insurance: [employer] CHO[employer] PPO MCR ADVANT Late entry assessment completed 10/30/19 Discharge Planning Comments: CM met with patient to complete initial dc planning assessment. CM educated patient on the CM role and verbal consent given by patient to complete assessment. CM verified patient's address, phone number, and emergency contact phone numbers. Patient lives with her God child's parents. . At discharge patient plans to return home and feels this is a safe discharge. Pt states since her last admit, she has fallen and fractured her hip. States she would like to go to [facility] Ip rehab. MANUELITO signed. CM discussed availability of home health, rehab services, and medical equipment. Patient states she has a walker, and would like HH with PT at discharge after IP rehab. Patient denies other known discharge needs at this time.CM will continue to follow and will assist as needed with dc plans/needs. [employer] Agent: Elise Mejia Coverage Notice Reviewer: [id number] Gunnar Mejia Notice Issued Date-Time: 10/31/2019 14:10 Notice Type: Patient Choice Letter Notice Delivered To: Patient Relationship to Patient: Self Customer Trainer Name: Delivery Method: HAND - Hand Delivered Darlene Days: Prior Verbal Notification: Recipient Understood Notice: Yes Recipient Signature: Yes Med Rec Note Co-signed by Attending: Coverage Notice Comment: manuelito for ip rehab at [facility] Reviewer: [id number] Gunnar Mejia Notice Issued Date-Time: 11/04/2019 11:25 Notice Type: Patient Choice Letter Notice Delivered To: Patient Relationship to Patient: Self Customer Trainer Name: Delivery Method: HAND - Hand Delivered Darlene Days: Prior Verbal Notification: Recipient Understood Notice: Yes Recipient Signature: Yes Med Rec Note Co-signed by Attending: Coverage Notice Comment: liliana [facility] [place], [place] Reviewer: [id number] Gunnar Mejia Notice Issued Date-Time: 11/06/2019 10:30 Notice Type: Patient Choice Letter Notice Delivered To: Patient Relationship to Patient: Self Customer Trainer Name: Delivery Method: HAND - Hand Delivered Darlene Days: Prior Verbal Notification: Recipient Understood Notice: Yes Recipient Signature: Yes Med Rec Note Co-signed by Attending: Coverage Notice Comment: decl[facility] SNF, wants IP rehab at [facility]. If not able to get into rehab pt wants to go home with [facility] with PT. Reviewer: [id number] Gunnar Mejia Notice Issued Date-Time: 11/07/2019 8:20 Notice Type: Patient Choice Letter Notice Delivered To: Patient Relationship to Patient: Self Customer Trainer Name: Delivery Method: HAND - Hand Delivered Darlene Days: Prior Verbal Notification: Recipient Understood Notice: Yes Recipient Signature: Yes Med Rec Note Co-signed by Attending: Coverage Notice Comment: [email or web address] Reviewer: [id number] Gunnar Mejia Notice Issued Date-Time: 11/07/2019 14:50 Notice Type: IM Discharge Notice Notice Delivered To: Patient Relationship to Patient: Self Customer Trainer Name: Delivery Method: HAND - Hand Delivered Darlene Days: Prior Verbal Notification: Recipient Understood Notice: Yes Recipient Signature: Yes Med Rec Note Co-signed by Attending: Coverage Notice Comment: DC IMM delivered, explained, signed by the patient, and placed in chart. Signed form also left with the patient. Reviewer: [id number] Gunnar Mejia Notice Issued Date-Time: 11/10/2019 12:20 Notice Type: IM Discharge Notice Notice Delivered To: Patient Relationship to Patient: Self Customer Trainer Name: Delivery Method: HAND - Hand Delivered Darlene Days: Prior Verbal Notification: Yes Recipient Understood Notice: Recipient Signature: Med Rec Note Co-signed by Attending: Coverage Notice Comment: DELIVERED VIA NURSE. PT IN CONTACT ISOLATION. CM SPOKE WITH PT TO PROVIDE EXPLANATION OF MCR DC RIGHTS Last DP export: 11/10/19 11:52 a Patient Name: DILIP FAYE Page [id number] at 1608 All edits/amendments must be made on the electronic document DICTATION DATE: 11/11/191606 HUMANITIES PROFESSOR: DUY 11/11/191606 RPT#: [id number] DC DATE:11/11/19 STATUS: DIS IN [facility] [address] [place] [address] END OF REPORT
--- NOTE | 2019-11-12 09:14 | MORECARE ---
CASE MANAGEMENT DISCHARGE SUMMARY PATIENT: DILIP FAYE UNIT: [id number] ADM DATE: 10/23/19 AGE: 59 : 58 SEX: F ROOM/BED: D.8466 AUTHOR: ADELIADOC PHYSICIAN: REFERRING PHYSICIAN: NICHOLE BIRCH MD DATE OF SERVICE: 11/12/19 Discharge Plan Patient Name: DILIP FAYE Facility: [facility]:[place] : 1960 Planned Disposition: Anticipated Discharge Date: Discharge Date: 11/11/2019 Expected LOS: Initial Reviewer: [id number] Initial Review Date: 10/23/2019 Generated: 11/12/19 10:13 am Comments DCP- Discharge Planning Updated by [email or web address]: Elise Mejia on 11/11/19 3:[address] CM received call from Rissa at [facility] [phone] stating that transport was unable to garbage pick up man the patient yesterday. CM asked if the facility could provide transport today or would the patient need to go by EMS. Rissa states she needed to call [employer] to see if the auth is still good. Rissa called back and stated the fan is on the way to garbage pick up man the patient. Nursing can call report to Leland at [phone]. Elise Mejia MSN,RN, DCP- Discharge Planning Updated by [id number]: Elise Mejia on 11/10/19 11:[address] Patient Name: DILIP FAYE Encounter No: [id number] : 1960 Primary Insurance: [employer] CHO[employer] PPO [employer] ADVANT Anticipated DC Date: Planned Disposition: External Planned Provider: : DCP follow-up note: CM received call from Rissa at [facility] [phone] who states they have received auth from ins, and they will accept her today. The patient will be admitted into a [facility] bed. CM spoke with MIKAEL Saul who states the admission paperwork will need to be completed prior to transporting pt to the facility. Dorys states she will call CM with bed disposition, and who report will be called to. Patient and family in agreement with discharge plan. Updated orders and requested information faxed to SNF. SNF phone number and contact information given to patient \family. Patient will be transported by [facility]. Elise Mejia DCP- Discharge Planning Updated by [id number]: Elise Mejia on 11/07/19 10:[address] FAXED NON PASSAR TO RISSA AT [facility]. ELISE MEJIA DCP- Discharge Planning Updated by [id number]: Elise Mejia on 11/07/19 8:[address] Patient Name: DILIP AFYE Encounter No: [id number] : 1960 Primary Insurance: [employer] [facility] ADVANT Anticipated DC Date: Planned Disposition: External Planned Provider: : DCP follow-up note: CM met with pt to discuss dc plan. Pt tearful states she needs a few more days to decide. Cm stated she is ready for DC and she needed to make a decision. Cm discussed options of going home with home health, and also SNF. Pt tearful. States she can't walk great and she knows she needs rehab, but she just did not want to go to a fdc. Pt is in agreement for [facility]. MANUELITO signed for [facility]. Darrian signed and faxed. CM Called Rissa at [facility] at [phone] about referral and faxed clinicals. Case management will follow and assist as needed. Elise Mejia MSN,RN,CM DCP- Discharge Planning Updated by [id number]: Elise Mejia on 11/06/19 1:[address] Patient Name: DILIP FAYE Encounter No: [id number] : 1960 Primary Insurance: [employer] [facility] ADVANT Anticipated DC Date: Planned Disposition: External Planned Provider: : DCP follow-up note: CM met with pt about SNF rehab. Pt tearful. States she isn't sure what she needs to do. Asks if she can think about it tonight. CM provided emotional support. No changes to plan. Case management will follow and assist as needed. Elise Mejia DCP- Discharge Planning Updated by [id number]: Elise Mejia on 11/06/19 1:[address] Patient Name: DILIP FAYE Admission Status: ER Accout number: [id number] Admission Date: 10-23-2019 : 1960 Admission Diagnosis:FRACTURE OF UNSP PART OF NECK OF UNSP FEMUR, INIT Attending: NICHOLE BIRCH Current LOS: 14 Anticipated DC Date: Planned Disposition: Primary Insurance: [employer] CHOICE O MCR ADVANT Discharge Planning Comments: The denial for IP rehab stands per Annalee OLEARY. CM attempted to speak with pt about her plan for rehab, but pt in restroom. CM will continue assisting pt in DC planning/needs. Elise Mejia Finance Insurance Manager: Elise Mejia DCP- Discharge Planning Updated by [id number]: Elise Mejia on 11/06/19 9:[address] CM met with pt about rehab. Pt tearful. States she does not want to go to a fdc. States if she can not get into IP rehab at [facility] she will just go home. CM states she will schedule a P2P for the doctor. Pt states if insurance will not authorize IP rehab at [facility] she will go home with [facility]. MANUELITO signed declining any SNF. Pt authorized IP rehab at [facility] and [facility] with Pt. Elise Mejia DCP- Discharge Planning Updated by [id number]: Karina Olguinlroy on 11/05/19 5:[address] 1700: Patient has returned from HD. CM met with patient in order to sign DARRIAN. Patient is tearful and refuses to sign DARRIAN. Patient states that she after she spoke with friends, she does not want to go to [facility]. Patient states she has been to [facility] in January 2019 and would like to go there again. CM verified a second time that she refuses to go to [facility] and she agrees that she does not want to go. CM attempted to see the patient in order to obtain signature for DARRIAN, but was in HD. CM obtained the signature of for DARRIAN. DCP- Discharge Planning Updated by [id number]: Elise Mejia on 11/04/19 3:[address] Cm received call from Nikki at [facility] stating they do not have any beds available. CM called and left a message for Clifford at [facility] to return a call about referral. CM spoke with patient and updated update. Patient has agreed to allow CM to send referral to [facility], CM anticipated a PASR, and started DARRIAN.CM called Rissa at [phone] at [facility]. Rissa states they have bed openings, will accept pt insurance, and can accept a pt on dialysis. CM faxed referral, and stated a DARRIAN has been initiated. CM will continue to assist as needed. Elise Mejia DCP- Discharge Planning Updated by [email or web address]: Elise Mejia on 11/04/19 11:[address] Patient Name: DILIP FAYE Encounter No: [id number] : 1960 Primary Insurance: [employer] CHOICE PPO [facility] ADVANT Anticipated DC Date: Planned Disposition: External Planned Provider: : DCP follow-up note: CM spoke with pt about SNF for rehab. Pt in agreement with senior living for rehab. Pt choices were for , [facility], [facility], and then [facility]. CM called Renetta at [facility] about referral. Renetta states they do not accept dialysis patients at this time. Cm called Nikki at [facility] at [phone] about referral. CM left message and faxed referral. Will await return call. Patient and family in agreement with discharge plan. Case management will follow and assist as needed. Elise Mejia DCP- Discharge Planning Updated by [id number]: Elise Mejia on 10/31/19 1:[address] Patient Name: DILIP FAYE Admission Status: ER Accout number: [id number] Admission Date: 10-23-2019 : 1960 Admission Diagnosis:FRACTURE OF UNSP PART OF NECK OF UNSP FEMUR, INIT Attending: NICHOLE BIRCH Current LOS: 8 Anticipated DC Date: Planned Disposition: Primary Insurance: [employer] CHO[employer] PPO M[employer] ADVANT Discharge Planning Comments: CM spoke with Kath in IP rehab. The auth was canceled, and Lakisha will determine if a new auth will be required. Kath states they do not have any available beds and will consider her for admit on Sunday if the insurance auth is completed. CM will continue to assist in DC planning/needs. Finance Insurance Manager: Elise Mejia DCP- Discharge Planning Updated by [email or web address]: Elise Mejia on 10/31/19 1:[address] Patient Name: DILIP FAYE Admission Status: ER Accout number: [id number] Admission Date: 10-23-2019 : 1960 Admission Diagnosis:FRACTURE OF UNSP PART OF NECK OF UNSP FEMUR, INIT Attending: NICHOLE BIRCH Current LOS: 8 Anticipated DC Date: Planned Disposition: Primary Insurance: [employer] CHO[employer] PPO M[employer] ADVANT Late entry assessment completed 10/30/19 Discharge Planning Comments: CM met with patient to complete initial dc planning assessment. CM educated patient on the CM role and verbal consent given by patient to complete assessment. CM verified patient's address, phone number, and emergency contact phone numbers. Patient lives with her God child's parents. . At discharge patient plans to return home and feels this is a safe discharge. Pt states since her last admit, she has fallen and fractured her hip. States she would like to go to [facility] Ip rehab. MANUELITO signed. CM discussed availability of home health, rehab services, and medical equipment. Patient states she has a walker, and would like HH with PT at discharge after IP rehab. Patient denies other known discharge needs at this time.CM will continue to follow and will assist as needed with dc plans/needs. Finance Insurance Manager: Elise Mejia Coverage Notice Reviewer: [id number] Gunnar Mejia Notice Issued Date-Time: 10/31/2019 14:10 Notice Type: Patient Choice Letter Notice Delivered To: Patient Relationship to Patient: Self Adult Ministries Director Name: Delivery Method: HAND - Hand Delivered Darlene Days: Prior Verbal Notification: Recipient Understood Notice: Yes Recipient Signature: Yes Med Rec Note Co-signed by Attending: Coverage Notice Comment: manuelito for ip rehab at [facility] Reviewer: [id number] Gunnar Mejia Notice Issued Date-Time: 11/04/2019 11:25 Notice Type: Patient Choice Letter Notice Delivered To: Patient Relationship to Patient: Self Adult Ministries Director Name: Delivery Method: HAND - Hand Delivered Darlene Days: Prior Verbal Notification: Recipient Understood Notice: Yes Recipient Signature: Yes Med Rec Note Co-signed by Attending: Coverage Notice Comment: liliana [place], [place] Reviewer: [id number] Gunnar Mejia Notice Issued Date-Time: 11/06/2019 10:30 Notice Type: Patient Choice Letter Notice Delivered To: Patient Relationship to Patient: Self Adult Ministries Director Name: Delivery Method: HAND - Hand Delivered Darlene Days: Prior Verbal Notification: Recipient Understood Notice: Yes Recipient Signature: Yes Med Rec Note Co-signed by Attending: Coverage Notice Comment: declinied SNF, wants IP rehab at [facility]. If not able to get into rehab pt wants to go home with [facility] with PT. Reviewer: [id number] Gunnar Mejia Notice Issued Date-Time: 11/07/2019 8:20 Notice Type: Patient Choice Letter Notice Delivered To: Patient Relationship to Patient: Self Adult Ministries Director Name: Delivery Method: HAND - Hand Delivered Darlene Days: Prior Verbal Notification: Recipient Understood Notice: Yes Recipient Signature: Yes Med Rec Note Co-signed by Attending: Coverage Notice Comment: [email or web address] Reviewer: [id number] Gunnar Mejia Notice Issued Date-Time: 11/07/2019 14:50 Notice Type: IM Discharge Notice Notice Delivered To: Patient Relationship to Patient: Self Adult Ministries Director Name: Delivery Method: HAND - Hand Delivered Darlene Days: Prior Verbal Notification: Recipient Understood Notice: Yes Recipient Signature: Yes Med Rec Note Co-signed by Attending: Coverage Notice Comment: DC IMM delivered, explained, signed by the patient, and placed in chart. Signed form also left with the patient. Reviewer: [id number] Gunnar Mejia Notice Issued Date-Time: 11/10/2019 12:20 Notice Type: IM Discharge Notice Notice Delivered To: Patient Relationship to Patient: Self Adult Ministries Director Name: Delivery Method: HAND - Hand Delivered Darlene Days: Prior Verbal Notification: Yes Recipient Understood Notice: Recipient Signature: Med Rec Note Co-signed by Attending: Coverage Notice Comment: DELIVERED VIA NURSE. PT IN CONTACT ISOLATION. CM SPOKE WITH PT TO PROVIDE EXPLANATION OF MCR DC RIGHTS Last DP export: 11/11/19 3:08 p Patient Name: DILIP FAYE Page [id number] at 0914 All edits/amendments must be made on the electronic document DICTATION DATE: 11/12/19912 CRAYON PAINTER: DUY 11/12/19912 RPT#: [id number] DC DATE:11/11/19 STATUS: DIS IN [facility] [address] [place] [address] END OF REPORT
== END 2019-11-11 09:45 | DRG 480 ==
LOC: D.ER 16:11 → D.M2 18:01 → D.MS 18:01 → D.M2 10-27 18:09
PROVIDERS: Family Medicine; Internal Medicine; Internal Medicine Cardiovascular Disease; Internal Medicine Nephrology; Orthopaedic Surgery; ADMIT Emergency Medicine; ATTEND Emergency Medicine
PROC: 0QS634Z Reposition Right Upper Femur with Internal Fixation Device, Percutaneous Approach (ICD-10-PCS; principal; 2019-10-24 15:15)
PROC: B2181ZZ Fluoroscopy of Left Internal Mammary Bypass Graft using Low Osmolar Contrast (ICD-10-PCS; 2019-10-29)
PROC: B2151ZZ Fluoroscopy of Left Heart using Low Osmolar Contrast (ICD-10-PCS; 2019-10-29)
PROC: B2121ZZ Fluoroscopy of Single Coronary Artery Bypass Graft using Low Osmolar Contrast (ICD-10-PCS; 2019-10-29)
PROC: 4A023N7 Measurement of Cardiac Sampling and Pressure, Left Heart, Percutaneous Approach (ICD-10-PCS; 2019-10-29)
PROC: 027034Z Dilation of Coronary Artery, One Artery with Drug-eluting Intraluminal Device, Percutaneous Approach (ICD-10-PCS; 2019-10-29 12:30)
DX: S72.141A Displaced intertrochanteric fracture of right femur, initial encounter for closed fracture (principal); N18.6 End stage renal disease; I13.2 Hypertensive heart and chronic kidney disease with heart failure and with stage 5 chronic kidney disease, or end stage renal disease; E87.1 Hypo-osmolality and hyponatremia; I47.2 Ventricular tachycardia; N39.0 Urinary tract infection, site not specified; G72.81 Critical illness myopathy; I50.32 Chronic diastolic (congestive) heart failure; W19.XXXA Unspecified fall, initial encounter; E11.22 Type 2 diabetes mellitus with diabetic chronic kidney disease; Z99.2 Dependence on renal dialysis; I25.5 Ischemic cardiomyopathy; E78.5 Hyperlipidemia, unspecified; I25.10 Atherosclerotic heart disease of native coronary artery without angina pectoris; D64.9 Anemia, unspecified; I73.9 Peripheral vascular disease, unspecified; F41.8 Other specified anxiety disorders; M19.90 Unspecified osteoarthritis, unspecified site

== ENCOUNTER 2019-11-16 13:09 | Emergency (ER) | payer MEDICARE ==
[~2019-11-16] VITALS: Ht 170.2 cm; Wt 88.6 kg
[~2019-11-16 13:09] MED LIST changes: +PERCOCET 10-321 EAC1 PO; +ZYVOX600 MG PO
[2019-11-16 13:13] VITALS: Ht 170.2 cm; Wt 88.6 kg
[2019-11-16 13:51] LABS: BASOPHILS 0 % (0-2); EOSINOPHILS 1.3 % (0-7); HEMOGLOBIN 8.1 g/dL (12-16); IMMATURE GRANULOCYTES 0.2 % (0-5); LYMPHOCYTES 22.1 % (15-50); MEAN PLATELET VOLUME 9.6 fL (7.4-10.4); MONOCYTES 3.4 % (2-11); RDW 17.5 % (11.5-14.5); WBC 4.7 10x3/uL (4.8-10.8)
[2019-11-16 13:53] LABS: PLATELET COUNT 92 10x3/uL (130-400)
[2019-11-16 13:59] LABS: ANION GAP 11.5 mmol/L (8-16); CALCIUM 8.3 mg/dL (8.5-10.1); CARBON DIOXIDE 27.1 mmol/L (21.0-32.0); CREATININE - SERUM 6.2 mg/dL (0.6-1.3); POTASSIUM - SERUM 4.6 mmol/L (3.5-5.1)
[2019-11-16 14:06] LABS: BILIRUBIN - TOTAL 0.55 mg/dL (0.2-1.3); PROTEIN - SERUM 5.3 g/dL (6.4-8.2)
[2019-11-16 14:08] LABS: PLATELET ESTIMATE NORMAL
[2019-11-16 14:34] VITALS: BP 122/54
== END 2019-11-16 14:36 ==
LOC: D.ER 13:09
PROVIDERS: Family Medicine
DX: Z13.9 Encounter for screening, unspecified (principal); E11.9 Type 2 diabetes mellitus without complications; Z79.4 Long term (current) use of insulin; I10 Essential (primary) hypertension; Z95.5 Presence of coronary angioplasty implant and graft; Z95.1 Presence of aortocoronary bypass graft; I25.10 Atherosclerotic heart disease of native coronary artery without angina pectoris; N18.6 End stage renal disease; Z99.2 Dependence on renal dialysis